=== PATIENT | female | born 1990 | race Caucasian/White ===

== ENCOUNTER 2018-03-21 13:28 | Emergency (ER) | payer MEDICAID ==
--- NOTE | 2018-03-21 13:54 | EDM.PDOC ---
ED HPI GENERAL MEDICAL PROBLEM - General Chief Complaint: Abdominal Pain Stated Complaint: RT SIDE HURTS Time Seen by Provider: 03/21/18 13:54 Source of Information: Reports: Patient History Limitations: Reports: No Limitations - History of Present Illness INITIAL COMMENTS - FREE TEXT/NARRATIVE: HISTORY AND PHYSICAL: History of present illness: Patient is a 27-year-old female here with complaint of RUQ pain. She states she had her gallbladder removed on 03/01 in [place], she reports it felt better for a little while but states pain came back as if she never had it removed. She has been nausea and vomited a couple of times today and has had diarrhea. She states the pain is constant but worse after she eats. She denies any fevers, chills, chest pain, shortness of breath. Review of systems: As per history of present illness and below otherwise all systems reviewed and negative. Past medical history: As per history of present illness and as reviewed below otherwise noncontributory. Surgical history: As per history of present illness and as reviewed below otherwise noncontributory. Social history: No reported history of drug or alcohol abuse. Family history: As per history of present illness and as reviewed below otherwise noncontributory. Physical exam: General: Patient sitting comfortably in no acute distress and nontoxic appearing HEENT: Atraumatic, normocephalic, pupils reactive, negative for conjunctival pallor or scleral icterus, mucous membranes moist, throat clear, neck supple, nontender, trachea midline. No meningeal signs. Lungs: Clear to auscultation, breath sounds equal bilaterally, chest nontender. Heart: S1S2, regular, negative for clicks, rubs, or overt murmur. Abdomen: RUQ pain on palpation. Soft, nondistended. Negative for masses or hepatosplenomegaly. Right CVA tenderness. Pelvis: Stable nontender. Genitourinary: Deferred. Rectal: Deferred. Extremities: Atraumatic, negative for cords or calf pain. Neurovascular unremarkable. Neuro: Awake, alert, oriented. Cranial nerves II through XII unremarkable. Cerebellum unremarkable. Motor and sensory unremarkable throughout. Exam nonfocal. Notes: Diagnostics: CBC, CMP, lipase, UA, UC, CT scan Therapeutics: None Prescriptions: Cipro 500mg Impression: Pyelonephritis Plan: 1. Take antibiotic as instructed. Drink plenty of fluids. 2. Follow up with primary care provider, please call number provider to schedule appointment. 3. Return to ED as needed as discussed Definitive disposition and diagnosis as appropriate pending reevaluation and review of above. Right Abdomen Pain Score (Numeric/FACES): 8 - Related Data Allergies Allergy/AdvReac Type Severity Reaction Status Date / Time codeine Allergy Hives Verified 03/21/18 13:52 metronidazole [From Flagyl] Allergy Hives Verified 03/21/18 13:52 morphine Allergy Airway Verified 03/21/18 13:52 Tightness Penicillins Allergy Hives Verified 03/21/18 13:52 Sulfa (Sulfonamide Allergy Hives Verified 03/21/18 13:52 Antibiotics) Home Meds: Home Meds Cetirizine [ZyrTEC] 10 mg PO DAILY 03/21/18 [History] Ciprofloxacin HCl [Cipro] 500 mg PO BID 7 Days #14 tablet 03/21/18 [Rx] Ferrous Sulfate [Iron] 1 tab PO DAILY 03/21/18 [History] Lisinopril 10 mg PO DAILY 03/21/18 [History] Metoprolol Succinate 25 mg PO DAILY 03/21/18 [History] Montelukast [Singulair] 10 mg PO DAILY 03/21/18 [History] Omeprazole 20 mg PO DAILY 03/21/18 [History] Sertraline HCl [Zoloft] 200 mg PO DAILY 03/21/18 [History] Warfarin [Coumadin] 5 mg PO DAILY 03/21/18 [History] ED ROS GENERAL - Review of Systems Review Of Systems: ROS reveals no pertinent complaints other than HPI. ED EXAM, GI/ABD - Physical Exam Exam: See Below (see dictation) Course - Vital Signs Last Recorded V/S: Last Vital Signs Temp 36.8 C 03/21/18 13:46 Pulse 79 03/21/18 16:59 Resp 16 03/21/18 13:46 BP 128/86 03/21/18 16:59 Pulse Ox 99 03/21/18 16:59 - Orders/Labs/Meds Orders: Active Orders 24 hr Category Date Time Status CULTURE URINE [RM] Stat Lab 03/21/18 16:20 Received Labs: Laboratory Tests 03/21/18 03/21/18 03/21/18 Range/Units 14:20 14:20 16:20 WBC 14.25 H (4.0-11.0) K/uL RBC 4.00 L (4.30-5.90) M/uL Hgb 12.5 (12.0-16.0) g/dL Hct 37.6 (36.0-46.0) % MCV 94.0 (80.0-98.0) fL MCH 31.3 (27.0-32.0) pg MCHC 33.2 (31.0-37.0) g/dL RDW Std Deviation 46.0 (28.0-62.0) fl RDW Coeff of Lashay 13 (11.0-15.0) % Plt Count 266 (150-400) K/uL MPV 10.50 (7.40-12.00) fL Neut % (Auto) 71.7 (48.0-80.0) % Lymph % (Auto) 17.9 (16.0-40.0) % Hardin % (Auto) 6.2 (0.0-15.0) % Eos % (Auto) 4.1 (0.0-7.0) % Baso % (Auto) 0.1 (0.0-1.5) % Neut # (Auto) 10.2 H (1.4-5.7) K/uL Lymph # (Auto) 2.6 H (0.6-2.4) K/uL Hardin # (Auto) 0.9 H (0.0-0.8) K/uL Eos # (Auto) 0.6 (0.0-0.7) K/uL Baso # (Auto) 0.0 (0.0-0.1) K/uL Nucleated RBC % 0.0 /100WBC Nucleated RBCs # 0 K/uL Sodium 139 (136-145) mmol/L Potassium 4.2 (3.5-5.1) mmol/L Chloride 107 (98-107) mmol/L Carbon Dioxide 22.1 (21.0-32.0) mmol/L BUN 25 H (7.0-18.0) mg/dL Creatinine 0.7 (0.6-1.0) mg/dL Est Cr Clr Drug Dosing 98.98 mL/min Estimated GFR (MDRD) > 60.0 ml/min Glucose 135 H (74-106) mg/dL Calcium 8.5 (8.5-10.1) mg/dL Total Bilirubin 0.4 (0.2-1.0) mg/dL AST 6 L (15-37) IU/L ALT 18 (14-63) IU/L Alkaline Phosphatase 74 (46-116) U/L Total Protein 6.9 (6.4-8.2) g/dL Albumin 4.0 (3.4-5.0) g/dL Globulin 2.9 (2.0-3.5) g/dL Albumin/Globulin Ratio 1.4 (1.3-2.8) Lipase 121 (73-393) U/L Urine Color YELLOW Urine Appearance CLEAR Urine pH 6.0 (5.0-8.0) Ur Specific Reliance 1.015 (1.001-1.035) Urine Protein NEGATIVE (NEGATIVE) mg/dL Urine Glucose (UA) NEGATIVE (NEGATIVE) mg/dL Urine Ketones NEGATIVE (NEGATIVE) mg/dL Urine Occult Blood TRACE-LYSED (NEGATIVE) Urine Nitrite NEGATIVE (NEGATIVE) Urine Bilirubin NEGATIVE (NEGATIVE) Urine Urobilinogen 0.2 (<2.0) EU/dL Ur Leukocyte Esterase NEGATIVE (NEGATIVE) Urine RBC 1-2 (0-2/HPF) Urine WBC 0-1 (0-5/HPF) Ur Epithelial Cells RARE (NONE-FEW) Urine Bacteria RARE (NEGATIVE) Meds: Medications Discontinued Medications Generic Name Dose Route Start Last Admin Trade Name Freq PRN Reason Stop Dose Admin Sodium Chloride 1,000 mls @ 999 mls/hr 03/21/18 13:59 03/21/18 15:29 Normal Saline IV 03/21/18 14:59 999 mls/hr STAT ONE Administration Departure - Departure Time of Disposition: 17:09 Disposition: Home, Self-Care 01 Condition: Good Clinical Impression: Pyelonephritis - Discharge Information Prescriptions: Ciprofloxacin HCl [Cipro] 500 mg PO BID 7 Days #14 tablet Referrals: PCP,None [Primary Care Provider] - Forms: ED Department Discharge Additional Instructions: The following information is given to patients seen in the emergency department who are being discharged to home. This information is to outline your options for follow-up care. We provide all patients seen in our emergency department with a follow-up referral. The need for follow-up, as well as the timing and circumstances, are variable depending upon the specifics of your emergency department visit. If you don't have a primary care physician on staff, we will provide you with a referral. We always advise you to contact your personal physician following an emergency department visit to inform them of the circumstance of the visit and for follow-up with them and/or the need for any referrals to a consulting specialist. The emergency department will also refer you to a specialist when appropriate. This referral assures that you have the opportunity for follow-up care with a specialist. All of these measure are taken in an effort to provide you with optimal care, which includes your follow-up. Under all circumstances we always encourage you to contact your private physician who remains a resource for coordinating your care. When calling for follow-up care, please make the office aware that this follow-up is from your recent emergency room visit. If for any reason you are refused follow-up, please contact the [facility] Emergency Department at and asked to speak to the emergency department charge nurse. [facility] [address] [place] [address] [id number] [address] [address] 1. Take antibiotic as instructed. Drink plenty of fluids. 2. Follow up with primary care provider, please call number provider to schedule appointment. 3. Return to ED as needed as discussed - My Orders Last 24 Hours: My Active Orders 03/21/18 16:20 CULTURE URINE [RM] Stat - Assessment/Plan Last 24 Hours: My Active Orders 03/21/18 16:20 CULTURE URINE [RM] Stat
[2018-03-21] MEDS ORDERED: Sodium Chloride 0.9% 1,000 ML IV ONE (13:59)
[2018-03-21 14:50] LABS: CHLORIDE,CL 107 mmol/L (98-107); SODIUM,NA 139 mmol/L (136-145)
--- NOTE | 2018-03-21 16:12 | CT ---
CT of the abdomen and pelvis with contrast. HISTORY: Pain TECHNIQUE: Axial CT images were obtained of the abdomen and pelvis following administration of 100 mL of Isovue-370 in the right antecubital fossa without complication. Coronal and sagittal reconstructions obtained. FINDINGS: The lung bases are clear, no pleural effusion or pneumothorax. The liver, spleen, adrenal glands, and pancreas appear normal. Cholecystectomy clips are noted. No bulky retroperitoneal lymphadenopathy or abdominal ascites. There is mild heterogeneous enhancement of the kidneys bilaterally with a striated appearance. The large and small bowel are normal in caliber without evidence of obstruction. No focal pericolonic inflammation or stranding. There is an involuting cyst within the right ovary. Urinary bladder appears normal. No bulky pelvic lymphadenopathy or free pelvic fluid. No suspicious osseous abnormalities identified. IMPRESSION: 1. Striated appearance to the kidneys likely representing pyelonephritis. 2. Otherwise no acute findings noted within the abdomen or pelvis.
[2018-03-21] MEDS ORDERED: Iopamidol 755 MG/ML 500 ML Multipack Bottle IVPUSH STA (18:13)
== END 2018-03-21 17:20 | disposition home or self-care (01) ==
LOC: MW.ED 13:28
DX: N12 Tubulo-interstitial nephritis, not specified as acute or chronic (principal); Z88.5 Allergy status to narcotic agent; Z88.2 Allergy status to sulfonamides; Z88.0 Allergy status to penicillin; Z79.899 Other long term (current) drug therapy
CPT/HCPCS: 36415; 74177; 80053; 81001; 83690; 85025; 87086; 96360; 99284; J7040; Q9967

== ENCOUNTER 2018-06-27 21:07 | Emergency (ER) | payer MEDICAID ==
--- NOTE | 2018-06-27 21:31 | EDM.PDOC ---
<Thais Chan - Last Filed: 06/27/18 22:00> ED HPI GENERAL MEDICAL PROBLEM - General Chief Complaint: Back Pain or Injury Stated Complaint: RIGHT HIP PAIN AND BACK PAIN Time Seen by Provider: 06/27/18 21:25 Source of Information: Reports: Patient History Limitations: Reports: No Limitations - History of Present Illness INITIAL COMMENTS - FREE TEXT/NARRATIVE: HISTORY AND PHYSICAL: History of present illness: Patient is a 27-year-old female here with complaint of low back and right hip pain. She states she fell on the ice 2 days ago landing on her right side. She has been taking tylenol at home without relief of symptoms. She denies saddle anesthesia, loss of bowel or bladder control, lower extremity weakness or foot drop. She denies hitting or head or LOC. Patient walked in to ED without any problems. Review of systems: As per history of present illness and below otherwise all systems reviewed and negative. Past medical history: As per history of present illness and as reviewed below otherwise noncontributory. Surgical history: As per history of present illness and as reviewed below otherwise noncontributory. Social history: No reported history of drug or alcohol abuse. Family history: As per history of present illness and as reviewed below otherwise noncontributory. Physical exam: General: Patient sitting comfortably in no acute distress and nontoxic appearing HEENT: Atraumatic, normocephalic, pupils reactive, negative for conjunctival pallor or scleral icterus, mucous membranes moist, throat clear, neck supple, nontender, trachea midline. No meningeal signs. Lungs: Clear to auscultation, breath sounds equal bilaterally, chest nontender. Heart: S1S2, regular, negative for clicks, rubs, or overt murmur. Abdomen: Soft, nondistended, nontender. Negative for masses or hepatosplenomegaly. Negative for costovertebral tenderness. Pelvis: Stable nontender. Genitourinary: Deferred. Rectal: Deferred. Spine: No vertebral tenderness or step offs to palpation. Right lumbar paraspinal and SI joint tenderness Extremities: Pain to palpation of right lateral hip. Normal ROM without pain. Lower extremity strength 5/5. Atraumatic, negative for cords or calf pain. Neurovascular unremarkable. Neuro: Awake, alert, oriented. Cranial nerves II through XII unremarkable. Cerebellum unremarkable. Motor and sensory unremarkable throughout. Exam nonfocal. Notes: Diagnostics: x-ray lumbar spine, x-ray right hip and pelvis Therapeutics: [place] 5/325mg PO Prescriptions: Impression: [] Plan: Signed out to Dr. Lopes at 2200 Definitive disposition and diagnosis as appropriate pending reevaluation and review of above. Right Back Pain Score (Numeric/FACES): 9 - Related Data Allergies Allergy/AdvReac Type Severity Reaction Status Date / Time codeine Allergy Hives Verified 06/27/18 21:20 metronidazole [From Flagyl] Allergy Hives Verified 06/27/18 21:20 morphine Allergy Airway Verified 06/27/18 21:20 Tightness Penicillins Allergy Hives Verified 06/27/18 21:20 Sulfa (Sulfonamide Allergy Hives Verified 06/27/18 21:20 Antibiotics) Home Meds: Home Meds Cetirizine [ZyrTEC] 10 mg PO DAILY 03/21/18 [History] Ferrous Sulfate [Iron] 1 tab PO DAILY 03/21/18 [History] Lisinopril 10 mg PO DAILY 03/21/18 [History] Metoprolol Succinate 25 mg PO DAILY 03/21/18 [History] Montelukast [Singulair] 10 mg PO DAILY 03/21/18 [History] Omeprazole 20 mg PO DAILY 03/21/18 [History] Sertraline HCl [Zoloft] 200 mg PO DAILY 03/21/18 [History] Warfarin [Coumadin] 5 mg PO DAILY 03/21/18 [History] Past Medical History Cardiovascular 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: Hypertension Respiratory 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: Asthma Other Respiratory History: PE Other CHILD MONITOR History: tubal ligation Psychiatric 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: Depression - Infectious Disease History Infectious Disease 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: Chicken Pox - Past Surgical History GI Surgical 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: Appendectomy, Cholecystectomy Social & Family History - Family History Family Medical History: Noncontributory - Caffeine Use Caffeine Use: Reports: Coffee ED ROS GENERAL - Review of Systems Review Of Systems: ROS reveals no pertinent complaints other than HPI. ED EXAM,LOWER BACK PAIN/INJURY - Physical Exam Exam: See Below (see dictation) Course - Vital Signs Last Recorded V/S: Last Vital Signs Temp 36.6 C 06/27/18 21:18 Pulse 88 06/27/18 21:18 Resp 16 06/27/18 21:18 BP 139/89 06/27/18 21:18 Pulse Ox 99 06/27/18 21:18 - Orders/Labs/Meds Orders: Active Orders 24 hr Category Date Time Status Hip Min 2V or 3V w Pelvis Rt [CR] Stat Exams 06/27/18 21:26 Taken Lumbar Spine 2 or 3V [CR] Stat Exams 06/27/18 21:26 Taken Meds: Medications Discontinued Medications Generic Name Dose Route Start Last Admin Trade Name Darshana PRN Reason Stop Dose Admin Hydrocodone Bitart/Acetaminophen 1 tab 06/27/18 21:42 06/27/18 22:07 [place] 325-5 Mg PO 06/27/18 21:43 1 tab ONETIME ONE Administration Departure - Departure Disposition: Home, Self-Care 01 Clinical Impression: Fall Qualifiers: Encounter type: initial encounter Qualified Code(s): W19.XXXA - Unspecified fall, initial encounter Back contusion Qualifiers: Encounter type: initial encounter Laterality: unspecified laterality Qualified Code(s): S20.229A - Contusion of unspecified back wall of thorax, initial encounter Contusion, hip Qualifiers: Encounter type: initial encounter Laterality: right Qualified Code(s): S70.01XA - Contusion of right hip, initial encounter - Discharge Information Referrals: PCP,None [Primary Care Provider] - Forms: ED Department Discharge Additional Instructions: The following information is given to patients seen in the emergency department who are being discharged to home. This information is to outline your options for follow-up care. We provide all patients seen in our emergency department with a follow-up referral. The need for follow-up, as well as the timing and circumstances, are variable depending upon the specifics of your emergency department visit. If you don't have a primary care physician on staff, we will provide you with a referral. We always advise you to contact your personal physician following an emergency department visit to inform them of the circumstance of the visit and for follow-up with them and/or the need for any referrals to a consulting specialist. The emergency department will also refer you to a specialist when appropriate. This referral assures that you have the opportunity for followup care with a specialist. All of these measure are taken in an effort to provide you with optimal care, which includes your followup. Under all circumstances we always encourage you to contact your private physician who remains a resource for coordinating your care. When calling for followup care, please make the office aware that this follow-up is from your recent emergency room visit. If for any reason you are refused follow-up, please contact the [facility] emergency department at and ask to speak to the emergency department charge nurse. [facility] Primary care- Internal Medicine and Family [address] [address] Use ice to all areas of pain and use [id number] meds as you choose as well as any topicals to assist with pain management. Expect pain for the next several days and then it should slowly improve. Try to stretch and move the areas to keep all the muscles open. Please schedule follow-up with your provider in the clinic for the benign lesion that was seen in the bone of your right femur. This does not need emergent follow-up but should be evaluated in the clinic. Return to ER as needed and as discussed <Haley Lopes - Last Filed: 06/27/18 22:35> ED HPI GENERAL MEDICAL PROBLEM - History of Present Illness INITIAL COMMENTS - FREE TEXT/NARRATIVE: X-rays have been reviewed and the sclerotic lesion in the femoral neck has been discussed with the patient for outpatient follow-up. Impression: Fall with right hip and back contusions ED ROS GENERAL - Review of Systems Review Of Systems: ROS reveals no pertinent complaints other than HPI. Departure - Departure Time of Disposition: 22:33 Condition: Good
[2018-06-27] MEDS ORDERED: Acetaminophen/HYDROcodone 325-5 MG Tab PO ONE (21:42)
--- NOTE | 2018-06-30 15:09 | CR ---
EXAM DATE: 06/27/18 PATIENT'S AGE: 27 Patient: JAYLEN BUTTS Facility: [place], [place] Site . Site : 1990 Study: XRay Hip Right +Pelvis [id number]/[id number] 10:06:12 PM Ordering Physician: Doctor Correa Final Report: Indication: Pain Technique: Frontal view pelvis, two-view right hip Comparison: None Findings: Bones: Alignment is normal. No fractures. There is a 1.4 cm sclerotic lesion in the right femoral neck. Joint spaces: Unremarkable. Soft tissues: Surgical clips project over the pelvis. Impression: No acute abnormality. Sclerotic lesion in the right femoral neck. Although this could represent a benign bone island, if the patient`s pain persists recommend nuclear medicine bone scan for further characterization. Dictated by Carrie Stearns MD @ Jun 27 2018 10:09PM (Electronic Signature) Report Signed by Proxy. BOO
--- NOTE | 2018-06-30 15:23 | CR ---
EXAM DATE: 06/27/18 PATIENT'S AGE: 27 Patient: JAYLEN BUTTS Facility: [place], [place] Site . Site : 1990 Study: XRay Spine Lumbar [id number] 10:21:37 PM Ordering Physician: Doctor Correa Final Report: INDICATION: Back pain TECHNIQUE: Lumbar spine 3 view COMPARISON: None FINDINGS: Bones: Alignment is normal. No fractures or significant bone lesions. Joints: Disc spaces and facets are unremarkable. Soft tissues: Unremarkable. IMPRESSION: Unremarkable lumbar spine. Dictated by Husam Crews MD @ Jun 27 2018 10:30PM (Electronic Signature) Report Signed by Proxy. BOO
== END 2018-06-27 22:52 | disposition home or self-care (01) ==
LOC: MW.ED 21:07
DX: S70.01XA Contusion of right hip, initial encounter (principal); S20.221A Contusion of right back wall of thorax, initial encounter; I10 Essential (primary) hypertension; J45.909 Unspecified asthma, uncomplicated; F32.9 Major depressive disorder, single episode, unspecified; Z79.899 Other long term (current) drug therapy; Z88.0 Allergy status to penicillin; Z88.2 Allergy status to sulfonamides; Z88.5 Allergy status to narcotic agent; Z88.8 Allergy status to other drugs, medicaments and biological substances; Z79.01 Long term (current) use of anticoagulants; W00.0XXA Fall on same level due to ice and snow, initial encounter
CPT/HCPCS: 72100; 73502; 99283; A9270

== ENCOUNTER 2018-07-05 20:28 | Emergency (ER) | payer MEDICAID ==
--- NOTE | 2018-07-05 20:36 | EDM.PDOC ---
ED HPI GENERAL MEDICAL PROBLEM - General Chief Complaint: Back Pain or Injury Stated Complaint: BACK PAIN Time Seen by Provider: 07/05/18 20:36 Source of Information: Reports: Patient History Limitations: Reports: No Limitations - History of Present Illness INITIAL COMMENTS - FREE TEXT/NARRATIVE: HISTORY AND PHYSICAL: History of present illness: Patient is a 27-year-old female who presents to the emergency room with complaints of lumbar back pain and pain into the right hip. She states yesterday she was walking and had slipped and fallen on her back/right hip. She denies hitting her head or any loss of consciousness. She states she did have back pain and hip pain at that time but was doing supportive care measures at home. Today while in the shower she had slipped on some soap and had fallen again onto her right hip. She states that she has increased pain. Denies any numbness or tingling to her distal extremities. Denies any urinary or fecal incontinence. Otherwise has no other medical concerns. Patient does take Coumadin for a blood caught that she had after delivery of her child, approximately 10 months ago. She states she has not had her PT/INR evaluated as [place] and did not have a primary care provider Review of systems: As per history of present illness and below otherwise all systems reviewed and negative. Past medical history: As per history of present illness and as reviewed below otherwise noncontributory. Surgical history: As per history of present illness and as reviewed below otherwise noncontributory. Social history: See social history for further information Family history: As per history of present illness and as reviewed below otherwise noncontributory. Physical exam: General: Well-developed and well nourished 27-year-old female. Alert and oriented. Nontoxic appearing and in no acute distress. HEENT: Atraumatic, normocephalic, pupils equal and reactive bilaterally, negative for conjunctival pallor or scleral icterus, mucous membranes moist, TMs normal bilaterally, throat clear, neck supple, nontender, trachea midline. No drooling or trismus noted. No meningeal signs. No hot potato voice noted. Lungs: Clear to auscultation, breath sounds equal bilaterally, chest nontender. Heart: S1S2, regular rate and rhythm without overt murmur Abdomen: Soft, nondistended, nontender. Negative for masses or hepatosplenomegaly. Negative for costovertebral tenderness. Pelvis: Stable nontender. Genitourinary: Deferred. Rectal: Deferred. Skin: Intact, warm, dry. No lesions or rashes noted. Extremities: Moves all extremities per self without difficulty or deficits, denies any numbness or tingling to her distal extremities. Does have some pain to the right posterior hip. She is negative for cords or calf pain. Neurovascular unremarkable. C-spine/Back: No pinpoint vertebral tenderness upon palpation. No crepitus, step -off serviced deformities. Patient was ambulatory into the emergency room without any difficulty or deficits. She denies any numbness or tingling. Those. She does have some paraspinous muscular tenderness to the upper thoracic back although a to the lumbar spine. There is muscular pain that wraps into the left hip include muscle Neuro: Awake, alert, oriented. Cranial nerves II through XII unremarkable. Cerebellum unremarkable. Motor and sensory unremarkable throughout. Exam nonfocal. Notes: She declines the need for head or C-spine CT as she is adamant she did not hit her head. Agreeable to the x-rays and INR. PT/INR is subtherapeutic, we discussed the need for appropriate follow-up with the primary care provider. She was given education on the need for routine INR evaluation for medication adjustment. Diagnostics: INR, 2 view chest, lumbar x-ray, pelvis with right hip Therapeutics: Norflex Prescription: [place] (#20) Impression: Back pain Right hip injury Plan: 1. Rest and gentle heat to the area as needed. 2. Ibuprofen routinely as directed with food. 3. Please follow-up with your primary care provider on Saturday for management of your home medications and ER follow-up. 4. Return to the ED as needed and as discussed. Definitive disposition and diagnosis as appropriate pending reevaluation and review of above. back Pain Score (Numeric/FACES): 9 - Related Data Allergies Allergy/AdvReac Type Severity Reaction Status Date / Time codeine Allergy Hives Verified 07/05/18 20:36 metronidazole [From Flagyl] Allergy Hives Verified 07/05/18 20:36 morphine Allergy Airway Verified 07/05/18 20:36 Tightness Penicillins Allergy Hives Verified 07/05/18 20:36 Sulfa (Sulfonamide Allergy Hives Verified 07/05/18 20:36 Antibiotics) Home Meds: Home Meds Cetirizine [ZyrTEC] 10 mg PO DAILY 03/21/18 [History] Ferrous Sulfate [Iron] 1 tab PO DAILY 03/21/18 [History] Lisinopril 10 mg PO DAILY 03/21/18 [History] Metoprolol Succinate 25 mg PO DAILY 03/21/18 [History] Montelukast [Singulair] 10 mg PO DAILY 03/21/18 [History] Omeprazole 20 mg PO DAILY 03/21/18 [History] Sertraline HCl [Zoloft] 200 mg PO DAILY 03/21/18 [History] Warfarin [Coumadin] 5 mg PO DAILY 03/21/18 [History] Past Medical History Cardiovascular 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: Hypertension Respiratory 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: Asthma Other Respiratory History: PE 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 ED EXAM,LOWER BACK PAIN/INJURY - Physical Exam Exam: See Below (See dictation) Course - Vital Signs Last Recorded V/S: Last Vital Signs Temp 98.2 F 07/05/18 20:38 Pulse 93 07/05/18 20:38 Resp 18 07/05/18 20:38 BP 129/80 07/05/18 20:38 Pulse Ox 98 07/05/18 20:38 - Orders/Labs/Meds Orders: Active Orders 24 hr Category Date Time Status Chest 2V [CR] Stat Exams 07/05/18 20:46 Taken Hip Min 2V or 3V w Pelvis Rt [CR] Stat Exams 07/05/18 20:46 Taken Lumbar Spine 2 or 3V [CR] Stat Exams 07/05/18 20:46 Taken Labs: Laboratory Tests 07/05/18 Range/Units 20:57 INR 0.95 Meds: Medications Discontinued Medications Generic Name Dose Route Start Last Admin Trade Name Freq PRN Reason Stop Dose Admin Orphenadrine Citrate 60 mg 07/05/18 20:44 07/05/18 20:49 Norflex IM 07/05/18 20:45 60 mg NOW STA Administration Departure - Departure Time of Disposition: 21:48 Disposition: Home, Self-Care 01 Clinical Impression: Back pain Qualifiers: Back pain location: low back pain Chronicity: acute Back pain laterality: bilateral Sciatica presence: without sciatica Qualified Code(s): M54.5 - Low back pain Injury of right hip Qualifiers: Encounter type: initial encounter Qualified Code(s): S79.911A - Unspecified injury of right hip, initial encounter - Discharge Information Instructions: Back Pain, Adult, [id number] Referrals: PCP,None [Primary Care Provider] - Forms: ED Department Discharge Additional Instructions: The following information is given to patients seen in the emergency department who are being discharged to home. This information is to outline your options for follow-up care. We provide all patients seen in our emergency department with a follow-up referral. The need for follow-up, as well as the timing and circumstances, are variable depending upon the specifics of your emergency department visit. If you don't have a primary care physician on staff, we will provide you with a referral. We always advise you to contact your personal physician following an emergency department visit to inform them of the circumstance of the visit and for follow-up with them and/or the need for any referrals to a consulting specialist. The emergency department will also refer you to a specialist when appropriate. This referral assures that you have the opportunity for follow-up care with a specialist. All of these measure are taken in an effort to provide you with optimal care, which includes your follow-up. Under all circumstances we always encourage you to contact your private physician who remains a resource for coordinating your care. When calling for follow-up care, please make the office aware that this follow-up is from your recent emergency room visit. If for any reason you are refused follow-up, please contact the [facility] Emergency Department at and asked to speak to the emergency department charge nurse. [facility] [address] [place] [id number] [place] [address] 1. Rest and gentle heat to the area as needed. 2. Ibuprofen routinely as directed with food. 3. Please follow-up with your primary care provider on Saturday for management of your home medications and ER follow-up. 4. Return to the ED as needed and as discussed. - My Orders Last 24 Hours: My Active Orders 07/05/18 20:46 Chest 2V [CR] Stat Hip Min 2V or 3V w Pelvis Rt [CR] Stat Lumbar Spine 2 or 3V [CR] Stat - Assessment/Plan Last 24 Hours: My Active Orders 07/05/18 20:46 Chest 2V [CR] Stat Hip Min 2V or 3V w Pelvis Rt [CR] Stat Lumbar Spine 2 or 3V [CR] Stat
--- NOTE | 2018-07-05 22:21 | CR ---
INDICATION: Status post fall TECHNIQUE: AP view of the pelvis and two views of right hip COMPARISON: 06/27/2018 FINDINGS AND IMPRESSION: Normal alignment. No fracture. A 1.4 cm sclerotic lesion is again noted in the right femoral neck, nonspecific. Surgical clips project over the pelvis. Dictated by Rubina Tucker MD @ 07/05/2018 10:19:27 PM Dictated by: Rubina Tucker MD @ 07/05/2018 22:19:33 (Electronically Signed)
--- NOTE | 2018-07-05 22:21 | CR ---
INDICATION: Status post fall TECHNIQUE: Lumbar spine 3 views COMPARISON: 06/27/2018 FINDINGS AND IMPRESSION: Normal lumbar lordosis. Normal alignment. Vertebral body heights are maintained. No significant degenerative changes. Surgical clips project over the pelvis and right hemiabdomen. Dictated by Rubina Tucker MD @ 07/05/2018 10:20:52 PM Dictated by: Rubina Tucker MD @ 07/05/2018 22:20:57 (Electronically Signed)
--- NOTE | 2018-07-05 22:38 | CR ---
INDICATION: Status post fall TECHNIQUE: Chest 2 views. COMPARISON: None FINDINGS: Cardiomediastinal silhouette: Within normal limits. Lungs and pleural spaces: No focal consolidation. No pulmonary edema. No pleural effusion or pneumothorax. Bones and soft tissues: No displaced rib fractures. Surgical clips project over the upper abdomen. IMPRESSION: No acute pulmonary process. Dictated by Rubina Tucker MD @ 07/05/2018 10:36:05 PM Dictated by: Rubina Tucker MD @ 07/05/2018 22:36:09 (Electronically Signed)
== END 2018-07-05 22:40 | disposition home or self-care (01) ==
LOC: MW.ED 20:28
DX: S79.911A Unspecified injury of right hip, initial encounter (principal); M54.5 Low back pain; I10 Essential (primary) hypertension; J45.909 Unspecified asthma, uncomplicated; Z79.01 Long term (current) use of anticoagulants; Z88.5 Allergy status to narcotic agent; Z88.8 Allergy status to other drugs, medicaments and biological substances; Z79.899 Other long term (current) drug therapy; W01.0XXA Fall on same level from slipping, tripping and stumbling without subsequent striking against object, initial encounter; F17.210 Nicotine dependence, cigarettes, uncomplicated
CPT/HCPCS: 36415; 71046; 72100; 73502; 85610; 96372; 99283; J2360

== ENCOUNTER 2018-08-31 18:24 | Emergency (ER) | payer MEDICAID ==
--- NOTE | 2018-08-31 18:40 | EDM.PDOC ---
ED HPI GENERAL MEDICAL PROBLEM - General Chief Complaint: Respiratory Problem Stated Complaint: COUGH Time Seen by Provider: 08/31/18 18:35 - History of Present Illness INITIAL COMMENTS - FREE TEXT/NARRATIVE: HISTORY AND PHYSICAL: History of present illness: Patient 28-year-old white female presents with a concern of cough and sore throat times last 2-3 days. She denies shortness of breath nausea vomiting fever chills or other complaints Review of systems: As per history of present illness and below otherwise all systems reviewed and negative. Past medical history: As per history of present illness and as reviewed below otherwise noncontributory. Surgical history: As per history of present illness and as reviewed below otherwise noncontributory. Social history: No reported history of drug or alcohol abuse. Family history: As per history of present illness and as reviewed below otherwise noncontributory. Physical exam: HEENT: Atraumatic, normocephalic, pupils reactive, negative for conjunctival pallor or scleral icterus, mucous membranes moist, throat injected no peritonsillar fullness no uvular deviation no trismus. They have voiced, neck supple, nontender, trachea midline. Lungs: Clear to auscultation, breath sounds equal bilaterally, chest nontender. Heart: S1S2, regular, negative for clicks, rubs, or JVD. Abdomen: Soft, nondistended, nontender. Negative for masses or hepatosplenomegaly. Negative for costovertebral tenderness. Pelvis: Stable nontender. Genitourinary: Deferred. Rectal: Deferred. Extremities: Atraumatic, negative for cords or calf pain. Neurovascular unremarkable. Neuro: Awake, alert, oriented. Cranial nerves II through XII unremarkable. Cerebellum unremarkable. Motor and sensory unremarkable throughout. Exam nonfocal. Diagnostics: Deferred Therapeutics: None Impression: #1 pharyngitis #2 tracheobronchitis Definitive disposition and diagnosis as appropriate pending reevaluation and review of above. - Related Data Allergies Allergy/AdvReac Type Severity Reaction Status Date / Time codeine Allergy Hives Verified 07/05/18 20:36 metronidazole [From Flagyl] Allergy Hives Verified 07/05/18 20:36 morphine Allergy Airway Verified 07/05/18 20:36 Tightness Penicillins Allergy Hives Verified 07/05/18 20:36 Sulfa (Sulfonamide Allergy Hives Verified 07/05/18 20:36 Antibiotics) Home Meds: Home Meds Cetirizine [ZyrTEC] 10 mg PO DAILY 03/21/18 [History] Ferrous Sulfate [Iron] 1 tab PO DAILY 03/21/18 [History] Lisinopril 10 mg PO DAILY 03/21/18 [History] Metoprolol Succinate 25 mg PO DAILY 03/21/18 [History] Montelukast [Singulair] 10 mg PO DAILY 03/21/18 [History] Omeprazole 20 mg PO DAILY 03/21/18 [History] Sertraline HCl [Zoloft] 200 mg PO DAILY 03/21/18 [History] Warfarin [Coumadin] 5 mg PO DAILY 03/21/18 [History] Past Medical History Cardiovascular 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: Hypertension Respiratory 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: Asthma Other Respiratory History: PE 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 ED EXAM, GENERAL - Physical Exam Exam: See Below (See dictation) Departure - Departure Time of Disposition: 18:39 Disposition: Home, Self-Care 01 Condition: Good Clinical Impression: Pharyngitis, Tracheobronchitis - Discharge Information Referrals: PCP,Unknown [Primary Care Provider] - Additional Instructions: The following information is given to patients seen in the emergency department who are being discharged to home. This information is to outline your options for follow-up care. We provide all patients seen in our emergency department with a follow-up referral. The need for follow-up, as well as the timing and circumstances, are variable depending upon the specifics of your emergency department visit. If you don't have a primary care physician on staff, we will provide you with a referral. We always advise you to contact your personal physician following an emergency department visit to inform them of the circumstance of the visit and for follow-up with them and/or the need for any referrals to a consulting specialist. The emergency department will also refer you to a specialist when appropriate. This referral assures that you have the opportunity for followup care with a specialist. All of these measure are taken in an effort to provide you with optimal care, which includes your followup. Under all circumstances we always encourage you to contact your private physician who remains a resource for coordinating your care. When calling for followup care, please make the office aware that this follow-up is from your recent emergency room visit. If for any reason you are refused follow-up, please contact the [facility] emergency department at and asked to speak to the emergency department charge nurse. Clindamycin albuterol as prescribed follow-up primary medical doctor as needed discuss return as needed as discussed
== END 2018-08-31 19:38 | disposition home or self-care (01) ==
LOC: MW.ED 18:24
DX: J40 Bronchitis, not specified as acute or chronic (principal); J02.9 Acute pharyngitis, unspecified; Z88.5 Allergy status to narcotic agent; Z88.2 Allergy status to sulfonamides
CPT/HCPCS: 87081; 87880-QW; 99283

== ENCOUNTER 2018-09-20 17:39 | Emergency (ER) | payer MEDICAID ==
--- NOTE | 2018-09-20 17:52 | EDM.PDOC ---
<Nayely Doty - Last Filed: 09/20/18 19:44> ED HPI GENERAL MEDICAL PROBLEM - General Chief Complaint: Abdominal Pain Stated Complaint: LOWER ABDOMINAL PAIN Time Seen by Provider: 09/20/18 17:48 Source of Information: Reports: Patient History Limitations: Reports: No Limitations - History of Present Illness INITIAL COMMENTS - FREE TEXT/NARRATIVE: History of present illness: []She has had 3 days of lower abdominal and low back pain, orange-colored diarrhea and nausea. She has previously had a tubal ligation, cholecystectomy and appendectomy. She denies any fevers, chills, vomiting or chest pain. Review of systems: As per history of present illness and below otherwise all systems reviewed and negative. Past medical history: As per history of present illness and as reviewed below otherwise noncontributory. Surgical history: As per history of present illness and as reviewed below otherwise noncontributory. Social history: No reported history of drug or alcohol abuse. Family history: As per history of present illness and as reviewed below otherwise noncontributory. Physical exam: General: Well developed, well nourished in NAD HEENT: Atraumatic, normocephalic, pupils reactive, negative for conjunctival pallor or scleral icterus, mucous membranes moist, throat clear, neck supple, nontender, trachea midline. Lungs: Clear to auscultation, breath sounds equal bilaterally, chest nontender. Heart: S1S2, regular, negative for clicks, rubs, or JVD. Abdomen: NABS, Soft, nondistended, mild lower abdominal tenderness no rebound or guarding. Negative for masses or hepatosplenomegaly. Negative for costovertebral tenderness. Pelvis: Stable nontender. Genitourinary: Deferred. Rectal: Deferred. Extremities: Atraumatic, negative for cords or calf pain. Neurovascular unremarkable. Neuro: Awake, alert, oriented. Cranial nerves II through XII unremarkable. Cerebellum unremarkable. Motor and sensory unremarkable throughout. Exam nonfocal. Skin:warm and dry Diagnostics: CBC, chemistry, UA, hCG, Therapeutics: Normal saline, morphine, Zofran and Dilaudid ED Course: Improved Impression: Diarrhea Prescriptions: Plan: Signed out to Dr. Lopes to check labs, disposition with final diagnosis Definitive disposition and diagnosis as appropriate pending reevaluation and review of above. Abdominal Pain Score (Numeric/FACES): 8 - Related Data Allergies Allergy/AdvReac Type Severity Reaction Status Date / Time codeine Allergy Hives Verified 09/20/18 17:50 metronidazole [From Flagyl] Allergy Hives Verified 09/20/18 17:50 morphine Allergy Airway Verified 09/20/18 17:50 Tightness Penicillins Allergy Hives Verified 09/20/18 17:50 Sulfa (Sulfonamide Allergy Hives Verified 09/20/18 17:50 Antibiotics) tramadol Allergy Headache Verified 09/20/18 17:50 Home Meds: Home Meds Cetirizine [ZyrTEC] 10 mg PO DAILY 03/21/18 [History] Ferrous Sulfate [Iron] 1 tab PO DAILY 03/21/18 [History] Lisinopril 10 mg PO DAILY 03/21/18 [History] Metoprolol Succinate 25 mg PO DAILY 03/21/18 [History] Montelukast [Singulair] 10 mg PO DAILY 03/21/18 [History] Omeprazole 20 mg PO DAILY 03/21/18 [History] Sertraline HCl [Zoloft] 200 mg PO DAILY 03/21/18 [History] Past Medical History Cardiovascular 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: Hypertension Respiratory 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: Asthma Other Respiratory History: PE 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 ED EXAM, GI/ABD - Physical Exam Exam: See Below (See history of present illness) Course - Vital Signs Last Recorded V/S: Last Vital Signs Temp 36.1 C 09/20/18 17:51 Pulse 74 09/20/18 18:32 Resp 18 09/20/18 18:32 BP 105/65 09/20/18 18:32 Pulse Ox 96 09/20/18 18:32 - Orders/Labs/Meds Orders: Active Orders 24 hr Category Date Time Status Sodium Chloride 0.9% [Saline Flush] Med 09/20/18 17:53 Active 10 ml FLUSH ASDIRECTED PRN Sodium Chloride 0.9% [Saline Flush] Med 09/20/18 17:53 Active 2.5 ml FLUSH ASDIRECTED PRN Saline Lock Insert [OM.PC] Stat Oth 09/20/18 17:52 Ordered Medication Orders Sodium Chloride (Saline Flush) 10 ml FLUSH ASDIRECTED PRN PRN Reason: Keep Vein Open Last Admin: 09/20/18 18:33 Dose: 10 ml Sodium Chloride (Saline Flush) 2.5 ml FLUSH ASDIRECTED PRN PRN Reason: Keep Vein Open Last Admin: 09/20/18 18:33 Dose: 2.5 ml Labs: Laboratory Tests 09/20/18 09/20/18 09/20/18 Range/Units 18:20 18:20 18:23 WBC 8.43 (4.0-11.0) K/uL RBC 4.01 L (4.30-5.90) M/uL Hgb 12.9 (12.0-16.0) g/dL Hct 38.3 (36.0-46.0) % MCV 95.5 (80.0-98.0) fL MCH 32.2 H (27.0-32.0) pg MCHC 33.7 (31.0-37.0) g/dL RDW Std Deviation 43.6 (28.0-62.0) fl RDW Coeff of [place] 13 (11.0-15.0) % Plt Count 287 (150-400) K/uL MPV 10.50 (7.40-12.00) fL Neut % (Auto) 55.5 (48.0-80.0) % Lymph % (Auto) 33.3 (16.0-40.0) % [place] % (Auto) 7.1 (0.0-15.0) % Eos % (Auto) 3.9 (0.0-7.0) % Baso % (Auto) 0.2 (0.0-1.5) % Neut # (Auto) 4.7 (1.4-5.7) K/uL Lymph # (Auto) 2.8 H (0.6-2.4) K/uL [place] # (Auto) 0.6 (0.0-0.8) K/uL Eos # (Auto) 0.3 (0.0-0.7) K/uL Baso # (Auto) 0.0 (0.0-0.1) K/uL Nucleated RBC % 0.0 /100WBC Nucleated RBCs # 0 K/uL Sodium (136-145) mmol/L Potassium (3.5-5.1) mmol/L Chloride (98-107) mmol/L Carbon Dioxide (21.0-32.0) mmol/L BUN (7.0-18.0) mg/dL Creatinine (0.6-1.0) mg/dL Est Cr Clr Drug Dosing mL/min Estimated GFR (MDRD) ml/min Glucose (74-106) mg/dL Calcium (8.5-10.1) mg/dL Total Bilirubin (0.2-1.0) mg/dL AST (15-37) IU/L ALT (14-63) IU/L Alkaline Phosphatase (46-116) U/L Total Protein (6.4-8.2) g/dL Albumin (3.4-5.0) g/dL Globulin (2.6-4.0) g/dL Albumin/Globulin Ratio (0.9-1.6) Urine Color YELLOW Urine Appearance CLEAR Urine pH 6.0 (5.0-8.0) Ur Specific [place] >= 1.030 (1.001-1.035) Urine Protein NEGATIVE (NEGATIVE) mg/dL Urine Glucose (UA) NEGATIVE (NEGATIVE) mg/dL Urine Ketones NEGATIVE (NEGATIVE) mg/dL Urine Occult Blood NEGATIVE (NEGATIVE) Urine Nitrite NEGATIVE (NEGATIVE) Urine Bilirubin NEGATIVE (NEGATIVE) Urine Urobilinogen 0.2 (<2.0) EU/dL Ur Leukocyte Esterase NEGATIVE (NEGATIVE) Urine HCG, Qual NEGATIVE (NEGATIVE) 09/20/18 Range/Units 18:23 WBC (4.0-11.0) K/uL RBC (4.30-5.90) M/uL Hgb (12.0-16.0) g/dL Hct (36.0-46.0) % MCV (80.0-98.0) fL MCH (27.0-32.0) pg MCHC (31.0-37.0) g/dL RDW Std Deviation (28.0-62.0) fl RDW Coeff of [place] (11.0-15.0) % Plt Count (150-400) K/uL MPV (7.40-12.00) fL Neut % (Auto) (48.0-80.0) % Lymph % (Auto) (16.0-40.0) % [place] % (Auto) (0.0-15.0) % Eos % (Auto) (0.0-7.0) % Baso % (Auto) (0.0-1.5) % Neut # (Auto) (1.4-5.7) K/uL Lymph # (Auto) (0.6-2.4) K/uL [place] # (Auto) (0.0-0.8) K/uL Eos # (Auto) (0.0-0.7) K/uL Baso # (Auto) (0.0-0.1) K/uL Nucleated RBC % /100WBC Nucleated RBCs # K/uL Sodium 138 (136-145) mmol/L Potassium 3.8 (3.5-5.1) mmol/L Chloride 103 (98-107) mmol/L Carbon Dioxide 24.0 (21.0-32.0) mmol/L BUN 20 H (7.0-18.0) mg/dL Creatinine 0.6 (0.6-1.0) mg/dL Est Cr Clr Drug Dosing 114.44 mL/min Estimated GFR (MDRD) > 60.0 ml/min Glucose 116 H (74-106) mg/dL Calcium 9.3 (8.5-10.1) mg/dL Total Bilirubin 0.1 L (0.2-1.0) mg/dL AST 18 (15-37) IU/L ALT 29 (14-63) IU/L Alkaline Phosphatase 65 (46-116) U/L Total Protein 7.5 (6.4-8.2) g/dL Albumin 3.8 (3.4-5.0) g/dL Globulin 3.7 (2.6-4.0) g/dL Albumin/Globulin Ratio 1.0 (0.9-1.6) Urine Color Urine Appearance Urine pH (5.0-8.0) Ur Specific [place] (1.001-1.035) Urine Protein (NEGATIVE) mg/dL Urine Glucose (UA) (NEGATIVE) mg/dL Urine Ketones (NEGATIVE) mg/dL Urine Occult Blood (NEGATIVE) Urine Nitrite (NEGATIVE) Urine Bilirubin (NEGATIVE) Urine Urobilinogen (<2.0) EU/dL Ur Leukocyte Esterase (NEGATIVE) Urine HCG, Qual (NEGATIVE) Meds: Medications Generic Name Dose Route Start Last Admin Trade Name Freq PRN Reason Stop Dose Admin Sodium Chloride 10 ml 09/20/18 17:53 09/20/18 18:33 Saline Flush FLUSH 10 ml ASDIRECTED PRN Administration Keep Vein Open Sodium Chloride 2.5 ml 09/20/18 17:53 09/20/18 18:33 Saline Flush FLUSH 2.5 ml ASDIRECTED PRN Administration Keep Vein Open Discontinued Medications Generic Name Dose Route Start Last Admin Trade Name Freq PRN Reason Stop Dose Admin Hydromorphone HCl 0.5 mg 09/20/18 18:59 09/20/18 19:24 Dilaudid IVPUSH 09/20/18 19:00 0.5 mg ONETIME ONE Administration Sodium Chloride 1,000 mls @ 999 mls/hr 09/20/18 17:53 09/20/18 18:25 Normal Saline IV 09/20/18 18:53 999 mls/hr .Bolus ONE Administration Ketorolac Tromethamine 30 mg 09/20/18 17:53 09/20/18 18:26 Toradol IVPUSH 09/20/18 17:54 30 mg ONETIME ONE Administration Ondansetron HCl 4 mg 09/20/18 17:53 09/20/18 18:25 Zofran IVPUSH 09/20/18 17:54 4 mg ONETIME ONE Administration Departure - Departure Disposition: Home, Self-Care 01 Condition: Good Clinical Impression: Abdominal pain Qualifiers: Abdominal location: unspecified location Qualified Code(s): R10.9 - Unspecified abdominal pain Diarrhea Qualifiers: Diarrhea type: unspecified type Qualified Code(s): R19.7 - Diarrhea, unspecified - Discharge Information *PRESCRIPTION DRUG MONITORING PROGRAM REVIEWED*: No *COPY OF PRESCRIPTION DRUG MONITORING REPORT IN PATIENT [place]: No Referrals: PCP,None [Primary Care Provider] - Forms: ED Department Discharge Additional Instructions: The following information is given to patients seen in the emergency department who are being discharged to home. This information is to outline your options for follow-up care. We provide all patients seen in our emergency department with a follow-up referral. The need for follow-up, as well as the timing and circumstances, are variable depending upon the specifics of your emergency department visit. If you don't have a primary care physician on staff, we will provide you with a referral. We always advise you to contact your personal physician following an emergency department visit to inform them of the circumstance of the visit and for follow-up with them and/or the need for any referrals to a consulting specialist. The emergency department will also refer you to a specialist when appropriate. This referral assures that you have the opportunity for follow-up care with a specialist. All of these measure are taken in an effort to provide you with optimal care, which includes your follow-up. Under all circumstances we always encourage you to contact your private physician who remains a resource for coordinating your care. When calling for follow-up care, please make the office aware that this follow-up is from your recent emergency room visit. If for any reason you are refused follow-up, please contact the [facility] Emergency Department at and asked to speak to the emergency department charge nurse. [facility] [address] [place] [id number] <Haley Lopes - Last Filed: 09/20/18 19:56> ED ROS GENERAL - Review of Systems Review Of Systems: ROS reveals no pertinent complaints other than HPI. Departure - Departure Time of Disposition: 19:55 Condition: Good
[2018-09-20] MEDS ORDERED: Ketorolac 30 MG/ML SDV IVPUSH ONE (17:53)
[2018-09-20] MEDS ORDERED: Sodium Chloride 0.9% 2.5 ML Syringe FLUSH PRN (17:53)
[2018-09-20] MEDS ORDERED: Sodium Chloride 0.9% 10 ML Syringe FLUSH PRN (17:53)
[2018-09-20] MEDS ORDERED: Sodium Chloride 0.9% 1,000 ML IV ONE (17:53)
[2018-09-20] MEDS ORDERED: Ondansetron 4 MG/2 ML SDV IVPUSH ONE (17:53)
[2018-09-20] MEDS ORDERED: HYDROmorphone 2 MG/ML Syringe IVPUSH ONE (18:59)
[2018-09-20 19:49] LABS: CHLORIDE,CL 103 mmol/L (98-107); SODIUM,NA 138 mmol/L (136-145)
== END 2018-09-20 20:14 | disposition home or self-care (01) ==
LOC: MW.ED 17:39
DX: R19.7 Diarrhea, unspecified (principal); R10.30 Lower abdominal pain, unspecified; I10 Essential (primary) hypertension; Z88.5 Allergy status to narcotic agent; Z88.2 Allergy status to sulfonamides
CPT/HCPCS: 36415; 80053; 81003; 81025; 85025; 96361; 96374; 96375; 99284; J1170; J1885; J2405; J7040; 99283

== ENCOUNTER 2018-09-21 12:37 | Emergency (ER) | payer MEDICAID ==
[2018-09-21] MEDS ORDERED: Ketorolac 30 MG/ML SDV IVPUSH ONE (13:45)
[2018-09-21] MEDS ORDERED: Sodium Chloride 0.9% 1,000 ML IV ONE (13:45)
[2018-09-21 14:34] LABS: CHLORIDE,CL 105 mmol/L (98-107); SODIUM,NA 140 mmol/L (136-145)
--- NOTE | 2018-09-21 15:16 | EDM.PDOC ---
ED HPI GENERAL MEDICAL PROBLEM - General Chief Complaint: Abdominal Pain Stated Complaint: ABDOMINAL PAIN Time Seen by Provider: 09/21/18 12:38 Source of Information: Reports: Patient History Limitations: Reports: No Limitations - History of Present Illness INITIAL COMMENTS - FREE TEXT/NARRATIVE: HISTORY AND PHYSICAL: History of present illness: Patient is a 28-year-old female who presents to the ED today with concern for suprapubic tenderness and diarrhea x 3 days. Patient states her complaints have not changed from the day prior. She has not taken any medication for her symptoms. Patient states she is sexually active has a history of tubal ligation. Patient denies vaginal discharge. Patient was seen yesterday (09/20/18) for abdominal pain and low back pain with diarrhea. She had some lab work done at that time. Patient denies fever, chills, chest pain, shortness of breath, or cough. Denies headache, neck stiff ness, change in vision, syncope, or near syncope. Denies nausea, vomiting, or dysuria. Has not noted any blood in urine or stool. Patient has been eating and drinking appropriately. Patient has a history of tubal ligation, cholecystectomy, and appendectomy. Review of systems: As per history of present illness and below otherwise all systems reviewed and negative. Past medical history: As per history of present illness and as reviewed below otherwise noncontributory. Surgical history: As per history of present illness and as reviewed below otherwise noncontributory. Social history: See social history for further information Family history: As per history of present illness and as reviewed below otherwise noncontributory. Physical exam: General: Patient is alert, oriented, and in no acute distress. She is sitting comfortably on exam table. HEENT: Atraumatic, normocephalic, pupils equal and reactive bilaterally, negative for conjunctival pallor or scleral icterus, mucous membranes moist, TMs normal bilaterally, throat clear, neck supple, nontender, trachea midline. No drooling or trismus noted. No meningeal signs. No hot potato voice noted. Lungs: Clear to auscultation, breath sounds equal bilaterally, chest nontender. Heart: S1S2, regular rate and rhythm without overt murmur Abdomen: Mild pain to palpation of the suprapubic region without guarding. Otherwise, soft, nondistended. Positive bowel sounds heard throughout all quadrants. Negative for masses or hepatosplenomegaly. Negative for costovertebral tenderness. Pelvis: Stable nontender. Genitourinary: External genitalia is grossly unremarkable. There is a moderate amount of copious white discharge in the vaginal vault. Positive cervical motion tenderness with positive chandelier sign. Rectal: Deferred. Skin: Intact, warm, dry. No lesions or rashes noted. Extremities: Atraumatic, negative for cords or calf pain. Neurovascular unremarkable. Neuro: Awake, alert, oriented. Cranial nerves II through XII unremarkable. Cerebellum unremarkable. Motor and sensory unremarkable throughout. Exam nonfocal. Notes: Patient does have cervical motion tenderness and positive chandelier sign on exam. Patient does have several antibiotic allergies. Did consult with Dr. Guillory who suggests using Clindamycin antibiotic. Patient was unable to leave a stool sample today in the ED. Supplies have been given to her to collect this at home and return for testing. These results were shared with patient. Importance for follow-up with primary care provider or OB/ BUSINESS ADMINISTRATION PROFESSOR as discussed with patient. Supportive care measures were reviewed and discussed. Voices understanding and is agreeable to plan of care. Denies any further questions or concerns at this time. Diagnostics: CBC, CMP, UA, stool studies, c diff, urine hCG, gonorrhea and chlamydia, Affirm Therapeutics: Saline, Toradol, Zofran, Dilaudid Prescription: Stool studies, clindamycin Impression: Pelvic inflammatory disease Diarrhea, unspecified Plan: 1. Take medications as prescribed. You can alternate ibuprofen and Tylenol as directed for pain and discomfort. 2. Follow-up with her primary care provider and BATCH AND FURNACE OPERATOR as discussed. 3. Suicidal supplies have been sent for collection at home. You can return this to lab for evaluation. 4. Return to the ED as needed and as discussed. Definitive disposition and diagnosis as appropriate pending reevaluation and review of above. Lower Abdomen Pain Score (Numeric/FACES): 9 - Related Data Allergies Allergy/AdvReac Type Severity Reaction Status Date / Time codeine Allergy Hives Verified 09/21/18 12:59 metronidazole [From Flagyl] Allergy Hives Verified 09/21/18 12:59 morphine Allergy Airway Verified 09/21/18 12:59 Tightness Penicillins Allergy Hives Verified 09/21/18 12:59 Sulfa (Sulfonamide Allergy Hives Verified 09/21/18 12:59 Antibiotics) tramadol Allergy Headache Verified 09/21/18 12:59 Home Meds: Home Meds Cetirizine [ZyrTEC] 10 mg PO DAILY 03/21/18 [History] Ferrous Sulfate [Iron] 1 tab PO DAILY 03/21/18 [History] Lisinopril 10 mg PO DAILY 03/21/18 [History] Metoprolol Succinate 25 mg PO DAILY 03/21/18 [History] Montelukast [Singulair] 10 mg PO DAILY 03/21/18 [History] Omeprazole 20 mg PO DAILY 03/21/18 [History] Sertraline HCl [Zoloft] 200 mg PO DAILY 03/21/18 [History] Past Medical History Cardiovascular 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: Hypertension Respiratory 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: Asthma Other Respiratory History: PE 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 AND FURNACE OPERATOR 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: Other BATCH AND FURNACE OPERATOR History: tubal ligation Psychiatric 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: Depression - Infectious Disease History Infectious Disease 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: Chicken Pox - Past Surgical History HEENT Surgical 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: Oral Surgery GI Surgical 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: Appendectomy, Cholecystectomy Female Surgical 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: Tubal Ligation Social & Family History - Family History Family Medical History: Noncontributory - Tobacco Use Smoking Status *Q: Current Every Day Smoker Years of Tobacco use: 15 Packs/Tins Daily: 0.5 - Caffeine Use Caffeine Use: Reports: Soda - Recreational Drug Use Recreational Drug Use: No ED ROS GENERAL - Review of Systems Review Of Systems: ROS reveals no pertinent complaints other than HPI. ED EXAM, GI/ABD - Physical Exam Exam: See Below (See dictation) Course - Vital Signs Last Recorded V/S: Last Vital Signs Temp 36.2 C 09/21/18 15:58 Pulse 80 09/21/18 12:55 Resp 16 09/21/18 15:58 BP 132/81 09/21/18 15:58 Pulse Ox 97 09/21/18 15:58 - Orders/Labs/Meds Orders: Active Orders 24 hr Category Date Time Status Communication Order [RC] STAT Care 09/21/18 13:47 Active CDIFF TOX A+B [OP] Stat Lab 09/21/18 13:20 Ordered CHLAMYDIA AND GONORRHEA BY TMA Stat Lab 09/21/18 14:55 Received CULTURE STOOL + CAMPY+SHIGATOX [RM] Stat Lab 09/21/18 13:20 Ordered OVA & PARASITES BY IMMUNOASSAY [MREF] Stat Lab 09/21/18 13:20 Ordered Labs: Laboratory Tests 09/21/18 09/21/18 09/21/18 Range/Units 14:03 14:03 14:08 WBC 6.93 (4.0-11.0) K/uL RBC 3.60 L (4.30-5.90) M/uL Hgb 11.7 L (12.0-16.0) g/dL Hct 34.6 L (36.0-46.0) % MCV 96.1 (80.0-98.0) fL MCH 32.5 H (27.0-32.0) pg MCHC 33.8 (31.0-37.0) g/dL RDW Std Deviation 43.9 (28.0-62.0) fl RDW Coeff of Lashay 13 (11.0-15.0) % Plt Count 251 (150-400) K/uL MPV 10.50 (7.40-12.00) fL Neut % (Auto) 53.4 (48.0-80.0) % Lymph % (Auto) 36.2 (16.0-40.0) % Door % (Auto) 5.6 (0.0-15.0) % Eos % (Auto) 4.5 (0.0-7.0) % Baso % (Auto) 0.3 (0.0-1.5) % Neut # (Auto) 3.7 (1.4-5.7) K/uL Lymph # (Auto) 2.5 H (0.6-2.4) K/uL Door # (Auto) 0.4 (0.0-0.8) K/uL Eos # (Auto) 0.3 (0.0-0.7) K/uL Baso # (Auto) 0.0 (0.0-0.1) K/uL Nucleated RBC % 0.0 /100WBC Nucleated RBCs # 0 K/uL Sodium 140 (136-145) mmol/L Potassium 4.3 (3.5-5.1) mmol/L Chloride 105 (98-107) mmol/L Carbon Dioxide 24.9 (21.0-32.0) mmol/L BUN 21 H (7.0-18.0) mg/dL Creatinine 0.7 (0.6-1.0) mg/dL Est Cr Clr Drug Dosing 98.09 mL/min Estimated GFR (MDRD) > 60.0 ml/min Glucose 98 (74-106) mg/dL Calcium 9.3 (8.5-10.1) mg/dL Total Bilirubin 0.1 L (0.2-1.0) mg/dL AST 12 L (15-37) IU/L ALT 25 (14-63) IU/L Alkaline Phosphatase 62 (46-116) U/L Total Protein 6.8 (6.4-8.2) g/dL Albumin 3.4 (3.4-5.0) g/dL Globulin 3.4 (2.6-4.0) g/dL Albumin/Globulin Ratio 1.0 (0.9-1.6) Lipase 76 (73-393) U/L Urine Color YELLOW Urine Appearance CLEAR Urine pH 6.0 (5.0-8.0) Ur Specific [place] 1.025 (1.001-1.035) Urine Protein NEGATIVE (NEGATIVE) mg/dL Urine Glucose (UA) NEGATIVE (NEGATIVE) mg/dL Urine Ketones NEGATIVE (NEGATIVE) mg/dL Urine Occult Blood NEGATIVE (NEGATIVE) Urine Nitrite NEGATIVE (NEGATIVE) Urine Bilirubin NEGATIVE (NEGATIVE) Urine Urobilinogen 0.2 (<2.0) EU/dL Ur Leukocyte Esterase NEGATIVE (NEGATIVE) Urine HCG, Qual (NEGATIVE) Robyn species DNA (NEGATIVE) Gardnerella DNA Probe (NEGATIVE) Trichomonas DNA Probe (NEGATIVE) 09/21/18 09/21/18 Range/Units 14:08 14:55 WBC (4.0-11.0) K/uL RBC (4.30-5.90) M/uL Hgb (12.0-16.0) g/dL Hct (36.0-46.0) % MCV (80.0-98.0) fL MCH (27.0-32.0) pg MCHC (31.0-37.0) g/dL RDW Std Deviation (28.0-62.0) fl RDW Coeff of Lashay (11.0-15.0) % Plt Count (150-400) K/uL MPV (7.40-12.00) fL Neut % (Auto) (48.0-80.0) % Lymph % (Auto) (16.0-40.0) % Door % (Auto) (0.0-15.0) % Eos % (Auto) (0.0-7.0) % Baso % (Auto) (0.0-1.5) % Neut # (Auto) (1.4-5.7) K/uL Lymph # (Auto) (0.6-2.4) K/uL Door # (Auto) (0.0-0.8) K/uL Eos # (Auto) (0.0-0.7) K/uL Baso # (Auto) (0.0-0.1) K/uL Nucleated RBC % /100WBC Nucleated RBCs # K/uL Sodium (136-145) mmol/L Potassium (3.5-5.1) mmol/L Chloride (98-107) mmol/L Carbon Dioxide (21.0-32.0) mmol/L BUN (7.0-18.0) mg/dL Creatinine (0.6-1.0) mg/dL Est Cr Clr Drug Dosing mL/min Estimated GFR (MDRD) ml/min Glucose (74-106) mg/dL Calcium (8.5-10.1) mg/dL Total Bilirubin (0.2-1.0) mg/dL AST (15-37) IU/L ALT (14-63) IU/L Alkaline Phosphatase (46-116) U/L Total Protein (6.4-8.2) g/dL Albumin (3.4-5.0) g/dL Globulin (2.6-4.0) g/dL Albumin/Globulin Ratio (0.9-1.6) Lipase (73-393) U/L Urine Color Urine Appearance Urine pH (5.0-8.0) Ur Specific [place] (1.001-1.035) Urine Protein (NEGATIVE) mg/dL Urine Glucose (UA) (NEGATIVE) mg/dL Urine Ketones (NEGATIVE) mg/dL Urine Occult Blood (NEGATIVE) Urine Nitrite (NEGATIVE) Urine Bilirubin (NEGATIVE) Urine Urobilinogen (<2.0) EU/dL Ur Leukocyte Esterase (NEGATIVE) Urine HCG, Qual NEGATIVE (NEGATIVE) Robyn species DNA NEGATIVE (NEGATIVE) Gardnerella DNA Probe NEGATIVE (NEGATIVE) Trichomonas DNA Probe NEGATIVE (NEGATIVE) Meds: Medications Discontinued Medications Generic Name Dose Route Start Last Admin Trade Name Darshana PRN Reason Stop Dose Admin Hydromorphone HCl 0.5 mg 09/21/18 15:37 Dilaudid IM 09/21/18 15:38 ONETIME ONE Hydromorphone HCl 0.5 mg 09/21/18 15:44 09/21/18 15:53 Dilaudid IVPUSH 09/21/18 15:45 0.5 mg ONETIME ONE Administration Sodium Chloride 1,000 mls @ 999 mls/hr 09/21/18 13:45 09/21/18 14:28 Normal Saline IV 09/21/18 14:45 999 mls/hr BOLUS ONE Administration Ketorolac Tromethamine 30 mg 09/21/18 13:45 09/21/18 14:28 Toradol IVPUSH 09/21/18 13:46 30 mg ONETIME ONE Administration Departure - Departure Time of Disposition: 15:26 Disposition: Home, Self-Care 01 Clinical Impression: Pelvic inflammatory disease (PID) Diarrhea Qualifiers: Diarrhea type: unspecified type Qualified Code(s): R19.7 - Diarrhea, unspecified - Discharge Information Instructions: Pelvic Inflammatory Disease, [id number] Referrals: PCP,None [Primary Care Provider] - Forms: ED Department Discharge Additional Instructions: The following information is given to patients seen in the emergency department who are being discharged to home. This information is to outline your options for follow-up care. We provide all patients seen in our emergency department with a follow-up referral. The need for follow-up, as well as the timing and circumstances, are variable depending upon the specifics of your emergency department visit. If you don't have a primary care physician on staff, we will provide you with a referral. We always advise you to contact your personal physician following an emergency department visit to inform them of the circumstance of the visit and for follow-up with them and/or the need for any referrals to a consulting specialist. The emergency department will also refer you to a specialist when appropriate. This referral assures that you have the opportunity for follow-up care with a specialist. All of these measure are taken in an effort to provide you with optimal care, which includes your follow-up. Under all circumstances we always encourage you to contact your private physician who remains a resource for coordinating your care. When calling for follow-up care, please make the office aware that this follow-up is from your recent emergency room visit. If for any reason you are refused follow-up, please contact the [facility] Emergency Department at and asked to speak to the emergency department charge nurse. [facility] Primary Care [address] [place] [address] [facility] [address] [place] [address] [facility] [address] [place] [address] 1. Take medications as prescribed. You can alternate ibuprofen and Tylenol as directed for pain and discomfort. 2. Follow-up with her primary care provider and BATCH AND FURNACE OPERATOR as discussed. 3. Stool study supplies have been sent for collection at home. You can return this to lab for evaluation. 4. Return to the ED as needed and as discussed. - My Orders Last 24 Hours: My Active Orders 09/21/18 13:20 CDIFF TOX A+B [OP] Stat CULTURE STOOL + CAMPY+SHIGATOX [RM] Stat OVA & PARASITES BY IMMUNOASSAY [MREF] Stat 09/21/18 13:47 Communication Order [RC] STAT 09/21/18 14:55 CHLAMYDIA AND GONORRHEA BY TMA Stat - Assessment/Plan Last 24 Hours: My Active Orders 09/21/18 13:20 CDIFF TOX A+B [OP] Stat CULTURE STOOL + CAMPY+SHIGATOX [RM] Stat OVA & PARASITES BY IMMUNOASSAY [MREF] Stat 09/21/18 13:47 Communication Order [RC] STAT 09/21/18 14:55 CHLAMYDIA AND GONORRHEA BY TMA Stat
[2018-09-21] MEDS ORDERED: HYDROmorphone 2 MG/ML SDV IM ONE (15:37)
[2018-09-21] MEDS ORDERED: HYDROmorphone 2 MG/ML Syringe IVPUSH ONE (15:44)
== END 2018-09-21 16:02 | disposition home or self-care (01) ==
LOC: MW.ED 12:37
DX: N73.9 Female pelvic inflammatory disease, unspecified (principal); R19.7 Diarrhea, unspecified; I10 Essential (primary) hypertension; J45.909 Unspecified asthma, uncomplicated; F32.9 Major depressive disorder, single episode, unspecified; F17.210 Nicotine dependence, cigarettes, uncomplicated; Z88.5 Allergy status to narcotic agent; Z88.2 Allergy status to sulfonamides; Z88.1 Allergy status to other antibiotic agents; Z88.0 Allergy status to penicillin; Z79.899 Other long term (current) drug therapy
CPT/HCPCS: 36415; 80053; 81003; 81025; 83690; 85025; 87480; 87491; 87510; 87591; 87660; 96361; 96374; 96375; 99284; J1170; J1885; J7040; 99283

== ENCOUNTER 2018-09-29 18:35 | Emergency (ER) | payer MEDICAID ==
[2018-09-29] MEDS ORDERED: Ketorolac 60 MG/2 ML SDV IM ONE (18:56)
--- NOTE | 2018-09-29 18:56 | EDM.PDOC ---
ED HPI GENERAL MEDICAL PROBLEM - General Chief Complaint: General Stated Complaint: PT HAS BODY PAIN Time Seen by Provider: 09/29/18 18:39 Source of Information: Reports: Patient History Limitations: Reports: No Limitations - History of Present Illness INITIAL COMMENTS - FREE TEXT/NARRATIVE: HISTORY AND PHYSICAL: History of present illness: Patient is a 28-year-old female who presents to the emergency room with complaints of lumbar back pain and cervical C-spine pain. She states that she has a new puppy and bent over to pick him up when she fell landing on her "butt ". Since that time she has had the neck and low back pain. She has been ambulatory although does cause pain to these areas. She denies hitting her head or any loss of consciousness. Patient denies any fever, chills, headache, change in vision, syncope or near syncope. Denies any chest pain, back pain, shortness of breath or cough. Denies any abdominal pain, nausea, vomiting, diarrhea, constipation or dysuria. Has not noted any blood in urine or stool. Patient has been eating and drinking appropriately. Review of systems: As per history of present illness and below otherwise all systems reviewed and negative. Past medical history: As per history of present illness and as reviewed below otherwise noncontributory. Surgical history: As per history of present illness and as reviewed below otherwise noncontributory. Social history: See social history for further information Family history: As per history of present illness and as reviewed below otherwise noncontributory. Physical exam: General: Well-developed and well-nourished 28-year-old female. Alert and oriented. Nontoxic appearing and in no acute distress. HEENT: Atraumatic, normocephalic, pupils equal and reactive bilaterally, negative for conjunctival pallor or scleral icterus, mucous membranes moist, TMs normal bilaterally, throat clear, neck supple, nontender, trachea midline. No drooling or trismus noted. No meningeal signs. No hot potato voice noted. Lungs: Clear to auscultation, breath sounds equal bilaterally, chest nontender. Heart: S1S2, regular rate and rhythm without overt murmur Abdomen: Soft, nondistended, nontender. Negative for masses or hepatosplenomegaly. Negative for costovertebral tenderness. Pelvis: Stable nontender. Genitourinary: Deferred. Rectal: Deferred. Skin: Intact, warm, dry. No lesions or rashes noted. Extremities: Moves all extremities per self with difficulty or deficits, negative for cords or calf pain. Neurovascular unremarkable. C-spine/Back: No pinpoint vertebral tenderness upon palpation. No crepitus, step -offs or obvious deformities. She does have lumbar paraspinous muscular tenderness bilaterally. She is ambulatory without difficulty or deficits. Denies any numbness, tingling or saddle paresthesias. Denies any urinary or fecal incontinence. Neuro: Awake, alert, oriented. Cranial nerves II through XII unremarkable. Cerebellum unremarkable. Motor and sensory unremarkable throughout. Exam nonfocal. Notes: X-ray show no acute findings. Patient is unclear if she's been taking her Coumadin as this has not been filled since being here in [place] over the past several months. Her INR is normal. I'm getting give her an anti- inflammatory for pain management. We discussed the need for primary care follow- up. Supportive care measures were reviewed and discussed. Voices understanding and is agreeable to plan of care. Denies any further questions or concerns at this time. Diagnostics: C-spine x-ray, lumbar back x-ray Therapeutics: Toradol IM Prescription: Diclofenac (#20) Impression: Lumbar Back Pain Fall Plan: 1. Please use Tylenol and/or Ibuprofen as needed for pain and fever management. 2. Get plenty of Rest. Encourage fluids to prevent dehydration. 3. Since you don't have a family care provider following your Coumadin use, you should establish care to have this medication followed and re-assess the need for this medication. You could also use this appointment as a follow up for your recent ER visits. 4. Return to the ED as needed as discussed. Definitive disposition and diagnosis as appropriate pending reevaluation and review of above. Lower Back Pain Score (Numeric/FACES): 9 - Related Data Allergies Allergy/AdvReac Type Severity Reaction Status Date / Time codeine Allergy Hives Verified 09/29/18 18:49 metronidazole [From Flagyl] Allergy Hives Verified 09/29/18 18:49 morphine Allergy Airway Verified 09/29/18 18:49 Tightness Penicillins Allergy Hives Verified 09/29/18 18:49 Sulfa (Sulfonamide Allergy Hives Verified 09/29/18 18:49 Antibiotics) tramadol Allergy Headache Verified 09/29/18 18:49 Home Meds: Home Meds Cetirizine [ZyrTEC] 10 mg PO DAILY 03/21/18 [History] Ferrous Sulfate [Iron] 1 tab PO DAILY 03/21/18 [History] Lisinopril 10 mg PO DAILY 03/21/18 [History] Metoprolol Succinate 25 mg PO DAILY 03/21/18 [History] Montelukast [Singulair] 10 mg PO DAILY 03/21/18 [History] Omeprazole 20 mg PO DAILY 03/21/18 [History] Sertraline HCl [Zoloft] 200 mg PO DAILY 03/21/18 [History] Diclofenac Sodium [Voltaren] 75 mg PO BIDMEALS PRN #20 tab.cr 09/29/18 [Rx] Warfarin [Coumadin] 3 mg PO DAILY 09/29/18 [History] Past Medical History - Past Health History Medical/Surgical History: Denies Medical/Surgical History Cardiovascular 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: Hypertension Respiratory 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: Asthma Other Respiratory History: PE 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 SCRAP KETTLE TENDER History: tubal ligation Psychiatric 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: Depression Hematologic 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: Anticoagulation Therapy - Infectious Disease History Infectious Disease 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: Chicken Pox - Past Surgical History HEENT Surgical 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: Oral Surgery GI Surgical 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: Appendectomy, Cholecystectomy Female Surgical 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: Tubal Ligation Social & Family History - Family History Family Medical History: Noncontributory - Tobacco Use Smoking Status *Q: Current Every Day Smoker Years of Tobacco use: 15 Packs/Tins Daily: 0.5 - Caffeine Use Caffeine Use: Reports: Soda - Recreational Drug Use Recreational Drug Use: No ED ROS GENERAL - Review of Systems Review Of Systems: ROS reveals no pertinent complaints other than HPI. ED EXAM, GENERAL - Physical Exam Exam: See Below (See dictation) Course - Vital Signs Last Recorded V/S: Last Vital Signs Temp 98.6 F 09/29/18 18:47 Pulse 74 09/29/18 18:47 Resp 18 09/29/18 18:47 BP 129/72 09/29/18 18:47 Pulse Ox 98 09/29/18 18:47 - Orders/Labs/Meds Labs: Laboratory Tests 09/29/18 Range/Units 19:11 INR 0.92 Meds: Medications Discontinued Medications Generic Name Dose Route Start Last Admin Trade Name Darshana PRN Reason Stop Dose Admin Ketorolac Tromethamine 60 mg 09/29/18 18:56 09/29/18 19:11 Toradol IM 09/29/18 18:57 60 mg ONETIME ONE Administration Departure - Departure Time of Disposition: 20:45 Disposition: Home, Self-Care 01 Clinical Impression: Lumbar back pain Fall Qualifiers: Encounter type: initial encounter Qualified Code(s): W19.XXXA - Unspecified fall, initial encounter - Discharge Information Prescriptions: Diclofenac Sodium [Voltaren] 75 mg PO BIDMEALS PRN #20 tab.cr PRN Reason: Pain Instructions: Back Pain, Adult, [id number] Referrals: PCP,None [Primary Care Provider] - Forms: ED Department Discharge Additional Instructions: The following information is given to patients seen in the emergency department who are being discharged to home. This information is to outline your options for follow-up care. We provide all patients seen in our emergency department with a follow-up referral. The need for follow-up, as well as the timing and circumstances, are variable depending upon the specifics of your emergency department visit. If you don't have a primary care physician on staff, we will provide you with a referral. We always advise you to contact your personal physician following an emergency department visit to inform them of the circumstance of the visit and for follow-up with them and/or the need for any referrals to a consulting specialist. The emergency department will also refer you to a specialist when appropriate. This referral assures that you have the opportunity for follow-up care with a specialist. All of these measure are taken in an effort to provide you with optimal care, which includes your follow-up. Under all circumstances we always encourage you to contact your private physician who remains a resource for coordinating your care. When calling for follow-up care, please make the office aware that this follow-up is from your recent emergency room visit. If for any reason you are refused follow-up, please contact the [facility] Emergency Department at and asked to speak to the emergency department charge nurse. [facility] Primary Care [address] [place] [id number] [facility] [address] [place] [address] 1. Please use Tylenol and/or Ibuprofen as needed for pain and fever management. 2. Get plenty of Rest. Encourage fluids to prevent dehydration. 3. Since you don't have a family care provider following your Coumadin use, you should establish care to have this medication followed and re-assess the need for this medication. You could also use this appointment as a follow up for your recent ER visits. 4. Return to the ED as needed as discussed.
--- NOTE | 2018-09-29 20:41 | CR ---
INDICATION: [Pain after bending over] TECHNIQUE: [Cervical spine three views] COMPARISON: [None] FINDINGS AND IMPRESSION: [Normal cervical lordosis. Normal alignment. Vertebral body heights are maintained. No prevertebral soft tissue swelling. No significant degenerative disc disease.] [] Dictated by: Rubina Tucker MD @ 09/29/2018 20:39:36 (Electronically Signed)
--- NOTE | 2018-09-29 20:43 | CR ---
INDICATION: Pain after bending over TECHNIQUE: Lumbar spine three views COMPARISON: None FINDINGS AND IMPRESSION: [Normal lumbar lordosis. Normal alignment. Vertebral body heights are maintained. No significant degenerative changes. Right upper quadrant surgical clips. Surgical clips project over the pelvis. Dictated by: Rubina Tucker MD @ 09/29/2018 20:41:31 (Electronically Signed)
== END 2018-09-29 20:57 | disposition home or self-care (01) ==
LOC: MW.ED 18:35
DX: M54.5 Low back pain (principal); I10 Essential (primary) hypertension; F17.210 Nicotine dependence, cigarettes, uncomplicated; Z88.5 Allergy status to narcotic agent; Z88.0 Allergy status to penicillin; Z88.8 Allergy status to other drugs, medicaments and biological substances; Z88.2 Allergy status to sulfonamides; Z88.6 Allergy status to analgesic agent; Z79.899 Other long term (current) drug therapy; Z79.01 Long term (current) use of anticoagulants; W19.XXXA Unspecified fall, initial encounter
CPT/HCPCS: 36415; 72040; 72100; 85610; 96372; 99284; J1885; 99283

== ENCOUNTER 2018-10-09 20:06 | Emergency (ER) | payer MEDICAID ==
--- NOTE | 2018-10-09 20:17 | EDM.PDOC ---
ED HPI GENERAL MEDICAL PROBLEM - General Chief Complaint: Headache Stated Complaint: HEADACHE Time Seen by Provider: 10/09/18 20:14 Source of Information: Reports: Patient History Limitations: Reports: No Limitations - History of Present Illness INITIAL COMMENTS - FREE TEXT/NARRATIVE: HISTORY AND PHYSICAL: History of present illness: Patient is a 28-year-old female presents to the ED today with concern of headache and ear pain 1 week. Patient states she has taken Tylenol one time for her symptoms without relief. She states she has not taken anything else for her symptoms. Patient states the pain is in the front and the back of her head and she rates her discomfort a 9 out of 10. She states she does have photosensitivity but denies any aura with her symptoms. Patient states she does not usually have headaches and this is unusual for her. Patient states she also has right ear pain that she rates a 9 out of 10. Patient denies any head injury. Patient denies any other symptoms at this time. Patient denies fever, chills, chest pain, shortness of breath, or cough. Denies neck stiff ness, change in vision, syncope, or near syncope. Denies nausea, vomiting, abdominal pain, diarrhea, constipation, or dysuria. Has not noted any blood in urine or stool. Patient has been eating and drinking appropriately. Review of systems: As per history of present illness and below otherwise all systems reviewed and negative. Past medical history: As per history of present illness and as reviewed below otherwise noncontributory. Surgical history: As per history of present illness and as reviewed below otherwise noncontributory. Social history: See social history for further information Family history: As per history of present illness and as reviewed below otherwise noncontributory. Physical exam: General: Patient is alert, oriented, and in no acute distress. Patient sitting comfortably on exam table. HEENT: Atraumatic, normocephalic, pupils equal and reactive bilaterally, negative for conjunctival pallor or scleral icterus, mucous membranes moist, TMs normal bilaterally, throat clear, neck supple, nontender, trachea midline. No drooling or trismus noted. No meningeal signs. No hot potato voice noted. Lungs: Clear to auscultation, breath sounds equal bilaterally, chest nontender. Heart: S1S2, regular rate and rhythm without overt murmur Abdomen: Soft, nondistended, nontender. Negative for masses or hepatosplenomegaly. Negative for costovertebral tenderness. Pelvis: Stable nontender. Genitourinary: Deferred. Rectal: Deferred. Skin: Intact, warm, dry. No lesions or rashes noted. Extremities: Atraumatic, negative for cords or calf pain. Neurovascular unremarkable. Neuro: Awake, alert, oriented. Cranial nerves II through XII unremarkable. Cerebellum unremarkable. Motor and sensory unremarkable throughout. Exam nonfocal. Notes: Dr. Bassett verbally involved in patients care. Discussed the importance for follow-up with primary care provider. Voices understanding and is agreeable to plan of care. Denies any further questions or concerns at this time. Diagnostics: CBC, PT/INR, head CT Therapeutics: Saline, Zofran, Phenergan, Benadryl Prescription: Ciprofloxacin Impression: Headache, unspecified Sphenoid sinusitis Plan: 1. Alternate ibuprofen and Tylenol as directed for pain and discomfort. Take medication as prescribed. 2. Follow-up with her primary care provider as discussed. 3. Return to the ED as needed and as discussed. Definitive disposition and diagnosis as appropriate pending reevaluation and review of above. head Pain Score (Numeric/FACES): 9 - Related Data Allergies Allergy/AdvReac Type Severity Reaction Status Date / Time codeine Allergy Hives Verified 10/09/18 20:16 metronidazole [From Flagyl] Allergy Hives Verified 10/09/18 20:16 morphine Allergy Airway Verified 10/09/18 20:16 Tightness Penicillins Allergy Hives Verified 10/09/18 20:16 Sulfa (Sulfonamide Allergy Hives Verified 10/09/18 20:16 Antibiotics) tramadol Allergy Headache Verified 10/09/18 20:16 Home Meds: Home Meds Cetirizine [ZyrTEC] 10 mg PO DAILY 03/21/18 [History] Ferrous Sulfate [Iron] 1 tab PO DAILY 03/21/18 [History] Lisinopril 10 mg PO DAILY 03/21/18 [History] Metoprolol Succinate 25 mg PO DAILY 03/21/18 [History] Montelukast [Singulair] 10 mg PO DAILY 03/21/18 [History] Omeprazole 20 mg PO DAILY 03/21/18 [History] Sertraline HCl [Zoloft] 200 mg PO DAILY 03/21/18 [History] Diclofenac Sodium [Voltaren] 75 mg PO BIDMEALS PRN #20 tab.cr 09/29/18 [Rx] Warfarin [Coumadin] 3 mg PO DAILY 09/29/18 [History] Past Medical History - Past Health History Medical/Surgical History: Denies Medical/Surgical History Cardiovascular 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: Hypertension Respiratory 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: Asthma Other Respiratory History: PE BACK JOINER 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: Other BACK JOINER History: tubal ligation Psychiatric 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: Depression Hematologic 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: Anticoagulation Therapy - Infectious Disease History Infectious Disease 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: Chicken Pox - Past Surgical History HEENT Surgical 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: Oral Surgery GI Surgical 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: Appendectomy, Cholecystectomy Female Surgical 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: Tubal Ligation Social & Family History - Family History Family Medical History: Noncontributory - Caffeine Use Caffeine Use: Reports: Soda ED ROS GENERAL - Review of Systems Review Of Systems: ROS reveals no pertinent complaints other than HPI. - Physical Exam Exam: See Below (see dictation) Course - Vital Signs Last Recorded V/S: Last Vital Signs Temp 36.4 C 10/09/18 20:07 Pulse 83 10/09/18 20:07 Resp 18 10/09/18 20:07 BP 125/81 10/09/18 20:07 Pulse Ox 96 10/09/18 20:07 - Orders/Labs/Meds Labs: Laboratory Tests 10/09/18 10/09/18 Range/Units 20:33 20:33 WBC 7.29 (4.0-11.0) K/uL RBC 4.06 L (4.30-5.90) M/uL Hgb 13.1 (12.0-16.0) g/dL Hct 39.0 (36.0-46.0) % MCV 96.1 (80.0-98.0) fL MCH 32.3 H (27.0-32.0) pg MCHC 33.6 (31.0-37.0) g/dL RDW Std Deviation 42.6 (28.0-62.0) fl RDW Coeff of Lashay 12 (11.0-15.0) % Plt Count 347 (150-400) K/uL MPV 10.70 (7.40-12.00) fL Neut % (Auto) 48.2 (48.0-80.0) % Lymph % (Auto) 41.4 H (16.0-40.0) % [place] % (Auto) 6.4 (0.0-15.0) % Eos % (Auto) 3.7 (0.0-7.0) % Baso % (Auto) 0.3 (0.0-1.5) % Neut # (Auto) 3.5 (1.4-5.7) K/uL Lymph # (Auto) 3.0 H (0.6-2.4) K/uL [place] # (Auto) 0.5 (0.0-0.8) K/uL Eos # (Auto) 0.3 (0.0-0.7) K/uL Baso # (Auto) 0.0 (0.0-0.1) K/uL Nucleated RBC % 0.0 /100WBC Nucleated RBCs # 0 K/uL INR 0.96 Meds: Medications Discontinued Medications Generic Name Dose Route Start Last Admin Trade Name Freq PRN Reason Stop Dose Admin Diphenhydramine HCl 50 mg 10/09/18 20:22 10/09/18 20:39 Benadryl IVPUSH 10/09/18 20:23 50 mg ONETIME ONE Administration Sodium Chloride 1,000 mls @ 999 mls/hr 10/09/18 20:21 10/09/18 20:39 Normal Saline IV 10/09/18 21:21 999 mls/hr STAT ONE Administration Ondansetron HCl 4 mg 10/09/18 20:22 10/09/18 20:40 Zofran IVPUSH 10/09/18 20:23 4 mg ONETIME ONE Administration Promethazine HCl 25 mg 10/09/18 20:24 10/09/18 20:40 Phenergan IM 10/09/18 20:25 25 mg ONETIME ONE Administration Departure - Departure Time of Disposition: 22:00 Disposition: Home, Self-Care 01 Clinical Impression: Headache Qualifiers: Headache type: unspecified Headache chronicity pattern: acute headache Intractability: not intractable Qualified Code(s): R51 - Headache Sphenoid sinusitis Qualifiers: Chronicity: unspecified Qualified Code(s): J32.3 - Chronic sphenoidal sinusitis - Discharge Information Referrals: PCP,None [Primary Care Provider] - Forms: ED Department Discharge Additional Instructions: The following information is given to patients seen in the emergency department who are being discharged to home. This information is to outline your options for follow-up care. We provide all patients seen in our emergency department with a follow-up referral. The need for follow-up, as well as the timing and circumstances, are variable depending upon the specifics of your emergency department visit. If you don't have a primary care physician on staff, we will provide you with a referral. We always advise you to contact your personal physician following an emergency department visit to inform them of the circumstance of the visit and for follow-up with them and/or the need for any referrals to a consulting specialist. The emergency department will also refer you to a specialist when appropriate. This referral assures that you have the opportunity for follow-up care with a specialist. All of these measure are taken in an effort to provide you with optimal care, which includes your follow-up. Under all circumstances we always encourage you to contact your private physician who remains a resource for coordinating your care. When calling for follow-up care, please make the office aware that this follow-up is from your recent emergency room visit. If for any reason you are refused follow-up, please contact the [facility] at and asked to speak to the emergency department charge nurse. [facility] [address] [place] [id number] [place] [address] 1. Alternate ibuprofen and Tylenol as directed for pain and discomfort. Take medication as prescribed. 2. Follow-up with her primary care provider as discussed. 3. Return to the ED as needed and as discussed.
[2018-10-09] MEDS ORDERED: Sodium Chloride 0.9% 1,000 ML IV ONE (20:21)
[2018-10-09] MEDS ORDERED: diphenhydrAMINE 50 MG/ML SDV IVPUSH ONE (20:22)
[2018-10-09] MEDS ORDERED: Ondansetron 4 MG/2 ML SDV IVPUSH ONE (20:22)
[2018-10-09] MEDS ORDERED: Promethazine 25 MG/ML SDV IM ONE (20:24)
--- NOTE | 2018-10-09 21:47 | CT ---
INDICATION: Headache TECHNIQUE: CT head without contrast. COMPARISON: None available FINDINGS: The ventricles and sulci are within normal limits. Slight tonsillar ectopia is noted, measuring approximately 2 mm on the right and 1 mm on the left. There is no mass effect or midline shift. There is no loss of german-white differentiation. There is no evidence of a gross acute intracranial hemorrhage. No acute calvarial fracture is seen. There are small mucosal retention cysts or polyps in the sphenoid sinuses. There is apparent partial opacification of few left mastoid tip air cells, versus volume averaging. The visualized orbits are within normal limits. The adenoids are enlarged. IMPRESSION: No evidence of a gross acute intracranial hemorrhage, mass effect or loss of german-white differentiation. Mild sphenoid sinus disease. Dictated by Pedro Holden MD @ 10/09/2018 9:45:53 PM Please note that all CT scans at this facility use dose modulation, iterative reconstruction, and/or weight-based dosing when appropriate to reduce radiation dose to as low as reasonably achievable. Dictated by: Pedro Holden MD @ 10/09/2018 21:46:06 (Electronically Signed)
== END 2018-10-09 22:18 | disposition home or self-care (01) ==
LOC: MW.ED 20:06
DX: J32.3 Chronic sphenoidal sinusitis (principal); I10 Essential (primary) hypertension; Z79.01 Long term (current) use of anticoagulants; Z79.899 Other long term (current) drug therapy; Z88.5 Allergy status to narcotic agent; Z88.0 Allergy status to penicillin; Z88.2 Allergy status to sulfonamides; Z88.8 Allergy status to other drugs, medicaments and biological substances
CPT/HCPCS: 70450; 85025; 85610; 96361; 96372; 96374; 96375; 99284; J1200; J2405; J2550; J7040

== ENCOUNTER 2018-10-23 18:27 | Emergency (ER) | payer MEDICAID ==
[2018-10-23] MEDS ORDERED: Ketorolac 60 MG/2 ML SDV IM ONE (19:11)
[2018-10-23] MEDS ORDERED: Dicyclomine 10 MG Cap PO ONE (19:12)
--- NOTE | 2018-10-23 19:18 | EDM.PDOC ---
ED HPI GENERAL MEDICAL PROBLEM - General Chief Complaint: Abdominal Pain Stated Complaint: ABDOMINAL PAIN Time Seen by Provider: 10/23/18 19:01 - History of Present Illness INITIAL COMMENTS - FREE TEXT/NARRATIVE: HISTORY AND PHYSICAL: History of present illness: The patient is a 28-year-old female who has had multiple ED visits and clinic visits for abdominal pain and lumbar back pain and presents today with midline lower abdominal pain just above pubic area but not reaching the umbilicus. The patient says she's had the pain for 2 days and it is similar to prior episodes of pain but she has had no associated fevers chills nausea vomiting or diarrhea. Patient has a history of C. difficile the beginning of September and she says that the diarrhea has resolved but she still has about 4 soft formed bowel movements a day. She is following with our family practice clinic and has had multiple outpatient studies including an MRI of her LS-spine an MRI of her pelvis the pelvic ultrasound all of which I reviewed and all of which have no significant findings except for mild disc bulge at L5-S1. The patient has been treated for PID clinically the beginning of September and has had x-rays of her lumbar back for presentations for back pain. She also presented with a sinusitis at the end of September and had a CAT scan of her head. On today's visit the patient says there is some slight discomfort with urination but it is not burning and has no hematuria and there is no flank pain. She has a history of a cholecystectomy and appendectomy and a bilateral tubal ligation. She is eating and drinking normally and does admit that she drinks a lot of caffeinated products and doesn't eat the healthiest diet. The patient is only been using Tylenol for pain. She says that she called the clinic and could not get in but according to the computer she has not had any clinic visits in the last one month for follow-up. She says that her provider in the clinic told her that she does not have IBS by blood work but she has never had a colonoscopy and that has not been discussed. She has no upper abdominal pain no chest pain or shortness of breath and does not complain of any back or neck pain today. The patient tells me the stools are not black or bloody Review of systems: As per history of present illness and below otherwise all systems reviewed and negative. Past medical history: As per history of present illness and as reviewed below otherwise noncontributory. Surgical history: As per history of present illness and as reviewed below otherwise noncontributory. Social history: No reported history of drug or alcohol abuse. Family history: As per history of present illness and as reviewed below otherwise noncontributory. Physical exam: General: Well-developed well-nourished mildly overweight female who is nontoxic and vital signs are noted by me HEENT: Atraumatic, normocephalic,negative for conjunctival pallor or scleral icterus, mucous membranes moist, throat clear, neck supple, nontender, trachea midline. Lungs: Clear to auscultation, breath sounds equal bilaterally, chest nontender. Heart: S1S2, regular rate and rhythm no overt murmurs Abdomen: Soft, nondistended, bowel sounds are normoactive. There is very minimal tenderness on deep palpation just inferior to the umbilicus in the midline but there is no localizing right lower left lower quadrant tenderness and no upper abdominal tenderness. There is absolutely no rebound or guarding on exam Negative for masses or hepatosplenomegaly. Negative for costovertebral tenderness. Pelvis: Stable nontender. Genitourinary: Deferred. Rectal: Deferred. Extremities: Atraumatic, negative for cords or calf pain. Neurovascular unremarkable. Neuro: Awake, alert, oriented. Cranial nerves II through XII unremarkable. Cerebellum unremarkable. Motor and sensory unremarkable throughout. Exam nonfocal. Diagnostics: CBC CMP amylase lipase UA with reflex CRP sedimentation rate abdominal x-rays urine culture Therapeutics: Toradol IM Bentyl Because of the patient's frequent ER visits and clinic visits and multiple imaging studies as well as workup for similar presenting complaints I told her that we could do a basic workup including plain films and pending these results , if all normal, she would need to be followed up in her clinic with her provider as this is a very chronic problem that she is having. She has had an MRI of her pelvis a pelvic ultrasound and multiple other evaluations for similar presentations and currently, although she does have pain subjectively, she does not have significant findings on her exam nor associated symptoms. I have said to her that I would give her some Toradol and Bentyl for pain but that Would not be indicated for GI problem such as this. She states understanding I discussed all testing results with the patient including that there is bacteria in her urine but is not the cleanest of samples. At this point with her history of getting C. difficile I told her that I would refrain from giving her antibiotics pending the culture as it is not convincing for UTI as there are so many epithelial cells in the sample. I informed her that we would contact her if that care plan change. Impression: Lower abdominal pain acute on chronic Definitive disposition and diagnosis as appropriate pending reevaluation and review of above. Abdominal Pain Score (Numeric/FACES): 9 - Related Data Allergies Allergy/AdvReac Type Severity Reaction Status Date / Time codeine Allergy Hives Verified 10/23/18 18:43 metronidazole [From Flagyl] Allergy Hives Verified 10/23/18 18:43 morphine Allergy Airway Verified 10/23/18 18:43 Tightness Penicillins Allergy Hives Verified 10/23/18 18:43 Sulfa (Sulfonamide Allergy Hives Verified 10/23/18 18:43 Antibiotics) tramadol Allergy Headache Verified 10/23/18 18:43 Home Meds: Home Meds Cetirizine [ZyrTEC] 10 mg PO DAILY 03/21/18 [History] Ferrous Sulfate [Iron] 1 tab PO DAILY 03/21/18 [History] Lisinopril 10 mg PO DAILY 03/21/18 [History] Metoprolol Succinate 25 mg PO DAILY 03/21/18 [History] Montelukast [Singulair] 10 mg PO DAILY 03/21/18 [History] Omeprazole 20 mg PO DAILY 03/21/18 [History] Sertraline HCl [Zoloft] 200 mg PO DAILY 03/21/18 [History] Diclofenac Sodium [Voltaren] 75 mg PO BIDMEALS PRN #20 tab.cr 09/29/18 [Rx] Past Medical History - Past Health History Medical/Surgical History: Denies Medical/Surgical History Cardiovascular 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: Hypertension Respiratory 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: Asthma Other Respiratory History: PE 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 Psychiatric 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: Depression Hematologic 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: Anticoagulation Therapy Oncologic (Cancer) 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: None - Infectious Disease History Infectious Disease 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: Chicken Pox - Past Surgical History Head Surgeries/Procedures: Reports: None HEENT Surgical 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: Oral Surgery GI Surgical 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: Appendectomy, Cholecystectomy Female Surgical 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: Tubal Ligation Social & Family History - Family History Family Medical History: Noncontributory - Tobacco Use Smoking Status *Q: Current Every Day Smoker Years of Tobacco use: 15 Packs/Tins Daily: 0.5 - Caffeine Use Caffeine Use: Reports: Coffee - Recreational Drug Use Recreational Drug Use: No ED ROS GENERAL - Review of Systems Review Of Systems: ROS reveals no pertinent complaints other than HPI. ED EXAM, GENERAL - Physical Exam Exam: See Below (See dictation) Course - Vital Signs Last Recorded V/S: Last Vital Signs Temp 36.6 C 10/23/18 18:44 Pulse 76 10/23/18 18:44 Resp 16 10/23/18 18:44 BP 115/70 10/23/18 18:44 Pulse Ox 100 10/23/18 18:44 - Orders/Labs/Meds Orders: Active Orders 24 hr Category Date Time Status CULTURE URINE [RM] Stat Lab 10/23/18 20:35 Ordered Labs: Laboratory Tests 10/23/18 10/23/18 10/23/18 Range/Units 19:35 19:35 19:35 WBC 7.57 (4.0-11.0) K/uL RBC 3.85 L (4.30-5.90) M/uL Hgb 12.4 (12.0-16.0) g/dL Hct 37.9 (36.0-46.0) % MCV 98.4 H (80.0-98.0) fL MCH 32.2 H (27.0-32.0) pg MCHC 32.7 (31.0-37.0) g/dL RDW Std Deviation 45.5 (28.0-62.0) fl RDW Coeff of Lashay 13 (11.0-15.0) % Plt Count 292 (150-400) K/uL MPV 10.40 (7.40-12.00) fL Neut % (Auto) 50.5 (48.0-80.0) % Lymph % (Auto) 38.7 (16.0-40.0) % Coke % (Auto) 6.3 (0.0-15.0) % Eos % (Auto) 4.2 (0.0-7.0) % Baso % (Auto) 0.3 (0.0-1.5) % Neut # (Auto) 3.8 (1.4-5.7) K/uL Lymph # (Auto) 2.9 H (0.6-2.4) K/uL Coke # (Auto) 0.5 (0.0-0.8) K/uL Eos # (Auto) 0.3 (0.0-0.7) K/uL Baso # (Auto) 0.0 (0.0-0.1) K/uL Nucleated RBC % 0.0 /100WBC Nucleated RBCs # 0 K/uL ESR 15 (0-19) mm/hr Sodium 137 (136-145) mmol/L Potassium 4.0 (3.5-5.1) mmol/L Chloride 103 (98-107) mmol/L Carbon Dioxide 20.3 L (21.0-32.0) mmol/L BUN 18 (7.0-18.0) mg/dL Creatinine 0.7 (0.6-1.0) mg/dL Est Cr Clr Drug Dosing 98.09 mL/min Estimated GFR (MDRD) > 60.0 ml/min Glucose 85 (74-106) mg/dL Calcium 8.9 (8.5-10.1) mg/dL Total Bilirubin 0.2 (0.2-1.0) mg/dL AST 14 L (15-37) IU/L ALT 39 (14-63) IU/L Alkaline Phosphatase 76 (46-116) U/L C-Reactive Protein 0.00 (0.00-0.90) mg/dL Total Protein 8.0 (6.4-8.2) g/dL Albumin 4.1 (3.4-5.0) g/dL Globulin 3.9 (2.6-4.0) g/dL Albumin/Globulin Ratio 1.1 (0.9-1.6) Amylase 31 (25-115) U/L Lipase 92 (73-393) U/L Urine Color Urine Appearance Urine pH (5.0-8.0) Ur Specific [place] (1.001-1.035) Urine Protein (NEGATIVE) mg/dL Urine Glucose (UA) (NEGATIVE) mg/dL Urine Ketones (NEGATIVE) mg/dL Urine Occult Blood (NEGATIVE) Urine Nitrite (NEGATIVE) Urine Bilirubin (NEGATIVE) Urine Urobilinogen (<2.0) EU/dL Ur Leukocyte Esterase (NEGATIVE) Urine RBC (0-2/HPF) Urine WBC (0-5/HPF) Ur Epithelial Cells (NONE-FEW) Urine Bacteria (NEGATIVE) Urine Mucus (NONE-MOD) 10/23/18 Range/Units 20:00 WBC (4.0-11.0) K/uL RBC (4.30-5.90) M/uL Hgb (12.0-16.0) g/dL Hct (36.0-46.0) % MCV (80.0-98.0) fL MCH (27.0-32.0) pg MCHC (31.0-37.0) g/dL RDW Std Deviation (28.0-62.0) fl RDW Coeff of Lashay (11.0-15.0) % Plt Count (150-400) K/uL MPV (7.40-12.00) fL Neut % (Auto) (48.0-80.0) % Lymph % (Auto) (16.0-40.0) % Coke % (Auto) (0.0-15.0) % Eos % (Auto) (0.0-7.0) % Baso % (Auto) (0.0-1.5) % Neut # (Auto) (1.4-5.7) K/uL Lymph # (Auto) (0.6-2.4) K/uL Coke # (Auto) (0.0-0.8) K/uL Eos # (Auto) (0.0-0.7) K/uL Baso # (Auto) (0.0-0.1) K/uL Nucleated RBC % /100WBC Nucleated RBCs # K/uL ESR (0-19) mm/hr Sodium (136-145) mmol/L Potassium (3.5-5.1) mmol/L Chloride (98-107) mmol/L Carbon Dioxide (21.0-32.0) mmol/L BUN (7.0-18.0) mg/dL Creatinine (0.6-1.0) mg/dL Est Cr Clr Drug Dosing mL/min Estimated GFR (MDRD) ml/min Glucose (74-106) mg/dL Calcium (8.5-10.1) mg/dL Total Bilirubin (0.2-1.0) mg/dL AST (15-37) IU/L ALT (14-63) IU/L Alkaline Phosphatase (46-116) U/L C-Reactive Protein (0.00-0.90) mg/dL Total Protein (6.4-8.2) g/dL Albumin (3.4-5.0) g/dL Globulin (2.6-4.0) g/dL Albumin/Globulin Ratio (0.9-1.6) Amylase (25-115) U/L Lipase (73-393) U/L Urine Color YELLOW Urine Appearance SLT CLOUDY Urine pH 6.0 (5.0-8.0) Ur Specific [place] >= 1.030 (1.001-1.035) Urine Protein TRACE H (NEGATIVE) mg/dL Urine Glucose (UA) NEGATIVE (NEGATIVE) mg/dL Urine Ketones NEGATIVE (NEGATIVE) mg/dL Urine Occult Blood NEGATIVE (NEGATIVE) Urine Nitrite NEGATIVE (NEGATIVE) Urine Bilirubin NEGATIVE (NEGATIVE) Urine Urobilinogen 0.2 (<2.0) EU/dL Ur Leukocyte Esterase NEGATIVE (NEGATIVE) Urine RBC NONE SEEN (0-2/HPF) Urine WBC 1-3 (0-5/HPF) Ur Epithelial Cells MODERATE (NONE-FEW) Urine Bacteria 1+ H (NEGATIVE) Urine Mucus LIGHT (NONE-MOD) Meds: Medications Discontinued Medications Generic Name Dose Route Start Last Admin Trade Name Darshana PRN Reason Stop Dose Admin Dicyclomine HCl 20 mg 10/23/18 19:12 10/23/18 19:19 Bentyl PO 10/23/18 19:13 20 mg ONETIME ONE Administration Ketorolac Tromethamine 60 mg 10/23/18 19:11 10/23/18 19:19 Toradol IM 10/23/18 19:12 60 mg ONETIME ONE Administration Departure - Departure Time of Disposition: 20:37 Disposition: Home, Self-Care 01 Condition: Good Clinical Impression: Abdominal pain Qualifiers: Abdominal location: unspecified location Qualified Code(s): R10.9 - Unspecified abdominal pain Chronic pain Qualifiers: Chronic pain type: other chronic pain Qualified Code(s): G89.29 - Other chronic pain - Discharge Information Referrals: PCP,None [Primary Care Provider] - Forms: ED Department Discharge Additional Instructions: The following information is given to patients seen in the emergency department who are being discharged to home. This information is to outline your options for follow-up care. We provide all patients seen in our emergency department with a follow-up referral. The need for follow-up, as well as the timing and circumstances, are variable depending upon the specifics of your emergency department visit. If you don't have a primary care physician on staff, we will provide you with a referral. We always advise you to contact your personal physician following an emergency department visit to inform them of the circumstance of the visit and for follow-up with them and/or the need for any referrals to a consulting specialist. The emergency department will also refer you to a specialist when appropriate. This referral assures that you have the opportunity for followup care with a specialist. All of these measure are taken in an effort to provide you with optimal care, which includes your followup. Under all circumstances we always encourage you to contact your private physician who remains a resource for coordinating your care. When calling for followup care, please make the office aware that this follow-up is from your recent emergency room visit. If for any reason you are refused follow-up, please contact the [facility] emergency department at and ask to speak to the emergency department charge nurse. [facility] Primary care- Internal [place] [address] Please contact your family practice provider in the morning making sure to tell them that you're in the ED today and that you will need follow-up. Push hydration try to reduce caffeine intake and try to eat more healthy meals increasing fiber in her diet. Please use [id number] Tylenol or ibuprofen for pain and you may also add the Bentyl as you choose. Return to ER as needed and as discussed - My Orders Last 24 Hours: My Active Orders 10/23/18 20:35 CULTURE URINE [RM] Stat - Assessment/Plan Last 24 Hours: My Active Orders 10/23/18 20:35 CULTURE URINE [RM] Stat
--- NOTE | 2018-10-23 19:49 | CR ---
INDICATION: Lower abdominal pain TECHNIQUE: Abdominal radiograph 4 views COMPARISON: 09/29/18 FINDINGS: Moderate degradation of image quality noted due to body habitus. Bowel: The bowel gas pattern is normal without evidence of bowel obstruction. A stable oval density is noted over the right femoral head, measuring 1.7 cm. A 1 cm density is seen over the left intertrochanteric region. Soft tissue: No evidence of pneumoperitoneum present. No suspicious calcifications noted. Surgical clips are noted in the right upper quadrant from prior cholecystectomy. Bilateral tubal ligation clips noted in the pelvis. Bone: Unremarkable for age. IMPRESSION: 1. Unremarkable appearance of the visualized abdomen. 2. A stable oval density is noted over the right femoral head, measuring 1.7 cm. A 1 cm density is seen over the left intertrochanteric region. Further evaluation recommended if the patient has history of primary malignancy. Dictated by: Richard Mora MD @ 10/23/2018 19:47:21 (Electronically Signed)
[2018-10-23 20:14] LABS: CHLORIDE,CL 103 mmol/L (98-107); SODIUM,NA 137 mmol/L (136-145)
== END 2018-10-23 20:51 | disposition home or self-care (01) ==
LOC: MW.ED 18:27
DX: R10.30 Lower abdominal pain, unspecified (principal); I10 Essential (primary) hypertension; J45.909 Unspecified asthma, uncomplicated; F17.210 Nicotine dependence, cigarettes, uncomplicated; F32.9 Major depressive disorder, single episode, unspecified; Z88.5 Allergy status to narcotic agent; Z88.8 Allergy status to other drugs, medicaments and biological substances; Z88.0 Allergy status to penicillin; Z88.2 Allergy status to sulfonamides; Z79.899 Other long term (current) drug therapy
CPT/HCPCS: 36415; 74019; 80053; 81001; 82150; 83690; 85025; 85652; 86140; 87086; 96372; 99284; A9270; J1885

== ENCOUNTER 2018-11-03 02:21 | Emergency (ER) | payer MEDICAID ==
--- NOTE | 2018-11-03 02:32 | EDM.PDOC ---
ED HPI GENERAL MEDICAL PROBLEM - General Chief Complaint: Back Pain or Injury Stated Complaint: BACK HURTS Time Seen by Provider: 11/03/18 02:31 Source of Information: Reports: Patient - History of Present Illness INITIAL COMMENTS - FREE TEXT/NARRATIVE: HISTORY AND PHYSICAL: History of present illness: [Patient presents with low back pain right greater than left, she rates 8 out of 10 nonradiating no footdrop saddle anesthesia bowel or urine symptoms Patient states she was going to her child's crib tonight is that her crying, slipped on a toy landing on her but] leading to the pain no head injury or loss of consciousness She has no fever nausea vomiting chills sweats Multiple visits since June with multiple imaging including MRI lumbar spine Review of systems: As per history of present illness and below otherwise all systems reviewed and negative. Past medical history: As per history of present illness and as reviewed below otherwise noncontributory. Surgical history: As per history of present illness and as reviewed below otherwise noncontributory. Social history: No reported history of drug or alcohol abuse. Family history: As per history of present illness and as reviewed below otherwise noncontributory. Physical exam: HEENT: Atraumatic, normocephalic, pupils reactive, negative for conjunctival pallor or scleral icterus, mucous membranes moist, throat clear, neck supple, nontender, trachea midline. Lungs: Clear to auscultation, breath sounds equal bilaterally, chest nontender. Heart: S1S2, regular, negative for clicks, rubs, or JVD. Abdomen: Soft, nondistended, nontender. Negative for masses or hepatosplenomegaly. Negative for costovertebral tenderness. Pelvis: Stable nontender. Genitourinary: Deferred. Rectal: Deferred. Extremities: Atraumatic, negative for cords or calf pain. Neurovascular unremarkable. Neuro: Awake, alert, oriented. Cranial nerves II through XII unremarkable. Cerebellum unremarkable. Motor and sensory unremarkable throughout. Exam nonfocal. Diagnostics: [C multiple lumbar spine plain films as well as MRI lumbar spine and pelvis with no significant findings] Therapeutics: [Toradol 60 IM Cataflam Norflex ] Impression: [ paraspinous muscle spasm right greater than left ] Suspicious for drug-seeking behavior Definitive disposition and diagnosis as appropriate pending reevaluation and review of above. back Pain Score (Numeric/FACES): 10 - Related Data Allergies Allergy/AdvReac Type Severity Reaction Status Date / Time codeine Allergy Hives Verified 11/03/18 02:28 metronidazole [From Flagyl] Allergy Hives Verified 11/03/18 02:28 morphine Allergy Airway Verified 11/03/18 02:28 Tightness Penicillins Allergy Hives Verified 11/03/18 02:28 Sulfa (Sulfonamide Allergy Hives Verified 11/03/18 02:28 Antibiotics) tramadol Allergy Headache Verified 11/03/18 02:28 Home Meds: Home Meds Cetirizine [ZyrTEC] 10 mg PO DAILY 03/21/18 [History] Ferrous Sulfate [Iron] 0 mg PO DAILY 03/21/18 [History] Lisinopril 10 mg PO DAILY 03/21/18 [History] Metoprolol Succinate 25 mg PO DAILY 03/21/18 [History] Montelukast [Singulair] 10 mg PO DAILY 03/21/18 [History] Omeprazole 20 mg PO DAILY 03/21/18 [History] Cholecalciferol (Vitamin D3) [Vitamin D3] 15,000 units PO ASDIRECTED 11/03/18 [ History] Escitalopram Oxalate [Lexapro] 40 mg PO DAILY 11/03/18 [History] Past Medical History - Past Health History Medical/Surgical History: Denies Medical/Surgical History Cardiovascular 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: Hypertension Respiratory 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: Asthma Other Respiratory History: 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 Psychiatric 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: Depression Hematologic 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: Anticoagulation Therapy Oncologic (Cancer) 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: None - Infectious Disease History Infectious Disease 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: Chicken Pox - Past Surgical History Head Surgeries/Procedures: Reports: None HEENT Surgical 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: Oral Surgery GI Surgical 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: Appendectomy, Cholecystectomy Female Surgical 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: Tubal Ligation Social & Family History - Family History Family Medical History: Noncontributory - Caffeine Use Caffeine Use: Reports: Coffee ED ROS GENERAL - Review of Systems Review Of Systems: See Below ED EXAM, GENERAL - Physical Exam Exam: See Below Course - Vital Signs Last Recorded V/S: Last Vital Signs Temp 96.9 F 11/03/18 02:23 Pulse 74 11/03/18 02:23 Resp 17 11/03/18 02:23 BP 121/76 11/03/18 02:23 Pulse Ox 99 11/03/18 02:23 Departure - Departure Time of Disposition: 02:45 Disposition: Home, Self-Care 01 Condition: Good Clinical Impression: Lumbar paraspinal muscle spasm - Discharge Information Referrals: PCP,None [Primary Care Provider] - Forms: ED Department Discharge Additional Instructions: The following information is given to patients seen in the emergency department who are being discharged to home. This information is to outline your options for follow-up care. We provide all patients seen in our emergency department with a follow-up referral. The need for follow-up, as well as the timing and circumstances, are variable depending upon the specifics of your emergency department visit. If you don't have a primary care physician on staff, we will provide you with a referral. We always advise you to contact your personal physician following an emergency department visit to inform them of the circumstance of the visit and for follow-up with them and/or the need for any referrals to a consulting specialist. The emergency department will also refer you to a specialist when appropriate. This referral assures that you have the opportunity for follow-up care with a specialist. All of these measure are taken in an effort to provide you with optimal care, which includes your follow-up. Under all circumstances we always encourage you to contact your private physician who remains a resource for coordinating your care. When calling for follow-up care, please make the office aware that this follow-up is from your recent emergency room visit. If for any reason you are refused follow-up, please contact the [facility] emergency department at and asked to speak to the emergency department charge nurse.
[2018-11-03] MEDS ORDERED: Ketorolac 60 MG/2 ML SDV IM ONE (02:46)
== END 2018-11-03 03:10 | disposition home or self-care (01) ==
LOC: MW.ED 02:21
DX: M62.830 Muscle spasm of back (principal); I10 Essential (primary) hypertension; Z88.0 Allergy status to penicillin; Z88.2 Allergy status to sulfonamides; Z88.5 Allergy status to narcotic agent; Z79.899 Other long term (current) drug therapy; Z98.51 Tubal ligation status; Z98.890 Other specified postprocedural states; Z90.49 Acquired absence of other specified parts of digestive tract
CPT/HCPCS: 96372; 99283; J1885

== ENCOUNTER 2019-01-01 06:19 | Day surgery (SDC) | payer MEDICAID ==
[2018-12-31 11:40] LABS: CHLORIDE,CL 106 mmol/L (98-107); SODIUM,NA 141 mmol/L (136-145)
[~2019-01-01 06:19] MED LIST: Lactated Ringers 1,000 ML IV SCH; Sodium Chloride 0.9% 10 ML SDV IV PRN; Sodium Chloride 0.9% 10 ML Syringe FLUSH PRN; Sodium Chloride 0.9% 2.5 ML Syringe FLUSH PRN
--- NOTE | 2019-01-01 06:57 | PCM.PREANE ---
Preanesthetic Assessment - Anesthesia/Transfusion/Family Hx Anesthesia History: Prior Anesthesia Without Reaction Family History of Anesthesia Reaction: No Transfusion History: No Prior Transfusion(s) Intubation History: Unknown - Review of Systems General: No Symptoms Pulmonary: No Symptoms Cardiovascular: No Symptoms Gastrointestinal: Abdominal Pain Neurological: No Symptoms Other: Reports: None - Physical Assessment O2 Sat by Pulse Oximetry: 98 Respiratory Rate: 18 Vital Signs: Last Vital Signs Temp 35.9 C 01/01/19 06:30 Pulse 85 01/01/19 06:30 Resp 18 01/01/19 06:30 BP 111/74 01/01/19 06:30 Pulse Ox 98 01/01/19 06:30 Height: 5 ft 3 in Weight: 79.379 kg ASA Class: 2 Mental Status: Alert & Oriented x3 Airway Class: Mallampati = 2 Dentition: Reports: Normal Dentition, Partial (upper and lower) Thyro-Mental Finger Breadths: 3 Mouth Opening Finger Breadths: 2 (very small mouth) ROM/Head Extension: Full Lungs: Clear to Auscultation, Normal Respiratory Effort Cardiovascular: Regular Rate, Regular Rhythm - Lab Values: Laboratory Last Values WBC 6.62 K/uL (4.0-11.0) 12/31/18 11:07 RBC 3.88 M/uL (4.30-5.90) L 12/31/18 11:07 Hgb 12.2 g/dL (12.0-16.0) 12/31/18 11:07 Hct 37.1 % (36.0-46.0) 12/31/18 11:07 MCV 95.6 fL (80.0-98.0) 12/31/18 11:07 MCH 31.4 pg (27.0-32.0) 12/31/18 11:07 MCHC 32.9 g/dL (31.0-37.0) 12/31/18 11:07 RDW Std Deviation 43.5 fl (28.0-62.0) 12/31/18 11:07 RDW Coeff of Lashay 13 % (11.0-15.0) 12/31/18 11:07 Plt Count 307 K/uL (150-400) 12/31/18 11:07 MPV 10.40 fL (7.40-12.00) 12/31/18 11:07 Nucleated RBC % 0.0 /100WBC 12/31/18 11:07 Nucleated RBCs # 0 K/uL 12/31/18 11:07 Sodium 141 mmol/L (136-145) 12/31/18 11:07 Potassium 4.1 mmol/L (3.5-5.1) 12/31/18 11:07 Chloride 106 mmol/L (98-107) 12/31/18 11:07 Carbon Dioxide 25.3 mmol/L (21.0-32.0) 12/31/18 11:07 BUN 26 mg/dL (7.0-18.0) H 12/31/18 11:07 Creatinine 0.6 mg/dL (0.6-1.0) 12/31/18 11:07 Est Cr Clr Drug Dosing 114.44 mL/min 12/31/18 11:07 Estimated GFR (MDRD) > 60.0 ml/min 12/31/18 11:07 Glucose 86 mg/dL (74-106) 12/31/18 11:07 Calcium 9.0 mg/dL (8.5-10.1) 12/31/18 11:07 HCG, Qual NEGATIVE (NEG) 12/31/18 11:07 Blood Type B POSITIVE 12/31/18 11:07 Antibody Screen NEGATIVE 12/31/18 11:07 - Allergies Allergies/Adverse Reactions: Allergies Allergy/AdvReac Type Severity Reaction Status Date / Time codeine Allergy Hives Verified 12/25/18 10:11 metronidazole [From Flagyl] Allergy Hives Verified 12/25/18 10:11 morphine Allergy Airway Verified 12/25/18 10:11 Tightness Penicillins Allergy Hives Verified 12/25/18 10:11 Sulfa (Sulfonamide Allergy Hives Verified 12/25/18 10:11 Antibiotics) tramadol Allergy Headache Verified 12/25/18 10:11 - Blood Blood Available: No - Anesthesia Plan Pre-Op Medication Ordered: None - Acknowledgements Anesthesia Type Planned: General Anesthesia Pt an Appropriate Candidate for the Planned Anesthesia: Yes Alternatives and Risks of Anesthesia Discussed w Pt/Guardian: Yes Pt/Guardian Understands and Agrees with Anesthesia Plan: Yes PreAnesthesia Questionnaire - Past Health History Medical/Surgical History: Denies Medical/Surgical History HEENT 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: None Other HEENT History: top and bottom partial Cardiovascular 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: Hypertension Other Cardiovascular History: "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", daughter is now 16 months old Respiratory 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: Asthma (mild) Other Respiratory History: PE Gastrointestinal 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: GERD Genitourinary 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: None [employer] 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: Other OB/BYN History: tubal ligation Musculoskeletal 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: Back Pain, Chronic Neurological 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: None Psychiatric 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: Depression Endocrine/Metabolic 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: Obesity/BMI 30+, Vitamin D Deficiency Hematologic 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: Anticoagulation Therapy Immunologic 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: None Oncologic (Cancer) 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: None Dermatologic 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: None - Infectious Disease History Infectious Disease 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: Chicken Pox - Past Surgical History Head Surgeries/Procedures: Reports: None HEENT Surgical 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: Oral Surgery Other HEENT Surgeries/Procedures: teeth removal Cardiovascular Surgical 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: None Respiratory Surgical 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: None GI Surgical 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: Appendectomy, Cholecystectomy Female Surgical 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: Tubal Ligation Endocrine Surgical 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: None Neurological Surgical 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: None Musculoskeletal Surgical 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: None Dermatological Surgical 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: None - SUBSTANCE USE Smoking Status *Q: Current Every Day Smoker (1/2 ppd) Tobacco Use Within Last Twelve Months: Cigarettes - HOME MEDS Home Medications: Home Meds Cetirizine [ZyrTEC] 10 mg PO DAILY 03/21/18 [History] Ferrous Sulfate [Iron] 325 mg PO DAILY 03/21/18 [History] Lisinopril 5 mg PO DAILY 03/21/18 [History] Metoprolol Succinate 25 mg PO DAILY 03/21/18 [History] Montelukast [Singulair] 10 mg PO DAILY 03/21/18 [History] Omeprazole 20 mg PO DAILY 03/21/18 [History] Cholecalciferol (Vitamin D3) [Vitamin D3] 15,000 units PO WEEKLY 11/03/18 [ History] Escitalopram Oxalate [Lexapro] 20 mg PO DAILY 11/03/18 [History] Albuterol [Ventolin HFA] 1 - 2 puff INH ASDIRECTED PRN 12/25/18 [History] Hydrocodone/Acetaminophen [Hydrocodon-Acetaminophen 5-325] 1 tab PO ASDIRECTED PRN 12/25/18 [History] - CURRENT (IN HOUSE) MEDS Current Meds: Current Medications Lactated Ringer's (Ringers, Lactated) 1,000 mls @ 500 mls/hr IV BOLUS LICHA Last Admin: 01/01/19 06:45 Dose: 500 mls/hr Sodium Chloride (Saline Flush) 10 ml FLUSH ASDIRECTED PRN PRN Reason: Keep Vein Open Sodium Chloride (Saline Flush) 2.5 ml FLUSH ASDIRECTED PRN PRN Reason: Keep Vein Open Sodium Chloride (Normal Saline) 10 ml IV ASDIRECTED PRN PRN Reason: IV Use
[2019-01-01] MEDS ORDERED: Ondansetron 4 MG/2 ML SDV ONE (07:08)
[2019-01-01] MEDS ORDERED: Rocuronium 100 MG/10 ML Syringe ONE (07:08)
[2019-01-01] MEDS ORDERED: Midazolam 1 MG/ML 2 ML SDV ONE (07:08)
[2019-01-01] MEDS ORDERED: Propofol 200 MG/20 ML SDV ONE (07:08)
[2019-01-01] MEDS ORDERED: fentaNYL 250 MCG/5 ML SDV ONE (07:08)
[2019-01-01] MEDS ORDERED: Lidocaine 2% 5 ML SDV ONE (07:08)
[2019-01-01] MEDS ORDERED: Glycopyrrolate 0.2 MG/ML SDV ONE (08:11)
[2019-01-01] MEDS ORDERED: ePHEDrine 50 MG/ML SDV ONE (08:11)
[2019-01-01] MEDS ORDERED: fentaNYL 100 MCG/2 ML SDV ONE (08:30)
[2019-01-01] MEDS ORDERED: Metoprolol Tartrate 5 MG/5 ML SDV ONE (08:31)
[2019-01-01] MEDS ORDERED: Naloxone 0.4 MG/ML Syringe IVPUSH PRN (08:36)
[2019-01-01] MEDS ORDERED: EPINEPHrine 1:10,000 1 MG/10 ML Syringe IVPUSH PRN (08:36)
[2019-01-01] MEDS ORDERED: Albuterol 0.083% 2.5 MG/3 ML Neb Soln NEB PRN (08:36)
[2019-01-01] MEDS ORDERED: Atropine 0.1 MG/ML 10 ML Syringe IVPUSH PRN ×2 (08:36)
[2019-01-01] MEDS ORDERED: 50% Dextrose in Water 50 ML Syringe IVPUSH PRN (08:36)
[2019-01-01] MEDS ORDERED: Ketorolac 30 MG/ML SDV ONE (08:45)
[2019-01-01] MEDS ORDERED: Octyl 2-Cyanoacrylate 1 Tube ONE (08:46)
--- NOTE | 2019-01-01 08:57 | PCM.OPNOTE ---
- General Post-Op/Procedure Note Date of Surgery/Procedure: 01/01/19 Operative Procedure(s): Dignostic Laparoscopy Pre Op Diagnosis: Pelvic Pain Post-Op Diagnosis: Same Anesthesia Technique: General LMA Primary Surgeon: Jonathan Guillory Output, Urine Amount: 50 Complications: None Condition: Good
--- NOTE | 2019-01-01 08:58 | PCM.DCSUM1 ---
Discharge Summary - Hospital Course Diagnosis: Stroke: No - Discharge Data Discharge Date: 01/01/19 Discharge Disposition: Home, Self-Care 01 Condition: Good - Patient Summary/Data Operative Procedure(s) Performed: Dignostic Laparoscopy - Patient Instructions Diet: Usual Diet as Tolerated Activity: As Tolerated Driving: Do Not Drive Showering/Bathing: May Shower Notify Provider of: Fever, Increased Pain, Nausea and/or Vomiting - Discharge Plan Home Medications: Home Meds Cetirizine [ZyrTEC] 10 mg PO DAILY 03/21/18 [History] Ferrous Sulfate [Iron] 325 mg PO DAILY 03/21/18 [History] Lisinopril 5 mg PO DAILY 03/21/18 [History] Metoprolol Succinate 25 mg PO DAILY 03/21/18 [History] Montelukast [Singulair] 10 mg PO DAILY 03/21/18 [History] Omeprazole 20 mg PO DAILY 03/21/18 [History] Cholecalciferol (Vitamin D3) [Vitamin D3] 15,000 units PO WEEKLY 11/03/18 [ History] Escitalopram Oxalate [Lexapro] 20 mg PO DAILY 11/03/18 [History] Albuterol [Ventolin HFA] 1 - 2 puff INH ASDIRECTED PRN 12/25/18 [History] Hydrocodone/Acetaminophen [Hydrocodon-Acetaminophen 5-325] 1 tab PO ASDIRECTED PRN 12/25/18 [History] - Discharge Summary/Plan Comment DC Time >30 min.: Yes - General Info Date of Service: 01/01/19 Functional Status: Reports: Pain Controlled - Review of Systems General: Reports: No Symptoms HEENT: Reports: No Symptoms Pulmonary: Reports: No Symptoms Cardiovascular: Reports: No Symptoms Gastrointestinal: Reports: No Symptoms Genitourinary: Reports: No Symptoms Musculoskeletal: Reports: No Symptoms Skin: Reports: No Symptoms Neurological: Reports: No Symptoms Psychiatric: Reports: No Symptoms - Patient Data Vitals - Most Recent: Last Vital Signs Temp 35.9 C 01/01/19 06:30 Pulse 85 01/01/19 06:30 Resp 18 01/01/19 06:57 BP 111/74 01/01/19 06:30 Pulse Ox 98 01/01/19 06:57 Weight - Most Recent: 79.379 kg I&O - Last 24 hours: Intake & Output 12/31/18 01/01/19 01/01/19 22:59 06:59 14:59 Output Total 50 Balance -50 Lab Results - Last 24 hrs: Laboratory Results - last 24 hr 12/31/18 12/31/18 12/31/18 Range/Units 11:07 11:07 11:07 WBC 6.62 (4.0-11.0) K/uL RBC 3.88 L (4.30-5.90) M/uL Hgb 12.2 (12.0-16.0) g/dL Hct 37.1 (36.0-46.0) % MCV 95.6 (80.0-98.0) fL MCH 31.4 (27.0-32.0) pg MCHC 32.9 (31.0-37.0) g/dL RDW Std Deviation 43.5 (28.0-62.0) fl RDW Coeff of Lashay 13 (11.0-15.0) % Plt Count 307 (150-400) K/uL MPV 10.40 (7.40-12.00) fL Nucleated RBC % 0.0 /100WBC Nucleated RBCs # 0 K/uL Sodium 141 (136-145) mmol/L Potassium 4.1 (3.5-5.1) mmol/L Chloride 106 (98-107) mmol/L Carbon Dioxide 25.3 (21.0-32.0) mmol/L BUN 26 H (7.0-18.0) mg/dL Creatinine 0.6 (0.6-1.0) mg/dL Est Cr Clr Drug Dosing 114.44 mL/min Estimated GFR (MDRD) > 60.0 ml/min Glucose 86 (74-106) mg/dL Calcium 9.0 (8.5-10.1) mg/dL HCG, Qual NEGATIVE (NEG) Blood Type Antibody Screen 12/31/18 Range/Units 11:07 WBC (4.0-11.0) K/uL RBC (4.30-5.90) M/uL Hgb (12.0-16.0) g/dL Hct (36.0-46.0) % MCV (80.0-98.0) fL MCH (27.0-32.0) pg MCHC (31.0-37.0) g/dL RDW Std Deviation (28.0-62.0) fl RDW Coeff of Lashay (11.0-15.0) % Plt Count (150-400) K/uL MPV (7.40-12.00) fL Nucleated RBC % /100WBC Nucleated RBCs # K/uL Sodium (136-145) mmol/L Potassium (3.5-5.1) mmol/L Chloride (98-107) mmol/L Carbon Dioxide (21.0-32.0) mmol/L BUN (7.0-18.0) mg/dL Creatinine (0.6-1.0) mg/dL Est Cr Clr Drug Dosing mL/min Estimated GFR (MDRD) ml/min Glucose (74-106) mg/dL Calcium (8.5-10.1) mg/dL HCG, Qual (NEG) Blood Type B POSITIVE Antibody Screen NEGATIVE Med Orders - Current: Current Medications Albuterol (Proventil Neb Soln) 2.5 mg NEB ONETIME PRN PRN Reason: Wheezing Atropine Sulfate (Atropine 0.1 Mg/Ml) 0.5 mg IVPUSH ASDIRECTED PRN PRN Reason: Hypo-perfusion Atropine Sulfate (Atropine 0.1 Mg/Ml) 1 mg IVPUSH ASDIRECTED PRN PRN Reason: Hypo-Perfusion Dextrose/Water (Dextrose 50% In Water) 50 ml IVPUSH ASDIRECTED PRN PRN Reason: Hypoglycemia Epinephrine HCl (Epinephrine 1:10,000) 1 mg IVPUSH ASDIRECTED PRN PRN Reason: ACLS Guidelines Fentanyl (Sublimaze) 50 - 100 mcg IVPUSH Q5M PRN PRN Reason: Pain Lactated Ringer's (Ringers, Lactated) 1,000 mls @ 500 mls/hr IV BOLUS LICHA Last Admin: 01/01/19 06:45 Dose: 500 mls/hr Naloxone HCl (Narcan) 0.1 mg IVPUSH ASDIRECTED PRN PRN Reason: Respiratory Depression Sodium Chloride (Saline Flush) 10 ml FLUSH ASDIRECTED PRN PRN Reason: Keep Vein Open Sodium Chloride (Saline Flush) 2.5 ml FLUSH ASDIRECTED PRN PRN Reason: Keep Vein Open Sodium Chloride (Normal Saline) 10 ml IV ASDIRECTED PRN PRN Reason: IV Use Discontinued Medications Ephedrine Sulfate (Ephedrine Sulfate) Confirm Administered Dose 50 mg .ROUTE .STK-MED ONE Stop: 01/01/19 08:12 Fentanyl (Sublimaze) Confirm Administered Dose 250 mcg .ROUTE .ST-MED ONE Stop: 01/01/19 07:09 Fentanyl (Sublimaze) Confirm Administered Dose 100 mcg .ROUTE .STK-MED ONE Stop: 01/01/19 08:31 Glycopyrrolate (Robinul) Confirm Administered Dose 0.4 mg .ROUTE .ST-MED ONE Stop: 01/01/19 08:12 Ketorolac Tromethamine (Toradol) Confirm Administered Dose 30 mg .ROUTE .STK- MED ONE Stop: 01/01/19 08:46 Lidocaine (Xylocaine-Mpf 2%) Confirm Administered Dose 5 ml .ROUTE .ST-MED ONE Stop: 01/01/19 07:09 Metoprolol Tartrate (Lopressor) Confirm Administered Dose 5 mg .ROUTE .ST-MED ONE Stop: 01/01/19 08:32 Midazolam HCl (Versed 1 Mg/Ml) Confirm Administered Dose 2 mg .ROUTE .ST-MED ONE Stop: 01/01/19 07:09 Octyl Cyanoacrylate (Dermabond Advance) Confirm Administered Dose 1 applic .ROUTE .ST-MED ONE Stop: 01/01/19 08:47 Ondansetron HCl (Zofran) Confirm Administered Dose 4 mg .ROUTE .STK-MED ONE Stop: 01/01/19 07:09 Propofol (Diprivan 20 Ml) Confirm Administered Dose 200 mg .ROUTE .STK-MED ONE Stop: 01/01/19 07:09 Rocuronium [place] (Zemuron) Confirm Administered Dose 100 mg .ROUTE .STK-MED ONE Stop: 01/01/19 07:09 Succinylcholine Chloride (Succinylcholine Chloride) Confirm Administered Dose 200 mg .ROUTE .[facility]-MED ONE Stop: 01/01/19 07:09 - Exam General: Reports: Alert, Oriented HEENT: Reports: Pupils Equal, Pupils Reactive, EOMI, Mucous Membr. Moist/[place] Neck: Reports: Supple Lungs: Reports: Clear to Auscultation, Normal Respiratory Effort Cardiovascular: Reports: Regular Rate, Regular Rhythm GI/Abdominal Exam: Normal Bowel Sounds, Soft, Non-Tender, No Organomegaly, No Distention, No Abnormal Bruit, No Mass, Pelvis Stable (Female) Exam: Normal External Exam, Normal Speculum Exam, Normal Bimanual Exam Rectal (Female) Exam: Normal Exam, Normal Rectal Tone Back Exam: Reports: Normal Inspection, Full Range of Motion Extremities: Normal Inspection, Normal Range of Motion, Non-Tender, No Pedal Edema, Normal Capillary Refill Skin: Reports: Warm, Dry, Intact Wound/Incisions: Reports: Healing Well Neurological: Reports: No New Focal Deficit Psy/Mental Status: Reports: Alert, Normal Affect, Normal Mood
[2019-01-01] MEDS: fentaNYL 100 MCG/2 ML SDV IVPUSH PRN ×2 (09:27→09:38)
--- NOTE | 2019-01-01 09:57 | PCM.POSTAN ---
POST ANESTHESIA ASSESSMENT - MENTAL STATUS Mental Status: Alert, Oriented - RESPIRATORY Respiratory Status: Respiratory Rate WNL, Airway Patent, O2 Saturation Stable - CARDIOVASCULAR CV Status: Pulse Rate WNL, Blood Pressure Stable - GASTROINTESTINAL GI Status: No Symptoms - PAIN Pain Score: 6 - POST OP HYDRATION Hydration Status: Adequate & Stable - OBSERVATIONS Free Text/Narrative:: no anesthesia problems
[2019-01-01] MEDS ORDERED: fentaNYL 100 MCG/2 ML SDV IVPUSH PRN (10:21)
--- NOTE | 2019-01-01 12:48 | OR ---
SURGEON: Jonathan Guillory MD DATE OF PROCEDURE: 01/01/2019 PREOPERATIVE DIAGNOSIS: Pelvic pain. POSTOPERATIVE DIAGNOSIS: Pelvic pain. OPERATION PERFORMED: Multiple puncture diagnostic laparoscopy, drainage of right ovarian cyst, biopsy of the cul-de-sac for area suspected to be endometriosis. PRIMARY SURGEON: Jonathan Guillory MD. ASSEMBLER GOLD FRAME: OR Tech. ANESTHESIA: General endotracheal intubation, Brian Patel and Dr. Nicolas. ESTIMATED BLOOD LOSS: Less than 50 mL. COMPLICATIONS: None. FINDING: Right ovarian cyst, multiple spots of whitish tissue in the cul-de-sac and in the uterosacral ligament, suspecting endometriosis, and these are biopsied to confirm the endometriosis. PROCEDURE IN DETAIL: The patient was brought to the OR properly identified, and after adequate level of anesthesia, patient was placed in lithotomy position, prepped and draped in sterile fashion as usual. Straight catheter was used to enter the bladder and Hulka manipulator placed in the uterus for manipulation. The operation shifted abdominally. Stab wound was done beneath the umbilicus. The Veress needle was placed in the peritoneal cavity and that cavity insufflated with 3.5 L of carbon dioxide, and then, using the 5 mm scope and trocar utilizing the Visiport technique, the peritoneal cavity was entered under direct vision, and then, the patient was placed in steep Trendelenburg. Two 5 mm trocars in the right and left iliac fossa were done under direct vision. Then, we started surveying and exploring the pelvis. There was about 5 cm right ovarian cyst. Both tubes, she had tubal ligation utilizing Filshie Clip, and then, the right cul-de-sac shows some small spots of whitish tissue, the same thing in the uterosacral ligament, suspecting maybe endometriosis. The left tube and ovaries essentially are normal. Bladder flap was normal. I went ahead and used electrocautery, incised the ovarian capsule on the right side draining the right ovarian cyst. After that, biopsy of the white tissue from the right uterosacral ligament was done, sent for pathology to confirm or rule out endometriosis. After that, a thorough peritoneal lavage was performed. There was no oozing, no bleeding, and then 600 mL of normal saline was left in the endometrial cavity, and the laparoscope was withdrawn and the procedure was ended. The multiple laparoscopic and vaginal instruments were removed and then, the laparoscopic incision with 3-0 Vicryl subcuticular and Dermabond and a Band-Aid was utilized. The patient tolerated the procedure well, went to recovery room in stable general condition. GREGORY MIKE /[id number]
== END 2019-01-01 10:50 | disposition home or self-care (01) ==
LOC: MW.SDS 06:19
PROVIDERS: ATTEND Obstetrics & Gynecology
DX: N83.201 Unspecified ovarian cyst, right side (principal); N83.8 Other noninflammatory disorders of ovary, fallopian tube and broad ligament; I10 Essential (primary) hypertension; E55.9 Vitamin D deficiency, unspecified; J45.909 Unspecified asthma, uncomplicated; F17.210 Nicotine dependence, cigarettes, uncomplicated; Z88.5 Allergy status to narcotic agent; Z88.1 Allergy status to other antibiotic agents; Z88.0 Allergy status to penicillin; Z88.2 Allergy status to sulfonamides; Z98.51 Tubal ligation status; Z79.899 Other long term (current) drug therapy
CPT/HCPCS: 36415; 49321; 49322; 80048; 84703; 85027; 86850; 86900; 86901; A9270; J0330; J1885; J2001; J2250; J2405; J2704; J3010; J3490; J7120; 88305

== ENCOUNTER 2019-01-10 18:32 | Emergency (ER) | payer MEDICAID ==
--- NOTE | 2019-01-10 18:48 | EDM.PDOC ---
ED HPI GENERAL MEDICAL PROBLEM - General Chief Complaint: Abdominal Pain Stated Complaint: PT HAS RT SIDE PAIN Time Seen by Provider: 01/10/19 18:48 Source of Information: Reports: Patient History Limitations: Reports: No Limitations - History of Present Illness INITIAL COMMENTS - FREE TEXT/NARRATIVE: HISTORY AND PHYSICAL: History of present illness: Patient is a 28-year-old female who presents to the emergency room with complaints of right lower quadrant pain. Patient had a laparoscopy on 01/02/[address] Guillory to drain a right ovarian cysts and obtain a biopsy for endometriosis. She has 3 puncture sites to the abdomen which she states has been fine until the last few days. She is concerned there may be an infection to the right lower quadrant stab site as it is painful. Patient denies any fever, chills, headache, change in vision, syncope or near syncope. Denies any chest pain, back pain, shortness of breath or cough. Denies any nausea, vomiting, diarrhea, constipation or dysuria. Has not noted any blood in urine or stool. Patient has been eating and drinking appropriately. Review of systems: As per history of present illness and below otherwise all systems reviewed and negative. Past medical history: As per history of present illness and as reviewed below otherwise noncontributory. Surgical history: As per history of present illness and as reviewed below otherwise noncontributory. Social history: See social history for further information Family history: As per history of present illness and as reviewed below otherwise noncontributory. Physical exam: General: Well-developed and well-nourished 28-year-old female. Alert and oriented. Nontoxic appearing and in no acute distress. HEENT: Atraumatic, normocephalic, pupils equal and reactive bilaterally, negative for conjunctival pallor or scleral icterus, mucous membranes moist, trachea midline. No drooling or trismus noted. No meningeal signs. No hot potato voice noted. Lungs: Clear to auscultation, breath sounds equal bilaterally, chest nontender. Heart: S1S2, regular rate and rhythm without overt murmur Abdomen: Soft, nondistended, mild right lower quadrant tenderness. See SKIN for details. Negative for masses. Negative for costovertebral tenderness. Pelvis: Stable nontender. Skin: 3 stab sites noted to the abdomen, all of which appear free of infection. No drainage or erythema noted. Otherwise skin is intact, warm, dry. No lesions or rashes noted. Extremities: Atraumatic, moves all extremities per self without difficulty or deficits, negative for cords or calf pain. Neurovascular unremarkable. Neuro: Awake, alert, oriented. Cranial nerves II through XII unremarkable. Cerebellum unremarkable. Motor and sensory unremarkable throughout. Exam nonfocal. Notes: Patient has had an appendectomy and cholecystectomy. Lab work is unremarkable. CT shows a few small stones in both kidneys some which were present previously in the right kidney but others are better visualized today. No ureteral stones. Postsurgical changes abdomen and pelvis as detailed above. New and more prominent mild lymph node prominence in the right lower quadrant and pelvic mesentery likely inflammatory or reactive in nature. All findings were shared and discussed with patient. Supportive care measures were reviewed and discussed. Voices understanding and is agreeable to plan of care. Denies any further questions or concerns at this time. Diagnostics: CBC, CMP, UA Therapeutics: IV fluids, Toradol, Zofran Prescription: Zofran Impression: Abdominal pain Plan: 1. Small frequent sips of fluids to prevent dehydration. Uses Zofran as needed. 2. Tylenol and/or ibuprofen as needed for pain management. 3. Follow-up with your primary care provider or Dr Guillory as discussed. Return to the ED as needed and as discussed. Definitive disposition and diagnosis as appropriate pending reevaluation and review of above. Right Lower Abdomen Pain Score (Numeric/FACES): 8 - Related Data Allergies Allergy/AdvReac Type Severity Reaction Status Date / Time codeine Allergy Hives Verified 01/10/19 18:48 metronidazole [From Flagyl] Allergy Hives Verified 01/10/19 18:48 morphine Allergy Airway Verified 01/10/19 18:48 Tightness Penicillins Allergy Hives Verified 01/10/19 18:48 Sulfa (Sulfonamide Allergy Hives Verified 01/10/19 18:48 Antibiotics) tramadol Allergy Headache Verified 01/10/19 18:48 Home Meds: Home Meds Cetirizine [ZyrTEC] 10 mg PO DAILY 03/21/18 [History] Lisinopril 5 mg PO DAILY 03/21/18 [History] Metoprolol Succinate 25 mg PO DAILY 03/21/18 [History] Montelukast [Singulair] 10 mg PO DAILY 03/21/18 [History] Albuterol [Ventolin HFA] 1 - 2 puff INH ASDIRECTED PRN 12/25/18 [History] Hydrocodone/Acetaminophen [Hydrocodon-Acetaminophen 5-325] 1 tab PO ASDIRECTED PRN 12/25/18 [History] Diclofenac Sodium [Voltaren] 75 mg PO Q12HR 01/10/19 [History] Mirtazapine [Remeron] 15 mg PO BEDTIME 01/10/19 [History] Omeprazole Magnesium [Prilosec Otc] 20 mg PO DAILY 01/10/19 [History] Past Medical History - Past Health History Medical/Surgical History: Denies Medical/Surgical History HEENT 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: 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) Other HEENT History: top and bottom partial Cardiovascular 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: Hypertension, 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) Other Cardiovascular History: "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", daughter is now 16 months old Respiratory 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: Asthma, PE Other Respiratory History: PE Gastrointestinal 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: GERD Genitourinary 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: None SUPPORT SERVICE TECH 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: Other SUPPORT SERVICE TECH History: tubal ligation Musculoskeletal 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: Back Pain, Chronic Neurological 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: None Psychiatric 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: Anxiety, Depression Endocrine/Metabolic 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: Obesity/BMI 30+, Vitamin D Deficiency Hematologic 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: Iron Deficiency Immunologic 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: None Oncologic (Cancer) 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: None Dermatologic 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: None - Infectious Disease History Infectious Disease 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: Chicken Pox - Past Surgical History Head Surgeries/Procedures: Reports: None HEENT Surgical 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: Oral Surgery Other HEENT Surgeries/Procedures: teeth removal Cardiovascular Surgical 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: None Respiratory Surgical 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: None GI Surgical 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: Appendectomy, Cholecystectomy Female Surgical 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: Tubal Ligation Endocrine Surgical 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: None Neurological Surgical 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: None Musculoskeletal Surgical 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: None Dermatological Surgical 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: None Social & Family History - Family History Family Medical History: Noncontributory - Caffeine Use Caffeine Use: Reports: Coffee ED ROS GENERAL - Review of Systems Review Of Systems: ROS reveals no pertinent complaints other than HPI. ED EXAM, GI/ABD - Physical Exam Exam: See Below (See dictation) Course - Vital Signs Last Recorded V/S: Last Vital Signs Temp 98.1 F 01/10/19 18:48 Pulse 71 01/10/19 21:10 Resp 18 01/10/19 21:10 BP 106/56 L 01/10/19 21:10 Pulse Ox 98 01/10/19 21:10 - Orders/Labs/Meds Labs: Laboratory Tests 01/10/19 01/10/19 01/10/19 Range/Units 17:10 17:10 19:20 WBC 9.86 (4.0-11.0) K/uL RBC 3.65 L (4.30-5.90) M/uL Hgb 11.5 L (12.0-16.0) g/dL Hct 35.4 L (36.0-46.0) % MCV 97.0 (80.0-98.0) fL MCH 31.5 (27.0-32.0) pg MCHC 32.5 (31.0-37.0) g/dL RDW Std Deviation 44.8 (28.0-62.0) fl RDW Coeff of Lashay 13 (11.0-15.0) % Plt Count 352 (150-400) K/uL MPV 10.80 (7.40-12.00) fL Neut % (Auto) 59.3 (48.0-80.0) % Lymph % (Auto) 29.7 (16.0-40.0) % [place] % (Auto) 5.9 (0.0-15.0) % Eos % (Auto) 4.8 (0.0-7.0) % Baso % (Auto) 0.3 (0.0-1.5) % Neut # (Auto) 5.9 H (1.4-5.7) K/uL Lymph # (Auto) 2.9 H (0.6-2.4) K/uL Harding # (Auto) 0.6 (0.0-0.8) K/uL Eos # (Auto) 0.5 (0.0-0.7) K/uL Baso # (Auto) 0.0 (0.0-0.1) K/uL Nucleated RBC % 0.0 /100WBC Nucleated RBCs # 0 K/uL Sodium (136-145) mmol/L Potassium (3.5-5.1) mmol/L Chloride (98-107) mmol/L Carbon Dioxide (21.0-32.0) mmol/L BUN (7.0-18.0) mg/dL Creatinine (0.6-1.0) mg/dL Est Cr Clr Drug Dosing mL/min Estimated GFR (MDRD) ml/min Glucose (74-106) mg/dL Calcium (8.5-10.1) mg/dL Total Bilirubin (0.2-1.0) mg/dL AST (15-37) IU/L ALT (14-63) IU/L Alkaline Phosphatase (46-116) U/L Total Protein (6.4-8.2) g/dL Albumin (3.4-5.0) g/dL Globulin (2.6-4.0) g/dL Albumin/Globulin Ratio (0.9-1.6) Urine Color YELLOW Urine Appearance CLEAR Urine pH 6.0 (5.0-8.0) Ur Specific [place] 1.025 (1.001-1.035) Urine Protein NEGATIVE (NEGATIVE) mg/dL Urine Glucose (UA) NEGATIVE (NEGATIVE) mg/dL Urine Ketones NEGATIVE (NEGATIVE) mg/dL Urine Occult Blood NEGATIVE (NEGATIVE) Urine Nitrite NEGATIVE (NEGATIVE) Urine Bilirubin NEGATIVE (NEGATIVE) Urine Urobilinogen 0.2 (<2.0) EU/dL Ur Leukocyte Esterase NEGATIVE (NEGATIVE) Urine HCG, Qual NEGATIVE (NEGATIVE) 01/10/19 Range/Units 19:20 WBC (4.0-11.0) K/uL RBC (4.30-5.90) M/uL Hgb (12.0-16.0) g/dL Hct (36.0-46.0) % MCV (80.0-98.0) fL MCH (27.0-32.0) pg MCHC (31.0-37.0) g/dL RDW Std Deviation (28.0-62.0) fl RDW Coeff of Lashay (11.0-15.0) % Plt Count (150-400) K/uL MPV (7.40-12.00) fL Neut % (Auto) (48.0-80.0) % Lymph % (Auto) (16.0-40.0) % Hard[place] % (Auto) (0.0-15.0) % Eos % (Auto) (0.0-7.0) % Baso % (Auto) (0.0-1.5) % Neut # (Auto) (1.4-5.7) K/uL Lymph # (Auto) (0.6-2.4) K/uL Hard[place] # (Auto) (0.0-0.8) K/uL Eos # (Auto) (0.0-0.7) K/uL Baso # (Auto) (0.0-0.1) K/uL Nucleated RBC % /100WBC Nucleated RBCs # K/uL Sodium 141 (136-145) mmol/L Potassium 3.7 (3.5-5.1) mmol/L Chloride 106 (98-107) mmol/L Carbon Dioxide 25.5 (21.0-32.0) mmol/L BUN 14 (7.0-18.0) mg/dL Creatinine 0.7 (0.6-1.0) mg/dL Est Cr Clr Drug Dosing 98.09 mL/min Estimated GFR (MDRD) > 60.0 ml/min Glucose 130 H (74-106) mg/dL Calcium 8.9 (8.5-10.1) mg/dL Total Bilirubin 0.1 L (0.2-1.0) mg/dL AST 17 (15-37) IU/L ALT 50 (14-63) IU/L Alkaline Phosphatase 118 H (46-116) U/L Total Protein 7.0 (6.4-8.2) g/dL Albumin 3.3 L (3.4-5.0) g/dL Globulin 3.7 (2.6-4.0) g/dL Albumin/Globulin Ratio 0.9 (0.9-1.6) Urine Color Urine Appearance Urine pH (5.0-8.0) Ur Specific [place] (1.001-1.035) Urine Protein (NEGATIVE) mg/dL Urine Glucose (UA) (NEGATIVE) mg/dL Urine Ketones (NEGATIVE) mg/dL Urine Occult Blood (NEGATIVE) Urine Nitrite (NEGATIVE) Urine Bilirubin (NEGATIVE) Urine Urobilinogen (<2.0) EU/dL Ur Leukocyte Esterase (NEGATIVE) Urine HCG, Qual (NEGATIVE) Meds: Medications Discontinued Medications Generic Name Dose Route Start Last Admin Trade Name Freq PRN Reason Stop Dose Admin Sodium Chloride 1,000 mls @ 999 mls/hr 01/10/19 18:54 01/10/19 19:20 Normal Saline IV 01/10/19 19:54 999 mls/hr STAT ONE Administration Ketorolac Tromethamine 30 mg 01/10/19 18:57 01/10/19 19:21 Toradol IVPUSH 01/10/19 18:58 30 mg ONETIME ONE Administration Ondansetron HCl 4 mg 01/10/19 18:54 01/10/19 19:21 Zofran IVPUSH 01/10/19 18:55 4 mg ONETIME ONE Administration Departure - Departure Time of Disposition: 21:12 Disposition: Home, Self-Care 01 Clinical Impression: Abdominal pain Qualifiers: Abdominal location: unspecified location Qualified Code(s): R10.9 - Unspecified abdominal pain - Discharge Information Instructions: Abdominal Pain, Adult, [id number] Referrals: Mitchell Carter MD [Primary Care Provider] - Forms: ED Department Discharge Additional Instructions: The following information is given to patients seen in the emergency department who are being discharged to home. This information is to outline your options for follow-up care. We provide all patients seen in our emergency department with a follow-up referral. The need for follow-up, as well as the timing and circumstances, are variable depending upon the specifics of your emergency department visit. If you don't have a primary care physician on staff, we will provide you with a referral. We always advise you to contact your personal physician following an emergency department visit to inform them of the circumstance of the visit and for follow-up with them and/or the need for any referrals to a consulting specialist. The emergency department will also refer you to a specialist when appropriate. This referral assures that you have the opportunity for follow-up care with a specialist. All of these measure are taken in an effort to provide you with optimal care, which includes your follow-up. Under all circumstances we always encourage you to contact your private physician who remains a resource for coordinating your care. When calling for follow-up care, please make the office aware that this follow-up is from your recent emergency room visit. If for any reason you are refused follow-up, please contact the [facility] Emergency Department at and asked to speak to the emergency department charge nurse. [facility] [address] [place] [address] [facility] [address] [place] [address] 1. Small frequent sips of fluids to prevent dehydration. 2. Tylenol and/or ibuprofen as needed for pain management. 3. Keep the postoperative incision sites clean. Wash gently twice daily. Continue to monitor for signs of improvement. 4. Follow-up with your primary care provider or Dr Guillory as discussed. Return to the ED as needed and as discussed.
[2019-01-10] MEDS ORDERED: Ondansetron 4 MG/2 ML SDV IVPUSH ONE (18:54)
[2019-01-10] MEDS ORDERED: Sodium Chloride 0.9% 1,000 ML IV ONE (18:54)
[2019-01-10] MEDS ORDERED: Ketorolac 30 MG/ML SDV IVPUSH ONE (18:57)
[2019-01-10 19:52] LABS: CHLORIDE,CL 106 mmol/L (98-107); SODIUM,NA 141 mmol/L (136-145)
--- NOTE | 2019-01-10 21:17 | CT ---
INDICATION: Abdominal pain. TECHNIQUE: CT of abdomen and pelvis performed without oral IV contrast. COMPARISON: CT 03/21/2018. FINDINGS: Changes of cholecystectomy and bilateral tubal ligation in the pelvis stable. Rounded sclerotic lesion in the right femoral head is indeterminate but stable and measures 1 cm and left is larger than typically seen for a bone island. Stability of this lesion is reassuring. Mild ground-glass opacity and atelectasis in the lung bases new and nonspecific. Few tiny foci of high density in the left kidney could be related to developing calyceal tip stones. Few tiny and small stones in the right kidney some of the stones in the right kidney are stable and others are better visualized today without IV contrast. Cyst or follicle in the right ovary. Cluster of mildly prominent right lower quadrant and right pelvic mesenteric lymph nodes are more prominent with some of them being new. I suspect these are inflammatory or reactive in nature. Appendix is difficult identify with certainty. Remainder negative. IMPRESSION: 1. Few small stones in both kidneys some which were present previously in the right kidney but others are better visualized today. No ureteral stones. 2. Postsurgical changes abdomen and pelvis as detailed above. 3. New and more prominent mild lymph node prominence in the right lower quadrant and pelvic mesentery likely inflammatory or reactive in nature. 4. The appendix cannot be identified on this study. If there is concern for appendiceal pathology, repeat CT with IV and oral contrast could be performed. No secondary evidence of appendicitis identified. Other findings as above. Please note that all CT scans at this facility use dose modulation, iterative reconstruction, and/or weight-based dosing when appropriate to reduce radiation dose to as low as reasonably achievable. Dictated by Romaine Laura MD @ Jan 10 2019 9:15PM Signed by Dr. Romaine Laura @ Jan 10 2019 9:15PM
== END 2019-01-10 21:37 | disposition home or self-care (01) ==
LOC: MW.ED 18:32
DX: R10.31 Right lower quadrant pain (principal); I10 Essential (primary) hypertension; Z79.899 Other long term (current) drug therapy; Z88.5 Allergy status to narcotic agent; Z88.0 Allergy status to penicillin; Z88.2 Allergy status to sulfonamides
CPT/HCPCS: 36415; 74176; 80053; 81003; 81025; 85025; 96361; 96374; 96375; 99284; J1885; J2405; J7040

== ENCOUNTER 2019-03-28 11:48 | Emergency (ER) | payer OTHER ==
[2019-03-28] MEDS ORDERED: Ondansetron 4 MG/2 ML SDV IVPUSH ONE (12:20)
[2019-03-28] MEDS ORDERED: Pantoprazole 40 MG Vial IVPUSH ONE (12:31)
--- NOTE | 2019-03-28 12:31 | EDM.PDOC ---
ED HPI GENERAL MEDICAL PROBLEM - General Chief Complaint: General Stated Complaint: BODY ACHES,FEVER Time Seen by Provider: 03/28/19 11:57 Source of Information: Reports: Patient History Limitations: Reports: No Limitations - History of Present Illness INITIAL COMMENTS - FREE TEXT/NARRATIVE: HISTORY AND PHYSICAL: History of present illness: Patient is a 28-year-old female who presents to the ED today with nasal congestion, sore throat 2 days. Patient states this morning she has vomited 3 times in the 2nd episode of vomiting had a small amount of "blood". Patient states the blood was bright red and she is unable to quantify how much she means but states it was not a large amount. Patient denies any abdominal pain with the vomiting but states she has not thrown up for quite a few hours now but does feel nauseous. Patient states she has a history of tubal ligation. She denies any other symptoms or concerns at this time. She states she has not eaten any food today but has been pushing fluids and has gone to the bathroom multiple times. Patient denies fever, chills, chest pain, shortness of breath, or cough. Denies headache, neck stiff ness, change in vision, syncope, or near syncope. Denies abdominal pain, diarrhea, constipation, or dysuria. Has not noted any blood in urine or stool. Review of systems: As per history of present illness and below otherwise all systems reviewed and negative. Past medical history: As per history of present illness and as reviewed below otherwise noncontributory. Surgical history: As per history of present illness and as reviewed below otherwise noncontributory. Social history: See social history for further information Family history: As per history of present illness and as reviewed below otherwise noncontributory. Physical exam: General: Patient is alert, oriented, and in no acute distress. Patient sitting comfortably on exam table. HEENT: Atraumatic, normocephalic, pupils equal and reactive bilaterally, negative for conjunctival pallor or scleral icterus, mucous membranes moist, TMs normal bilaterally, throat clear without edema or erythema, neck supple, nontender, trachea midline. No drooling or trismus noted. No meningeal signs. No hot potato voice noted. Bilateral clear nasal drainage but negative pain with palpation of the maxillary and frontal sinuses. Lungs: Clear to auscultation, breath sounds equal bilaterally, chest nontender. Heart: S1S2, regular rate and rhythm without overt murmur Abdomen: Soft, nondistended, nontender. Negative for masses or hepatosplenomegaly. Negative for costovertebral tenderness. Pelvis: Stable nontender. Genitourinary: Deferred. Rectal: Deferred. Skin: Intact, warm, dry. No lesions or rashes noted. Extremities: Atraumatic, negative for cords or calf pain. Neurovascular unremarkable. Neuro: Awake, alert, oriented. Cranial nerves II through XII unremarkable. Cerebellum unremarkable. Motor and sensory unremarkable throughout. Exam nonfocal. Notes: Patient has not had any episodes of vomiting here in the ED. Did offer NG tube to assess h/o hematemesis but patient declines at this time. Voices understanding and is agreeable to plan of care. Denies any further questions or concerns at this time. Diagnostics: Influenza, Strep, CBC, CMP, UA, CXR Therapeutics: Zofran, Protonix Prescription: Zofran Impression: Upper respiratory infection h/o vomiting h/o hematemesis Plan: 1. Take medication as prescribed. You can also use Tylenol as directed for pain and discomfort. 2. Follow-up with a primary care provider as discussed. Return to the ED as needed and as discussed. Definitive disposition and diagnosis as appropriate pending reevaluation and review of above. Throat Pain Score (Numeric/FACES): 4 - Related Data Allergies Allergy/AdvReac Type Severity Reaction Status Date / Time codeine Allergy Hives Verified 03/28/19 12:00 metronidazole [From Flagyl] Allergy Hives Verified 03/28/19 12:00 morphine Allergy Airway Verified 03/28/19 12:00 Tightness Penicillins Allergy Hives Verified 03/28/19 12:00 Sulfa (Sulfonamide Allergy Hives Verified 03/28/19 12:00 Antibiotics) tramadol Allergy Headache Verified 03/28/19 12:00 Home Meds: Home Meds Cetirizine [ZyrTEC] 10 mg PO DAILY 03/21/18 [History] Lisinopril 5 mg PO DAILY 03/21/18 [History] Metoprolol Succinate 25 mg PO DAILY 03/21/18 [History] Montelukast [Singulair] 10 mg PO DAILY 03/21/18 [History] Albuterol [Ventolin HFA] 1 - 2 puff INH ASDIRECTED PRN 12/25/18 [History] Hydrocodone/Acetaminophen [Hydrocodon-Acetaminophen 5-325] 1 tab PO ASDIRECTED PRN 12/25/18 [History] Diclofenac Sodium [Voltaren] 75 mg PO Q12HR 01/10/19 [History] Mirtazapine [Remeron] 15 mg PO BEDTIME 01/10/19 [History] Omeprazole Magnesium [Prilosec Otc] 20 mg PO DAILY 01/10/19 [History] Past Medical History - Past Health History Medical/Surgical History: Denies Medical/Surgical History HEENT 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: 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) Other HEENT History: top and bottom partial Cardiovascular 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: Hypertension, 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) Other Cardiovascular History: "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", daughter is now 16 months old Respiratory 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: Asthma, PE Other Respiratory History: PE Gastrointestinal 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: GERD Genitourinary 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: None DIRECTOR OF [employer]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: Other DIRECTOR OF [employer]AIL [employer]LYT[employer] History: tubal ligation Musculoskeletal 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: Back Pain, Chronic Neurological 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: None Psychiatric 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: Anxiety, Depression Endocrine/Metabolic 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: Obesity/BMI 30+, Vitamin D Deficiency Hematologic 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: Iron Deficiency Immunologic 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: None Oncologic (Cancer) 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: None Dermatologic 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: None - Infectious Disease History Infectious Disease 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: None - Past Surgical History Head Surgeries/Procedures: Reports: None HEENT Surgical 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: Oral Surgery Other HEENT Surgeries/Procedures: teeth removal Cardiovascular Surgical 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: None Respiratory Surgical 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: None GI Surgical 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: Appendectomy, Cholecystectomy Female Surgical 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: Tubal Ligation Endocrine Surgical 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: None Neurological Surgical 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: None Musculoskeletal Surgical 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: None Dermatological Surgical 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: None Social & Family History - Family History Family Medical History: Noncontributory - Tobacco Use Smoking Status *Q: Current Every Day Smoker Years of Tobacco use: 15 Packs/Tins Daily: 0.5 - Caffeine Use Caffeine Use: Reports: Coffee - Recreational Drug Use Recreational Drug Use: No ED ROS GENERAL - Review of Systems Review Of Systems: ROS reveals no pertinent complaints other than HPI. ED EXAM, GENERAL - Physical Exam Exam: See Below (See dictation) Course - Vital Signs Last Recorded V/S: Last Vital Signs Temp 97.9 F 03/28/19 12:01 Pulse 77 03/28/19 12:01 Resp 16 03/28/19 12:01 BP 131/76 03/28/19 12:01 Pulse Ox 98 03/28/19 12:01 - Orders/Labs/Meds Orders: Active Orders 24 hr Category Date Time Status CULTURE STREP A CONFIRMATION [] Stat Lab 03/28/19 12:30 Results STREP SCRN A RAPID W CULT CONF [] Stat Lab 03/28/19 12:30 Results Labs: Laboratory Tests 03/28/19 03/28/19 03/28/19 Range/Units 12:25 12:30 12:30 WBC 6.68 (4.0-11.0) K/uL RBC 3.98 L (4.30-5.90) M/uL Hgb 12.1 (12.0-16.0) g/dL Hct 37.6 (36.0-46.0) % MCV 94.5 (80.0-98.0) fL MCH 30.4 (27.0-32.0) pg MCHC 32.2 (31.0-37.0) g/dL RDW Std Deviation 44.6 (28.0-62.0) fl RDW Coeff of Lashay 13 (11.0-15.0) % Plt Count 281 (150-400) K/uL MPV 10.50 (7.40-12.00) fL Neut % (Auto) 68.3 (48.0-80.0) % Lymph % (Auto) 18.6 (16.0-40.0) % [place] % (Auto) 7.0 (0.0-15.0) % Eos % (Auto) 5.7 (0.0-7.0) % Baso % (Auto) 0.4 (0.0-1.5) % Neut # (Auto) 4.6 (1.4-5.7) K/uL Lymph # (Auto) 1.2 (0.6-2.4) K/uL [place] # (Auto) 0.5 (0.0-0.8) K/uL Eos # (Auto) 0.4 (0.0-0.7) K/uL Baso # (Auto) 0.0 (0.0-0.1) K/uL Nucleated RBC % 0.0 /100WBC Nucleated RBCs # 0 K/uL Sodium 136 (136-145) mmol/L Potassium 3.9 (3.5-5.1) mmol/L Chloride 101 (98-107) mmol/L Carbon Dioxide 23.7 (21.0-32.0) mmol/L BUN 19 H (7.0-18.0) mg/dL Creatinine 0.6 (0.6-1.0) mg/dL Est Cr Clr Drug Dosing 114.44 mL/min Estimated GFR (MDRD) > 60.0 ml/min Glucose 113 H (74-106) mg/dL Calcium 8.8 (8.5-10.1) mg/dL Total Bilirubin 0.5 (0.2-1.0) mg/dL AST 49 H (15-37) IU/L ALT 41 (14-63) IU/L Alkaline Phosphatase 89 (46-116) U/L Total Protein 7.9 (6.4-8.2) g/dL Albumin 3.8 (3.4-5.0) g/dL Globulin 4.1 H (2.6-4.0) g/dL Albumin/Globulin Ratio 0.9 (0.9-1.6) Lipase 41 L (73-393) U/L Urine Color YELLOW Urine Appearance SLT CLOUDY Urine pH 5.5 (5.0-8.0) Ur Specific [place] 1.025 (1.001-1.035) Urine Protein NEGATIVE (NEGATIVE) mg/dL Urine Glucose (UA) NEGATIVE (NEGATIVE) mg/dL Urine Ketones NEGATIVE (NEGATIVE) mg/dL Urine Occult Blood MODERATE H (NEGATIVE) Urine Nitrite NEGATIVE (NEGATIVE) Urine Bilirubin NEGATIVE (NEGATIVE) Urine Urobilinogen 0.2 (<2.0) EU/dL Ur Leukocyte Esterase NEGATIVE (NEGATIVE) Urine RBC 4-8 (0-2/HPF) Urine WBC 0-2 (0-5/HPF) Ur Epithelial Cells OCCASIONAL (NONE-FEW) Amorphous Sediment RARE (NEGATIVE) Urine Bacteria FEW (NEGATIVE) Urine Mucus FEW (NONE-MOD) Meds: Medications Discontinued Medications Generic Name Dose Route Start Last Admin Trade Name Freq PRN Reason Stop Dose Admin Sterile Water Confirm 03/28/19 12:36 03/28/19 12:41 Sterile Water For Injection Administered 03/28/19 12:37 Not Given Dose 20 mls @ as directed .ROUTE .STK-MED ONE Ondansetron HCl 4 mg 03/28/19 12:20 03/28/19 12:34 Zofran IVPUSH 03/28/19 12:21 4 mg ONETIME ONE Administration Pantoprazole Sodium 80 mg 03/28/19 12:31 03/28/19 12:37 Protonix Iv IVPUSH 03/28/19 12:32 80 mg .BOLUS ONE Administration Departure - Departure Time of Disposition: 13:22 Disposition: Home, Self-Care 01 Clinical Impression: History of vomiting, History of hematemesis Upper respiratory infection Qualifiers: URI type: unspecified URI Qualified Code(s): J06.9 - Acute upper respiratory infection, unspecified - Discharge Information Referrals: Anna Rossi MD [Primary Care Provider] - Forms: ED Department Discharge Additional Instructions: The following information is given to patients seen in the emergency department who are being discharged to home. This information is to outline your options for follow-up care. We provide all patients seen in our emergency department with a follow-up referral. The need for follow-up, as well as the timing and circumstances, are variable depending upon the specifics of your emergency department visit. If you don't have a primary care physician on staff, we will provide you with a referral. We always advise you to contact your personal physician following an emergency department visit to inform them of the circumstance of the visit and for follow-up with them and/or the need for any referrals to a consulting specialist. The emergency department will also refer you to a specialist when appropriate. This referral assures that you have the opportunity for follow-up care with a specialist. All of these measure are taken in an effort to provide you with optimal care, which includes your follow-up. Under all circumstances we always encourage you to contact your private physician who remains a resource for coordinating your care. When calling for follow-up care, please make the office aware that this follow-up is from your recent emergency room visit. If for any reason you are refused follow-up, please contact the [facility] Emergency Department at and asked to speak to the emergency department charge nurse. [facility] [address] [place] [address] [facility] [address] [place] [address] 1. Take medication as prescribed. You can also use Tylenol as directed for pain and discomfort. 2. Follow-up with a primary care provider as discussed. Return to the ED as needed and as discussed. - My Orders Last 24 Hours: My Active Orders 03/28/19 12:30 CULTURE STREP A CONFIRMATION [RM] Stat STREP SCRN A RAPID W CULT CONF [RM] Stat - Assessment/Plan Last 24 Hours: My Active Orders 03/28/19 12:30 CULTURE STREP A CONFIRMATION [RM] Stat STREP SCRN A RAPID W CULT CONF [RM] Stat
[2019-03-28] MEDS ORDERED: Water For Injection, Sterile 20 ML ONE (12:36)
[2019-03-28 13:07] LABS: BLOOD UREA NITROGEN,BUN 19 mg/dL (7.0-18.0); CARBON DIOXIDE,CO2 23.7 mmol/L (21.0-32.0); CHLORIDE,CL 101 mmol/L (98-107); GLUCOSE RANDOM 113 mg/dL (74-106); LIPASE 41 U/L (73-393); POTASSIUM,K 3.9 mmol/L (3.5-5.1); SODIUM,NA 136 mmol/L (136-145)
--- NOTE | 2019-03-28 13:11 | CR ---
HISTORY: Shortness of breath. TECHNIQUE: Two views of the chest. COMPARISON: 07/05/2018. FINDINGS: Cardiac size and pulmonary vasculature are within normal limits. There is no acute lung infiltrate or pulmonary edema. No pneumothorax or pleural effusion. No acute bony abnormality. IMPRESSION: No acute disease. Dictated by Angelo Otero MD @ 03/28/2019 1:10:36 PM Dictated by: Angelo Otero MD @ 03/28/2019 13:10:42 (Electronically Signed)
== END 2019-03-28 13:35 | disposition home or self-care (01) ==
LOC: MW.ED 11:48
DX: J06.9 Acute upper respiratory infection, unspecified (principal); I10 Essential (primary) hypertension; J45.909 Unspecified asthma, uncomplicated; K21.9 Gastro-esophageal reflux disease without esophagitis; F32.9 Major depressive disorder, single episode, unspecified; F17.210 Nicotine dependence, cigarettes, uncomplicated; Z87.19 Personal history of other diseases of the digestive system; Z88.5 Allergy status to narcotic agent; Z88.1 Allergy status to other antibiotic agents; Z88.0 Allergy status to penicillin; Z88.2 Allergy status to sulfonamides; Z79.899 Other long term (current) drug therapy
CPT/HCPCS: 36415; 71046; 80053; 81001; 83690; 85025; 87081; 87804; 87880; 96374; 96375; 99283; C9113; J2405

== ENCOUNTER 2019-06-04 19:50 | Emergency (ER) | payer SELFPAY ==
[2019-06-04] MEDS ORDERED: HYDROmorphone 1 MG/ML Syringe IM ONE (21:41)
[2019-06-04 21:45] LABS: BLOOD UREA NITROGEN,BUN 14 mg/dL (7.0-18.0); CHLORIDE,CL 106 mmol/L (98-107); GLUCOSE RANDOM 163 mg/dL (74-106); LIPASE 110 U/L (73-393); POTASSIUM,K 3.6 mmol/L (3.5-5.1); SODIUM,NA 141 mmol/L (136-145)
--- NOTE | 2019-06-04 22:37 | US ---
INDICATION: Pelvic pain TECHNIQUE: Ultrasound pelvis transvaginal only COMPARISON: 09/22/2018 FINDINGS: Uterus: 5.8 centimeter x 3.2 centimeter x 4.5 centimeter. Normal echotexture of the myometrium. No masses. Endometrium: Transvaginal imaging was performed to better evaluate the endometrium. 7 mm in thickness. Small amount of fluid in the endometrial canal. Right ovary: 2.7 centimeter x 2.4 centimeter x 1.9 centimeter. No ovarian or adnexal masses. Normal arterial and venous blood flow. Left ovary: 2.1 centimeter x 2.1 centimeter x 1.8 centimeter. No ovarian or adnexal masses. Normal arterial and venous blood flow. Cul-de-sac: No significant free fluid. IMPRESSION: Small amount of fluid in the endometrial canal. the remainder of the exam is essentially unremarkable. Dictated by Hernan Carrillo MD @ 06/04/2019 10:35:12 PM Dictated by: Hernan Carrillo MD @ 06/04/2019 22:35:27 (Electronically Signed)
--- NOTE | 2019-06-05 00:41 | EDM.PDOC ---
ED HPI GENERAL MEDICAL PROBLEM - General Chief Complaint: [employer] Problem Stated Complaint: ABDOMINAL PAIN Time Seen by Provider: 06/04/19 21:04 Source of Information: Reports: Patient History Limitations: Reports: No Limitations - History of Present Illness INITIAL COMMENTS - FREE TEXT/NARRATIVE: 28-year-old female history of chronic pelvic pain presents with abdominal pain that is been going on for weeks. Patient evaluated emergency room and found no evidence of infection. Patient's will be discharged home with appropriate follow-up. Onset: Today Duration: Hour(s): Location: Reports: Pelvis Quality: Reports: Same as Previous Episode Severity: Moderate Improves with: Reports: None Worsens with: Reports: None Associated Symptoms: Reports: No Other Symptoms Treatments MEETING COORDINATOR: Reports: Other Medication(s) (narcotics ) Pelvic Pain Score (Numeric/FACES): 9 - Related Data Allergies Allergy/AdvReac Type Severity Reaction Status Date / Time codeine Allergy Hives Verified 06/04/19 19:58 metronidazole [From Flagyl] Allergy Hives Verified 06/04/19 19:58 morphine Allergy Airway Verified 06/04/19 19:58 Tightness Penicillins Allergy Hives Verified 06/04/19 19:58 Sulfa (Sulfonamide Allergy Hives Verified 06/04/19 19:58 Antibiotics) tramadol Allergy Headache Verified 06/04/19 19:58 Home Meds: Home Meds Cetirizine [ZyrTEC] 10 mg PO DAILY 03/21/18 [History] Lisinopril 5 mg PO DAILY 03/21/18 [History] Metoprolol Succinate 25 mg PO DAILY 03/21/18 [History] Montelukast [Singulair] 10 mg PO DAILY 03/21/18 [History] Albuterol [Ventolin HFA] 1 - 2 puff INH ASDIRECTED PRN 12/25/18 [History] Hydrocodone/Acetaminophen [Hydrocodon-Acetaminophen 5-325] 1 tab PO ASDIRECTED PRN 12/25/18 [History] Diclofenac Sodium [Voltaren] 75 mg PO Q12HR 01/10/19 [History] Mirtazapine [Remeron] 15 mg PO BEDTIME 01/10/19 [History] Omeprazole Magnesium [Prilosec Otc] 20 mg PO DAILY 01/10/19 [History] Atropine/Hyoscy/PHENobarb/Scop [ Tablet] 16.2 mg PO 5XDAY PRN #14 tablet 06/05/19 [Rx] Past Medical History - Past Health History Medical/Surgical History: Denies Medical/Surgical History HEENT 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: 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) Other HEENT History: top and bottom partial Cardiovascular 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: Hypertension, 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) Other Cardiovascular History: "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", daughter is now 16 months old Respiratory 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: Asthma, PE Other Respiratory History: PE Gastrointestinal 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: GERD Genitourinary 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: None [employer] 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: Other [employer] History: tubal ligation Musculoskeletal 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: Back Pain, Chronic Neurological 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: None Psychiatric 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: Anxiety, Depression Endocrine/Metabolic 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: Obesity/BMI 30+, Vitamin D Deficiency Hematologic 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: Iron Deficiency Immunologic 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: None Oncologic (Cancer) 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: None Dermatologic 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: None - Infectious Disease History Infectious Disease 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: Chicken Pox - Past Surgical History Head Surgeries/Procedures: Reports: None HEENT Surgical 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: Oral Surgery Other HEENT Surgeries/Procedures: teeth removal Cardiovascular Surgical 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: None Respiratory Surgical 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: None GI Surgical 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: Appendectomy, Cholecystectomy Female Surgical 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: Tubal Ligation Endocrine Surgical 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: None Neurological Surgical 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: None Musculoskeletal Surgical 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: None Dermatological Surgical 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: None Social & Family History - Family History Family Medical History: Noncontributory - Tobacco Use Smoking Status *Q: Current Every Day Smoker Years of Tobacco use: 15 Packs/Tins Daily: 1 - Caffeine Use Caffeine Use: Reports: Coffee - Recreational Drug Use Recreational Drug Use: No ED ROS GENERAL - Review of Systems Review Of Systems: See Below Constitutional: Reports: No Symptoms HEENT: Reports: No Symptoms Respiratory: Reports: No Symptoms Cardiovascular: Reports: No Symptoms Endocrine: Reports: No Symptoms GI/Abdominal: Reports: Abdominal Pain : Reports: No Symptoms Musculoskeletal: Reports: No Symptoms Skin: Reports: No Symptoms Neurological: Reports: No Symptoms Psychiatric: Reports: No Symptoms Hematologic/Lymphatic: Reports: No Symptoms Immunologic: Reports: No Symptoms ED EXAM, GI/ABD - Physical Exam Exam: See Below Exam Limited By: No Limitations General Appearance: Alert, WD/WN, No Apparent Distress, Mild Distress Eyes: Bilateral: Normal Appearance Ears: Normal External Exam, Normal Canal, Hearing Grossly Normal, Normal TMs Nose: Normal Inspection, Normal Mucosa, No Blood Throat/Mouth: Normal Inspection, Normal Lips, Normal Teeth, Normal Oropharynx, Normal Voice Head: Atraumatic, Normocephalic Neck: Normal Inspection, Supple, Non-Tender Respiratory/Chest: No Respiratory Distress, Lungs Clear, Normal Breath Sounds, No Accessory Muscle Use, Chest Non-Tender Cardiovascular: Normal Peripheral Pulses, Regular Rate, Rhythm, No Edema, No JVD , No Murmur GI/Abdominal Exam: Normal Bowel Sounds, Soft, Non-Tender, No Organomegaly, No Distention, No Abnormal Bruit, No Mass, Pelvis Stable (Female) Exam: Deferred Rectal (Female) Exam: Deferred Back Exam: Normal Inspection, Full Range of Motion Extremities: Normal Inspection, Normal Range of Motion Neurological: Alert, Oriented, CN II-XII Intact, Normal Cognition, Normal Reflexes, No Motor/Sensory Deficits Psychiatric: Normal Affect, Normal Mood Skin Exam: Warm, Dry, Intact, Normal Color, No Rash Lymphatic: No Adenopathy Course - Vital Signs Last Recorded V/S: Last Vital Signs Temp 97.8 F 06/04/19 19:59 Pulse 90 06/05/19 01:05 Resp 18 06/05/19 01:05 BP 138/76 06/04/19 22:30 Pulse Ox 99 06/05/19 01:05 - Orders/Labs/Meds Labs: Laboratory Tests 06/04/19 06/04/19 06/04/19 Range/Units 20:42 20:42 21:18 WBC 6.62 (4.0-11.0) K/uL RBC 3.74 L (4.30-5.90) M/uL Hgb 11.7 L (12.0-16.0) g/dL Hct 35.4 L (36.0-46.0) % MCV 94.7 (80.0-98.0) fL MCH 31.3 (27.0-32.0) pg MCHC 33.1 (31.0-37.0) g/dL RDW Std Deviation 47.5 (28.0-62.0) fl RDW Coeff of Lashay 14 (11.0-15.0) % Plt Count 290 (150-400) K/uL MPV 10.70 (7.40-12.00) fL Neut % (Auto) 47.8 L (48.0-80.0) % Lymph % (Auto) 42.3 H (16.0-40.0) % [place] % (Auto) 6.9 (0.0-15.0) % Eos % (Auto) 2.7 (0.0-7.0) % Baso % (Auto) 0.3 (0.0-1.5) % Neut # (Auto) 3.2 (1.4-5.7) K/uL Lymph # (Auto) 2.8 H (0.6-2.4) K/uL [place] # (Auto) 0.5 (0.0-0.8) K/uL Eos # (Auto) 0.2 (0.0-0.7) K/uL Baso # (Auto) 0.0 (0.0-0.1) K/uL Nucleated RBC % 0.0 /100WBC Nucleated RBCs # 0 K/uL Sodium (136-145) mmol/L Potassium (3.5-5.1) mmol/L Chloride (98-107) mmol/L Carbon Dioxide (21.0-32.0) mmol/L BUN (7.0-18.0) mg/dL Creatinine (0.6-1.0) mg/dL Est Cr Clr Drug Dosing mL/min Estimated GFR (MDRD) ml/min Glucose (74-106) mg/dL Calcium (8.5-10.1) mg/dL Total Bilirubin (0.2-1.0) mg/dL AST (15-37) IU/L ALT (14-63) IU/L Alkaline Phosphatase (46-116) U/L Total Protein (6.4-8.2) g/dL Albumin (3.4-5.0) g/dL Globulin (2.6-4.0) g/dL Albumin/Globulin Ratio (0.9-1.6) Lipase (73-393) U/L Urine Color YELLOW Urine Appearance CLEAR Urine pH 5.5 (5.0-8.0) Ur Specific [place] >= 1.030 (1.001-1.035) Urine Protein NEGATIVE (NEGATIVE) mg/dL Urine Glucose (UA) NEGATIVE (NEGATIVE) mg/dL Urine Ketones NEGATIVE (NEGATIVE) mg/dL Urine Occult Blood NEGATIVE (NEGATIVE) Urine Nitrite NEGATIVE (NEGATIVE) Urine Bilirubin NEGATIVE (NEGATIVE) Urine Urobilinogen 0.2 (<2.0) EU/dL Ur Leukocyte Esterase NEGATIVE (NEGATIVE) Urine HCG, Qual NEGATIVE (NEGATIVE) 06/04/19 Range/Units 21:18 WBC (4.0-11.0) K/uL RBC (4.30-5.90) M/uL Hgb (12.0-16.0) g/dL Hct (36.0-46.0) % MCV (80.0-98.0) fL MCH (27.0-32.0) pg MCHC (31.0-37.0) g/dL RDW Std Deviation (28.0-62.0) fl RDW Coeff of Lashay (11.0-15.0) % Plt Count (150-400) K/uL MPV (7.40-12.00) fL Neut % (Auto) (48.0-80.0) % Lymph % (Auto) (16.0-40.0) % [place] % (Auto) (0.0-15.0) % Eos % (Auto) (0.0-7.0) % Baso % (Auto) (0.0-1.5) % Neut # (Auto) (1.4-5.7) K/uL Lymph # (Auto) (0.6-2.4) K/uL [place] # (Auto) (0.0-0.8) K/uL Eos # (Auto) (0.0-0.7) K/uL Baso # (Auto) (0.0-0.1) K/uL Nucleated RBC % /100WBC Nucleated RBCs # K/uL Sodium 141 (136-145) mmol/L Potassium 3.6 (3.5-5.1) mmol/L Chloride 106 (98-107) mmol/L Carbon Dioxide 24.0 (21.0-32.0) mmol/L BUN 14 (7.0-18.0) mg/dL Creatinine 0.7 (0.6-1.0) mg/dL Est Cr Clr Drug Dosing 98.09 mL/min Estimated GFR (MDRD) > 60.0 ml/min Glucose 163 H (74-106) mg/dL Calcium 8.7 (8.5-10.1) mg/dL Total Bilirubin 0.1 L (0.2-1.0) mg/dL AST 7 L (15-37) IU/L ALT 20 (14-63) IU/L Alkaline Phosphatase 76 (46-116) U/L Total Protein 7.1 (6.4-8.2) g/dL Albumin 3.7 (3.4-5.0) g/dL Globulin 3.4 (2.6-4.0) g/dL Albumin/Globulin Ratio 1.1 (0.9-1.6) Lipase 110 (73-393) U/L Urine Color Urine Appearance Urine pH (5.0-8.0) Ur Specific [place] (1.001-1.035) Urine Protein (NEGATIVE) mg/dL Urine Glucose (UA) (NEGATIVE) mg/dL Urine Ketones (NEGATIVE) mg/dL Urine Occult Blood (NEGATIVE) Urine Nitrite (NEGATIVE) Urine Bilirubin (NEGATIVE) Urine Urobilinogen (<2.0) EU/dL Ur Leukocyte Esterase (NEGATIVE) Urine HCG, Qual (NEGATIVE) Meds: Medications Discontinued Medications Generic Name Dose Route Start Last Admin Trade Name Freq PRN Reason Stop Dose Admin Hydromorphone HCl 0.5 mg 06/04/19 21:41 06/04/19 21:50 Dilaudid IM 06/04/19 21:42 0.5 mg ONETIME ONE Administration Departure - Departure Time of Disposition: 00:40 Disposition: Home, Self-Care 01 Condition: Good Clinical Impression: Pelvic pain - Discharge Information Prescriptions: Atropine/Hyoscy/PHENobarb/Scop [ Tablet] 16.2 mg PO 5XDAY PRN #14 tablet PRN Reason: Abdominal Pain Instructions: Pelvic Pain, Female Referrals: Mitchell Carter MD [Primary Care Provider] - Forms: ED Department Discharge Sepsis Event Note - Evaluation Sepsis Screening Result: No Definite Risk - Focused Exam Date Exam was Performed: 06/08/19 Time Exam was Performed: 19:19
== END 2019-06-05 01:05 | disposition home or self-care (01) ==
LOC: MW.ED 19:50
DX: R10.2 Pelvic and perineal pain (principal); I10 Essential (primary) hypertension; J45.909 Unspecified asthma, uncomplicated; E66.9 Obesity, unspecified; K21.9 Gastro-esophageal reflux disease without esophagitis; F32.9 Major depressive disorder, single episode, unspecified; F17.210 Nicotine dependence, cigarettes, uncomplicated; Z68.31 Body mass index [BMI] 31.0-31.9, adult; Z79.899 Other long term (current) drug therapy; Z88.0 Allergy status to penicillin; Z88.2 Allergy status to sulfonamides; Z88.5 Allergy status to narcotic agent; Z88.6 Allergy status to analgesic agent; Z88.8 Allergy status to other drugs, medicaments and biological substances
CPT/HCPCS: 36415; 76830; 80053; 81003; 81025; 83690; 85025; 96372; 99284; J1170; 99283

== ENCOUNTER 2019-06-09 02:54 | Emergency (ER) | payer SELFPAY ==
[2019-06-09] MEDS ORDERED: Ketorolac 60 MG/2 ML SDV IM ONE (06:30)
[2019-06-09] MEDS ORDERED: Clindamycin HCl 150 MG Cap PO ONE (07:12)
--- NOTE | 2019-06-09 07:20 | EDM.PDOC ---
ED HPI GENERAL MEDICAL PROBLEM - General Chief Complaint: General Stated Complaint: BACK PAIN Time Seen by Provider: 06/09/19 05:42 Source of Information: Reports: Patient History Limitations: Reports: No Limitations - History of Present Illness Onset: Gradual Duration: Day(s): Location: Reports: Head Quality: Reports: Sharp, Stabbing Severity: Moderate Improves with: Reports: None Associated Symptoms: Reports: Headaches, Malaise, Other (Pain in the throat ) Generalized Pain Score (Numeric/FACES): 10 - Related Data Allergies Allergy/AdvReac Type Severity Reaction Status Date / Time codeine Allergy Hives Verified 06/09/19 03:03 metronidazole [From Flagyl] Allergy Hives Verified 06/09/19 03:03 morphine Allergy Airway Verified 06/09/19 03:03 Tightness Penicillins Allergy Hives Verified 06/09/19 03:03 Sulfa (Sulfonamide Allergy Hives Verified 06/09/19 03:03 Antibiotics) tramadol Allergy Headache Verified 06/09/19 03:03 Home Meds: Home Meds Cetirizine [ZyrTEC] 10 mg PO DAILY 03/21/18 [History] Lisinopril 5 mg PO DAILY 03/21/18 [History] Metoprolol Succinate 25 mg PO DAILY 03/21/18 [History] Montelukast [Singulair] 10 mg PO DAILY 03/21/18 [History] Albuterol [Ventolin HFA] 1 - 2 puff INH ASDIRECTED PRN 12/25/18 [History] Hydrocodone/Acetaminophen [Hydrocodon-Acetaminophen 5-325] 1 tab PO ASDIRECTED PRN 12/25/18 [History] Diclofenac Sodium [Voltaren] 75 mg PO Q12HR 01/10/19 [History] Mirtazapine [Remeron] 15 mg PO BEDTIME 01/10/19 [History] Omeprazole Magnesium [Prilosec Otc] 20 mg PO DAILY 01/10/19 [History] Atropine/Hyoscy/PHENobarb/Scop [ Tablet] 16.2 mg PO 5XDAY PRN #14 tablet 06/05/19 [Rx] Past Medical History - Past Health History Medical/Surgical History: Denies Medical/Surgical History HEENT 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: 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) Other HEENT History: top and bottom partial Cardiovascular 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: Hypertension, 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) Other Cardiovascular History: "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", daughter is now 16 months old Respiratory 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: Asthma, PE Other Respiratory History: PE Gastrointestinal 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: GERD Genitourinary 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: None 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 WINDOWS SUPPORT ENGINEER History: tubal ligation Musculoskeletal 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: Back Pain, Chronic Neurological 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: None Psychiatric 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: Anxiety, Depression Endocrine/Metabolic 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: Obesity/BMI 30+, Vitamin D Deficiency Hematologic 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: Iron Deficiency Immunologic 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: None Oncologic (Cancer) 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: None Dermatologic 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: None - Infectious Disease History Infectious Disease 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: None - Past Surgical History Head Surgeries/Procedures: Reports: None HEENT Surgical 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: Oral Surgery Other HEENT Surgeries/Procedures: teeth removal Cardiovascular Surgical 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: None Respiratory Surgical 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: None GI Surgical 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: Appendectomy, Cholecystectomy Female Surgical 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: Tubal Ligation Endocrine Surgical 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: None Neurological Surgical 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: None Musculoskeletal Surgical 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: None Dermatological Surgical 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: None Social & Family History - Family History Family Medical History: Noncontributory - Tobacco Use Smoking Status *Q: Current Every Day Smoker Years of Tobacco use: 15 Packs/Tins Daily: 1 - Caffeine Use Caffeine Use: Reports: Coffee, Soda - Recreational Drug Use Recreational Drug Use: No ED ROS GENERAL - Review of Systems Review Of Systems: See Below Constitutional: Reports: Fever HEENT: Reports: Ear Pain, Throat Pain Respiratory: Reports: No Symptoms Cardiovascular: Reports: No Symptoms Endocrine: Reports: No Symptoms GI/Abdominal: Reports: No Symptoms : Reports: No Symptoms Musculoskeletal: Reports: Neck Pain, Back Pain Skin: Reports: No Symptoms Neurological: Reports: No Symptoms Psychiatric: Reports: No Symptoms Hematologic/Lymphatic: Reports: No Symptoms Immunologic: Reports: No Symptoms ED EXAM, GENERAL - Physical Exam Exam: See Below Free Text/Narrative:: 28-year-old female presents with a chief complaint of pain in the throat, fever chills for the past 3 days. Patient states she has had nausea and vomiting and back pain also Exam Limited By: No Limitations General Appearance: Alert, WD/WN, Lethargic, Mild Distress Ear Exam: Bilateral Ear: Auricle Normal, Canal Normal, TM normal Nose: Normal Inspection, Normal Mucosa Throat/Mouth: No Airway Compromise, Inflammation Head: Atraumatic, Normocephalic Neck: Normal Inspection, Supple, Non-Tender Respiratory/Chest: No Respiratory Distress, Lungs Clear, Normal Breath Sounds, No Accessory Muscle Use, Chest Non-Tender Cardiovascular: Normal Peripheral Pulses, Regular Rate, Rhythm, No Edema GI/Abdominal: Normal Bowel Sounds, Soft Back Exam: Normal Inspection, Full Range of Motion Extremities: Normal Inspection, Normal Range of Motion, Normal Capillary Refill Neurological: Alert, Oriented, CN II-XII Intact Psychiatric: Normal Affect Skin Exam: Warm, Dry, Intact Course - Vital Signs Text/Narrative:: This 28-year-old female presents with a fever, high white count of 20,000. And pain in all joints including back chest and throat pain. Patient's throat appeared red and erythematous patient does have a positive strep. Patient will be placed on clindamycin she is allergic to penicillin at this time discharged home with anti-inflammatories and clindamycin. Diagnosis on the patient is a strep pharyngitis Last Recorded V/S: Last Vital Signs Temp 97.4 F 06/09/19 03:03 Pulse 118 H 06/09/19 03:03 Resp 18 06/09/19 03:03 BP 150/80 H 06/09/19 03:03 Pulse Ox 98 06/09/19 03:03 - Orders/Labs/Meds Orders: Active Orders 24 hr Category Date Time Status Clindamycin HCl [Cleocin] Med 06/09/19 07:12 Once 300 mg PO ONETIME ONE Labs: Laboratory Tests 06/09/19 06/09/19 06/09/19 Range/Units 05:59 05:59 06:23 WBC 20.31 H (4.0-11.0) K/uL RBC 4.14 L (4.30-5.90) M/uL Hgb 12.8 (12.0-16.0) g/dL Hct 39.5 (36.0-46.0) % MCV 95.4 (80.0-98.0) fL MCH 30.9 (27.0-32.0) pg MCHC 32.4 (31.0-37.0) g/dL RDW Std Deviation 48.9 (28.0-62.0) fl RDW Coeff of Lashay 14 (11.0-15.0) % Plt Count 284 (150-400) K/uL MPV 10.60 (7.40-12.00) fL Neut % (Auto) 86.8 H (48.0-80.0) % Lymph % (Auto) 8.1 L (16.0-40.0) % [place] % (Auto) 4.8 (0.0-15.0) % Eos % (Auto) 0.2 (0.0-7.0) % Baso % (Auto) 0.1 (0.0-1.5) % Neut # (Auto) 17.6 H (1.4-5.7) K/uL Lymph # (Auto) 1.7 (0.6-2.4) K/uL [place] # (Auto) 1.0 H (0.0-0.8) K/uL Eos # (Auto) 0.1 (0.0-0.7) K/uL Baso # (Auto) 0.0 (0.0-0.1) K/uL Nucleated RBC % 0.0 /100WBC Nucleated RBCs # 0 K/uL Urine Color YELLOW Urine Appearance CLEAR Urine pH 5.0 (5.0-8.0) Ur Specific [place] 1.025 (1.001-1.035) Urine Protein 30 H (NEGATIVE) mg/dL Urine Glucose (UA) NEGATIVE (NEGATIVE) mg/dL Urine Ketones NEGATIVE (NEGATIVE) mg/dL Urine Occult Blood SMALL H (NEGATIVE) Urine Nitrite NEGATIVE (NEGATIVE) Urine Bilirubin NEGATIVE (NEGATIVE) Urine Urobilinogen 0.2 (<2.0) EU/dL Ur Leukocyte Esterase NEGATIVE (NEGATIVE) Urine RBC 0-2 (0-2/HPF) Urine WBC 0-1 (0-5/HPF) Ur Epithelial Cells RARE (NONE-FEW) Urine Bacteria RARE (NEGATIVE) Urine HCG, Qual NEGATIVE (NEGATIVE) Meds: Medications Discontinued Medications Generic Name Dose Route Start Last Admin Trade Name Freq PRN Reason Stop Dose Admin Ketorolac Tromethamine 60 mg 06/09/19 06:30 06/09/19 06:35 Toradol IM 06/09/19 06:31 60 mg ONETIME ONE Administration Departure - Departure Time of Disposition: 07:22 Disposition: Home, Self-Care 01 Condition: Good Clinical Impression: Strep pharyngitis - Discharge Information Instructions: Strep Throat, Pharyngitis, [id number] Referrals: PCP,None [Primary Care Provider] - Sepsis Event Note - Evaluation Sepsis Screening Result: No Definite Risk - Focused Exam Vital Signs: Vital Signs Temp Pulse Resp BP Pulse Ox 06/09/19 03:03 97.4 F 118 H 18 150/80 H 98 Date Exam was Performed: 06/09/19 Time Exam was Performed: 07:15 - My Orders Last 24 Hours: My Active Orders 06/09/19 07:12 Clindamycin HCl [Cleocin] 300 mg PO ONETIME ONE - Assessment/Plan Last 24 Hours: My Active Orders 06/09/19 07:12 Clindamycin HCl [Cleocin] 300 mg PO ONETIME ONE
== END 2019-06-09 07:37 | disposition home or self-care (01) ==
LOC: MW.ED 02:54
DX: J02.0 Streptococcal pharyngitis (principal); I10 Essential (primary) hypertension; J45.909 Unspecified asthma, uncomplicated; K21.9 Gastro-esophageal reflux disease without esophagitis; E66.9 Obesity, unspecified; F32.9 Major depressive disorder, single episode, unspecified; F17.210 Nicotine dependence, cigarettes, uncomplicated; Z68.31 Body mass index [BMI] 31.0-31.9, adult; Z79.899 Other long term (current) drug therapy; Z88.0 Allergy status to penicillin; Z88.1 Allergy status to other antibiotic agents; Z88.2 Allergy status to sulfonamides; Z88.5 Allergy status to narcotic agent; Z88.6 Allergy status to analgesic agent
CPT/HCPCS: 36415; 81001; 81025; 85025; 87804; 87880; 96372; 99283; A9270; J1885

== ENCOUNTER 2019-12-10 07:55 | Day surgery (SDC) | payer MEDICAID, OTHER ==
[2019-12-09 10:20] LABS: BLOOD UREA NITROGEN,BUN 21 mg/dL (7.0-18.0); CARBON DIOXIDE,CO2 21.9 mmol/L (21.0-32.0); CHLORIDE,CL 105 mmol/L (98-107); GLUCOSE RANDOM 114 mg/dL (74-106); POTASSIUM,K 4.1 mmol/L (3.5-5.1); SODIUM,NA 139 mmol/L (136-145)
[~2019-12-10 07:55] MED LIST changes: +Dexamethasone 4 MG/ML 5 ML MDV ONE; +Glycopyrrolate 0.2 MG/ML SDV ONE; +Ketorolac 30 MG/ML SDV ONE; +Lidocaine 2% 5 ML SDV ONE; +Midazolam 1 MG/ML 2 ML SDV ONE; +Ondansetron 4 MG/2 ML SDV ONE; +Propofol 200 MG/20 ML SDV ONE; +Rocuronium Bromide 50 MG/5 ML Syringe ONE; +Sugammadex Sodium 200 MG/2 ML VIAL ONE; +ceFAZolin 2 GM in Premix Bag 1 BAG IV ONE; +fentaNYL 250 MCG/5 ML SDV ONE
[2019-12-10] MEDS ORDERED: Acetaminophen 1,000 MG in Premix Bag 1 BAG IV PRN (08:45)
[2019-12-10] MEDS ORDERED: Sodium Chloride 0.9% 20 ML ONE (08:51)
[2019-12-10] MEDS ORDERED: ceFAZolin 1 GM Vial ONE (08:51)
[2019-12-10] MEDS ORDERED: Scopolamine 1.5 MG Transdermal Patch TRDERM PRN (09:40)
--- NOTE | 2019-12-10 09:40 | PCM.PREANE ---
Preanesthetic Assessment - Anesthesia/Transfusion/Family Hx Anesthesia History: Prior Anesthesia Without Reaction Family History of Anesthesia Reaction: No Transfusion History: No Prior Transfusion(s) Intubation History: Unknown - Review of Systems General: No Symptoms Pulmonary: No Symptoms Cardiovascular: No Symptoms Gastrointestinal: No Symptoms Neurological: No Symptoms Other: Reports: None - Physical Assessment Vital Signs: Last Vital Signs Temp 36.6 C 12/10/19 08:16 Pulse 107 H 12/10/19 08:16 Resp 16 12/10/19 08:16 BP 125/58 L 12/10/19 08:16 Pulse Ox 97 12/10/19 08:16 Height: 5 ft 3 in Weight: 81.647 kg ASA Class: 2 Mental Status: Alert & Oriented x3 Airway Class: Mallampati = 2 Dentition: Reports: Partial (upper and lower- removable) Thyro-Mental Finger Breadths: 3 Mouth Opening Finger Breadths: 2 (small mouth) ROM/Head Extension: Full Lungs: Clear to Auscultation, Normal Respiratory Effort Cardiovascular: Regular Rate, Regular Rhythm - Lab Values: Laboratory Last Values WBC 8.54 K/uL (4.0-11.0) 12/09/19 09:36 RBC 3.89 M/uL (4.30-5.90) L 12/09/19 09:36 Hgb 12.4 g/dL (12.0-16.0) 12/09/19 09:36 Hct 39.1 % (36.0-46.0) 12/09/19 09:36 MCV 100.5 fL (80.0-98.0) H 12/09/19 09:36 MCH 31.9 pg (27.0-32.0) 12/09/19 09:36 MCHC 31.7 g/dL (31.0-37.0) 12/09/19 09:36 RDW Std Deviation 48.5 fl (28.0-62.0) 12/09/19 09:36 RDW Coeff of Lashay 13 % (11.0-15.0) 12/09/19 09:36 Plt Count 363 K/uL (150-400) 12/09/19 09:36 MPV 10.40 fL (7.40-12.00) 12/09/19 09:36 Nucleated RBC % 0.0 /100WBC 12/09/19 09:36 Nucleated RBCs # 0 K/uL 12/09/19 09:36 Sodium 139 mmol/L (136-145) 12/09/19 09:36 Potassium 4.1 mmol/L (3.5-5.1) 12/09/19 09:36 Chloride 105 mmol/L (98-107) 12/09/19 09:36 Carbon Dioxide 21.9 mmol/L (21.0-32.0) 12/09/19 09:36 BUN 21 mg/dL (7.0-18.0) H 12/09/19 09:36 Creatinine 0.6 mg/dL (0.6-1.0) 12/09/19 09:36 Est Cr Clr Drug Dosing 113.41 mL/min 12/09/19 09:36 Estimated GFR (MDRD) > 60.0 ml/min 12/09/19 09:36 Glucose 114 mg/dL (74-106) H 12/09/19 09:36 Calcium 8.7 mg/dL (8.5-10.1) 12/09/19 09:36 HCG, Qual NEGATIVE (NEG) 12/09/19 09:36 Blood Type B POSITIVE 12/09/19 09:36 Antibody Screen NEGATIVE 12/09/19 09:36 - Allergies Allergies/Adverse Reactions: Allergies Allergy/AdvReac Type Severity Reaction Status Date / Time codeine Allergy Hives Verified 12/10/19 08:41 metronidazole [From Flagyl] Allergy Hives Verified 12/10/19 08:42 morphine Allergy Airway Verified 12/10/19 08:42 Tightness Penicillins Allergy Hives Verified 12/10/19 08:42 Sulfa (Sulfonamide Allergy Hives Verified 12/10/19 08:42 Antibiotics) tramadol Allergy Headache Verified 12/10/19 08:42 - Blood Blood Available: No - Anesthesia Plan Pre-Op Medication Ordered: None - Acknowledgements Anesthesia Type Planned: General Anesthesia Pt an Appropriate Candidate for the Planned Anesthesia: Yes Alternatives and Risks of Anesthesia Discussed w Pt/Guardian: Yes Pt/Guardian Understands and Agrees with Anesthesia Plan: Yes PreAnesthesia Questionnaire - Past Health History Medical/Surgical History: Denies Medical/Surgical History HEENT 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: 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) Other HEENT History: top and bottom partial Cardiovascular 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: Hypertension Respiratory 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: Asthma (mild), PE Other Respiratory History: PE 3 years ago Gastrointestinal 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: GERD Genitourinary 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: None, 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) (h/o kidney infection) 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: Musculoskeletal 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: Back Pain, Chronic Neurological 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: None Psychiatric 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: Anxiety, Depression Endocrine/Metabolic History: Reports: Obesity/BMI 30+ (BMI 31.9), Vitamin D Deficiency Hematologic History: Reports: Iron Deficiency Immunologic History: Reports: None Oncologic (Cancer) History: Reports: None Dermatologic History: Reports: None - Infectious Disease History Infectious Disease History: Reports: None - Past Surgical History Head Surgeries/Procedures: Reports: None HEENT Surgical History: Reports: Oral Surgery Other HEENT Surgeries/Procedures: teeth removal Cardiovascular Surgical History: Reports: None Respiratory Surgical History: Reports: None GI Surgical History: Reports: Appendectomy, Cholecystectomy Female Surgical History: Reports: Tubal Ligation, 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) Other Female Surgeries/Procedures: diagnostic laparoscopy Endocrine Surgical History: Reports: None Neurological Surgical History: Reports: None Musculoskeletal Surgical History: Reports: None Oncologic Surgical History: Reports: None Dermatological Surgical History: Reports: None - SUBSTANCE USE Smoking Status *Q: Current Every Day Smoker (1/2 ppd) Tobacco Use Within Last Twelve Months: Cigarettes - HOME MEDS Home Medications: Home Meds Metoprolol Succinate 25 mg PO DAILY 03/21/18 [History] Albuterol [Ventolin HFA] 1 - 2 puff INH ASDIRECTED PRN 12/25/18 [History] Hydrocodone/Acetaminophen [Hydrocodon-Acetaminophen 5-325] 1 tab PO ASDIRECTED PRN 12/25/18 [History] Mirtazapine [Remeron] 15 mg PO BEDTIME 01/10/19 [History] Omeprazole Magnesium [Prilosec Otc] 20 mg PO DAILY 01/10/19 [History] - CURRENT (IN HOUSE) MEDS Current Meds: Current Medications Fentanyl (Sublimaze) 50 mcg IVPUSH Q5M PRN PRN Reason: Pain Lactated Ringer's (Ringers, Lactated) 1,000 mls @ 500 mls/hr IV BOLUS LICHA Last Admin: 12/10/19 08:33 Dose: 500 mls/hr Documented by: Acetaminophen 1,000 mg/ Premix 100 mls @ 400 mls/hr IV Q6H PRN PRN Reason: Pain Sodium Chloride (Saline Flush) 10 ml FLUSH ASDIRECTED PRN PRN Reason: Keep Vein Open Sodium Chloride (Saline Flush) 2.5 ml FLUSH ASDIRECTED PRN PRN Reason: Keep Vein Open Sodium Chloride (Normal Saline) 10 ml IV ASDIRECTED PRN PRN Reason: IV Use Discontinued Medications Cefazolin Sodium (Ancef) Confirm Administered Dose 2 gm .ROUTE .STK-MED ONE Stop: 12/10/19 08:52 Dexamethasone (Dexamethasone) Confirm Administered Dose 20 mg .ROUTE .STK-MED ONE Stop: 12/10/19 07:09 Fentanyl (Sublimaze) Confirm Administered Dose 250 mcg .ROUTE .STK-MED ONE Stop: 12/10/19 07:08 Glycopyrrolate (Robinul) Confirm Administered Dose 0.2 mg .ROUTE .STK-MED ONE Stop: 12/10/19 07:09 Cefazolin Sodium/Dextrose 2 gm (/ Premix) 50 mls @ 100 mls/hr IV ONETIME ONE Stop: 12/09/19 09:22 Sodium Chloride (Normal Saline) Confirm Administered Dose 20 mls @ as directed .ROUTE .STK-MED ONE Stop: 12/10/19 08:52 Ketorolac Tromethamine (Toradol) Confirm Administered Dose 30 mg .ROUTE .STK-MED ONE Stop: 12/10/19 07:09 Lidocaine (Xylocaine-Mpf 2%) Confirm Administered Dose 5 ml .ROUTE .STK-MED ONE Stop: 12/10/19 07:09 Midazolam HCl (Versed 1 Mg/Ml) Confirm Administered Dose 2 mg .ROUTE .STK-MED ONE Stop: 12/10/19 07:08 Ondansetron HCl (Zofran) Confirm Administered Dose 4 mg .ROUTE .STK-MED ONE Stop: 12/10/19 07:09 Propofol (Diprivan 20 Ml) Confirm Administered Dose 200 mg .ROUTE .STK-MED ONE Stop: 12/10/19 07:08 Rocuronium [place] (Rocuronium [place]) Confirm Administered Dose 50 mg .ROUTE .STK-MED ONE Stop: 12/10/19 07:09 Sugammadex Sodium ([place]) Confirm Administered Dose 200 mg .ROUTE .STK-MED ONE Stop: 12/10/19 07:05
[2019-12-10] MEDS ORDERED: HYDROmorphone 2 MG/ML Syringe ONE (10:31)
[2019-12-10] MEDS ORDERED: Labetalol 100 MG/20 ML MDV ONE (10:45)
[2019-12-10] MEDS ORDERED: Furosemide 40 MG/4 ML VIAL ONE (10:58)
[2019-12-10] MEDS ORDERED: Fluorescein 5 ML Vial ONE (10:59)
[2019-12-10] MEDS ORDERED: Promethazine 25 MG/ML SDV IM PRN (11:28)
[2019-12-10] MEDS ORDERED: Morphine 4 MG/ML Syringe IVPUSH PRN (11:28)
[2019-12-10] MEDS ORDERED: Ketorolac 30 MG/ML SDV IVPUSH ONE (11:28)
[2019-12-10] MEDS ORDERED: Ondansetron 4 MG/2 ML SDV IVPUSH PRN (11:28)
[2019-12-10] MEDS ORDERED: Acetaminophen/oxyCODONE 325-5 MG Tab PO PRN (11:28)
--- NOTE | 2019-12-10 11:32 | PCM.OPNOTE ---
- General Post-Op/Procedure Note Date of Surgery/Procedure: 12/10/19 Operative Procedure(s): TVH,cysto Post-Op Diagnosis: Same Anesthesia Technique: General ET Tube Primary Surgeon: Jonathan Guillory EBL in mLs: 100 Complications: None Condition: Good
[2019-12-10] MEDS: fentaNYL 100 MCG/2 ML SDV IVPUSH PRN ×4 (11:49→12:25)
[2019-12-10] MEDS ORDERED: fentaNYL 100 MCG/2 ML SDV ONE (12:18)
--- NOTE | 2019-12-10 13:43 | OR ---
SURGEON: Jonathan Guillory MD DATE OF PROCEDURE: 12/10/2019 PREOPERATIVE DIAGNOSIS: Menometrorrhagia. POSTOPERATIVE DIAGNOSIS: Menometrorrhagia. OPERATIONS PERFORMED: Total vaginal hysterectomy, vaginal bilateral salpingectomy preserving both ovary and cystoscopy. PRIMARY SURGEON: Dr. Guillory. ORACLE APPLICATIONS DEVELOPER: OR tech. ANESTHESIA: General with endotracheal intubation, Tanner Solorzano and Dr. Nicolas. ESTIMATED BLOOD LOSS: Less than 100 mL. COMPLICATIONS: None. FINDING: Uterus is about 8 to 10 weeks' size. INDICATIONS FOR SURGERY: Refer to the admit note. PROCEDURE IN DETAIL: The patient brought to the OR, properly identified, and after adequate level of anesthesia, the patient placed in lithotomy position. Examination under anesthesia was done at this time and deemed it is possible to do the surgery vaginally, so we decided to do a vaginal hysterectomy and the patient prepped and draped in sterile fashion as usual. A straight catheter was used to empty the bladder and short-weighted speculum placed in the vagina. Using electrocautery, circular incision in the vaginal mucosa around the cervical os was done and then the posterior cul-de-sac entered posteriorly with the Iqbal scissor and the vagina and the posterior cul-de-sac tagged with 2-0 Vicryl. The short-weighted speculum was placed with extending long-weighted speculum. The uterosacral ligament identified from both sides, clamped with curved Zeppelin, transected, and suture ligated with 2-0 Vicryl pop-off. The same thing done with the cardinal ligament and then the cervical vesicle space was entered anteriorly. The bladder retracted completely away from the operative field and the anterior cul-de-sac was entered anteriorly. The broad ligament was clamped with a curved Zeppelin from both sides and transected and suture ligated with 2- 0 Vicryl pop-off. The uterine vessel suture ligated at this step and then the uterus delivered posteriorly. The superior pedicle clamped with 90-degree Zeppelin from both sides, the tube which was included with the specimen, both ovaries preserved, and the specimen was removed. The superior pedicle tied twice with a free tie. Inspection of the operative field shows no oozing, no bleeding. The uterosacral ligament and cardinal ligament anchored to the vagina at 3 and 9 o'clock for added vaginal support, and then we proceeded to close the vaginal cuff with 2-0 Vicryl interrupted figure-of- eight suture. While we were doing that, we asked the Anesthesia personnel to give the patient fluorescein and then after that cystoscopy performed. The bladder was intact, both ureteric orifices seen with the dye coming from both of them. Thus, the patency of both ureters verified. Satisfied with these findings, the procedure was ended. The instrument and sponge count were correct. The patient tolerated the procedure well, went to recovery room in stable general condition. GREGORY / CEE /[id number]
--- NOTE | 2019-12-10 14:10 | PCM.POSTAN ---
POST ANESTHESIA ASSESSMENT - MENTAL STATUS Mental Status: Alert, Oriented - VITAL SIGNS Vital Signs: Last Vital Signs Temp 36.9 C 12/10/19 12:45 Pulse 98 12/10/19 13:30 Resp 14 12/10/19 13:30 BP 101/59 L 12/10/19 13:30 Pulse Ox 99 12/10/19 14:00 - RESPIRATORY Respiratory Status: Respiratory Rate WNL, Airway Patent, O2 Saturation Stable - CARDIOVASCULAR CV Status: Pulse Rate WNL, Blood Pressure Stable - GASTROINTESTINAL GI Status: No Symptoms - PAIN Pain Score: 6 - POST OP HYDRATION Hydration Status: Adequate & Stable - OBSERVATIONS Free Text/Narrative:: No anesthesia problems. Ongoing pain management.
[2019-12-10] MEDS: Acetaminophen/oxyCODONE 325-5 MG Tab PO PRN ×2 (15:51→19:51)
[2019-12-10] MEDS: Ketorolac 30 MG/ML SDV IVPUSH PRN (18:05)
[2019-12-11] MEDS: Acetaminophen/oxyCODONE 325-5 MG Tab PO PRN ×3 (00:04→09:57)
[2019-12-11] MEDS: Ketorolac 30 MG/ML SDV IVPUSH PRN ×2 (01:26→08:42)
[2019-12-11 06:39] LABS: BLOOD UREA NITROGEN,BUN 14 mg/dL (7.0-18.0); CARBON DIOXIDE,CO2 29.2 mmol/L (21.0-32.0); CHLORIDE,CL 100 mmol/L (98-107); GLUCOSE RANDOM 125 mg/dL (74-106); POTASSIUM,K 3.4 mmol/L (3.5-5.1); SODIUM,NA 137 mmol/L (136-145)
--- NOTE | 2019-12-11 07:18 | PCM48HPAN ---
Post Anesthesia Note - EVALUATION WITHIN 48HRS OF ANESTHETIC Vital Signs in Normal Range: Yes Patient Participated in Evaluation: Yes Respiratory Function Stable: Yes Airway Patent: Yes Cardiovascular Function Stable: Yes Hydration Status Stable: Yes Pain Control Satisfactory: Yes (Some soreness.) Nausea and Vomiting Control Satisfactory: Yes Mental Status Recovered: Yes Vital Signs: Last Vital Signs Temp 36.8 C 12/11/19 04:56 Pulse 109 H 12/11/19 04:56 Resp 17 12/11/19 04:56 BP 116/58 L 12/11/19 04:56 Pulse Ox 95 12/11/19 04:56 - COMMENTS/OBSERVATIONS Free Text/Narrative:: Doing well. No problems noted post.
--- NOTE | 2019-12-11 08:44 | PCM.SURGPN ---
- General Info Date of Service: 12/11/19 POD#: 1 Functional Status: Reports: Pain Controlled - Review of Systems General: Reports: No Symptoms HEENT: Reports: No Symptoms Pulmonary: Reports: No Symptoms Cardiovascular: Reports: No Symptoms Gastrointestinal: Reports: No Symptoms Genitourinary: Reports: No Symptoms Musculoskeletal: Reports: No Symptoms Skin: Reports: No Symptoms Neurological: Reports: No Symptoms Psychiatric: Reports: No Symptoms - Patient Data Vitals - Most Recent: Last Vital Signs Temp 36.8 C 12/11/19 04:56 Pulse 109 H 12/11/19 04:56 Resp 17 12/11/19 04:56 BP 116/58 L 12/11/19 04:56 Pulse Ox 95 12/11/19 04:56 Weight - Most Recent: 81.647 kg I&O - Last 24 Hours: Intake & Output 12/10/19 12/11/19 12/11/19 22:59 06:59 14:59 Intake Total 600 1173 Output Total 300 950 Balance 300 223 Lab Results Last 24 Hrs: Laboratory Results - last 24 hr 12/11/19 12/11/19 Range/Units 05:54 06:08 WBC 10.46 (4.0-11.0) K/uL RBC 2.49 L (4.30-5.90) M/uL Hgb 8.1 L (12.0-16.0) g/dL Hct 24.9 L (36.0-46.0) % MCV 100.0 H (80.0-98.0) fL MCH 32.5 H (27.0-32.0) pg MCHC 32.5 (31.0-37.0) g/dL RDW Std Deviation 47.3 (28.0-62.0) fl RDW Coeff of Lashay 13 (11.0-15.0) % Plt Count 283 (150-400) K/uL MPV 9.90 (7.40-12.00) fL Neut % (Auto) 63.9 (48.0-80.0) % Lymph % (Auto) 26.9 (16.0-40.0) % [place] % (Auto) 8.5 (0.0-15.0) % Eos % (Auto) 0.6 (0.0-7.0) % Baso % (Auto) 0.1 (0.0-1.5) % Neut # (Auto) 6.7 H (1.4-5.7) K/uL Lymph # (Auto) 2.8 H (0.6-2.4) K/uL [place] # (Auto) 0.9 H (0.0-0.8) K/uL Eos # (Auto) 0.1 (0.0-0.7) K/uL Baso # (Auto) 0.0 (0.0-0.1) K/uL Nucleated RBC % 0.0 /100WBC Nucleated RBCs # 0 K/uL Sodium 137 (136-145) mmol/L Potassium 3.4 L (3.5-5.1) mmol/L Chloride 100 (98-107) mmol/L Carbon Dioxide 29.2 (21.0-32.0) mmol/L BUN 14 (7.0-18.0) mg/dL Creatinine 0.8 (0.6-1.0) mg/dL Est Cr Clr Drug Dosing 85.06 mL/min Estimated GFR (MDRD) > 60.0 ml/min Glucose 125 H (74-106) mg/dL Calcium 7.9 L (8.5-10.1) mg/dL Med Orders - Current: Current Medications Lactated Ringer's (Ringers, Lactated) 1,000 mls @ 500 mls/hr IV BOLUS LICHA Last Admin: 12/10/19 08:33 Dose: 500 mls/hr Documented by: Acetaminophen 1,000 mg/ Premix 100 mls @ 400 mls/hr IV Q6H PRN PRN Reason: Pain Last Admin: 12/10/19 11:52 Dose: 400 mls/hr Documented by: Ketorolac Tromethamine (Toradol) 30 mg IVPUSH Q6H PRN PRN Reason: Pain (severe 7-10) Stop: 12/15/19 11:28 Last Admin: 12/11/19 01:26 Dose: 30 mg Documented by: Ondansetron HCl (Zofran) 4 mg IVPUSH Q6H PRN PRN Reason: Nausea/Vomiting Oxycodone/Acetaminophen (Percocet 325-5 Mg) 1 tab PO Q4H PRN PRN Reason: Pain (moderate 4-6) Oxycodone/Acetaminophen (Percocet 325-5 Mg) 2 tab PO Q4H PRN PRN Reason: Pain (moderate 4-6) Last Admin: 12/11/19 04:22 Dose: 2 tab Documented by: Promethazine HCl (Phenergan) 25 mg IM Q6H PRN PRN Reason: Nausea/Vomiting Scopolamine (Transderm-Scop) 1.5 mg TRDERM Q72H PRN PRN Reason: Nausea Last Admin: 12/10/19 09:51 Dose: 1.5 mg Documented by: Sodium Chloride (Saline Flush) 10 ml FLUSH ASDIRECTED PRN PRN Reason: Keep Vein Open Sodium Chloride (Saline Flush) 2.5 ml FLUSH ASDIRECTED PRN PRN Reason: Keep Vein Open Sodium Chloride (Normal Saline) 10 ml IV ASDIRECTED PRN PRN Reason: IV Use Discontinued Medications Cefazolin Sodium (Ancef) Confirm Administered Dose 2 gm .ROUTE .STK-MED ONE Stop: 12/10/19 08:52 Dexamethasone (Dexamethasone) Confirm Administered Dose 20 mg .ROUTE .STK-MED ONE Stop: 12/10/19 07:09 Fentanyl (Sublimaze) Confirm Administered Dose 250 mcg .ROUTE .STK-MED ONE Stop: 12/10/19 07:08 Fentanyl (Sublimaze) 50 mcg IVPUSH Q5M PRN PRN Reason: Pain Last Admin: 12/10/19 12:01 Dose: 50 mcg Documented by: Fentanyl (Sublimaze) 50 mcg IVPUSH Q5M PRN PRN Reason: Pain Last Admin: 12/10/19 12:25 Dose: 50 mcg Documented by: Fentanyl (Sublimaze) Confirm Administered Dose 100 mcg .ROUTE .STK-MED ONE Stop: 12/10/19 12:19 Last Admin: 12/10/19 18:08 Dose: Not Given Documented by: Fluorescein Sodium (Ak-Fluor) Confirm Administered Dose 5 ml .ROUTE .STK-MED ONE Stop: 12/10/19 11:00 Furosemide (Lasix) Confirm Administered Dose 40 mg .ROUTE .STK-MED ONE Stop: 12/10/19 10:59 Glycopyrrolate (Robinul) Confirm Administered Dose 0.2 mg .ROUTE .STK-MED ONE Stop: 12/10/19 07:09 Hydromorphone HCl (Dilaudid) Confirm Administered Dose 2 mg .ROUTE .STK-MED ONE Stop: 12/10/19 10:32 Cefazolin Sodium/Dextrose 2 gm (/ Premix) 50 mls @ 100 mls/hr IV ONETIME ONE Stop: 12/09/19 09:22 Last Admin: 12/10/19 23:57 Dose: Not Given Documented by: Sodium Chloride (Normal Saline) Confirm Administered Dose 20 mls @ as directed .ROUTE .STK-MED ONE Stop: 12/10/19 08:52 Acetaminophen (Ofirmev) Confirm Administered Dose 100 mls @ as directed .ROUTE .STK-MED ONE Stop: 12/10/19 11:43 Ketorolac Tromethamine (Toradol) Confirm Administered Dose 30 mg .ROUTE .STK-MED ONE Stop: 12/10/19 07:09 Ketorolac Tromethamine (Toradol) 30 mg IVPUSH ONETIME ONE Stop: 12/10/19 11:29 Last Admin: 12/10/19 11:45 Dose: 30 mg Documented by: Labetalol HCl (Normodyne) Confirm Administered Dose 100 mg .ROUTE .STK-MED ONE Stop: 12/10/19 10:46 Lidocaine (Xylocaine-Mpf 2%) Confirm Administered Dose 5 ml .ROUTE .STK-MED ONE Stop: 12/10/19 07:09 Midazolam HCl (Versed 1 Mg/Ml) Confirm Administered Dose 2 mg .ROUTE .STK-MED ONE Stop: 12/10/19 07:08 Morphine Sulfate (Morphine) 4 mg IVPUSH Q2H PRN PRN Reason: Pain (severe 7-10) Ondansetron HCl (Zofran) Confirm Administered Dose 4 mg .ROUTE .STK-MED ONE Stop: 12/10/19 07:09 Propofol (Diprivan 20 Ml) Confirm Administered Dose 200 mg .ROUTE .STK-MED ONE Stop: 12/10/19 07:08 Rocuronium [place] (Rocuronium [place]) Confirm Administered Dose 50 mg .ROUTE .STK-MED ONE Stop: 12/10/19 07:09 Sugammadex Sodium (Bridion) Confirm Administered Dose 200 mg .ROUTE .STK-MED ONE Stop: 12/10/19 07:05 - Exam Wound/Incisions: Healing Well General: Alert, Oriented HEENT: Pupils Equal Neck: Supple Lungs: Clear to Auscultation, Normal Respiratory Effort Cardiovascular: Regular Rate, Regular Rhythm GI/Abdominal Exam: Normal Bowel Sounds, Soft, Non-Tender, No Organomegaly, No Distention, No Abnormal Bruit, No Mass, Pelvis Stable Extremities: Normal Inspection, Normal Range of Motion, Non-Tender, No Pedal Edema, Normal Capillary Refill Skin: Warm, Dry, Intact Neurological: No New Focal Deficit Psy/Mental Status: Alert, Normal Affect, Normal Mood Sepsis Event Note - Evaluation Sepsis Screening Result: No Definite Risk - Focused Exam Vital Signs: Vital Signs Temp Pulse Resp BP Pulse Ox 12/11/19 04:56 36.8 C 109 H 17 116/58 L 95 12/11/19 00:22 36.3 C 96 16 131/66 100 Date Exam was Performed: 12/11/19 Time Exam was Performed: 08:42 - Problem List Review Problem List Initiated/Reviewed/Updated: Yes - My Orders Last 24 Hours: Active Orders 24 hr Category Date Time Status Patient Status [ADT] Routine ADT 12/10/19 11:28 Active Antiembolic Devices [RC] PER UNIT ROUTINE Care 12/10/19 11:29 Active Oxygen Therapy [RC] ASDIRECTED Care 12/10/19 11:28 Active RT Incentive Spirometry [RC] Q2HWA Care 12/10/19 11:28 Active Up With Assistance [RC] PER UNIT ROUTINE Care 12/10/19 11:28 Active Up ad Flavia [RC] PER UNIT ROUTINE Care 12/10/19 11:28 Active Urinary Catheter Removal [RC] Per Unit Routine Care 12/10/19 11:28 Active Vital Signs [RC] PER UNIT ROUTINE Care 12/10/19 11:28 Active Regular Diet [DIET] Diet 12/10/19 Dinner Active Acetaminophen [Ofirmev] 1,000 mg Med 12/10/19 08:45 Active Premix Bag 1 bag IV Q6H Acetaminophen/oxyCODONE [Percocet 325-5 MG] Med 12/10/19 11:28 Active 1 tab PO Q4H PRN Acetaminophen/oxyCODONE [Percocet 325-5 MG] Med 12/10/19 11:28 Active 2 tab PO Q4H PRN Ketorolac [Toradol] Med 12/10/19 11:28 Active 30 mg IVPUSH Q6H PRN Ondansetron [Zofran] Med 12/10/19 11:28 Active 4 mg IVPUSH Q6H PRN Promethazine [Phenergan] Med 12/10/19 11:28 Active 25 mg IM Q6H PRN Scopolamine [Transderm-Scop] Med 12/10/19 09:40 Active 1.5 mg TRDERM Q72H PRN Peripheral IV Discontinue [OM.PC] Routine Oth 12/10/19 11:28 Ordered Sequential Compression Device [OM.PC] Per Unit Routine Oth 12/10/19 11:28 Ordered Resuscitation Status Routine Resus Stat 12/10/19 11:28 Ordered Medication Orders Lactated Ringer's (Ringers, Lactated) 1,000 mls @ 500 mls/hr IV BOLUS LICHA Last Admin: 12/10/19 08:33 Dose: 500 mls/hr Documented by: YURY Acetaminophen 1,000 mg/ Premix 100 mls @ 400 mls/hr IV Q6H PRN PRN Reason: Pain Last Admin: 12/10/19 11:52 Dose: 400 mls/hr Documented by: [id number] Ketorolac Tromethamine (Toradol) 30 mg IVPUSH Q6H PRN PRN Reason: Pain (severe 7-10) Stop: 12/15/19 11:28 Last Admin: 12/11/19 01:26 Dose: 30 mg Documented by: Admin: 12/10/19 18:05 Dose: 30 mg Documented by: DADA Ondansetron HCl (Zofran) 4 mg IVPUSH Q6H PRN PRN Reason: Nausea/Vomiting Oxycodone/Acetaminophen (Percocet 325-5 Mg) 1 tab PO Q4H PRN PRN Reason: Pain (moderate 4-6) Oxycodone/Acetaminophen (Percocet 325-5 Mg) 2 tab PO Q4H PRN PRN Reason: Pain (moderate 4-6) Last Admin: 12/11/19 04:22 Dose: 2 tab Documented by: Admin: 12/11/19 00:04 Dose: 2 tab Documented by: Admin: 12/10/19 19:51 Dose: 2 tab Documented by: Admin: 12/10/19 15:51 Dose: 2 tab Documented by: DEYVI Promethazine HCl (Phenergan) 25 mg IM Q6H PRN PRN Reason: Nausea/Vomiting Scopolamine (Transderm-Scop) 1.5 mg TRDERM Q72H PRN PRN Reason: Nausea Last Admin: 12/10/19 09:51 Dose: 1.5 mg Documented by: YURY Sodium Chloride (Saline Flush) 10 ml FLUSH ASDIRECTED PRN PRN Reason: Keep Vein Open Sodium Chloride (Saline Flush) 2.5 ml FLUSH ASDIRECTED PRN PRN Reason: Keep Vein Open Sodium Chloride (Normal Saline) 10 ml IV ASDIRECTED PRN PRN Reason: IV Use - Assessment Assessment (Free Text/Narrative):: Status post vaginal hysterectomy postoperative day #1 patient is doing well on regular diet no vaginal bleeding not hypotensive or orthostatic - Plan Plan (Free Text/Narrative):: Patient discharged home today the postvasectomy instruction is given to the patient the patient advised that she can shower there is no restriction on her diet prescription for Narco 5/325 for pain is given to her to the patient is already have an appointment to come and see me in the office in one week
== END 2019-12-11 10:30 | disposition home or self-care (01) ==
LOC: MW.SDS 07:55 → MW.MS 11:42 → MW.SDS 12-11 10:30
PROVIDERS: ATTEND Obstetrics & Gynecology
DX: N87.9 Dysplasia of cervix uteri, unspecified (principal); N70.11 Chronic salpingitis; I10 Essential (primary) hypertension; J45.909 Unspecified asthma, uncomplicated; F41.9 Anxiety disorder, unspecified; F32.9 Major depressive disorder, single episode, unspecified; K21.9 Gastro-esophageal reflux disease without esophagitis; E66.9 Obesity, unspecified; F17.210 Nicotine dependence, cigarettes, uncomplicated; Z79.899 Other long term (current) drug therapy; Z68.31 Body mass index [BMI] 31.0-31.9, adult; Z98.51 Tubal ligation status; Z88.5 Allergy status to narcotic agent; Z88.1 Allergy status to other antibiotic agents; Z88.2 Allergy status to sulfonamides
CPT/HCPCS: 36415; 58262; 80048; 84703; 85025; 85027; 86850; 86900; 86901; A9270; J0131; J0690; J1100; J1170; J1885; J1940; J2001; J2250; J2704; J3010; J3490; J7120; 88307; J2405

== ENCOUNTER 2020-02-14 16:11 | Emergency (ER) | payer MEDICAID ==
[2020-02-14] MEDS ORDERED: Ketorolac 15 MG/ML SDV IM ONE (16:30)
[2020-02-14] MEDS ORDERED: Diazepam 2 MG Tab PO ONE (16:30)
--- NOTE | 2020-02-14 16:35 | EDM.PDOC ---
ED [facility] GENER[facility] MEDICAL PROBLEM - General Chief Complaint: Back Pain or Injury Stated Complaint: HIP PAIN Time Seen by Provider: 02/14/20 16:16 - History of Present Illness INITIAL COMMENTS - FREE TEXT/NARRATIVE: HISTORY AND PHYSICAL: History of present illness: This 29-year-old female presents to the emergency department chronic right hip pain for which she has had an MRI recently. She also has chronic low back pain. She states that she was in the shower and fell and essentially did the splits. This caused new right hip pain. For which she rates as severe. She states it is worse with movement and better with rest. No radiation. No back pain. No loss of consciousness or head injury Review of systems: A 10-point review of systems, other than pertinent positives and negatives as stated per HPI, is otherwise negative. Past medical history: As per history of present illness and as reviewed below otherwise noncontributory. Surgical history: As per history of present illness and as reviewed below otherwise noncontributory. Social history: No reported history of drug or alcohol abuse. Family history: As per history of present illness and as reviewed below otherwise noncontributory. Physical exam: VITAL SIGNS: Reviewed. GENERAL: Has a normal gait walking from the emergency department triage area to the bed. I have followed the patient. She is able to bear weight normally. HEAD: No signs of head trauma. EYES: Pupils are equal. Extraocular motions intact. EARS: Hearing grossly intact. MOUTH: Oropharynx is normal. NECK: No adenopathy, no JVD. CHEST: Chest with clear breath sounds bilaterally. No wheezes, rales, or rhonchi. CARDIAC: Regular rate and rhythm. Normal S1 and S2, without murmurs, gallops, or rubs. VASCULAR: Peripheral pulses normal and equal in all extremities. ABDOMEN: Soft, without detectable tenderness. No sign of distention. No rebound or guarding, and no masses palpated. MUSCULOSKELETAL: Good range of motion all major joints. Direct tenderness over the right hip flexor tendon. Distal neurovascular function is intact. Normal range of motion with good strength throughout. NEUROLOGIC EXAM: Alert and oriented x 3. No focal sensory or motor deficits. Speech normal. Follows commands. PSYCHIATRIC: Mood normal. SKIN: No rash or lesions. Initial Differential Diagnosis & Plan: Extremity trauma: Differential diagnosis includes fracture, dislocation, strain, contusion, tendon or ligamentous injury, compartment syndrome, neurovascular injury, muscle rupture. Very low likelihood of fracture given the ability to range the hip. Also very low likelihood of dislocation. Review of her MRI done February 03 shows that she has a bone island. I discussed these results with her. I have also let her know that her MRI of her L-spine is also normal. We will place her on nonnarcotic pain medications and non-controlled muscle relaxant methocarbamol. I will also have her take Metamucil as part of her problem is her chronic opioid use which also causes chronic constipation. I will obtain an x-ray at her request of her hip. If this is negative we will send her home with a hip sprain. My diagnostic impression: 1. Hip flexor tendon strain 2. Hip sprain 3. Chronic pain disorder with opioid dependence 4. 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 right hip Pain Score (Numeric/FACES): 8 - Related Data Allergies Allergy/AdvReac Type Severity Reaction Status Date / Time codeine Allergy Hives Verified 02/14/20 16:29 metronidazole [From Flagyl] Allergy Hives Verified 02/14/20 16:29 morphine Allergy Airway Verified 02/14/20 16:29 Tightness Penicillins Allergy Hives Verified 02/14/20 16:29 Sulfa (Sulfonamide Allergy Hives Verified 02/14/20 16:29 Antibiotics) tramadol Allergy Headache Verified 02/14/20 16:29 Home Meds: Home Meds Albuterol [Ventolin HFA] 1 - 2 puff INH ASDIRECTED PRN 12/25/18 [History] Hydrocodone/Acetaminophen [Hydrocodon-Acetaminophen 5-325] 1 tab PO ASDIRECTED PRN 12/25/18 [History] Omeprazole Magnesium [Prilosec Otc] 20 mg PO DAILY 01/10/19 [History] Diclofenac Potassium [Cataflam] 50 mg PO TID #60 tab 02/14/20 [Rx] Escitalopram Oxalate [Lexapro] mg PO DAILY 02/14/20 [History] Psyllium Husk (With Sugar) [Metamucil Powder] 2 tbsp PO TID 14 Days #1042 powder 02/14/20 [Rx] methocarbamoL [Methocarbamol] 750 mg PO QID 14 Days #60 tablet 02/14/20 [Rx] Past Medical History - Past Health History Medical/Surgical History: Denies Medical/Surgical History HEENT History: Reports: 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) Other HEENT History: top and bottom partial Cardiovascular History: Reports: Hypertension Respiratory History: Reports: Asthma, PE Other Respiratory History: PE 3 years ago Gastrointestinal History: Reports: GERD Genitourinary History: Reports: None, 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 History: Reports: Musculoskeletal History: Reports: Back Pain, Chronic Neurological History: Reports: None Psychiatric History: Reports: Anxiety, Depression Endocrine/Metabolic History: Reports: Obesity/BMI 30+, Vitamin D Deficiency Hematologic History: Reports: Iron Deficiency Immunologic History: Reports: None Oncologic (Cancer) History: Reports: None Dermatologic History: Reports: None - Infectious Disease History Infectious Disease History: Reports: None - Past Surgical History Head Surgeries/Procedures: Reports: None HEENT Surgical History: Reports: Oral Surgery Other HEENT Surgeries/Procedures: teeth removal Cardiovascular Surgical History: Reports: None Respiratory Surgical History: Reports: None GI Surgical History: Reports: Appendectomy, Cholecystectomy Female Surgical History: Reports: Hysterectomy, Tubal Ligation, 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) Other Female Surgeries/Procedures: diagnostic laparoscopy Endocrine Surgical History: Reports: None Neurological Surgical History: Reports: None Musculoskeletal Surgical History: Reports: None Oncologic Surgical History: Reports: None Dermatological Surgical History: Reports: None Social & Family History - Family History Family Medical History: Noncontributory - Tobacco Use Smoking Status *Q: Current Every Day Smoker Years of Tobacco use: 15 Packs/Tins Daily: 1 - Caffeine Use Caffeine Use: Reports: None - Recreational Drug Use Recreational Drug Use: No ED ROS GENERAL - Review of Systems Review Of Systems: See Below (noted) ED EXAM,LOWER BACK PAIN/INJURY - Physical Exam Exam: See Below (noted) Course - Vital Signs Last Recorded V/S: Last Vital Signs Temp 95.8 F L 02/14/20 16:23 Pulse 103 H 02/14/20 16:23 Resp 17 02/14/20 16:23 BP 132/94 H 02/14/20 16:23 Pulse Ox 96 02/14/20 16:23 - Orders/Labs/Meds Orders: Active Orders 24 hr Category Date Time Status Hip Min 2V or 3V Rt [CR] Stat Exams 02/14/20 16:29 Taken Meds: Medications Discontinued Medications Generic Name Dose Route Start Last Admin Trade Name Freq PRN Reason Stop Dose Admin Diazepam 2 mg 02/14/20 16:30 02/14/20 16:49 Valium PO 02/14/20 16:31 2 mg ONETIME ONE Administration Ketorolac Tromethamine 15 mg 02/14/20 16:30 02/14/20 16:49 Toradol IM 02/14/20 16:31 15 mg ONETIME ONE Administration Departure - Departure Time of Disposition: 16:35 Disposition: Home, Self-Care 01 Clinical Impression: Strain of hip flexor - Discharge Information *PRESCRIPTION DRUG MONITORING PROGRAM REVIEWED*: Not Applicable *COPY OF PRESCRIPTION DRUG MONITORING REPORT IN PATIENT [place]: Not Applicable Prescriptions: Diclofenac Potassium [Cataflam] 50 mg PO TID #60 tab Psyllium Husk (With Sugar) [Metamucil Powder] 2 tbsp PO TID 14 Days #1042 powder methocarbamoL [Methocarbamol] 750 mg PO QID 14 Days #60 tablet Instructions: Hip Sprain, Adductor Muscle Strain Rehab-SportsMed Referrals: PCP,None [Primary Care Provider] - Forms: ED Department Discharge Additional Instructions: The following information is given to patients seen in the emergency department who are being discharged to home. This information is to outline your options for follow-up care. We provide all patients seen in our emergency department with a follow-up referral. The need for follow-up, as well as the timing and circumstances, are variable depending upon the specifics of your emergency department visit. If you don't have a primary care physician on staff, we will provide you with a referral. We always advise you to contact your personal physician following an emergency department visit to inform them of the circumstance of the visit and for follow-up with them and/or the need for any referrals to a consulting specialist. The emergency department will also refer you to a specialist when appropriate. This referral assures that you have the opportunity for follow-up care with a specialist. All of these measure are taken in an effort to provide you with optimal care, which includes your follow-up. Thank you for coming to the [facility] urgency department for your care today. It was Dr. Evans's pleasure to take care of you. I have reviewed your MRI findings. 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 A Bone island, also called an enostosis, is a benign bone tumor mostly encountered as an incidental and asymptomatic finding. They are round and small (2 to 20 mm) intramedullary condensations composed of lamellar cortical bone. Essentially it is intramedullary displacement of compact lamellar bone. Please follow-up with orthopedics for this. [facility] Professional Building [address] [place] [address], [address] [place] [address] You have strained your hip flexor tendon today. Please use medications as prescribed. Please stay mobile. Please do the stretching exercises as prescribed. Under all circumstances we always encourage you to contact your private physician who remains a resource for coordinating your care. When calling for follow-up care, please make the office aware that this follow-up is from your recent emergency room visit. If for any reason you are refused follow-up, please contact the [facility] Emergency Department at and asked to speak to the emergency department charge nurse. Sepsis Event Note (ED) - Evaluation Sepsis Screening Result: No Definite Risk - Focused Exam Vital Signs: Vital Signs Temp Pulse Resp BP Pulse Ox 02/14/20 16:23 95.8 F L 103 H 17 132/94 H 96 - My Orders Last 24 Hours: My Active Orders 02/14/20 16:29 Hip Min 2V or 3V Rt [CR] Stat - Assessment/Plan Last 24 Hours: My Active Orders 02/14/20 16:29 Hip Min 2V or 3V Rt [CR] Stat
--- NOTE | 2020-02-14 17:03 | CR ---
Right hip: AP and frog-leg lateral views of the right hip were obtained. Comparison: Prior pelvic MRI of 02/05/20. Findings: Bone island is noted within the right subcapital region of the hip. 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 Joint space minimally narrowed within the upper right hip. No acute fracture or other bony abnormality is seen. Single surgical clip is seen within the pelvis. Impression: 1. Mild joint space narrowing with superior right hip. 2. Transitional segment with pseudoarticulation at the lumbosacral junction as described above. 3. Other findings believed to be incidental. Nothing acute is appreciated. Diagnostic code #3 This report was dictated in MDT
== END 2020-02-14 17:18 | disposition home or self-care (01) ==
LOC: MW.ED 16:11
DX: S76.011A Strain of muscle, fascia and tendon of right hip, initial encounter (principal); G89.29 Other chronic pain; M54.5 Low back pain; I10 Essential (primary) hypertension; J45.909 Unspecified asthma, uncomplicated; K21.9 Gastro-esophageal reflux disease without esophagitis; F41.9 Anxiety disorder, unspecified; E66.9 Obesity, unspecified; F17.210 Nicotine dependence, cigarettes, uncomplicated; Z88.0 Allergy status to penicillin; Z88.1 Allergy status to other antibiotic agents; Z88.2 Allergy status to sulfonamides; Z88.6 Allergy status to analgesic agent; Z68.33 Body mass index [BMI] 33.0-33.9, adult; Z90.49 Acquired absence of other specified parts of digestive tract; Z90.89 Acquired absence of other organs; Z90.710 Acquired absence of both cervix and uterus; Z98.51 Tubal ligation status; W19.XXXA Unspecified fall, initial encounter
CPT/HCPCS: 73502; 96372; 99283; A9270; J1885

== ENCOUNTER 2020-03-16 16:26 | Emergency (ER) | payer MEDICAID ==
[2020-03-16] MEDS ORDERED: Acetaminophen/oxyCODONE 325-5 MG Tab PO ONE (16:46)
[2020-03-16] MEDS ORDERED: Clindamycin HCl 150 MG Cap PO ONE (16:48)
--- NOTE | 2020-03-16 17:00 | EDM.PDOC ---
ED HPI GENERAL MEDICAL PROBLEM - General Chief Complaint: Respiratory Problem Stated Complaint: cough/tooth pain Time Seen by Provider: 03/16/20 16:35 Source of Information: Reports: Patient History Limitations: Reports: No Limitations - History of Present Illness INITIAL COMMENTS - FREE TEXT/NARRATIVE: 29F presents for L lower tooth pain x months worsening overl ast week and p roductive cough x1-week. No SOB. No fever. No sore throat. Pain with swallowing. L lower tooth Pain Score (Numeric/FACES): 8 - Related Data Allergies Allergy/AdvReac Type Severity Reaction Status Date / Time codeine Allergy Hives Verified 03/16/20 16:31 metronidazole [From Flagyl] Allergy Hives Verified 03/16/20 16:31 morphine Allergy Airway Verified 03/16/20 16:31 Tightness Penicillins Allergy Hives Verified 03/16/20 16:31 Sulfa (Sulfonamide Allergy Hives Verified 03/16/20 16:31 Antibiotics) tramadol Allergy Headache Verified 03/16/20 16:31 Home Meds: Home Meds Albuterol [Ventolin HFA] 1 - 2 puff INH ASDIRECTED PRN 12/25/18 [History] Omeprazole Magnesium [Prilosec Otc] 20 mg PO DAILY 01/10/19 [History] Escitalopram Oxalate [Lexapro] 10 mg PO DAILY 02/14/20 [History] Acetaminophen/oxyCODONE [Percocet 325-5 MG] 1 tab PO Q4H PRN 3 Days #18 tab 03/16/20 [Rx] clindamycin HCL [Clindamycin HCl] 450 mg PO TID 10 Days #30 capsule 03/16/20 [Rx] Past Medical History - Past Health History Medical/Surgical History: Denies Medical/Surgical History HEENT History: Reports: 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) Other HEENT History: top and bottom partial Cardiovascular History: Reports: Hypertension Respiratory History: Reports: Asthma, PE Other Respiratory History: PE 3 years ago Gastrointestinal History: Reports: GERD Genitourinary History: Reports: None, 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) 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: Musculoskeletal History: Reports: Back Pain, Chronic Neurological History: Reports: None Psychiatric History: Reports: Anxiety, Depression Endocrine/Metabolic History: Reports: Obesity/BMI 30+, Vitamin D Deficiency Hematologic History: Reports: Iron Deficiency Immunologic History: Reports: None Oncologic (Cancer) History: Reports: None Dermatologic History: Reports: None - Infectious Disease History Infectious Disease History: Reports: None - Past Surgical History Head Surgeries/Procedures: Reports: None HEENT Surgical History: Reports: Oral Surgery Other HEENT Surgeries/Procedures: teeth removal Cardiovascular Surgical History: Reports: None Respiratory Surgical History: Reports: None GI Surgical History: Reports: Appendectomy, Cholecystectomy Female Surgical History: Reports: Hysterectomy, Tubal Ligation, 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) Other Female Surgeries/Procedures: diagnostic laparoscopy Endocrine Surgical History: Reports: None Neurological Surgical History: Reports: None Musculoskeletal Surgical History: Reports: None Oncologic Surgical History: Reports: None Dermatological Surgical History: Reports: None Social & Family History - Family History Family Medical History: Noncontributory - Caffeine Use Caffeine Use: Reports: None - Recreational Drug Use Recreational Drug Use: No ED ROS GENERAL - Review of Systems Review Of Systems: Comprehensive ROS is negative, except as noted in HPI. ED EXAM, GENERAL - Physical Exam Exam: See Below Exam Limited By: No Limitations General Appearance: Alert, WD/WN, No Apparent Distress Ears: Normal External Exam Nose: Normal Inspection Throat/Mouth: Normal Inspection, Normal Lips, Other (poor dentition, TTP of left lower molar teeth, mild erythema around gums, teeth are rotting ) Head: Atraumatic, Normocephalic. No: Facial Swelling Neck: Normal Inspection, Supple, Non-Tender, Other (no stridor). No: Lymphadenopathy (L), Lymphadenopathy (R) Respiratory/Chest: No Respiratory Distress, Lungs Clear, Normal Breath Sounds, No Accessory Muscle Use, Chest Non-Tender Cardiovascular: Normal Peripheral Pulses, Regular Rate, Rhythm Extremities: Normal Inspection Neurological: Alert Psychiatric: Normal Affect, Normal Mood Skin Exam: Warm, Dry, Intact, Normal Color Course - Vital Signs Last Recorded V/S: Last Vital Signs Temp 97.1 F 03/16/20 16:33 Pulse 133 H 03/16/20 17:28 Resp 16 03/16/20 17:28 BP 145/86 H 03/16/20 17:28 Pulse Ox 96 03/16/20 17:28 - Orders/Labs/Meds Orders: Active Orders 24 hr Category Date Time Status Chest 1V Frontal [CR] Stat Exams 03/16/20 16:44 Taken Meds: Medications Discontinued Medications Generic Name Dose Route Start Last Admin Trade Name Freq PRN Reason Stop Dose Admin Clindamycin HCl 450 mg 03/16/20 16:48 03/16/20 17:27 Cleocin PO 03/16/20 16:49 450 mg ONETIME ONE Administration Oxycodone/Acetaminophen 1 tab 03/16/20 16:46 03/16/20 17:28 Percocet 325-5 Mg PO 03/16/20 16:47 1 tab ONETIME ONE Administration - Re-Assessments/Exams Free Text/Narrative Re-Assessment/Exam: 03/16/20 17:00 Offered COVID swab; patient declines. Will treat pain. Will give clindamycin for abx. Will get CXR to eval for PNA. 03/16/20 17:35 wet read CXR normal. Morgan d/c with abx and analgesia Departure - Departure Time of Disposition: 17:36 Disposition: Home, Self-Care 01 Condition: Good Clinical Impression: Pain, dental - Discharge Information Prescriptions: clindamycin HCL [Clindamycin HCl] 450 mg PO TID 10 Days #30 capsule Instructions: Dental Abscess, [id number] Referrals: PCP,None [Primary Care Provider] - Forms: ED Department Discharge Sepsis Event Note (ED) - Evaluation Sepsis Screening Result: No Definite Risk - Focused Exam Vital Signs: Vital Signs Temp Pulse Resp BP Pulse Ox 03/16/20 17:28 133 H 16 145/86 H 96 03/16/20 16:33 97.1 F 113 H 18 131/87 94 L - My Orders Last 24 Hours: My Active Orders 03/16/20 16:44 Chest 1V Frontal [CR] Stat - Assessment/Plan Last 24 Hours: My Active Orders 03/16/20 16:44 Chest 1V Frontal [CR] Stat
--- NOTE | 2020-03-16 17:41 | CR ---
INDICATION: cough productive TECHNIQUE: Chest 1 view. COMPARISON: 03/18/19 FINDINGS: Cardiovascular and mediastinum: Heart size and vasculature are normal in caliber and appearance. Mediastinum is within normal limits. Lungs and pleural space: Lungs are clear. No sign of infiltrate or mass. No sign of pleural effusion. No pneumothorax. Bones and soft tissues: No significant findings. IMPRESSION: Unremarkable chest. Dictated by: Hernan Carrillo MD @ 03/16/2020 17:39:46 (Electronically Signed)
== END 2020-03-16 18:02 | disposition home or self-care (01) ==
LOC: MW.ED 16:26
DX: K08.89 Other specified disorders of teeth and supporting structures (principal); K00.7 Teething syndrome; I10 Essential (primary) hypertension; J45.909 Unspecified asthma, uncomplicated; K21.9 Gastro-esophageal reflux disease without esophagitis; F41.9 Anxiety disorder, unspecified; F32.9 Major depressive disorder, single episode, unspecified; E66.9 Obesity, unspecified; Z68.31 Body mass index [BMI] 31.0-31.9, adult; Z88.5 Allergy status to narcotic agent; Z88.8 Allergy status to other drugs, medicaments and biological substances; Z88.2 Allergy status to sulfonamides; Z88.0 Allergy status to penicillin; Z79.899 Other long term (current) drug therapy
CPT/HCPCS: 71045; 99283; A9270; 99282

== ENCOUNTER 2020-04-21 22:06 | Emergency (ER) | payer MEDICAID ==
[2020-04-21] MEDS ORDERED: Acetaminophen/HYDROcodone 325-5 MG Tab PO ONE (23:42)
--- NOTE | 2020-04-22 01:17 | EDM.PDOC ---
ED HPI GENERAL MEDICAL PROBLEM - General Chief Complaint: Back Pain or Injury Stated Complaint: BACK PAIN Time Seen by Provider: 04/21/20 22:57 - History of Present Illness INITIAL COMMENTS - FREE TEXT/NARRATIVE: CHIEF COMPLAINT(S): Back pain HISTORY OF PRESENT ILLNESS: This is a 29-year-old woman with a past medical history of chronic lower back pain who comes to the emergency department with a chief complaint of back pain. The patient states that for approximately 2 days now she has been experiencing back pain in the middle of her back. She states that she has never had pain like this before. She states that this was exacerbated after she her daughter was having a fit and when she picked her up she felt a pop and pain in the mid of her back. She denies any numbness, tingling, weakness. She denies any history of IV drug abuse or fever. She denies any urinary incontinence or bowel incontinence. She denies any saddle anesthesia. She states that she does see a pain clinic for which she is prescribed baclofen and lamotrigine which have not been helping. She states that she did call her pain clinic and they prescribed her lidocaine but it is not at the pharmacy yet. She states that she has been ambulating without any difficulty. She has not yet tried any other pain medications. REVIEW OF SYSTEMS: Constitutional: Denies fever, chills. Eyes: Denies eye pain Ears, Nose, Mouth, & Throat: Denies earache Cardiovascular: Denies chest pain Respiratory: Denies shortness of breath Gastrointestinal: Denies Nausea, vomiting, diarrhea, hematochezia, bowel incontinence Genitourinary: Denies hematuria, urinary incontinence MSK: Positive for mid back pain Neurological: Denies blurred vision, numbness, tingling, weakness, saddle anesthesia Psychiatric: Denies depression PAST MEDICAL HISTORY: As per history of present illness and as reviewed below otherwise noncontributory. SURGICAL HISTORY: As per history of present illness and as reviewed below otherwise noncontributory. LMP: Hysterectomy SOCIAL HISTORY: As per history of present illness and as reviewed below otherwise noncontributory. FAMILY HISTORY: As per history of present illness and as reviewed below otherwise noncontributory. EXAMINATION OF ORGAN SYSTEMS/BODY AREAS: Constitutional: Blood pressure is 115/85, heart rate 86, respiratory rate 14 with an oxygen saturation 98% on room air. Temperature 36.2 General: Overall well-appearing woman who is in no acute distress. Psychiatric: Appropriate mood and affect. Eyes: No scleral icterus or conjunctival erythema ENMT: Moist mucous membranes. No pharyngeal erythema Cardiovascular: Regular, rate, and rythym. No gallops, murmurs, or rubs. Bilateral upper extremity pulses symmetric and intact. No peripheral edema. No JVD. Respiratory: Lungs clear to auscultation bilaterally. No wheezes, rales, or rhonchi. Gastrointestinal: Soft, non-tender, non-distended. Normoactive bowel sounds Genitourinary: No suprapubic tenderness Musculoskeletal: There is paraspinal muscle tenderness in the patient's mid thoracic region. There is no midline cervical or thoracic tenderness. No step- offs. No overlying skin changes. Skin: No lesions or abrasions. Neurological: Alert, GCS 15 strength and sensation grossly intact in upper and lower extremities bilaterally. MEDICAL DECISION MAKING AND COURSE IN THE ED WITH INTERPRETATION/REVIEW OF DIAGNOSTIC STUDIES: This is a 29-year-old woman with a past medical history of chronic lumbar pain who does receive medications from a pain clinic who comes to the emergency department with mid thoracic para spinal tenderness who has normal vital signs and no red flags in history or on examination. At this time I do not believe any imaging is indicated. We will treat the patient symptomatically with [place] and reevaluate the patient. On reevaluation, the patient stated that her pain had improved. I did discuss with her at this time that she be stable for discharge. She was given strict return precautions and instructed to use [id number] lidocaine cream until her prescription for lidocaine cream was obtainable. She is to return for any new or worsening symptoms such as bowel incontinence, urinary incontinence, t rouble walking, or saddle anesthesia. She expressed understanding and was amenable to discharge at this time DISPOSITION: The patient was discharged home in stable condition. The patient will follow up with PCP in pain clinic CONDITION: Fair PROCEDURES: None FINAL IMPRESSION(S)/DIAGNOSES: 1. Acute thoracic paraspinal muscle tenderness likely musculoskeletal strain Shahab Nolen M.D. Middle Back Pain Score (Numeric/FACES): 6 - Related Data Allergies Allergy/AdvReac Type Severity Reaction Status Date / Time codeine Allergy Hives Verified 04/19/20 16:56 metronidazole [From Flagyl] Allergy Hives Verified 04/19/20 16:56 morphine Allergy Airway Verified 04/19/20 16:56 Tightness Penicillins Allergy Hives Verified 04/19/20 16:56 Sulfa (Sulfonamide Allergy Hives Verified 04/19/20 16:56 Antibiotics) tramadol Allergy Headache Verified 04/19/20 16:56 Home Meds: Home Meds Albuterol [Ventolin HFA] 1 - 2 puff INH ASDIRECTED PRN 12/25/18 [History] Omeprazole Magnesium [Prilosec Otc] 20 mg PO DAILY 01/10/19 [History] Escitalopram Oxalate [Lexapro] 10 mg PO DAILY 02/14/20 [History] Acetaminophen/oxyCODONE [Percocet 325-5 MG] 1 tab PO Q4H PRN 3 Days #18 tab 03/16/20 [Rx] Baclofen 10 mg PO TID PRN 04/21/20 [History] Lansoprazole [Prevacid] 30 mg PO BID 04/21/20 [History] lamoTRIgine [Lamotrigine] 25 mg PO DAILY 04/21/20 [History] Past Medical History - Past Health History Medical/Surgical History: Denies Medical/Surgical History HEENT History: Reports: 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) Other HEENT History: top and bottom partial Cardiovascular History: Reports: Hypertension Respiratory History: Reports: Asthma, PE Other Respiratory History: PE 3 years ago Gastrointestinal History: Reports: GERD Genitourinary History: Reports: 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) 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: Musculoskeletal History: Reports: Back Pain, Chronic Neurological History: Reports: None Psychiatric History: Reports: Anxiety, Depression Endocrine/Metabolic History: Reports: Obesity/BMI 30+, Vitamin D Deficiency Hematologic History: Reports: Iron Deficiency Immunologic History: Reports: None Oncologic (Cancer) History: Reports: None Dermatologic History: Reports: None - Infectious Disease History Infectious Disease History: Reports: None - Past Surgical History Head Surgeries/Procedures: Reports: None HEENT Surgical History: Reports: Oral Surgery Other HEENT Surgeries/Procedures: teeth removal Cardiovascular Surgical History: Reports: None Respiratory Surgical History: Reports: None GI Surgical History: Reports: Appendectomy, Cholecystectomy Female Surgical History: Reports: Hysterectomy, Tubal Ligation, 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) Other Female Surgeries/Procedures: diagnostic laparoscopy Endocrine Surgical History: Reports: None Neurological Surgical History: Reports: None Musculoskeletal Surgical History: Reports: None Oncologic Surgical History: Reports: None Dermatological Surgical History: Reports: None Social & Family History - Family History Family Medical History: Noncontributory - Caffeine Use Caffeine Use: Reports: None - Recreational Drug Use Recreational Drug Use: No ED ROS GENERAL - Review of Systems Review Of Systems: See Below ED EXAM, GENERAL - Physical Exam Exam: See Below Course - Vital Signs Last Recorded V/S: Last Vital Signs Temp 36.2 C 04/21/20 22:25 Pulse 96 04/22/20 02:26 Resp 14 04/22/20 02:26 BP 125/78 04/22/20 02:26 Pulse Ox 98 04/22/20 02:26 - Orders/Labs/Meds Meds: Medications Discontinued Medications Generic Name Dose Route Start Last Admin Trade Name Freq PRN Reason Stop Dose Admin Hydrocodone Bitart/Acetaminophen 1 tab 04/21/20 23:42 04/21/20 23:47 [place] 325-5 Mg PO 04/21/20 23:43 1 tab ONETIME ONE Administration Departure - Departure Time of Disposition: 01:15 Disposition: Home, Self-Care 01 Condition: Fair Clinical Impression: Upper back strain Qualifiers: Encounter type: initial encounter Qualified Code(s): S29.012A - Strain of muscle and tendon of back wall of thorax, initial encounter - Discharge Information *PRESCRIPTION DRUG MONITORING PROGRAM REVIEWED*: No *COPY OF PRESCRIPTION DRUG MONITORING REPORT IN PATIENT LENNOX: No Instructions: How to Use Cold Therapy, [id number], Back Injury Prevention, [id number], Muscle Strain, Ihkq-[id number], Pain Medicine Instructions, [id number] Referrals: Evelina Muhammad NP [Primary Care Provider] - Forms: ED Department Discharge Additional Instructions: The patient is informed of any results of their evaluation and diagnostic workup and all questions are answered. They are given discharge instructions and return precautions. The patient is stable for discharge. The patient states they understand and agree with the plan and that they will return if their symptoms get worse or if they have any new concerns. The following information is given to patients seen in the emergency department who are being discharged to home. This information is to outline your options for follow-up care. We provide all patients seen in our emergency department with a follow-up referral. The need for follow-up, as well as the timing and circumstances, are variable depending upon the specifics of your emergency department visit. If you don't have a primary care physician on staff, we will provide you with a referral. We always advise you to contact your personal physician following an emergency department visit to inform them of the circumstance of the visit and for follow-up with them and/or the need for any referrals to a consulting specialist. The emergency department will also refer you to a specialist when appropriate. This referral assures that you have the opportunity for follow-up care with a specialist. All of these measure are taken in an effort to provide you with optimal care, which includes your follow-up. Under all circumstances we always encourage you to contact your private physician who remains a resource for coordinating your care. When calling for follow-up care, please make the office aware that this follow-up is from your recent emergency room visit. If for any reason you are refused follow-up, please contact the [facility] at and asked to speak to the emergency department charge nurse. Today your evaluated for back pain. At this time I do believe your pain is secondary to muscular strain. Please continue to work with your pain clinic regarding pain management and purchase [id number] lidocaine cream for symptomatic relief until your prescription comes in. Please return to the emergency department if you are to have worsening back pain, urinary incontinence, bowel incontinence, or weakness. Please follow-up with your primary care physician as needed. [facility] - Primary Care [address] [place] [id number] [facility] [address] [place] [id number] Sepsis Event Note (ED) - Evaluation Sepsis Screening Result: No Definite Risk - Focused Exam Vital Signs: Vital Signs Temp Pulse Resp BP Pulse Ox 04/22/20 02:26 96 14 125/78 98 04/21/20 22:25 36.2 C 86 14 115/85 98
== END 2020-04-22 01:35 | disposition home or self-care (01) ==
LOC: MW.ED 22:06
DX: S29.012A Strain of muscle and tendon of back wall of thorax, initial encounter (principal); I10 Essential (primary) hypertension; F41.9 Anxiety disorder, unspecified; F32.9 Major depressive disorder, single episode, unspecified; J45.909 Unspecified asthma, uncomplicated; K21.9 Gastro-esophageal reflux disease without esophagitis; E66.9 Obesity, unspecified; Z68.31 Body mass index [BMI] 31.0-31.9, adult; Z88.5 Allergy status to narcotic agent; Z88.0 Allergy status to penicillin; Z88.1 Allergy status to other antibiotic agents; Z88.2 Allergy status to sulfonamides; Z79.899 Other long term (current) drug therapy; X58.XXXA Exposure to other specified factors, initial encounter
CPT/HCPCS: 99283; A9270; 99282

== ENCOUNTER 2020-04-27 22:53 | Emergency (ER) | payer MEDICAID ==
[2020-04-27] MEDS ORDERED: Clindamycin HCl 150 MG Cap PO ONE (23:16)
[2020-04-27] MEDS ORDERED: Acetaminophen/oxyCODONE 325-5 MG Tab PO ONE (23:16)
--- NOTE | 2020-04-27 23:21 | EDM.PDOC ---
ED HPI GENERAL MEDICAL PROBLEM - General Chief Complaint: ENT Problem Stated Complaint: LT SIDE FACE PAIN, RECENT TOOTH REMOVAL Time Seen by Provider: 04/27/20 22:59 Source of Information: Reports: Patient History Limitations: Reports: No Limitations - History of Present Illness INITIAL COMMENTS - FREE TEXT/NARRATIVE: Patient is a 29-year-old female who presents today for left jaw pain. Patient states she had a tooth removed on Saturday and since that time she has had pain and swelling to the left side. Patient has pain with eating. Patient denies any fever chills nausea vomiting or any drainage from the tube traction site. Patient tried to call her dentist but he is out of office until Saturday and was told to come to the ER. L Lower gumline Pain Score (Numeric/FACES): 9 - Related Data Allergies Allergy/AdvReac Type Severity Reaction Status Date / Time codeine Allergy Hives Verified 04/19/20 16:56 metronidazole [From Flagyl] Allergy Hives Verified 04/19/20 16:56 morphine Allergy Airway Verified 04/19/20 16:56 Tightness Penicillins Allergy Hives Verified 04/19/20 16:56 Sulfa (Sulfonamide Allergy Hives Verified 04/19/20 16:56 Antibiotics) tramadol Allergy Headache Verified 04/19/20 16:56 Home Meds: Home Meds Albuterol [Ventolin HFA] 1 - 2 puff INH ASDIRECTED PRN 12/25/18 [History] Lansoprazole [Prevacid] 30 mg PO BID 04/21/20 [History] lamoTRIgine [Lamotrigine] 25 mg PO DAILY 04/21/20 [History] Cetirizine [ZyrTEC] 10 mg PO DAILY 04/27/20 [History] Past Medical History - Past Health History Medical/Surgical History: Denies Medical/Surgical History HEENT History: Reports: 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) Other HEENT History: top and bottom partial Cardiovascular History: Reports: Hypertension Respiratory History: Reports: Asthma, PE Other Respiratory History: PE 3 years ago Gastrointestinal History: Reports: GERD Genitourinary History: Reports: 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) 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: Musculoskeletal History: Reports: Back Pain, Chronic Neurological History: Reports: None Psychiatric History: Reports: Anxiety, Depression Endocrine/Metabolic History: Reports: Obesity/BMI 30+, Vitamin D Deficiency Hematologic History: Reports: Iron Deficiency Immunologic History: Reports: None Oncologic (Cancer) History: Reports: None Dermatologic History: Reports: None - Infectious Disease History Infectious Disease History: Reports: Chicken Pox - Past Surgical History Head Surgeries/Procedures: Reports: None HEENT Surgical History: Reports: Oral Surgery Other HEENT Surgeries/Procedures: teeth removal Cardiovascular Surgical History: Reports: None Respiratory Surgical History: Reports: None GI Surgical History: Reports: Appendectomy, Cholecystectomy Female Surgical History: Reports: Hysterectomy, Tubal Ligation, 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) Other Female Surgeries/Procedures: diagnostic laparoscopy Endocrine Surgical History: Reports: None Neurological Surgical History: Reports: None Musculoskeletal Surgical History: Reports: None Oncologic Surgical History: Reports: None Dermatological Surgical History: Reports: None Social & Family History - Family History Family Medical History: No Pertinent Family History - Caffeine Use Caffeine Use: Reports: Coffee, Soda - Recreational Drug Use Recreational Drug Use: No ED ROS ENT - Review of Systems Review Of Systems: Comprehensive ROS is negative, except as noted in HPI. Constitutional: Reports: No Symptoms HEENT: Reports: Dental Pain Respiratory: Reports: No Symptoms Endocrine: Reports: No Symptoms GI/Abdominal: Reports: No Symptoms : Reports: No Symptoms Musculoskeletal: Reports: No Symptoms Skin: Reports: No Symptoms Neurological: Reports: No Symptoms Psychiatric: Reports: No Symptoms Hematologic/Lymphatic: Reports: No Symptoms Immunologic: Reports: No Symptoms ED EXAM, ENT - Physical Exam Exam: See Below Exam Limited By: No Limitations General Appearance: Alert, No Apparent Distress Mouth/Throat: Normal Inspection, Dental Tenderness, Gum Swelling Respiratory/Chest: No Respiratory Distress, Lungs Clear Cardiovascular: Regular Rate, Rhythm GI/Abdominal: Normal Bowel Sounds, Soft, Non-Tender Neurological: Alert, Oriented, CN II-XII Intact Course - Vital Signs Last Recorded V/S: Last Vital Signs Temp 98.4 F 04/27/20 23:05 Pulse 73 04/27/20 23:05 Resp 18 04/27/20 23:05 BP 125/72 04/27/20 23:05 Pulse Ox 99 04/27/20 23:05 - Orders/Labs/Meds Meds: Medications Discontinued Medications Generic Name Dose Route Start Last Admin Trade Name Freq PRN Reason Stop Dose Admin Clindamycin HCl 300 mg 04/27/20 23:16 04/27/20 23:24 Cleocin PO 04/27/20 23:17 300 mg ONETIME ONE Administration Oxycodone/Acetaminophen 1 tab 04/27/20 23:16 04/27/20 23:24 Percocet 325-5 Mg PO 04/27/20 23:17 1 tab ONETIME ONE Administration Departure - Departure Time of Disposition: 23:56 Disposition: Home, Self-Care 01 Condition: Good Clinical Impression: Dental caries extending into dentin, Dental abscess - Discharge Information *PRESCRIPTION DRUG MONITORING PROGRAM REVIEWED*: Yes *COPY OF PRESCRIPTION DRUG MONITORING REPORT IN PATIENT LENNOX: Yes Instructions: Dental Abscess, [id number] Referrals: Evelina Muhammad NP [Primary Care Provider] - Forms: ED Department Discharge Additional Instructions: The following information is given to patients seen in the emergency department who are being discharged to home. This information is to outline your options for follow-up care. We provide all patients seen in our emergency department with a follow-up referral. The need for follow-up, as well as the timing and circumstances, are variable depending upon the specifics of your emergency department visit. If you don't have a primary care physician on staff, we will provide you with a referral. We always advise you to contact your personal physician following an emergency department visit to inform them of the circumstance of the visit and for follow-up with them and/or the need for any referrals to a consulting specialist. The emergency department will also refer you to a specialist when appropriate. This referral assures that you have the opportunity for follow-up care with a specialist. All of these measure are taken in an effort to provide you with o ptimal care, which includes your follow-up. Under all circumstances we always encourage you to contact your private physician who remains a resource for coordinating your care. When calling for follow-up care, please make the office aware that this follow-up is from your recent emergency room visit. If for any reason you are refused follow-up, please contact the [facility] Emergency Department at and asked to speak to the emergency department charge nurse. Please follow up with your primary care physician. If you do not have a primary care physician, see below: [facility] [address] [place] [address] [phone] [facility] [address] [address] These take the antibiotics as needed. Also take the Percocet as needed please try Motrin or Tylenol before taking Percocet. If you do take the Percocet is no driving or operating machinery. Follow-up with your dentist on Saturday. Sepsis Event Note (ED) - Evaluation Sepsis Screening Result: No Definite Risk - Focused Exam Vital Signs: Vital Signs Temp Pulse Resp BP Pulse Ox 04/27/20 23:05 98.4 F 73 18 125/72 99 - Assessment/Plan Plan: Patient is a 29-year-old female who presents today for left-sided jaw pain after having a tooth extraction. Patient has some swelling and tenderness to the left side. Patient will be provided pain control and antibiotics until she can follow-up with her dentist on Saturday. Patient pain is well controlled Percocets. Will discharge patient home with pain medicine also clindamycin. Patient will see her dentist next Saturday.
== END 2020-04-28 00:25 | disposition home or self-care (01) ==
LOC: MW.ED 22:53
DX: K04.7 Periapical abscess without sinus (principal); K02.9 Dental caries, unspecified; J45.909 Unspecified asthma, uncomplicated; I10 Essential (primary) hypertension; K21.9 Gastro-esophageal reflux disease without esophagitis; E66.9 Obesity, unspecified; Z88.5 Allergy status to narcotic agent; Z88.1 Allergy status to other antibiotic agents; Z88.0 Allergy status to penicillin; Z88.2 Allergy status to sulfonamides; Z79.899 Other long term (current) drug therapy; Z68.31 Body mass index [BMI] 31.0-31.9, adult
CPT/HCPCS: 99283; A9270

== ENCOUNTER 2020-05-18 18:33 | Emergency (ER) | payer MEDICAID ==
[2020-05-18] MEDS ORDERED: Ibuprofen 400 MG Tab PO ONE (18:43)
[2020-05-18] MEDS ORDERED: Diphtheria,Pertussis(Acell),Tetanus Vaccine 0.5 ML Syringe IM ONE (18:43)
[2020-05-18] MEDS ORDERED: Acetaminophen 500 MG Tab PO ONE (18:43)
--- NOTE | 2020-05-18 18:44 | PCM.SN.2 ---
- Free Text/Narrative Note: Brief triage/screening note. 29-year-old female with a laceration to the webspace in between thumb and index finger. Tetanus immunization not up-to-date. Wound is adequately hemostatic, patient resting comfortably. Ordered acetaminophen, ibuprofen, tetanus booster. Will sign out to oncoming nighttime staff.
[2020-05-18] MEDS ORDERED: Bacitracin Oint 1 GM U/D Packet TOP ONE (19:41)
--- NOTE | 2020-05-18 19:44 | EDM.PDOC ---
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 Patient denies any loss of sensation or movement. Patient reports bleeding was controlled. Patient's tetanus status is unclear. Patient denies any recent fevers, shakes, chills, nausea, vomiting, diarrhea, dysuria, frequency, urgency. Review of systems: As per history of present illness and below otherwise all systems reviewed and negative. Past medical history: As per history of present illness and as reviewed below otherwise noncontributory. Surgical history: As per history of present illness and as reviewed below otherwise noncontributory. Social history: No reported history of drug or alcohol abuse. Family history: As per history of present illness and as reviewed below otherwise noncontributory. Physical exam: Constitutional: Patient is oriented to person, place, and time. Appears well- developed and well-nourished. No distress. HEENT: Moist mucous membranes Head: Normocephalic and atraumatic Eyes: Right eye exhibits no discharge. Left eye exhibits no discharge. No scleral icterus Neck: Normal range of motion. No tracheal deviation present. Cardiovascular: Normal rate and regular rhythm. Pulmonary: Effort normal, no respiratory distress. Abdominal: No distention Musculoskeletal: Normal range of motion Neurologic: Alert and oriented to person, place and time. Skin: Tolstoy, warm and dry. Psychiatric: Normal mood and affect. Behavior is normal. Judgment and thought content normal. Nursing note and vital signs have been reviewed Patient's ER physical exam significant for a 3 cm laceration to the web between her left thumb and index finger. Neurovascular intact. Hemostasis obtained. Sensation intact. Assessment and plan: Is a 29-year-old female who presents ER today secondary to a laceration to her left webspace between her left thumb and index finger. Patient was sutured in the ER utilizing 3x5 0 Ethilon. 2 cc of 1% lidocaine without epi were utilized. Patient was neurovascular intact pre and post procedure. Patient will be instructed to get a wound check in 2 days by her primary care doctor and suture removal in 7 days. Reassessment at the time of disposition demonstrates that the patient is in no acute distress. The patient has remained stable throughout the entire ED visit and is without objective evidence for acute process requiring urgent intervention or hospitalization. The patient is stable for discharge, counseling is provided as documented above, discussed symptomatic treatment and specific conditions for return. I have spoken with the patient/caregiver and discussed todays findings, in a ddition to providing specific details for the plan of care. Questions are answered and there is agreement with the plan. Definitive disposition and diagnosis as appropriate pending reevaluation and r feliciaiew of above. Left Hand Pain Score (Numeric/FACES): 7 - Related Data Allergies Allergy/AdvReac Type Severity Reaction Status Date / Time codeine Allergy Hives Verified 05/18/20 18:40 metronidazole [From Flagyl] Allergy Hives Verified 05/18/20 18:40 morphine Allergy Airway Verified 05/18/20 18:40 Tightness Penicillins Allergy Hives Verified 05/18/20 18:40 Sulfa (Sulfonamide Allergy Hives Verified 05/18/20 18:40 Antibiotics) tramadol Allergy Headache Verified 05/18/20 18:40 Home Meds: Home Meds Albuterol [Ventolin HFA] 1 - 2 puff INH ASDIRECTED PRN 12/25/18 [History] Lansoprazole [Prevacid] 30 mg PO BID 04/21/20 [History] lamoTRIgine [Lamotrigine] 25 mg PO DAILY 04/21/20 [History] Cetirizine [ZyrTEC] 10 mg PO DAILY 04/27/20 [History] Past Medical History - Past Health History Medical/Surgical History: Denies Medical/Surgical History HEENT History: Reports: 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) Other HEENT History: top and bottom partial Cardiovascular History: Reports: Hypertension Respiratory History: Reports: Asthma, PE Other Respiratory History: PE 3 years ago Gastrointestinal History: Reports: GERD Genitourinary 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: Reports: 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) 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: Musculoskeletal History: Reports: Back Pain, Chronic Neurological History: Reports: None Psychiatric History: Reports: Anxiety, Depression Endocrine/Metabolic History: Reports: Obesity/BMI 30+, Vitamin D Deficiency Hematologic History: Reports: Iron Deficiency Immunologic History: Reports: None Oncologic (Cancer) History: Reports: None Dermatologic History: Reports: None - Infectious Disease History Infectious Disease History: Reports: Chicken Pox - Past Surgical History Head Surgeries/Procedures: Reports: None HEENT Surgical History: Reports: Oral Surgery Other HEENT Surgeries/Procedures: teeth removal Cardiovascular Surgical History: Reports: None Respiratory Surgical History: Reports: None GI Surgical History: Reports: Appendectomy, Cholecystectomy Female Surgical History: Reports: Hysterectomy, Tubal Ligation, 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) Other Female Surgeries/Procedures: diagnostic laparoscopy Endocrine Surgical History: Reports: None Neurological Surgical History: Reports: None Musculoskeletal Surgical History: Reports: None Oncologic Surgical History: Reports: None Dermatological Surgical History: Reports: None Social & Family History - Family History Family Medical History: No Pertinent Family History - Tobacco Use Tobacco Use Status *Q: Current Every Day Tobacco User Years of Tobacco use: 15 Packs/Tins Daily: 0.5 - Caffeine Use Caffeine Use: Reports: Coffee, Soda - Recreational Drug Use Recreational Drug Use: No ED ROS GENERAL - Review of Systems Review Of Systems: See Below ED EXAM, GENERAL - Physical Exam Exam: See Below ED GENERAL MEDICAL PROCEDURES - Laceration/Wound Repair Left Hand Lac/wound length in cm: 3 Appearance: Subcutaneous Distal NVT: Neuro & Vascular Intact, No Tendon Injury Anesthetic Type: Local Local Anesthesia - Lidocaine (Xylocaine): 1% Plain Local Anesthetic Volume: 2cc Skin Prep: Providone-Iodine (Betadine), Saline Saline irrigation (cc's): 250 Exploration/Debridement/Repair: Wound Explored, In a Bloodless Field Closed with: Sutures Suture Size: 5-0 # of Sutures: 3 Suture Type: Nylon, Simple Course - Vital Signs Last Recorded V/S: Last Vital Signs Temp 97.3 F 05/18/20 18:41 Pulse 100 05/18/20 18:41 Resp 16 05/18/20 18:41 BP 160/74 H 05/18/20 18:41 Pulse Ox 99 05/18/20 18:41 - Orders/Labs/Meds Orders: Active Orders 24 hr Category Date Time Status Vaccines to be Administered [RC] PER UNIT ROUTINE Care 05/18/20 18:43 Active Meds: Medications Discontinued Medications Generic Name Dose Route Start Last Admin Trade Name Freq PRN Reason Stop Dose Admin Acetaminophen 1,000 mg 05/18/20 18:43 05/18/20 19:07 Tylenol Extra Strength PO 05/18/20 18:44 1,000 mg ONETIME ONE Administration Bacitracin 1 dose 05/18/20 19:41 Bacitracin Oint 1 Gm TOP 05/18/20 19:42 ONETIME ONE Diphtheria/Tetanus/Acell Pertussis 0.5 ml 05/18/20 18:43 05/18/20 19:06 Boostrix IM 05/18/20 18:44 0.5 ml .ONCE ONE Administration Ibuprofen 400 mg 05/18/20 18:43 05/18/20 19:08 Motrin PO 05/18/20 18:44 400 mg ONETIME ONE Administration Lidocaine HCl 5 ml 05/18/20 19:31 05/18/20 19:39 Xylocaine-Mpf 1% INJECT 05/18/20 19:32 5 ml ONETIME ONE Administration Lidocaine HCl Confirm 05/18/20 19:32 05/18/20 19:40 Xylocaine-Mpf 1% Administered 05/18/20 19:33 Not Given Dose 5 ml .ROUTE .STK-MED ONE Departure - Departure Time of Disposition: 19:44 Disposition: Home, Self-Care 01 Condition: Good Clinical Impression: Laceration of hand, left - Discharge Information Instructions: Sutures, [place], or Adhesive Wound Closure, [id number] Referrals: PCP,None [Primary Care Provider] - Forms: ED Department Discharge Additional Instructions: You were seen and evaluated in the ER today secondary to a laceration to your left webspace between your thumb and index finger. You had 3 sutures placed. You will need a wound check by your family doctor in 2 days and sutures will need to be removed in 7 days. The following information is given to patients seen in the emergency department who are being discharged to home. This information is to outline your options for follow-up care. We provide all patients seen in our emergency department with a follow-up referral. The need for follow-up, as well as the timing and circumstances, are variable depending upon the specifics of your emergency department visit. If you don't have a primary care physician on staff, we will provide you with a referral. We always advise you to contact your personal physician following an emergency department visit to inform them of the circumstance of the visit and for follow-up with them and/or the need for any referrals to a consulting specialist. The emergency department will also refer you to a specialist when appropriate. This referral assures that you have the opportunity for follow-up care with a specialist. All of these measure are taken in an effort to provide you with optimal care, which includes your follow-up. Under all circumstances we always encourage you to contact your private physician who remains a resource for coordinating your care. When calling for follow-up care, please make the office aware that this follow-up is from your recent emergency room visit. If for any reason you are refused follow-up, please contact the [facility] Emergency Department at and asked to speak to the emergency department charge nurse. [facility] [address] [place] [id number] [facility] [address] [place] [id number] Sepsis Event Note (ED) - Evaluation Sepsis Screening Result: No Definite Risk - Focused Exam Vital Signs: Vital Signs Temp Pulse Resp BP Pulse Ox 05/18/20 18:41 97.3 F 100 16 160/74 H 99
== END 2020-05-18 19:57 | disposition home or self-care (01) ==
LOC: MW.ED 18:33
DX: S61.412A Laceration without foreign body of left hand, initial encounter (principal); K21.9 Gastro-esophageal reflux disease without esophagitis; I10 Essential (primary) hypertension; J45.909 Unspecified asthma, uncomplicated; F41.9 Anxiety disorder, unspecified; F32.9 Major depressive disorder, single episode, unspecified; E66.9 Obesity, unspecified; F17.210 Nicotine dependence, cigarettes, uncomplicated; Z23 Encounter for immunization; Z88.5 Allergy status to narcotic agent; Z88.0 Allergy status to penicillin; Z88.1 Allergy status to other antibiotic agents; Z88.2 Allergy status to sulfonamides; Z90.49 Acquired absence of other specified parts of digestive tract; Z79.899 Other long term (current) drug therapy; Z98.51 Tubal ligation status; Z90.710 Acquired absence of both cervix and uterus; W27.8XXA Contact with other nonpowered hand tool, initial encounter
CPT/HCPCS: 12002; 90471; 99282; A9270; J2001; 99283

== ENCOUNTER 2020-05-19 10:54 | Day surgery (SDC) | payer MEDICAID ==
[~2020-05-19 10:54] MED LIST changes: +Betamethasone Acetate/Betamethasone Sod Phosphate 30 MG/5 ML MDV EPIDUR ONE; -Dexamethasone 4 MG/ML 5 ML MDV ONE; -Glycopyrrolate 0.2 MG/ML SDV ONE; +Iopamidol 200-M 10 ML vial ITHECAL ONE; -Ketorolac 30 MG/ML SDV ONE; -Lactated Ringers 1,000 ML IV SCH; +Lidocaine 2% 5 ML SDV INJECT ONE; -Lidocaine 2% 5 ML SDV ONE; -Midazolam 1 MG/ML 2 ML SDV ONE; -Ondansetron 4 MG/2 ML SDV ONE; -Propofol 200 MG/20 ML SDV ONE; -Rocuronium Bromide 50 MG/5 ML Syringe ONE; +Ropivacaine 0.5% 5 MG/ML 30 ML SDV INJECT ONE; -Sodium Chloride 0.9% 10 ML SDV IV PRN; -Sodium Chloride 0.9% 10 ML Syringe FLUSH PRN; -Sodium Chloride 0.9% 2.5 ML Syringe FLUSH PRN; -Sugammadex Sodium 200 MG/2 ML VIAL ONE; -ceFAZolin 2 GM in Premix Bag 1 BAG IV ONE; -fentaNYL 250 MCG/5 ML SDV ONE
[2020-05-19] MEDS ORDERED: Lidocaine 2% 5 ML SDV INJECT ONE (12:30)
[2020-05-19] MEDS ORDERED: Ropivacaine 0.5% 5 MG/ML 30 ML SDV INJECT ONE (12:30)
[2020-05-19] MEDS ORDERED: Iopamidol 200-M 10 ML vial ITHECAL ONE (12:30)
[2020-05-19] MEDS ORDERED: Betamethasone Acetate/Betamethasone Sod Phosphate 30 MG/5 ML MDV EPIDUR ONE (12:30)
--- NOTE | 2020-05-19 19:22 | OR ---
SURGEON: Zonia Nova D.O. DATE OF PROCEDURE: 05/19/2020 PRIMARY SURGEON: Zonia Nova DO ASSISTANTS: OR staff present: 1. Timbo Horne RN. 2. Sorin Alexander RN. 3. Timbo Evans. WOUND CLASS: I. PREOPERATIVE DIAGNOSES: 1. Lumbar degenerative disk disease, L5-S1. 2. Right lumbosacral radiculopathy. POSTOPERATIVE DIAGNOSES: 1. Lumbar degenerative disk disease, L5-S1. 2. Right lumbosacral radiculopathy. PROCEDURES PERFORMED: 1. Right L5 transforaminal epidural steroid injection. 2. Right S1 transforaminal epidural steroid injection. 3. Fluoroscopic guidance for needle placement. 4. Local with oral Valium for sedation. SCREENING QUESTIONS: The patient answered "no" to all of the following questions: 1. Are you allergic to iodine, Betadine or latex? 2. Do you have a bleeding disorder? 3. Do you have any joint replacements, heart valve replacements, or a pacemaker? 4. Are you allergic to anti-inflammatories or blood thinners? 5. Do you have any current local or systemic infections? MEDICAL NECESSITY: This is a patient with a history of chronic low back pain and lower extremity radicular pain in the above dermatomal pattern that comes in for the above diagnostic and therapeutic procedure. Pertinent positives and negatives for this suspected disease process along with the diagnostic findings and testing are in the patient's history and physical exam. The most salient feature includes radicular pain in the above dermatomal pattern. The patient had failed attempts at conservative therapy including physical therapy, nonsteroidal anti- inflammatory drugs, and other medications. No contraindications to perform this procedure including medical, no bleeding disorders or infections, no psychological, no antisocial personality disorder or active addiction disorder. There are no work-related issues, and, in general, the patient does not have any history of multiple prior interventions, surgeries or nerve blocks which have failed to return the patient to function. The patient's other symptoms to be treated include numbness, paresthesia, dysesthesia or hypoesthesia referred into the left lower extremity or any weakness in the involved myotome. This procedure is being performed in accordance with national guidelines as written by the International Sp[employer] Intervention Society (AMBIKA). DESCRIPTION OF PROCEDURE: The patient had the procedure thoroughly explained including risks, benefits and alternatives. Consent was signed in my clinic indicating understanding and willingness to proceed. The patient presented to [facility] [place] where the patient was escorted to the dressing room to disrobe and change into a hospital gown. Preoperative vital signs were taken and stable. The patient reported that Valium was taken prior to the procedure. The patient was brought to the procedure room and placed in the prone position on the table. A pillow was placed under the abdomen in order to flatten the lumbar lordosis. The back was prepped with ChloraPrep and sterilely draped. All personnel in the operating room were dressed in appropriate attire including surgical scrubs, head and shoe covers. This was to ensure sterility while in the treatment room. During the time fluoroscopy was in use, all personnel in the operating room wore lead martinez with thyroid collars. Sterile technique was used during the procedure. The fluoroscope was placed for the right L5 and right S1 transforaminal epidural steroid injection. There was no sign of infection at the skin site for needle insertion. The skin was anesthetized with 2% lidocaine with a 27 gauge 1-1/2 inch needle. Then, a 22 gauge 3-1/2 inch spinal needle, advanced to the right L5 and right S1. Under direct fluoroscopic guidance needle position was verified in three views; AP, oblique and lateral, with 0.2 cubic centimeters increments of Isovue-200 dye. No intravascular flow pattern was observed under live fluoroscopy. Then 12 milligrams of Celestone was slowly injected after negative aspiration of heme, cerebrospinal fluid and no paresthesias were noted. The needle was cleared prior to removal from the skin. No adverse reactions were noted. The patient was brought to the recovery room awake and in good condition by my staff. The patient was monitored and discharge instructions were given after a brief stay in the recovery area. Both oral and written discharge and follow up instructions were given. The patient will follow up in the clinic in 3-4 weeks post procedure to evaluate the efficacy. The patient verbalized understanding including understanding of those signs and symptoms that would require emergency care and knows how to contact the office if there are any problems or questions in the meantime. PREOPERATIVE PAIN: 7/10. POSTOPERATIVE PAIN: 4/10. FOLLOWUP: In the Pain Clinic in 3 weeks. HOGLCHR / MODL /[id number]
== END 2020-05-19 13:31 ==
LOC: MW.SDS 10:54
PROVIDERS: ATTEND Anesthesiology
DX: G89.29 Other chronic pain (principal); M51.17 Intervertebral disc disorders with radiculopathy, lumbosacral region; Q76.49 Other congenital malformations of spine, not associated with scoliosis; M47.26 Other spondylosis with radiculopathy, lumbar region; M47.27 Other spondylosis with radiculopathy, lumbosacral region; M79.18 Myalgia, other site; F17.210 Nicotine dependence, cigarettes, uncomplicated; J45.909 Unspecified asthma, uncomplicated; F32.9 Major depressive disorder, single episode, unspecified; K21.9 Gastro-esophageal reflux disease without esophagitis; E55.9 Vitamin D deficiency, unspecified; Z98.890 Other specified postprocedural states; Z88.5 Allergy status to narcotic agent; Z88.8 Allergy status to other drugs, medicaments and biological substances; Z88.2 Allergy status to sulfonamides; Z79.899 Other long term (current) drug therapy

== ENCOUNTER 2020-06-09 13:14 | Emergency (ER) | payer MEDICAID ==
--- NOTE | 2020-06-09 13:20 | EDM.PDOC ---
ED HPI GENERAL MEDICAL PROBLEM - General Chief Complaint: ENT Problem Stated Complaint: TOOTH ACHE Time Seen by Provider: 06/09/20 13:16 Source of Information: Reports: Patient History Limitations: Reports: No Limitations - History of Present Illness INITIAL COMMENTS - FREE TEXT/NARRATIVE: HISTORY AND PHYSICAL: History of present illness: Patient is a 29-year-old female who presents to the emergency room with complaints of right posterior upper dental pain. She states in December she had broken her tooth but had not given her any problems until now. She states she has had a tooth ache and gumline is tender to palpation. Patient denies any fever, chills, headache, change in vision, syncope or near syncope. Denies any chest pain, back pain, shortness of breath or cough. Denies any abdominal pain, nausea, vomiting, diarrhea, constipation or dysuria. Has not noted any blood in urine or stool. Patient has been eating and drinking appropriately. Review of systems: As per history of present illness and below otherwise all systems reviewed and negative. Past medical history: As per history of present illness and as reviewed below otherwise noncontributory. Surgical history: As per history of present illness and as reviewed below otherwise noncontributory. Social history: See social history for further information Family history: As per history of present illness and as reviewed below otherwise noncontributory. Physical exam: General: Well developed and well nourished 29 year old female. Alert and orientated x 3. Nontoxic in appearance and in no acute distress. Vital signs are stable and have been reviewed by me. Nursing notes were reviewed. HEENT: Atraumatic, normocephalic, pupils equal and reactive bilaterally, negative for conjunctival pallor or scleral icterus, multiple dental caries are noted, dental decay and caries noted to posterior molars, gumline tenderness along the right upper posterior molar with erythema. Mucous membranes moist, TMs normal bilaterally, throat clear, neck supple, nontender, trachea midline. No drooling or trismus noted. No meningeal signs. No hot potato voice noted. Lungs: Clear to auscultation, breath sounds equal bilaterally, chest nontender. Normal work of breathing, no accessory muscles used. Heart: S1S2, regular rate and rhythm without overt murmur Abdomen: Soft, nondistended, nontender. Skin: Intact, warm, dry. No lesions or rashes noted. Hematologic: No petechiae or purpra. Mucosa appropriate color and normal nail bed color and refill. Extremities: Atraumatic, moves all extremities per self without difficulty or deficits, negative for cords or calf pain. Neurovascular unremarkable. Neuro: Awake, alert, oriented. Cranial nerves II through XII unremarkable. Cerebellum unremarkable. Motor and sensory unremarkable throughout. Exam nonfocal. Psychiatric: Mood and affect are appropriate. Normal thought process. Answering questions appropriately. Notes: I have talked with the patient about today's findings, in addition to providing specific details for plan of care. The patient is stable for discharge, counseling was provided and we discussed in great detail signs and symptoms that would prompt them to return to the Emergency Department. Medication, follow up and supportive care measures were reviewed and discussed. Voices understanding and is agreeable to plan of care. Denies any further questions or concerns at this time. Diagnostics: None Therapeutics: Dental Balls Prescription: Clindamycin, Diclofenac Impression: Dental carries infection Plan: 1. Please take the antibiotic as prescribed. 2. Tylenol and/or Diclofenac as needed for pain management. "Tooth Balls" have been given to you; apply along the gumline every 2-3 hours as needed. Do not swallow these; external use only. 3. Follow-up with a dentist for definitive care. Return to the ED as needed and as discussed. Definitive disposition and diagnosis as appropriate pending reevaluation and review of above. Right Upper Jaw Pain Score (Numeric/FACES): 9 - Related Data Allergies Allergy/AdvReac Type Severity Reaction Status Date / Time codeine Allergy Hives Verified 06/09/20 13:18 metronidazole [From Flagyl] Allergy Hives Verified 06/09/20 13:18 morphine Allergy Airway Verified 06/09/20 13:18 Tightness Penicillins Allergy Hives Verified 06/09/20 13:18 Sulfa (Sulfonamide Allergy Hives Verified 06/09/20 13:18 Antibiotics) tramadol Allergy Headache Verified 06/09/20 13:18 Home Meds: Home Meds Albuterol [Ventolin HFA] 1 - 2 puff INH ASDIRECTED PRN 12/25/18 [History] Lansoprazole [Prevacid] 30 mg PO BID 04/21/20 [History] lamoTRIgine [Lamotrigine] 25 mg PO DAILY 04/21/20 [History] Cetirizine [ZyrTEC] 10 mg PO DAILY 04/27/20 [History] Clindamycin HCl 300 mg PO TID 7 Days #21 capsule 06/09/20 [Rx] Diclofenac Sodium [Voltaren] 75 mg PO BIDMEALS PRN #30 tab.cr 06/09/20 [Rx] Past Medical History - Past Health History Medical/Surgical History: Denies Medical/Surgical History HEENT History: Reports: 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) Other HEENT History: top and bottom partial Cardiovascular History: Reports: Hypertension Respiratory History: Reports: Asthma, PE Other Respiratory History: PE 3 years ago Gastrointestinal History: Reports: GERD Genitourinary History: Reports: 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) PATIENT SVCS MGR History: Reports: Musculoskeletal History: Reports: Back Pain, Chronic Neurological History: Reports: None Psychiatric History: Reports: Anxiety, Depression Endocrine/Metabolic History: Reports: Obesity/BMI 30+, Vitamin D Deficiency Hematologic History: Reports: Iron Deficiency Immunologic History: Reports: None Oncologic (Cancer) History: Reports: None Dermatologic History: Reports: None - Infectious Disease History Infectious Disease History: Reports: Chicken Pox - Past Surgical History Head Surgeries/Procedures: Reports: None HEENT Surgical History: Reports: Oral Surgery Other HEENT Surgeries/Procedures: teeth removal Cardiovascular Surgical History: Reports: None Respiratory Surgical History: Reports: None GI Surgical History: Reports: Appendectomy, Cholecystectomy Female Surgical History: Reports: Hysterectomy, Tubal Ligation, 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) Other Female Surgeries/Procedures: diagnostic laparoscopy Endocrine Surgical History: Reports: None Neurological Surgical History: Reports: None Musculoskeletal Surgical History: Reports: None Oncologic Surgical History: Reports: None Dermatological Surgical History: Reports: None Social & Family History - Family History Family Medical History: No Pertinent Family History - Caffeine Use Caffeine Use: Reports: Coffee, Soda ED ROS ENT - Review of Systems Review Of Systems: Comprehensive ROS is negative, except as noted in HPI. ED EXAM, ENT - Physical Exam Exam: See Below (See dictation) Course - Vital Signs Last Recorded V/S: Last Vital Signs Temp 97.3 F 06/09/20 13:19 Pulse 94 06/09/20 13:19 Resp 16 06/09/20 13:19 BP 126/75 06/09/20 13:19 Pulse Ox 100 06/09/20 13:19 - Orders/Labs/Meds Meds: Medications Discontinued Medications Generic Name Dose Route Start Last Admin Trade Name Freq PRN Reason Stop Dose Admin Benzocaine 2 each 06/09/20 13:26 Hurricaine One 20% MUCMEM 06/09/20 13:27 ONETIME ONE Lidocaine HCl 15 ml 06/09/20 13:26 Xylocaine 2% Viscous PO 06/09/20 13:27 ONETIME ONE Departure - Departure Time of Disposition: 13:37 Disposition: Home, Self-Care 01 Clinical Impression: Infected dental carries - Discharge Information Prescriptions: Clindamycin HCl 300 mg PO TID 7 Days #21 capsule Diclofenac Sodium [Voltaren] 75 mg PO BIDMEALS PRN #30 tab.cr PRN Reason: Pain Instructions: Dental Abscess, [id number] Referrals: Evelina Muhammad NP [Primary Care Provider] - Forms: ED Department Discharge Additional Instructions: The following information is given to patients seen in the emergency department who are being discharged to home. This information is to outline your options for follow-up care. We provide all patients seen in our emergency department with a follow-up referral. The need for follow-up, as well as the timing and circumstances, are variable depending upon the specifics of your emergency department visit. If you don't have a primary care physician on staff, we will provide you with a referral. We always advise you to contact your personal physician following an emergency department visit to inform them of the circumstance of the visit and for follow-up with them and/or the need for any referrals to a consulting specialist. The emergency department will also refer you to a specialist when appropriate. This referral assures that you have the opportunity for follow-up care with a specialist. All of these measure are taken in an effort to provide you with optimal care, which includes your follow-up. Under all circumstances we always encourage you to contact your private physician who remains a resource for coordinating your care. When calling for follow-up care, please make the office aware that this follow-up is from your recent emergency room visit. If for any reason you are refused follow-up, please contact the [facility] Emergency Department at and asked to speak to the emergency department charge nurse. [facility] [address] [place] [id number] [facility] [address] [place] [address] Thank you for choosing the [facility] emergency department in [place] for your medical needs today. It was a pleasure caring for you. Today you were seen in the emergency department for dental infection. 1. Please take the antibiotic as prescribed. 2. Tylenol and/or Diclofenac as needed for pain management. "Tooth Balls" have been given to you; apply along the gumline every 2-3 hours as needed. Do not swallow these; external use only. 3. Follow-up with a dentist for definitive care. Return to the ED as needed and as discussed. Sepsis Event Note (ED) - Focused Exam Vital Signs: Vital Signs Temp Pulse Resp BP Pulse Ox 06/09/20 13:19 97.3 F 94 16 126/75 100
[2020-06-09] MEDS ORDERED: Lidocaine 2% Viscous Solution 15 ML Cup PO ONE (13:26)
[2020-06-09] MEDS ORDERED: Benzocaine 20% Topical Spray UD MUCMEM ONE (13:26)
== END 2020-06-09 13:45 | disposition home or self-care (01) ==
LOC: MW.ED 13:14
DX: K02.9 Dental caries, unspecified (principal); I10 Essential (primary) hypertension; J45.909 Unspecified asthma, uncomplicated; K21.9 Gastro-esophageal reflux disease without esophagitis; F32.9 Major depressive disorder, single episode, unspecified; E66.9 Obesity, unspecified; Z68.31 Body mass index [BMI] 31.0-31.9, adult; Z79.899 Other long term (current) drug therapy; Z88.5 Allergy status to narcotic agent; Z88.8 Allergy status to other drugs, medicaments and biological substances; Z88.0 Allergy status to penicillin; Z88.2 Allergy status to sulfonamides; Z88.1 Allergy status to other antibiotic agents
CPT/HCPCS: 99282; A9270

== ENCOUNTER 2020-06-15 22:07 | Emergency (ER) | payer MEDICAID ==
[2020-06-15] MEDS ORDERED: Cephalexin 500 MG Cap PO ONE (23:47)
[2020-06-15] MEDS ORDERED: Ibuprofen 600 MG Tab PO ONE (23:49)
--- NOTE | 2020-06-15 23:54 | EDM.PDOC ---
ED HPI GENERAL MEDICAL PROBLEM - General Chief Complaint: ENT Problem Stated Complaint: TOOTH PAIN Time Seen by Provider: 06/15/20 23:01 - History of Present Illness INITIAL COMMENTS - FREE TEXT/NARRATIVE: HISTORY AND PHYSICAL: History of present illness: Is a 29-year-old female who presents ER today complaining of pain to her right upper molar region. Patient reports that she has had multiple dental infection secondary to poor dentition over the last several months. Patient reports that she is been having extremely difficult time getting in to see dentist. Patient reports that she finally got in to see a dentist but it turned out to be a dentist that deals mainly with making dentures. She reports that he was able to refer her to another dentist to assist with her dental caries however she they have been having a difficult time making appointment to see him. She reports that she thinks that she will be able to see him this upcoming Saturday. Patient was seen here in the ED several days ago and started on clindamycin and reports she still having pain and swelling in her teeth. Patient denies any recent fevers, shakes, chills, nausea, vomiting, diarrhea. Review of systems: As per history of present illness and below otherwise all systems reviewed and negative. Past medical history: As per history of present illness and as reviewed below otherwise noncontributory. Surgical history: As per history of present illness and as reviewed below otherwise noncontributory. Social history: No reported history of drug or alcohol abuse. Family history: As per history of present illness and as reviewed below otherwise noncontributory. Physical exam: Constitutional: Patient is oriented to person, place, and time. Appears well- developed and well-nourished. No distress. HEENT: Moist mucous membranes Head: Normocephalic and atraumatic Eyes: Right eye exhibits no discharge. Left eye exhibits no discharge. No scleral icterus Neck: Normal range of motion. No tracheal deviation present. Cardiovascular: Normal rate and regular rhythm. Pulmonary: Effort normal, no respiratory distress. Abdominal: No distention Musculoskeletal: Normal range of motion Neurologic: Alert and oriented to person, place and time. Skin: Skelp, warm and dry. Psychiatric: Normal mood and affect. Behavior is normal. Judgment and thought content normal. Nursing note and vital signs have been reviewed Patient's ER physical exam is significant for multiple dental caries throughout her teeth. Patient has no trismus. Patient has a normal voice. Patient has no evidence of significant dental abscess. Patient does have some tenderness palpation to her gumline however no fluctuance was palpable. This patient was seen and evaluated during the 2019 SARS-CoV-2 novel coronavirus pandemic period. Community viral transmission is ongoing at time of this encounter and the emergency department is operating under pandemic response procedures. Assessment and plan: This is a 29-year-old female who presents ER today with dental pain likely secondary to dental caries with a microabscess. Patient will be started on Keflex as she does not seem to be tolerating the clindamycin really well and reports that has not improved. Patient was given a dose of Keflex and ibuprofen here in the ED will be sent home with the same. Patient does have an appointment coming up hopefully on Saturday to see her dentist. Reassessment at the time of disposition demonstrates that the patient is in no acute distress. The patient has remained stable throughout the entire ED visit and is without objective evidence for acute process requiring urgent intervention or hospitalization. The patient is stable for discharge, counseling is provided as documented above, discussed symptomatic treatment and specific conditions for return. I have spoken with the patient/caregiver and discussed todays findings, in addition to providing specific details for the plan of care. Questions are answered and there is agreement with the plan. Definitive disposition and diagnosis as appropriate pending reevaluation and review of above. Right Upper Tooth/Teeth Pain Score (Numeric/FACES): 9 - Related Data Allergies Allergy/AdvReac Type Severity Reaction Status Date / Time codeine Allergy Hives Verified 06/15/20 22:50 metronidazole [From Flagyl] Allergy Hives Verified 06/15/20 22:50 morphine Allergy Airway Verified 06/15/20 22:50 Tightness Penicillins Allergy Hives Verified 06/15/20 22:50 Sulfa (Sulfonamide Allergy Hives Verified 06/15/20 22:50 Antibiotics) tramadol Allergy Headache Verified 06/15/20 22:50 Home Meds: Home Meds Albuterol [Ventolin HFA] 1 - 2 puff INH ASDIRECTED PRN 12/25/18 [History] Lansoprazole [Prevacid] 30 mg PO BID 04/21/20 [History] lamoTRIgine [Lamotrigine] 25 mg PO DAILY 04/21/20 [History] Cetirizine [ZyrTEC] 10 mg PO DAILY 04/27/20 [History] Clindamycin HCl 300 mg PO TID 7 Days #21 capsule 06/09/20 [Rx] Diclofenac Sodium [Voltaren] 75 mg PO BIDMEALS PRN #30 tab.cr 06/09/20 [Rx] Ibuprofen 600 mg PO Q6HR PRN #30 tablet 06/15/20 [Rx] cephALEXin [Keflex] 500 mg PO TID #30 capsule 06/15/20 [Rx] Past Medical History - Past Health History Medical/Surgical History: Denies Medical/Surgical History HEENT History: Reports: 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) Other HEENT History: top and bottom partial Cardiovascular History: Reports: Hypertension Respiratory History: Reports: Asthma, PE Other Respiratory History: PE 3 years ago Gastrointestinal History: Reports: GERD Genitourinary History: Reports: 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) [employer]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: Musculoskeletal History: Reports: Back Pain, Chronic Neurological History: Reports: None Psychiatric History: Reports: Anxiety, Depression Endocrine/Metabolic History: Reports: Obesity/BMI 30+, Vitamin D Deficiency Hematologic History: Reports: Iron Deficiency Immunologic History: Reports: None Oncologic (Cancer) History: Reports: None Dermatologic History: Reports: None - Infectious Disease History Infectious Disease History: Reports: Chicken Pox - Past Surgical History Head Surgeries/Procedures: Reports: None HEENT Surgical History: Reports: Oral Surgery Other HEENT Surgeries/Procedures: teeth removal Cardiovascular Surgical History: Reports: None Respiratory Surgical History: Reports: None GI Surgical History: Reports: Appendectomy, Cholecystectomy Female Surgical History: Reports: Hysterectomy, Tubal Ligation, 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) Other Female Surgeries/Procedures: diagnostic laparoscopy Endocrine Surgical History: Reports: None Neurological Surgical History: Reports: None Musculoskeletal Surgical History: Reports: None Oncologic Surgical History: Reports: None Dermatological Surgical History: Reports: None Social & Family History - Family History Family Medical History: No Pertinent Family History - Caffeine Use Caffeine Use: Reports: Coffee - Recreational Drug Use Recreational Drug Use: No ED ROS GENERAL - Review of Systems Review Of Systems: See Below ED EXAM, GENERAL - Physical Exam Exam: See Below Course - Vital Signs Last Recorded V/S: Last Vital Signs Temp 96.9 F 06/15/20 22:47 Pulse 79 06/15/20 22:47 Resp 18 06/15/20 22:47 BP 136/78 06/15/20 22:47 Pulse Ox 99 06/15/20 22:47 - Orders/Labs/Meds Orders: Active Orders 24 hr Category Date Time Status Ibuprofen [Motrin] Med 06/15/20 23:49 Once 600 mg PO ONETIME ONE Meds: Medications Discontinued Medications Generic Name Dose Route Start Last Admin Trade Name Freq PRN Reason Stop Dose Admin Cephalexin 500 mg 06/15/20 23:47 Keflex PO 06/15/20 23:48 ONETIME ONE Departure - Departure Time of Disposition: 23:52 Disposition: Home, Self-Care 01 Condition: Good Clinical Impression: Dental abscess, Infected dental carries - Discharge Information Instructions: Dental Abscess, [id number] Referrals: Evelina Muhammad NP [Primary Care Provider] - Additional Instructions: You were seen and evaluated in the ER today for your toothache. We will change you over to Keflex 500 mg to take 3 times a day for 10 days. I have also written you prescription for ibuprofen to assist with your pain and discomfort. You will need to follow-up with a dentist as soon as possible. Hopefully you will be able to be seen on Saturday with your dentist. The following information is given to patients seen in the emergency department who are being discharged to home. This information is to outline your options for follow-up care. We provide all patients seen in our emergency department w ith a follow-up referral. The need for follow-up, as well as the timing and circumstances, are variable depending upon the specifics of your emergency department visit. If you don't have a primary care physician on staff, we will provide you with a referral. We always advise you to contact your personal physician following an emergency department visit to inform them of the circumstance of the visit and for follow-up with them and/or the need for any referrals to a consulting specialist. The emergency department will also refer you to a specialist when appropriate. This referral assures that you have the opportunity for follow-up care with a specialist. All of these measure are taken in an effort to provide you with optimal care, which includes your follow-up. Under all circumstances we always encourage you to contact your private physician who remains a resource for coordinating your care. When calling for follow-up care, please make the office aware that this follow-up is from your recent emergency room visit. If for any reason you are refused follow-up, please contact the [facility] Emergency Department at and asked to speak to the emergency department charge nurse. [facility] - Primary Care [address] [place] [address] [place] [address] Sepsis Event Note (ED) - Evaluation Sepsis Screening Result: No Definite Risk - Focused Exam Vital Signs: Vital Signs Temp Pulse Resp BP Pulse Ox 06/15/20 22:47 96.9 F 79 18 136/78 99 - My Orders Last 24 Hours: My Active Orders 06/15/20 23:49 Ibuprofen [Motrin] 600 mg PO ONETIME ONE - Assessment/Plan Last 24 Hours: My Active Orders 06/15/20 23:49 Ibuprofen [Motrin] 600 mg PO ONETIME ONE
== END 2020-06-16 00:06 | disposition home or self-care (01) ==
LOC: MW.ED 22:07
DX: K04.7 Periapical abscess without sinus (principal); K02.9 Dental caries, unspecified; I10 Essential (primary) hypertension; J45.909 Unspecified asthma, uncomplicated; K21.9 Gastro-esophageal reflux disease without esophagitis; E66.9 Obesity, unspecified; Z68.31 Body mass index [BMI] 31.0-31.9, adult; Z88.5 Allergy status to narcotic agent; Z88.0 Allergy status to penicillin; Z88.2 Allergy status to sulfonamides; Z88.1 Allergy status to other antibiotic agents; Z79.899 Other long term (current) drug therapy
CPT/HCPCS: 99282; A9270

== ENCOUNTER 2020-07-02 15:14 | Emergency (ER) | payer MEDICAID ==
--- NOTE | 2020-07-02 15:29 | EDM.PDOC ---
ED [facility] GENERAL MEDICAL PROBLEM - General Chief Complaint: Genitourinary Problem Stated Complaint: POSSIBLE UTI/DIZZINESS/VOMITTING Time Seen by Provider: 07/02/20 15:19 Source of Information: Reports: Patient History Limitations: Reports: No Limitations - History of Present Illness INITIAL COMMENTS - FREE TEXT/NARRATIVE: 29-year-old female with history of UTI presents with pelvic pain and discomfort for 4 days, associated with itching, 2 episodes of nonbilious vomiting, diffuse headache, feeling shaky. She has been trying Monistat with minimal relief. Admits to dysuria, urinary frequency and urgency. She denies back pain, fever, chills, cough, vaginal discharge. She is sexually active with her of 4 years only. ROS: A 10-point review of systems, other than pertinent positives and negatives as stated per HPI, is otherwise negative Past medical history: No additional pertinent history Past Surgical history: No additional pertinent history Social history: No additional pertinent history Family history: No additional pertinent history PHYSICAL EXAM General: AOx4, GCS = 15, No distress HEENT: dry mucous membrane Neck: supple, no meningismus, no Kernig or Brudzinski Cardiac: S1S2 RRR Respiratory: CTAB, no crackles or rales, no wheezing Abdomen: Soft, nontender, no rebound or guarding, nondistended, no pulsatile mass. Back: nontender to bilateral CVA Musculoskeletal: NVI distally, no deformity Neuro: No focal deficits, CN 2 - 12 WNL. Onset: Today - Related Data Allergies Allergy/AdvReac Type Severity Reaction Status Date / Time codeine Allergy Hives Verified 07/02/20 15:50 metronidazole [From Flagyl] Allergy Hives Verified 07/02/20 15:50 morphine Allergy Airway Verified 07/02/20 15:50 Tightness Penicillins Allergy Hives Verified 07/02/20 15:50 Sulfa (Sulfonamide Allergy Hives Verified 07/02/20 15:50 Antibiotics) tramadol Allergy Headache Verified 07/02/20 15:50 Home Meds: Home Meds Albuterol [Ventolin HFA] 1 - 2 puff INH ASDIRECTED PRN 12/25/18 [History] Lansoprazole [Prevacid] 30 mg PO BID 04/21/20 [History] lamoTRIgine [Lamotrigine] 25 mg PO DAILY 04/21/20 [History] Cetirizine [ZyrTEC] 10 mg PO DAILY 04/27/20 [History] Diclofenac Sodium [Voltaren] 75 mg PO BIDMEALS PRN #30 tab.cr 06/09/20 [Rx] Ibuprofen 600 mg PO Q6HR PRN #30 tablet 06/15/20 [Rx] Phenazopyridine [Pyridium] 100 mg PO TID PRN #15 tab 07/02/20 [Rx] cephALEXin [Keflex] 500 mg PO Q8H #15 cap 07/02/20 [Rx] Past Medical History - Past Health History Medical/Surgical History: Denies Medical/Surgical History HEENT History: Reports: 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) Other HEENT History: top and bottom partial Cardiovascular History: Reports: Hypertension Respiratory History: Reports: Asthma, PE Other Respiratory History: PE 3 years ago Gastrointestinal History: Reports: GERD Genitourinary History: Reports: 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) 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: Musculoskeletal History: Reports: Back Pain, Chronic Neurological History: Reports: None Psychiatric History: Reports: Anxiety, Depression Endocrine/Metabolic History: Reports: Obesity/BMI 30+, Vitamin D Deficiency Hematologic History: Reports: Iron Deficiency Immunologic History: Reports: None Oncologic (Cancer) History: Reports: None Dermatologic History: Reports: None - Infectious Disease History Infectious Disease History: Reports: Chicken Pox - Past Surgical History Head Surgeries/Procedures: Reports: None HEENT Surgical History: Reports: Oral Surgery Other HEENT Surgeries/Procedures: teeth removal Cardiovascular Surgical History: Reports: None Respiratory Surgical History: Reports: None GI Surgical History: Reports: Appendectomy, Cholecystectomy Female Surgical History: Reports: Hysterectomy, Tubal Ligation, 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) Other Female Surgeries/Procedures: diagnostic laparoscopy Endocrine Surgical History: Reports: None Neurological Surgical History: Reports: None Musculoskeletal Surgical History: Reports: None Oncologic Surgical History: Reports: None Dermatological Surgical History: Reports: None Social & Family History - Family History Family Medical History: No Pertinent Family History - Caffeine Use Caffeine Use: Reports: Coffee ED ROS GENERAL - Review of Systems Review Of Systems: See Below (see dictation) ED EXAM, GENERAL - Physical Exam Exam: See Below (see dictation) Course - Vital Signs Last Recorded V/S: Last Vital Signs Temp 97.3 F 07/02/20 15:31 Pulse 77 07/02/20 15:31 Resp 17 07/02/20 15:31 BP 138/88 07/02/20 15:31 Pulse Ox 98 07/02/20 15:31 - Orders/Labs/Meds Labs: Laboratory Tests 07/02/20 07/02/20 Range/Units 15:42 15:42 Urine Color YELLOW Urine Appearance CLEAR Urine pH 5.5 (5.0-8.0) Ur Specific [place] 1.025 (1.001-1.035) Urine Protein NEGATIVE (NEGATIVE) mg/dL Urine Glucose (UA) NEGATIVE (NEGATIVE) mg/dL Urine Ketones NEGATIVE (NEGATIVE) mg/dL Urine Occult Blood NEGATIVE (NEGATIVE) Urine Nitrite NEGATIVE (NEGATIVE) Urine Bilirubin NEGATIVE (NEGATIVE) Urine Urobilinogen 0.2 (<2.0) EU/dL Ur Leukocyte Esterase TRACE H (NEGATIVE) Urine RBC 0-4 (0-2/HPF) Urine WBC 0-2 (0-5/HPF) Ur Epithelial Cells OCCASIONAL (NONE-FEW) Urine Bacteria FEW (NEGATIVE) Urine HCG, Qual NEGATIVE (NEGATIVE) - Re-Assessments/Exams Free Text/Narrative Re-Assessment/Exam: 07/02/20 16:27 she is currently stable for discharge. I performed a repeat exam and did not appreciate new abnormal findings. Patient exhibits normal vital signs and has a normal gait on road test. I advised the patient to return to the ER for reevaluation if symptoms worsened, including fever, worsening pain, or any other worrisome symptoms. I instructed the patient to follow up with their PCP within 2-3 days. MEDICAL DECISION MAKING: I reviewed the patients past medical records, lab and radiographic findings. I discussed the case with the patient. My differential diagnosis included: UTI, vaginitis. She is sexually active of her for 4 years only, my suspicion for STD is low, her urine demonstrated UTI which is consistent with her clinical history of dysuria, urgency, frequency. She is stable for outpatient antibiotic treatment. She has no fever or back pain or tachycardia, I do not suspect ascending UTI or pyelonephritis. Departure - Departure Time of Disposition: 16:30 Disposition: Home, Self-Care 01 Condition: Good Clinical Impression: UTI, Urinary tract infectious disease - Discharge Information *PRESCRIPTION DRUG MONITORING PROGRAM REVIEWED*: Not Applicable *COPY OF PRESCRIPTION DRUG MONITORING REPORT IN PATIENT LEN[place]X: Not Applicable Prescriptions: cephALEXin [Keflex] 500 mg PO Q8H #15 cap Phenazopyridine [Pyridium] 100 mg PO TID PRN #15 tab PRN Reason: Abdominal Pain Instructions: Antibiotic Medicine, Adult, Urinary Tract Infection, Adult, [id number] Referrals: PCP,Unobtain [Primary Care Provider] - Forms: ED Department Discharge Additional Instructions: The need for follow-up, as well as the timing and circumstances, are variable depending upon the specifics of your emergency department visit. If you don't have a primary care physician on staff, we will provide you with a referral. We always advise you to contact your personal physician following an emergency department visit to inform them of the circumstance of the visit and for follow-up with them and/or the need for any referrals to a consulting specialist. The emergency department will also refer you to a specialist when appropriate. This referral assures that you have the opportunity for follow-up care with a specialist. All of these measure are taken in an effort to provide you with optimal care, which includes your follow-up. Under all circumstances we always encourage you to contact your private physician who remains a resource for coordinating your care. When calling for follow-up care, please make the office aware that this follow-up is from your recent emergency room visit. If for any reason you are refused follow-up, please contact the [facility] Emergency Department at and asked to speak to the emergency department charge nurse. If you do not have a primary care doctor, please follow up with the clinics below within 3-5 days. [facility] - Primary Care [address] [place] [id number] [facility] [address] [place] [id number] Sepsis Event Note (ED) - Focused Exam Vital Signs: Vital Signs Temp Pulse Resp BP Pulse Ox 07/02/20 15:31 97.3 F 77 17 138/88 98
[2020-07-02] MEDS ORDERED: Ondansetron 4 MG Tab.DIS PO ONE (16:34)
[2020-07-02] MEDS ORDERED: Ondansetron 4 MG Tab.DIS ONE (16:36)
== END 2020-07-02 16:51 | disposition home or self-care (01) ==
LOC: MW.ED 15:14
DX: N39.0 Urinary tract infection, site not specified (principal); I10 Essential (primary) hypertension; J45.909 Unspecified asthma, uncomplicated; K21.9 Gastro-esophageal reflux disease without esophagitis; Z79.899 Other long term (current) drug therapy; Z88.5 Allergy status to narcotic agent; Z88.1 Allergy status to other antibiotic agents; Z88.0 Allergy status to penicillin; Z88.2 Allergy status to sulfonamides
CPT/HCPCS: 81001; 81025; 99284; A9270; 99283

== ENCOUNTER 2020-07-23 11:35 | Emergency (ER) | payer MEDICAID ==
--- NOTE | 2020-07-23 12:25 | EDM.PDOC ---
ED HPI GENERAL MEDICAL PROBLEM - General Chief Complaint: Back Pain or Injury Stated Complaint: BACK PAIN Time Seen by Provider: 07/23/20 11:36 Source of Information: Reports: Patient History Limitations: Reports: No Limitations - History of Present Illness INITIAL COMMENTS - FREE TEXT/NARRATIVE: HISTORY AND PHYSICAL: History of present illness: Patient is a 30-year-old female who presents to the emergency room with complaints of low lumbar back pain that radiates down the right glutes. Patient has a longstanding history of chronic back pain and has been seen multiple times by her primary care provider, the pain specialist and through the emergency room. Most recently she was seen by Dr. Tay, pain specialist, and had epidural steroid injections. Patient states this to give her pain relief for approximately 1 to 2 weeks although the pain returned shortly after. She did inform Dr. Tay of the unsatisfactory results and she does have another appointment on 08/06/2020 for an additional lumbar injection. Patient states that yesterday she was picking up her daughter when the pain flared up and was unbearable. She did call Dr. Tay who called and prescribed her Methocarbamol, she took a dose last evening and again this morning without any relief. Patient reports that she was informed to come into the emergency room if her pain was not managed with this medication. Patient denies any fever, chills, headache, change in vision, syncope or near syncope. Denies any chest pain, back pain, shortness of breath or cough. Denies any abdominal pain, na usea, vomiting, diarrhea, constipation or dysuria. Has not noted any blood in urine or stool. Patient has been eating and drinking appropriately. Review of systems: As per history of present illness and below otherwise all systems reviewed and negative. Past medical history: As per history of present illness and as reviewed below otherwise noncontributory. Surgical history: As per history of present illness and as reviewed below otherwise noncontributory. Social history: See social history for further information Family history: As per history of present illness and as reviewed below otherwise noncontributory. Physical exam: General: Well developed and well nourished 30 year old female. Alert and orientated x 3. Nontoxic in appearance and in no acute distress. Vital signs are stable and have been reviewed by me. Nursing notes were reviewed. HEENT: Atraumatic, normocephalic, pupils equal and reactive bilaterally, negative for conjunctival pallor or scleral icterus, mucous membranes moist, trachea midline. No drooling or trismus noted. No meningeal signs. No hot potato voice noted. Lungs: Clear to auscultation bilaterally. No wheezes, rales, or rhonchi. Normal work of breathing, no accessory muscles used. Heart: S1S2, regular rate and rhythm without overt murmur, gallops, or rubs. No JVD. No peripheral edema Abdomen: Soft, nondistended, nontender. Normoactive bowel sounds. Negative for masses or costovertebral tenderness. C-spine/Back: No pinpoint vertebral tenderness upon palpation. No crepitus, step-offs or obvious deformities. Paraspinous muscular tenderness to the lumbar region on the right side. Patient is ambulatory into the emergency room without difficulty or deficit. Able to rock back on heels and walk on toes. Denies any urinary or fecal incontinence. Denies any numbness, tingling or saddle paresthesia. No concerns of serious infection, fracture or cord compression, or cauda equina syndrome. Deep tendon reflexes brisk bilaterally. Skin: Intact, warm, dry. No lesions or rashes noted. Hematologic: No petechiae or purpra. Mucosa appropriate color and normal nail bed color and refill. Extremities: Atraumatic, moves all extremities per self without difficulty or deficits, negative for cords or calf pain. Neurovascular unremarkable. Neuro: Awake, alert, oriented. Cranial nerves II through XII unremarkable. Cerebellum unremarkable. Motor and sensory unremarkable throughout. Exam nonfocal. Psychiatric: Mood and affect are appropriate. Normal thought process. Answering questions appropriately. Notes: *This patient was seen and evaluated during the 2019 SARS-CoV-2 novel coronavirus pandemic period. Community viral transmission is ongoing at time of this encounter and the emergency department is operating under pandemic response procedures. My physical exam is within normal limits. She does have muscular tenderness to the lumbar region going to into the right glutes. I have reviewed the patient's past medical history and can see she has had a lot of trial and error with multiple modalities for pain management. Currently she has been working with Dr. Tay for epidural steroid injections which she reports the last 1 did n ot alleviate her pain. She did receive a prescription, confirm this with [facility], but states this has not helped her discomfort either. I have talked with the patient about today's findings, in addition to providing specific details for plan of care. Patient declines wanting any diagnostics done as this is an acute on chronic pain. No recent injury, trauma or falls. No new symptoms have developed today. She does have a follow-up with Dr. Tay next week. We will give her a limited amount of pain medication with awad instruction of not combining this with any other medications. Reassessment at the time of disposition demonstrates that the patient is in no acute distress. The patient is stable for discharge, counseling was provided and we discussed in great detail signs and symptoms that would prompt them to return to the Emergency Department. Medication, follow up and supportive care measures were reviewed and discussed. Voices understanding and is agreeable to plan of care. Denies any further questions or concerns at this time. Diagnostics: Declined Therapeutics: None Prescription: Nocro (#20) Impression: Acute on chronic back pain Encounter for pain management Plan: 1. As you do have a relationship with the pain specialist, Dr. Langford, I would like you to follow-up with her to discuss your pain management options. Limited about of narcotic medications have been given to you. DO NOT MIX this medication with other pain medications and TAKE as directed. 2. When resting please lay on a flat firm surface. Limit your immobility to prevent muscle stiffness. Get up to ambulate/move around/gentle stretching multiple times throughout the day. May alternate heat and ice to the painful areas 3. Tylenol and Ibuprofen as needed for back pain. Otherwise take the prescribed medication you were given by Dr Langford. Call Saturday to set up an appointment. 4. Return to the ED as needed and as discussed. Definitive disposition and diagnosis as appropriate pending reevaluation and review of above. Lower Back Pain Score (Numeric/FACES): 8 - Related Data Allergies Allergy/AdvReac Type Severity Reaction Status Date / Time codeine Allergy Hives Verified 07/23/20 12:05 metronidazole [From Flagyl] Allergy Hives Verified 07/23/20 12:05 morphine Allergy Airway Verified 07/23/20 12:05 Tightness Penicillins Allergy Hives Verified 07/23/20 12:05 Sulfa (Sulfonamide Allergy Hives Verified 07/23/20 12:05 Antibiotics) tramadol Allergy Headache Verified 07/23/20 12:05 Home Meds: Home Meds Albuterol [Ventolin HFA] 1 - 2 puff INH ASDIRECTED PRN 12/25/18 [History] Lansoprazole [Prevacid] 30 mg PO BID 04/21/20 [History] lamoTRIgine [Lamotrigine] 25 mg PO DAILY 04/21/20 [History] Cetirizine [ZyrTEC] 10 mg PO DAILY 04/27/20 [History] Diclofenac Sodium [Voltaren] 75 mg PO BIDMEALS PRN #30 tab.cr 06/09/20 [Rx] Ibuprofen 600 mg PO Q6HR PRN #30 tablet 06/15/20 [Rx] Ondansetron [Zofran ODT] 4 mg PO Q6H PRN #12 tab.dis 07/02/20 [Rx] Phenazopyridine [Pyridium] 100 mg PO TID PRN #15 tab 07/02/20 [Rx] cephALEXin [Keflex] 500 mg PO Q8H #15 cap 07/02/20 [Rx] Acetaminophen/HYDROcodone [[place] 325-5 MG] 1 - 2 tab PO Q4H #20 tablet 07/23/20 [Rx] Past Medical History - Past Health History Medical/Surgical History: Denies Medical/Surgical History HEENT History: Reports: 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) Other HEENT History: top and bottom partial Cardiovascular History: Reports: Hypertension Respiratory History: Reports: Asthma, PE Other Respiratory History: PE 3 years ago Gastrointestinal History: Reports: GERD Genitourinary History: Reports: UTI, Recurrent 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: Musculoskeletal History: Reports: Back Pain, Chronic Neurological History: Reports: None Psychiatric History: Reports: Anxiety, Depression Endocrine/Metabolic History: Reports: Obesity/BMI 30+, Vitamin D Deficiency Hematologic History: Reports: Iron Deficiency Immunologic History: Reports: None Oncologic (Cancer) History: Reports: None Dermatologic History: Reports: None - Infectious Disease History Infectious Disease History: Reports: Chicken Pox - Past Surgical History Head Surgeries/Procedures: Reports: None HEENT Surgical History: Reports: Oral Surgery Other HEENT Surgeries/Procedures: teeth removal Cardiovascular Surgical History: Reports: None Respiratory Surgical History: Reports: None GI Surgical History: Reports: Appendectomy, Cholecystectomy Female Surgical History: Reports: Hysterectomy, Tubal Ligation, 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) Other Female Surgeries/Procedures: diagnostic laparoscopy Endocrine Surgical History: Reports: None Neurological Surgical History: Reports: None Musculoskeletal Surgical History: Reports: None Oncologic Surgical History: Reports: None Dermatological Surgical History: Reports: None Social & Family History - Family History Family Medical History: No Pertinent Family History - Tobacco Use Tobacco Use Status *Q: Current Every Day Tobacco User Years of Tobacco use: 15 Packs/Tins Daily: 0.5 - Caffeine Use Caffeine Use: Reports: Coffee - Recreational Drug Use Recreational Drug Use: No ED ROS GENERAL - Review of Systems Review Of Systems: Comprehensive ROS is negative, except as noted in HPI. ED EXAM,LOWER BACK PAIN/INJURY - Physical Exam Exam: See Below (See dictation) Course - Vital Signs Last Recorded V/S: Last Vital Signs Temp 98 F 07/23/20 12:06 Pulse 91 07/23/20 12:42 Resp 16 07/23/20 12:42 BP 123/70 07/23/20 12:42 Pulse Ox 98 07/23/20 12:42 Departure - Departure Time of Disposition: 12:36 Disposition: Home, Self-Care 01 Clinical Impression: Acute exacerbation of chronic low back pain, Encounter for pain management - Discharge Information Prescriptions: Acetaminophen/HYDROcodone [[place] 325-5 MG] 1 - 2 tab PO Q4H #20 tablet Instructions: Chronic Back Pain, [id number] Referrals: Evelina Muhammad NP [Primary Care Provider] - Forms: ED Department Discharge Additional Instructions: The following information is given to patients seen in the emergency department who are being discharged to home. This information is to outline your options for follow-up care. We provide all patients seen in our emergency department with a follow-up referral. The need for follow-up, as well as the timing and circumstances, are variable depending upon the specifics of your emergency department visit. If you don't have a primary care physician on staff, we will provide you with a referral. We always advise you to contact your personal physician following an emergency department visit to inform them of the circumstance of the visit and for follow-up with them and/or the need for any referrals to a consulting specialist. The emergency department will also refer you to a specialist when appropriate. This referral assures that you have the opportunity for follow-up care with a specialist. All of these measure are taken in an effort to provide you with optimal care, which includes your follow-up. Under all circumstances we always encourage you to contact your private physician who remains a resource for coordinating your care. When calling for follow-up care, please make the office aware that this follow-up is from your recent emergency room visit. If for any reason you are refused follow-up, please contact the [facility] Emergency Department at and asked to speak to the emergency department charge nurse. [facility] [address] [place] [id number] [facility] [address] [place] [id number] Thank you for choosing the [facility] emergency department in [place] for your medical needs today. It was a pleasure caring for you. Today you were seen in the emergency department for acute on chronic back pain. 1. As you do have a relationship with the pain specialist, Dr. Langford, I would like you to follow-up with her to discuss your pain management options. Limited about of narcotic medications have been given to you. DO NOT MIX this medication with other pain medications and TAKE as directed. 2. When resting please lay on a flat firm surface. Limit your immobility to prevent muscle stiffness. Get up to ambulate/move around/gentle stretching multiple times throughout the day. May alternate heat and ice to the painful areas 3. Tylenol and Ibuprofen as needed for back pain. Otherwise take the prescribed medication you were given by Dr Langford. Call Saturday to set up an appointment. 4. Return to the ED as needed and as discussed. Sepsis Event Note (ED) - Evaluation Sepsis Screening Result: No Definite Risk - Focused Exam Vital Signs: Vital Signs Temp Pulse Resp BP Pulse Ox 07/23/20 12:42 91 16 123/70 98 07/23/20 12:06 98 F 91 16 124/65 99
== END 2020-07-23 12:43 | disposition home or self-care (01) ==
LOC: MW.ED 11:35
DX: M54.5 Low back pain (principal); G89.29 Other chronic pain; I10 Essential (primary) hypertension; J45.909 Unspecified asthma, uncomplicated; K21.9 Gastro-esophageal reflux disease without esophagitis; E66.9 Obesity, unspecified; Z68.31 Body mass index [BMI] 31.0-31.9, adult; Z88.5 Allergy status to narcotic agent; Z88.1 Allergy status to other antibiotic agents; Z88.0 Allergy status to penicillin; Z88.2 Allergy status to sulfonamides; Z86.711 Personal history of pulmonary embolism; Z72.0 Tobacco use
CPT/HCPCS: 99283

== ENCOUNTER 2020-08-11 10:47 | Day surgery (SDC) | payer MEDICAID ==
[2020-08-11] MEDS ORDERED: Lidocaine 2% 5 ML SDV INJECT ONE (12:00)
[2020-08-11] MEDS ORDERED: Iopamidol 200-M 10 ML vial ITHECAL ONE (12:00)
[2020-08-11] MEDS ORDERED: Ropivacaine 0.5% 5 MG/ML 30 ML SDV INJECT ONE (12:00)
[2020-08-11] MEDS ORDERED: Betamethasone Acetate/Betamethasone Sod Phosphate 30 MG/5 ML MDV EPIDUR ONE (12:00)
--- NOTE | 2020-08-11 16:32 | OR ---
SURGEON: Zonia Nova D.O. DATE OF PROCEDURE: 08/11/2020 PRIMARY SURGEON: Zonia Nova DO ASSISTANTS: OR staff present: 1.Charla Yap RN 2. Mariano Horne RN 2.. Delonte Juan RT. WOUND CLASS: I. PREOPERATIVE DIAGNOSES: 1. Lumbar degenerative disk disease, L5-S1. 2. Bilateral lower extremity radiculopathy, L5-S1. 3. Lumbar transitional vertebrae, L5-S1. 4. Chronic low back pain. POSTOPERATIVE DIAGNOSES: 1. Lumbar degenerative disk disease, L5-S1. 2. Bilateral lower extremity radiculopathy, L5-S1. 3. Lumbar transitional vertebrae, L5-S1. 4. Chronic low back pain. PROCEDURES PERFORMED: 1. Right S1 transforaminal epidural steroid injection. 2. Left S1 transforaminal epidural steroid injection. 3. Fluoroscopic guidance for needle placement. 4. Local with oral Valium for sedation. SCREENING QUESTIONS: The patient answered "no" to all of the following questions: 1. Are you allergic to iodine, Betadine or latex? 2. Do you have a bleeding disorder? 3. Do you have any joint replacements, heart valve replacements, or a pacemaker? 4. Are you allergic to anti-inflammatories or blood thinners? 5. Do you have any current local or systemic infections? DESCRIPTION OF PROCEDURE: The patient had the procedure thoroughly explained including risks, benefits and alternatives. Consent was signed in my clinic indicating understanding and willingness to proceed. The patient presented to [facility] [place] where the patient was escorted to the dressing room to disrobe and change into a hospital gown. Preoperative vital signs were taken and stable. The patient reported that Valium was taken prior to the procedure. The patient was brought to the procedure room and placed in the prone position on the table. A pillow was placed under the abdomen in order to flatten the lumbar lordosis. The back was prepped with ChloraPrep and sterilely draped. All personnel in the operating room were dressed in appropriate attire including surgical scrubs, head and shoe covers. This was to ensure sterility while in the treatment room. During the time fluoroscopy was in use, all personnel in the operating room wore lead martinez with thyroid collars. Sterile technique was used during the procedure. The fluoroscope was placed for the right S1 transforaminal epidural steroid injection. There was no sign of infection at the skin site for needle insertion. The skin was anesthetized with 2% lidocaine with a 27 gauge 1-1/2 inch needle. Then, a 22 gauge 3-1/2 inch spinal needle, advanced to the right S1 and left S1. Under direct fluoroscopic guidance needle position was verified in three views; AP, oblique and lateral, with 0.2 cubic centimeters increments of Isovue-200 dye. No intravascular flow pattern was observed under live fluoroscopy.Then 6 milligrams of Celestone was slowly injected after negative aspiration of heme, cerebrospinal fluid and no paresthesias were noted. The needle was cleared prior to removal from the skin. The procedure was then repeated on the left as above for the left S1 transforaminal epidural steroid injection. No adverse reactions were noted. The patient was brought to the recovery room awake and in good condition by my staff. The patient was monitored and discharge instructions were given after a brief stay in the recovery area. Both oral and written discharge and follow up instructions were given. The patient will follow up in the clinic in 3-4 weeks post procedure to evaluate the efficacy. The patient verbalized understanding including understanding of those signs and symptoms that would require emergency care and knows how to contact the office if there are any problems or questions in the meantime. PREOPERATIVE PAIN: 9/10. POSTOPERATIVE PAIN: Right leg pain improved 1/10, back pain 9/10. PLAN: Follow up in the Pain Clinic in 1 month. HOGCLARYHR / STEVENL /[id number]
== END 2020-08-11 13:02 ==
LOC: MW.SDS 10:47
PROVIDERS: ATTEND Anesthesiology
DX: G89.29 Other chronic pain (principal); M51.17 Intervertebral disc disorders with radiculopathy, lumbosacral region; M47.26 Other spondylosis with radiculopathy, lumbar region; M47.27 Other spondylosis with radiculopathy, lumbosacral region; Q76.49 Other congenital malformations of spine, not associated with scoliosis; M79.18 Myalgia, other site; I10 Essential (primary) hypertension; J45.909 Unspecified asthma, uncomplicated; R73.9 Hyperglycemia, unspecified; D50.9 Iron deficiency anemia, unspecified; K21.9 Gastro-esophageal reflux disease without esophagitis; E55.9 Vitamin D deficiency, unspecified; F17.210 Nicotine dependence, cigarettes, uncomplicated; Z88.0 Allergy status to penicillin; Z88.1 Allergy status to other antibiotic agents; Z88.2 Allergy status to sulfonamides; Z88.5 Allergy status to narcotic agent; Z88.8 Allergy status to other drugs, medicaments and biological substances; Z86.718 Personal history of other venous thrombosis and embolism; Z79.899 Other long term (current) drug therapy; Z98.890 Other specified postprocedural states

== ENCOUNTER 2020-08-11 16:36 | Emergency (ER) | payer MEDICAID ==
--- NOTE | 2020-08-11 16:50 | EDM.PDOC ---
ED HPI GENERAL MEDICAL PROBLEM - General Chief Complaint: Back Pain or Injury Stated Complaint: LOWER BACK PAIN Time Seen by Provider: 08/11/20 16:43 Source of Information: Reports: Patient History Limitations: Reports: No Limitations - History of Present Illness INITIAL COMMENTS - FREE TEXT/NARRATIVE: HISTORY AND PHYSICAL: History of present illness: Patient is a 30-year-old female who presents to the emergency room with complaints of low back pain. Patient has a history of chronic back pain due to a L5-S1 transitional vertebrae. Today patient was seen by Dr Nova for a epidural steroid injection. This was done this morning, patient states she has not had any relief with the injection. She did call Dr. Tay's office, they called her in a prescription for Flexeril. Patient states the muscle relaxer has not been helping with her discomfort and would like something stronger. She denies any new injury, trauma or falls. She denies any numbness, tingling, sadd le paresthesia or weakness of the extremities. Denies any urinary or fecal incontinence. Patient denies any fever, chills, headache, change in vision, syncope or near syncope. Denies any chest pain, shortness of breath or cough. Denies any GI or symptoms. Hx Hysterectomy, no chance of . Patient has been eating and drinking appropriately. Review of systems: As per history of present illness and below otherwise all systems reviewed and negative. Past medical history: As per history of present illness and as reviewed below otherwise noncontributory. Surgical history: As per history of present illness and as reviewed below otherwise noncontributory. Social history: See social history for further information Family history: As per history of present illness and as reviewed below otherwise noncontributory. Physical exam: General: Well developed and well nourished 30-year-old female. Alert and orientated x 3. Nontoxic in appearance and in no acute distress. Vital signs are stable and have been reviewed by me. Nursing notes were reviewed. HEENT: Atraumatic, normocephalic, pupils equal and reactive bilaterally, negative for conjunctival pallor or scleral icterus, mucous membranes moist, trachea midline. No drooling or trismus noted. No meningeal signs. No hot potato voice noted. Lungs: Clear to auscultation bilaterally. No wheezes, rales, or rhonchi. Normal work of breathing, no accessory muscles used. Heart: S1S2, regular rate and rhythm without overt murmur, gallops, or rubs. No JVD. No peripheral edema Abdomen: Soft, nondistended, nontender. Normoactive bowel sounds. Negative for masses or costovertebral tenderness. C-spine/Back: No pinpoint vertebral tenderness upon palpation. Paraspinous muscular tenderness to the low lumbar region bilaterally. No crepitus, step- offs or obvious deformities. Patient is ambulatory into the emergency room without difficulty or deficit. Able to rock back on heels and walk on toes. Denies any urinary or fecal incontinence. Denies any numbness, tingling or saddle paresthesia. No concerns of serious infection, fracture or cord compression, or cauda equina syndrome. Deep tendon reflexes brisk bilaterally. Skin: 2 injection sites noted to lumbar region, no redness or fluctuance. Remaining skin is intact, warm, dry. No lesions or rashes noted. Hematologic: No petechiae or purpra. Mucosa appropriate color and normal nail bed color and refill. Extremities: Atraumatic, moves all extremities per self without difficulty or deficits, negative for cords or calf pain. Neurovascular unremarkable. Neuro: Awake, alert, oriented. Cranial nerves II through XII unremarkable. Cerebellum unremarkable. Motor and sensory unremarkable throughout. Exam nonfocal. Psychiatric: Mood and affect are appropriate. Normal thought process. Answering questions appropriately. Notes: *This patient was seen and evaluated during the 2019 SARS-CoV-2 novel coronavirus pandemic period. Community viral transmission is ongoing at time of this encounter and the emergency department is operating under pandemic response procedures. Patient appears comfortable and is playfully talking on the phone with someone. My physical exam is within normal limits. She declines wanting any diagnostics done today as she has been following Dr. Tay for these issues. I was able to call and speak with Dr. Nova who is aware of patient as she had called earlier. I had seen this patient earlier this month for similar symptoms stating her pain was not well managed by her pain specialist and had been requesting narcotic pain medication. On 07/23/20 I did give her 20 tablets of [place], she states does seem to help. Avtar confirms that she is not on a pain contract although herself and her previous primary care providers had have p roblems with patient getting a large amount of narcotics. Avtar states that the Celestone steroid should be working tonight or tomorrow morning. Due to my personal history with this patient and patient's current medication regiment - I will not prescribe any narcotics. She did just receive Flexeril. I will give her Toradol IM and a lidocaine patch. I have talked with the patient about today's findings, in addition to providing specific details for plan of care. Reassessment at the time of disposition demonstrates that the patient is in no acute distress. The patient is stable for discharge, counseling was provided and we discussed in great detail signs and symptoms that would prompt them to return to the Emergency Department. Medication, follow up and supportive care measures were reviewed and discussed. Voices understanding and is agreeable to plan of care. Denies any further questions or concerns at this time. Diagnostics: None Therapeutics: Toradol, Lidoderm Patch Prescription: Lidoderm Patch Impression: Acute on chronic back pain Plan: 1. I spoke with Dr Nova about your procedure and plan of care. The injection/steroid that you received today should start working within the next 24 hours. Please take the Flexeril as prescribed. I have also prescribed topical Lidocaine patch that you can apply every 24 hours to painful area. I will not be prescribing any narcotics today with the medications you are currently taking. 2. You can alternate Tylenol and ibuprofen as needed for pain and fever management. 3. We encourage you to follow up with your Dr Nova in the next few days for re-evaluation and further care/management. 4. If your symptoms should worsen, new symptoms develop or any of the signs and symptoms we discussed should arise please return to the emergency room or call 911 (if needed). Definitive disposition and diagnosis as appropriate pending reevaluation and review of above. Lower Back Pain Score (Numeric/FACES): 9 - Related Data Allergies Allergy/AdvReac Type Severity Reaction Status Date / Time baclofen Allergy Headache Verified 08/11/20 16:50 codeine Allergy Hives Verified 08/11/20 16:50 metronidazole [From Flagyl] Allergy Hives Verified 08/11/20 16:50 morphine Allergy Airway Verified 08/11/20 16:50 Tightness Penicillins Allergy Hives Verified 08/11/20 16:50 Sulfa (Sulfonamide Allergy Hives Verified 08/11/20 16:50 Antibiotics) tramadol Allergy Headache Verified 08/11/20 16:50 Home Meds: Home Meds Lansoprazole [Prevacid] 30 mg PO BID 04/21/20 [History] lamoTRIgine [Lamotrigine] 25 mg PO DAILY 04/21/20 [History] Diclofenac Sodium [Voltaren] 75 mg PO BIDMEALS PRN #30 tab.cr 06/09/20 [Rx] Gabapentin [Neurontin] 300 mg PO DAILY 08/11/20 [History] Lidocaine 5% [Lidoderm 5%] 1 patch TOP DAILY #5 patch 08/11/20 [Rx] Nortriptyline 10 mg PO 08/11/20 [History] QUEtiapine Fumarate [Seroquel] 25 mg PO 08/11/20 [History] Past Medical History - Past Health History Medical/Surgical History: Denies Medical/Surgical History HEENT History: Reports: 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) Other HEENT History: top and bottom partial Cardiovascular History: Reports: Hypertension Respiratory History: Reports: Asthma, PE Other Respiratory History: PE 3 years ago Gastrointestinal History: Reports: GERD Genitourinary History: Reports: UTI, Recurrent [employer] History: Reports: Musculoskeletal History: Reports: Back Pain, Chronic Neurological History: Reports: None Psychiatric History: Reports: Anxiety, Depression Endocrine/Metabolic History: Reports: Obesity/BMI 30+, Vitamin D Deficiency Hematologic History: Reports: Iron Deficiency Immunologic History: Reports: None Oncologic (Cancer) History: Reports: None Dermatologic History: Reports: None - Infectious Disease History Infectious Disease History: Reports: Chicken Pox - Past Surgical History Head Surgeries/Procedures: Reports: None HEENT Surgical History: Reports: Oral Surgery Other HEENT Surgeries/Procedures: teeth removal Cardiovascular Surgical History: Reports: None Respiratory Surgical History: Reports: None GI Surgical History: Reports: Appendectomy, Cholecystectomy Female Surgical History: Reports: Hysterectomy, Tubal Ligation, 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) Other Female Surgeries/Procedures: diagnostic laparoscopy Endocrine Surgical History: Reports: None Neurological Surgical History: Reports: None Musculoskeletal Surgical History: Reports: None Oncologic Surgical History: Reports: None Dermatological Surgical History: Reports: None Social & Family History - Family History Family Medical History: No Pertinent Family History - Caffeine Use Caffeine Use: Reports: Coffee ED ROS GENERAL - Review of Systems Review Of Systems: Comprehensive ROS is negative, except as noted in HPI. ED EXAM,LOWER BACK PAIN/INJURY - Physical Exam Exam: See Below (See dictation) Course - Vital Signs Last Recorded V/S: Last Vital Signs Temp 98.0 F 08/11/20 16:46 Pulse 102 H 08/11/20 16:46 Resp 18 08/11/20 16:46 BP 129/81 08/11/20 16:46 Pulse Ox 100 08/11/20 16:46 - Orders/Labs/Meds Meds: Medications Discontinued Medications Generic Name Dose Route Start Last Admin Trade Name Darshana PRN Reason Stop Dose Admin Ketorolac Tromethamine 60 mg 08/11/20 16:58 Toradol IM 08/11/20 16:59 ONETIME ONE Lidocaine 700 mg 08/11/20 16:58 Lidoderm 5% TRDERM 08/11/20 16:59 ONETIME ONE Departure - Departure Time of Disposition: 17:03 Disposition: Home, Self-Care 01 Clinical Impression: Acute exacerbation of chronic low back pain - Discharge Information Prescriptions: Lidocaine 5% [Lidoderm 5%] 1 patch TOP DAILY #5 patch Instructions: Chronic Back Pain, [id number] Referrals: Hosea Crump MD [Primary Care Provider] - Forms: ED Department Discharge Additional Instructions: The following information is given to patients seen in the emergency department who are being discharged to home. This information is to outline your options for follow-up care. We provide all patients seen in our emergency department w ith a follow-up referral. The need for follow-up, as well as the timing and circumstances, are variable depending upon the specifics of your emergency department visit. If you don't have a primary care physician on staff, we will provide you with a referral. We always advise you to contact your personal physician following an emergency department visit to inform them of the circumstance of the visit and for follow-up with them and/or the need for any referrals to a consulting specialist. The emergency department will also refer you to a specialist when appropriate. This referral assures that you have the opportunity for follow-up care with a specialist. All of these measure are taken in an effort to provide you with optimal care, which includes your follow-up. Under all circumstances we always encourage you to contact your private physician who remains a resource for coordinating your care. When calling for follow-up care, please make the office aware that this follow-up is from your recent emergency room visit. If for any reason you are refused follow-up, please contact the [facility] Emergency Department at and asked to speak to the emergency department charge nurse. [facility] [address] [place] [address] [facility] [address] [place] [id number] Thank you for choosing the [facility] emergency department in [facility] for your medical needs today. It was a pleasure caring for you. Today you were seen in the emergency department for acute on chronic back pain. 1. I spoke with Dr Nova about your procedure and plan of care. The injection/steroid that you received today should start working within the next 24 hours. Please take the Flexeril as prescribed. I have also prescribed topical Lidocaine patch that you can apply every 24 hours to painful area. I will not be prescribing any narcotics today with the medications you are currently taking. 2. You can alternate Tylenol and ibuprofen as needed for pain and fever management. 3. We encourage you to follow up with your Dr Nova in the next few days for re-evaluation and further care/management. 4. If your symptoms should worsen, new symptoms develop or any of the signs and symptoms we discussed should arise please return to the emergency room or call 911 (if needed). Sepsis Event Note (ED) - Focused Exam Vital Signs: Vital Signs Temp Pulse Resp BP Pulse Ox 08/11/20 16:46 98.0 F 102 H 18 129/81 100
[2020-08-11] MEDS ORDERED: Ketorolac 60 MG/2 ML SDV IM ONE (16:58)
[2020-08-11] MEDS ORDERED: Lidocaine 5% 700 MG Patch TRDERM ONE (16:58)
== END 2020-08-11 17:21 | disposition home or self-care (01) ==
LOC: MW.ED 16:36
DX: M54.5 Low back pain (principal); G89.29 Other chronic pain; I10 Essential (primary) hypertension; J45.909 Unspecified asthma, uncomplicated; K21.9 Gastro-esophageal reflux disease without esophagitis; E66.9 Obesity, unspecified; Z68.30 Body mass index [BMI] 30.0-30.9, adult; Z88.8 Allergy status to other drugs, medicaments and biological substances; Z88.5 Allergy status to narcotic agent; Z88.0 Allergy status to penicillin; Z88.2 Allergy status to sulfonamides; Z88.1 Allergy status to other antibiotic agents; Z79.899 Other long term (current) drug therapy
CPT/HCPCS: 96372; 99283; A9270; J1885

== ENCOUNTER 2020-09-27 20:12 | Emergency (ER) | payer MEDICAID ==
--- NOTE | 2020-09-27 21:12 | EDM.PDOC ---
ED HPI GENERAL MEDICAL PROBLEM - General Chief Complaint: COUNTY [employer]ER Problem Stated Complaint: PELVIC PAIN, BLEEDING Time Seen by Provider: 09/27/20 21:01 Source of Information: Reports: Patient History Limitations: Reports: No Limitations - History of Present Illness INITIAL COMMENTS - FREE TEXT/NARRATIVE: 30-year-old female with history of endometriosis, hysterectomy, pyelonephritis presents with lower abdominal pain and rectal bleeding today. Her abdominal pain is localized to the left lower quadrant, suprapubic region, described as sharp, waxes and wanes, rated 8/10, ongoing for 4 days. She has had 2 episodes of bright red blood per rectum today. She denies fever, chills, dysuria, vomiting. She does admit to nausea and loose stools chronically for 4 years. She took Tylenol and ibuprofen with no relief. ROS: A 10-point review of systems, other than pertinent positives and negatives as stated per HPI, is otherwise negative Past medical history: No additional pertinent history Past Surgical history: No additional pertinent history Social history: No additional pertinent history Family history: No additional pertinent history PHYSICAL EXAM General: AOx4, GCS = 15, mild distress HEENT: dry mucous membrane Neck: supple, no meningismus, no Kernig or Brudzinski Cardiac: S1S2 RRR Respiratory: CTAB, no crackles or rales, no wheezing Abdomen: Soft, tender to palpation to the left lower quadrant and suprapubic region, no rebound or guarding, nondistended, no pulsatile mass. Back: Left CVA tenderness Musculoskeletal: NVI distally, no deformity Neuro: No focal deficits. pelvic Pain Score (Numeric/FACES): 8 - Related Data Allergies Allergy/AdvReac Type Severity Reaction Status Date / Time baclofen Allergy Headache Verified 09/27/20 20:46 codeine Allergy Hives Verified 09/27/20 20:46 metronidazole [From Flagyl] Allergy Hives Verified 09/27/20 20:46 morphine Allergy Airway Verified 09/27/20 20:46 Tightness Penicillins Allergy Hives Verified 09/27/20 20:46 Sulfa (Sulfonamide Allergy Hives Verified 09/27/20 20:46 Antibiotics) tramadol Allergy Headache Verified 09/27/20 20:46 Home Meds: Home Meds Lansoprazole [Prevacid] 30 mg PO BID 04/21/20 [History] lamoTRIgine [Lamotrigine] 25 mg PO DAILY 04/21/20 [History] Diclofenac Sodium [Voltaren] 75 mg PO BIDMEALS PRN #30 tab.cr 06/09/20 [Rx] Gabapentin [Neurontin] 300 mg PO DAILY 08/11/20 [History] Lidocaine 5% [Lidoderm 5%] 1 patch TOP DAILY #5 patch 08/11/20 [Rx] Nortriptyline 10 mg PO 08/11/20 [History] QUEtiapine Fumarate [Seroquel] 25 mg PO 08/11/20 [History] Acetaminophen/oxyCODONE [Percocet 325-5 MG] 1 each PO Q6H PRN #12 tab 09/28/20 [Rx] cephALEXin [Keflex] 500 mg PO Q8H #30 cap 09/28/20 [Rx] Past Medical History - Past Health History Medical/Surgical History: Denies Medical/Surgical History HEENT History: Reports: 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) Other HEENT History: top and bottom partial Cardiovascular History: Reports: Hypertension Respiratory History: Reports: Asthma, PE Other Respiratory History: PE 3 years ago Gastrointestinal History: Reports: GERD Genitourinary History: Reports: UTI, Recurrent COUNTY T[employer]ER History: Reports: Musculoskeletal History: Reports: Back Pain, Chronic Neurological History: Reports: None Psychiatric History: Reports: Anxiety, Depression Endocrine/Metabolic History: Reports: Obesity/BMI 30+, Vitamin D Deficiency Hematologic History: Reports: Iron Deficiency Immunologic History: Reports: None Oncologic (Cancer) History: Reports: None Dermatologic History: Reports: None - Infectious Disease History Infectious Disease History: Reports: Chicken Pox - Past Surgical History Head Surgeries/Procedures: Reports: None HEENT Surgical History: Reports: Oral Surgery Other HEENT Surgeries/Procedures: teeth removal Cardiovascular Surgical History: Reports: None Respiratory Surgical History: Reports: None GI Surgical History: Reports: Appendectomy, Cholecystectomy Female Surgical History: Reports: Hysterectomy, Tubal Ligation, 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) Other Female Surgeries/Procedures: diagnostic laparoscopy Endocrine Surgical History: Reports: None Neurological Surgical History: Reports: None Musculoskeletal Surgical History: Reports: None Oncologic Surgical History: Reports: None Dermatological Surgical History: Reports: None Social & Family History - Family History Family Medical History: No Pertinent Family History - Tobacco Use Packs/Tins Daily: 0.5 - Caffeine Use Caffeine Use: Reports: None - Recreational Drug Use Recreational Drug Use: Yes Recreational Drug Type: Reports: Marijuana/Hashish Recreational Drug Use Frequency: Rarely ED ROS GENERAL - Review of Systems Review Of Systems: See Below (see dictation) ED EXAM, GENERAL - Physical Exam Exam: See Below (see dictation) Course - Vital Signs Last Recorded V/S: Last Vital Signs Temp 97.2 F 09/27/20 20:44 Pulse 87 09/28/20 01:04 Resp 18 09/28/20 01:04 BP 122/78 09/28/20 01:04 Pulse Ox 97 09/28/20 01:04 - Orders/Labs/Meds Orders: Active Orders 24 hr Category Date Time Status Cardiac Monitoring [RC] . DIRECTED Care 09/27/20 21:15 Active Sodium Chloride 0.9% [Saline Flush] Med 09/27/20 21:15 Active 10 ml FLUSH ASDIRECTED PRN Sodium Chloride 0.9% [Saline Flush] Med 09/27/20 21:15 Active 2.5 ml FLUSH ASDIRECTED PRN cefTRIAXone [Rocephin in Dextrose,Iso-Osm 1 GM/50 ML] 1 Med 09/28/20 01:21 Ordered gm Premix Bag 1 bag IV ONETIME Saline Lock Insert [OM.PC] Stat Oth 09/27/20 21:15 Ordered Medication Orders Ceftriaxone Sodium/Dextrose 1 (gm/ Premix) 50 mls @ 100 mls/hr IV ONETIME ONE Stop: 09/28/20 01:50 Last Admin: 09/28/20 01:34 Dose: 100 mls/hr Documented by: ARIS Sodium Chloride (Sodium Chloride 0.9% 10 Ml Syringe) 10 ml FLUSH ASDIRECTED PRN PRN Reason: Keep Vein Open Last Admin: 09/27/20 21:39 Dose: 10 ml Documented by: RAFAELMAC Sodium Chloride (Sodium Chloride 0.9% 2.5 Ml Syringe) 2.5 ml FLUSH ASDIRECTED PRN PRN Reason: Keep Vein Open Last Admin: 09/27/20 21:39 Dose: 2.5 ml Documented by: ARIS Labs: Laboratory Tests 09/27/20 09/27/20 09/27/20 Range/Units 20:27 20:27 20:27 WBC (4.0-11.0) K/uL RBC (4.30-5.90) M/uL Hgb (12.0-16.0) g/dL Hct (36.0-46.0) % MCV (80.0-98.0) fL MCH (27.0-32.0) pg MCHC (31.0-37.0) g/dL RDW Std Deviation (28.0-62.0) fl RDW Coeff of Lashay (11.0-15.0) % Plt Count (150-400) K/uL MPV (7.40-12.00) fL Neut % (Auto) (48.0-80.0) % Lymph % (Auto) (16.0-40.0) % [place] % (Auto) (0.0-15.0) % Eos % (Auto) (0.0-7.0) % Baso % (Auto) (0.0-1.5) % Neut # (Auto) (1.4-5.7) K/uL Lymph # (Auto) (0.6-2.4) K/uL [place] # (Auto) (0.0-0.8) K/uL Eos # (Auto) (0.0-0.7) K/uL Baso # (Auto) (0.0-0.1) K/uL Nucleated RBC % /100WBC Nucleated RBCs # K/uL Lactate (0.20-2.00) mmol/L Sodium (136-145) mmol/L Potassium (3.5-5.1) mmol/L Chloride (98-107) mmol/L Carbon Dioxide (21.0-32.0) mmol/L BUN (7.0-18.0) mg/dL Creatinine (0.6-1.0) mg/dL Est Cr Clr Drug Dosing mL/min Estimated GFR (MDRD) ml/min Glucose (74-106) mg/dL Calcium (8.5-10.1) mg/dL Magnesium (1.8-2.4) mg/dL Total Bilirubin (0.2-1.0) mg/dL AST (15-37) IU/L ALT (14-63) IU/L Alkaline Phosphatase (46-116) U/L Total Protein (6.4-8.2) g/dL Albumin (3.4-5.0) g/dL Globulin (2.6-4.0) g/dL Albumin/Globulin Ratio (0.9-1.6) Lipase (73-393) U/L Urine Color YELLOW Urine Appearance SLT CLOUDY Urine pH 5.0 (5.0-8.0) Ur Specific [place] 1.025 (1.001-1.035) Urine Protein NEGATIVE (NEGATIVE) mg/dL Urine Glucose (UA) NEGATIVE (NEGATIVE) mg/dL Urine Ketones NEGATIVE (NEGATIVE) mg/dL Urine Occult Blood LARGE H (NEGATIVE) Urine Nitrite NEGATIVE (NEGATIVE) Urine Bilirubin NEGATIVE (NEGATIVE) Urine Urobilinogen 0.2 (<2.0) EU/dL Ur Leukocyte Esterase NEGATIVE (NEGATIVE) Urine RBC 30-40 (0-2/HPF) Urine WBC 1-3 (0-5/HPF) Ur Epithelial Cells MODERATE (NONE-FEW) Urine Bacteria 1+ H (NEGATIVE) Urine Mucus LIGHT (NONE-MOD) Urine HCG, Qual NEGATIVE (NEGATIVE) Urine Opiates Screen NEGATIVE (NEGATIVE) Ur Oxycodone Screen NEGATIVE (NEGATIVE) Urine Methadone Screen NEGATIVE (NEGATIVE) Ur Barbiturates Screen NEGATIVE (NEGATIVE) Ur Phencyclidine Scrn NEGATIVE (NEGATIVE) Ur Amphetamine Screen NEGATIVE (NEGATIVE) U Methamphetamines Scrn NEGATIVE (NEGATIVE) U Benzodiazepines Scrn NEGATIVE (NEGATIVE) U Cocaine Metab Screen NEGATIVE (NEGATIVE) U Marijuana (THC) Screen POSITIVE (NEGATIVE) 09/27/20 09/27/20 09/27/20 Range/Units 21:30 21:30 21:30 WBC 8.76 (4.0-11.0) K/uL RBC 3.56 L (4.30-5.90) M/uL Hgb 11.7 L (12.0-16.0) g/dL Hct 36.0 (36.0-46.0) % MCV 101.1 H (80.0-98.0) fL MCH 32.9 H (27.0-32.0) pg MCHC 32.5 (31.0-37.0) g/dL RDW Std Deviation 47.0 (28.0-62.0) fl RDW Coeff of Lashay 13 (11.0-15.0) % Plt Count 332 (150-400) K/uL MPV 10.30 (7.40-12.00) fL Neut % (Auto) 47.9 L (48.0-80.0) % Lymph % (Auto) 38.1 (16.0-40.0) % [place] % (Auto) 8.8 (0.0-15.0) % Eos % (Auto) 5.0 (0.0-7.0) % Baso % (Auto) 0.2 (0.0-1.5) % Neut # (Auto) 4.2 (1.4-5.7) K/uL Lymph # (Auto) 3.3 H (0.6-2.4) K/uL [place] # (Auto) 0.8 (0.0-0.8) K/uL Eos # (Auto) 0.4 (0.0-0.7) K/uL Baso # (Auto) 0.0 (0.0-0.1) K/uL Nucleated RBC % 0.0 /100WBC Nucleated RBCs # 0 K/uL Lactate 0.5 (0.20-2.00) mmol/L Sodium 135 L (136-145) mmol/L Potassium 4.2 (3.5-5.1) mmol/L Chloride 101 (98-107) mmol/L Carbon Dioxide 21.0 (21.0-32.0) mmol/L BUN 18 (7.0-18.0) mg/dL Creatinine 0.8 (0.6-1.0) mg/dL Est Cr Clr Drug Dosing 84.29 mL/min Estimated GFR (MDRD) > 60.0 ml/min Glucose 97 (74-106) mg/dL Calcium 9.0 (8.5-10.1) mg/dL Magnesium 2.1 (1.8-2.4) mg/dL Total Bilirubin 0.2 (0.2-1.0) mg/dL AST 12 L (15-37) IU/L ALT 21 (14-63) IU/L Alkaline Phosphatase 80 (46-116) U/L Total Protein 7.9 (6.4-8.2) g/dL Albumin 4.0 (3.4-5.0) g/dL Globulin 3.9 (2.6-4.0) g/dL Albumin/Globulin Ratio 1.0 (0.9-1.6) Lipase 44 L (73-393) U/L Urine Color Urine Appearance Urine pH (5.0-8.0) Ur Specific [place] (1.001-1.035) Urine Protein (NEGATIVE) mg/dL Urine Glucose (UA) (NEGATIVE) mg/dL Urine Ketones (NEGATIVE) mg/dL Urine Occult Blood (NEGATIVE) Urine Nitrite (NEGATIVE) Urine Bilirubin (NEGATIVE) Urine Urobilinogen (<2.0) EU/dL Ur Leukocyte Esterase (NEGATIVE) Urine RBC (0-2/HPF) Urine WBC (0-5/HPF) Ur Epithelial Cells (NONE-FEW) Urine Bacteria (NEGATIVE) Urine Mucus (NONE-MOD) Urine HCG, Qual (NEGATIVE) Urine Opiates Screen (NEGATIVE) Ur Oxycodone Screen (NEGATIVE) Urine Methadone Screen (NEGATIVE) Ur Barbiturates Screen (NEGATIVE) Ur Phencyclidine Scrn (NEGATIVE) Ur Amphetamine Screen (NEGATIVE) U Methamphetamines Scrn (NEGATIVE) U Benzodiazepines Scrn (NEGATIVE) U Cocaine Metab Screen (NEGATIVE) U Marijuana (THC) Screen (NEGATIVE) Meds: Medications Generic Name Dose Route Start Last Admin Trade Name Freq PRN Reason Stop Dose Admin Ceftriaxone Sodium/Dextrose 1 50 mls @ 100 mls/hr 09/28/20 01:21 09/28/20 01:34 gm/ Premix IV 09/28/20 01:50 100 mls/hr ONETIME ONE Administration Sodium Chloride 10 ml 09/27/20 21:15 09/27/20 21:39 Sodium Chloride 0.9% 10 Ml Syringe FLUSH 10 ml ASDIRECTED PRN Administration Keep Vein Open Sodium Chloride 2.5 ml 09/27/20 21:15 09/27/20 21:39 Sodium Chloride 0.9% 2.5 Ml Syringe FLUSH 2.5 ml ASDIRECTED PRN Administration Keep Vein Open Discontinued Medications Generic Name Dose Route Start Last Admin Trade Name Freq PRN Reason Stop Dose Admin Dicyclomine HCl 20 mg 09/27/20 21:15 09/27/20 21:39 Dicyclomine 10 Mg Cap PO 09/27/20 21:16 20 mg ONETIME ONE Administration Hydromorphone HCl 0.5 mg 09/28/20 01:21 09/28/20 01:33 Hydromorphone 1 Mg/Ml Syringe IVPUSH 09/28/20 01:22 0.5 mg ONETIME ONE Administration Lactated Ringer's 1,000 mls @ 999 mls/hr 09/27/20 21:15 09/27/20 21:39 Ringers, Lactated IV 09/27/20 22:15 999 mls/hr .BOLUS ONE Administration Iopamidol 100 ml 09/27/20 23:01 09/27/20 23:01 Iopamidol 755 Mg/Ml 500 Ml Multipack Bottle IVPUSH 09/27/20 23:02 100 ml ONETIME STA Administration Ondansetron HCl 4 mg 09/27/20 21:15 09/27/20 21:38 Ondansetron 4 Mg/2 Ml Sdv IVPUSH 09/27/20 21:16 4 mg ONETIME ONE Administration - Re-Assessments/Exams Free Text/Narrative Re-Assessment/Exam: 09/28/20 01:59 After IV Rocephin and Dilaudid in the ER, she is currently stable for discharge. I performed a repeat exam and did not appreciate new abnormal findings. Patient exhibits normal vital signs and has a normal gait on road test. I advised the patient to return to the ER for reevaluation if symptoms worsened, including fever, worsening pain, or any other worrisome symptoms. I instructed the patient to follow up with their PCP within 2-3 days. MEDICAL DECISION MAKING: I reviewed the patients past medical records, lab and radiographic findings. I discussed the case with the patient. My differential diagnosis included: Pyelonephritis, UTI. CT demonstrated findings concerning for acute pyelonephritis. Patient was afebrile with no leukocytosis, amendable for outpatient antibiotic treatment. History of rectal bleeding was trace in amount, as demonstrated on the picture that she took on her phone. Her tachycardia resolved after IV fluids, she was not hypotensive, her hemoglobin is stable at 11.7 for outpatient follow-up for outpatient colonoscopy. Given strict return to the precautions for worsening pain or fever. Departure - Departure Time of Disposition: 01:39 Disposition: Home, Self-Care 01 Condition: Good Clinical Impression: Pyelonephritis, Pelvic congestive syndrome - Discharge Information *PRESCRIPTION DRUG MONITORING PROGRAM REVIEWED*: Not Applicable *COPY OF PRESCRIPTION DRUG MONITORING REPORT IN PATIENT [place]: Not Applicable Prescriptions: cephALEXin [Keflex] 500 mg PO Q8H #30 cap Acetaminophen/oxyCODONE [Percocet 325-5 MG] 1 each PO Q6H PRN #12 tab PRN Reason: Pain (Moderate 4-6) Instructions: Pyelonephritis, Adult, Pain Medicine Instructions, Fith-ov-Abxl Referrals: sOei Rogel MD [Primary Care Provider] - 3 Days Forms: ED Department Discharge Additional Instructions: The need for follow-up, as well as the timing and circumstances, are variable depending upon the specifics of your emergency department visit. If you don't have a primary care physician on staff, we will provide you with a referral. We always advise you to contact your personal physician following an emergency department visit to inform them of the circumstance of the visit and for follow-up with them and/or the need for any referrals to a consulting specialist. The emergency department will also refer you to a specialist when appropriate. This referral assures that you have the opportunity for follow-up care with a s pecialist. All of these measure are taken in an effort to provide you with optimal care, which includes your follow-up. Under all circumstances we always encourage you to contact your private physici an who remains a resource for coordinating your care. When calling for follow-up care, please make the office aware that this follow-up is from your recent emergency room visit. If for any reason you are refused follow-up, please contact the [facility] Emergency Department at and asked to speak to the emergency department charge nurse. If you do not have a primary care doctor, please follow up with the clinics below within 3-[address] [facility] [address] [place] [id number] [address] [place] [address] Sepsis Event Note (ED) - Evaluation Sepsis Screening Result: No Definite Risk - Focused Exam Vital Signs: Vital Signs Temp Pulse Resp BP Pulse Ox 09/28/20 01:04 87 18 122/78 97 09/27/20 20:44 97.2 F 109 H 16 132/77 96 - My Orders Last 24 Hours: My Active Orders 09/27/20 21:15 Cardiac Monitoring [RC] . DIRECTED Sodium Chloride 0.9% [Saline Flush] 10 ml FLUSH ASDIRECTED PRN Sodium Chloride 0.9% [Saline Flush] 2.5 ml FLUSH ASDIRECTED PRN Saline Lock Insert [OM.PC] Stat 09/28/20 01:21 cefTRIAXone [Rocephin in Dextrose,Iso-Osm 1 GM/50 ML] 1 gm Premix Bag 1 bag IV ONETIME - Assessment/Plan Last 24 Hours: My Active Orders 09/27/20 21:15 Cardiac Monitoring [RC] . DIRECTED Sodium Chloride 0.9% [Saline Flush] 10 ml FLUSH ASDIRECTED PRN Sodium Chloride 0.9% [Saline Flush] 2.5 ml FLUSH ASDIRECTED PRN Saline Lock Insert [OM.PC] Stat 09/28/20 01:21 cefTRIAXone [Rocephin in Dextrose,Iso-Osm 1 GM/50 ML] 1 gm Premix Bag 1 bag IV ONETIME
[2020-09-27] MEDS ORDERED: Sodium Chloride 0.9% 10 ML Syringe FLUSH PRN (21:15)
[2020-09-27] MEDS ORDERED: Sodium Chloride 0.9% 2.5 ML Syringe FLUSH PRN (21:15)
[2020-09-27] MEDS ORDERED: Ondansetron 4 MG/2 ML SDV IVPUSH ONE (21:15)
[2020-09-27] MEDS ORDERED: Dicyclomine 10 MG Cap PO ONE (21:15)
[2020-09-27] MEDS ORDERED: Lactated Ringers 1,000 ML IV ONE (21:15)
[2020-09-27 22:04] LABS: BLOOD UREA NITROGEN,BUN 18 mg/dL (7.0-18.0); CHLORIDE,CL 101 mmol/L (98-107); GLUCOSE RANDOM 97 mg/dL (74-106); LIPASE 44 U/L (73-393); POTASSIUM,K 4.2 mmol/L (3.5-5.1); SODIUM,NA 135 mmol/L (136-145)
[2020-09-27] MEDS ORDERED: Iopamidol 755 MG/ML 500 ML Multipack Bottle IVPUSH STA (23:01)
--- NOTE | 2020-09-28 00:48 | CT ---
INDICATION: Left lower quadrant tenderness TECHNIQUE: CT abdomen and pelvis acquired with IV contrast. 100 mL of Isovue 370 administered. COMPARISON: 02/05/2019 FINDINGS: Lower chest: Minor compressive changes. Small fluid in the distal esophagus suggestive of gastroesophageal reflux. Liver: The most superior hepatic dome is not imaged. Otherwise unremarkable. Spleen: Unremarkable. Pancreas: Unremarkable. Gallbladder and bile ducts: Cholecystectomy. Persistent intra and extrahepatic biliary dilatation which could be related to the postcholecystectomy state. Adrenal glands: Unremarkable. Kidneys: No hydronephrosis. A somewhat ill-defined 1.6 x 1.2 cm focus of decreased cortical medullary attenuation in the mid left kidney on images 45-49 of series 201, not seen on the prior study, suggestive of focal pyelonephritis, although a complex lesion is difficult to exclude. Scattered additional small ill-defined foci of decreased cortical attenuation in both kidneys. A sub centimeter right renal upper pole low-density lesion, probably a small cyst. Multiple bilateral renal pyramidal high-density foci, most were not seen on the prior which could represent nonobstructing calcifications and/or foci of early contrast excretion. GI tract: Fluid-filled pelvic small bowel segments are nonspecific. No abnormally dilated small bowel segments. The appendix is not clearly seen and there are no significant pericecal inflammatory changes. No significant pericolonic changes. Vascular structures: Normal aortic caliber. Asymmetrical prominence and opacification of the left gonadal vein. Lymph nodes: Unremarkable. Miscellaneous: Possible small fluid in the left adnexal region. No free air. Pelvic Organs: Interval hysterectomy. Two adjacent low-density structures in the right adnexa, measuring 3.2 x 2.2 cm posteriorly and 2.7 x 2.2 cm anteriorly on image 131, versus fluid-filled small bowel segments. No gross bladder abnormality seen. Bones: A right femoral head sclerotic focus again seen, likely a bone island. A transitional lumbosacral anatomy. IMPRESSION: A small ill-defined low-attenuation focus in the left kidney suggestive of pyelonephritis. Correlate clinically and follow-up sonographically to exclude an underlying complex lesion. Additional scattered small low-attenuation cortical foci in both kidneys may represent additional small foci of early pyelonephritis. Nonobstructive renal calcifications and/or foci of contrast extrusion. Nonspecific fluid-filled pelvic small bowel segments. Correlate clinically to exclude enteritis. Status post hysterectomy. Two adjacent right adnexal low-density structures measuring up to 3.2 cm, versus regional fluid-filled small bowel segments. Correlate with pelvic sonography. Asymmetrical prominence and opacification of the left gonadal vein which can be seen with unilateral pelvic congestion syndrome. Please note that all CT scans at this facility use dose modulation, iterative reconstruction, and/or weight-based dosing when appropriate to reduce radiation dose to as low as reasonably achievable. Dictated by Pedro Holden MD @ Sep 28 2020 12:22AM Signed by Dr. Pedro Holden @ Sep 28 2020 12:48AM
[2020-09-28] MEDS ORDERED: cefTRIAXone 1 GM in Premix Bag 1 BAG IV ONE (01:21)
[2020-09-28] MEDS ORDERED: HYDROmorphone 1 MG/ML Syringe IVPUSH ONE (01:21)
== END 2020-09-28 02:10 | disposition home or self-care (01) ==
LOC: MW.ED 20:12
DX: N12 Tubulo-interstitial nephritis, not specified as acute or chronic (principal); N94.89 Other specified conditions associated with female genital organs and menstrual cycle; I10 Essential (primary) hypertension; J45.909 Unspecified asthma, uncomplicated; E66.9 Obesity, unspecified; Z68.30 Body mass index [BMI] 30.0-30.9, adult; Z72.0 Tobacco use; Z88.1 Allergy status to other antibiotic agents; Z88.5 Allergy status to narcotic agent; Z88.0 Allergy status to penicillin; Z88.2 Allergy status to sulfonamides; Z79.899 Other long term (current) drug therapy
CPT/HCPCS: 36415; 74177; 80053; 80305; 81001; 81025; 83605; 83690; 83735; 85025; 96365; 96375; 99284; A9270; J0696; J1170; J2405; J7120; Q9967; 99283

== ENCOUNTER 2020-11-01 15:38 | Emergency (ER) | payer MEDICAID ==
[2020-11-01] MEDS ORDERED: Sodium Chloride 0.9% 1,000 ML IV ONE (17:26)
[2020-11-01] MEDS ORDERED: Ondansetron 4 MG/2 ML SDV IVPUSH ONE (17:26)
[2020-11-01 18:21] LABS: BLOOD UREA NITROGEN,BUN 14 mg/dL (7.0-18.0); CARBON DIOXIDE,CO2 15.5 mmol/L (21.0-32.0); CHLORIDE,CL 105 mmol/L (98-107); GLUCOSE RANDOM 94 mg/dL (74-106); LIPASE 36 U/L (73-393); POTASSIUM,K 3.9 mmol/L (3.5-5.1); SODIUM,NA 136 mmol/L (136-145)
[2020-11-01] MEDS ORDERED: Alum Hydrox/Mag Hydrox/Simeth 15 ML, Metoclopramide 5 MG, Lidocaine 2% 5 ML PO ONE ×3 (18:24)
[2020-11-01] MEDS ORDERED: Pantoprazole 80 MG in Sodium Chloride 0.9% 20 ML IVPUSH ONE (18:24)
[2020-11-01] MEDS ORDERED: Sodium Chloride 0.9% 500 ML IV SCH (18:30)
--- NOTE | 2020-11-01 18:34 | EDM.PDOC ---
ED HPI GENERAL MEDICAL PROBLEM - General Chief Complaint: Abdominal Pain Stated Complaint: VOMITTING Time Seen by Provider: 11/01/20 17:03 Source of Information: Reports: Patient History Limitations: Reports: No Limitations - History of Present Illness INITIAL COMMENTS - FREE TEXT/NARRATIVE: HISTORY AND PHYSICAL: History of present illness: Patient is a 30-year-old female who presents with 4-day history of nausea and nonbloody nonbilious vomiting. Patient states that this started 4 days ago and since then has not been able to take anything by mouth. Patient states that she has had hot and cold flashes but has not taken her temperature during this time. Patient states that initially when her symptoms started, she did have a runny nose and cough. Patient states that her daughter and have also had "cold symptoms ". Patient denies alcohol use. Patient denies any possibility of as she has had a hysterectomy. Patient also endorses acid reflux which she has taken Prevacid for but has provided little relief related to frequent emesis. Patient denies fever, chest pain, shortness of breath, or cough. Denies headache, neck stiff ness, change in vision, syncope, or near syncope. Denies abdominal pain, diarrhea, constipation, or dysuria. Has not noted any blood in urine or stool. Review of systems: As per history of present illness and below otherwise all systems reviewed and negative. Past medical history: As per history of present illness and as reviewed below otherwise noncontributory. Surgical history: As per history of present illness and as reviewed below otherwise noncontributory. Social history: See social history for further information Family history: As per history of present illness and as reviewed below otherwise noncontributory. Physical exam: General: Patient is alert, oriented, and in no acute distress. Patient sitting comfortably on exam table. Patient's vitals are stable and reviewed by me. HEENT: Atraumatic, normocephalic, pupils equal and reactive bilaterally, negative for conjunctival pallor or scleral icterus, mucous membranes moist, TMs normal bilaterally, throat clear, neck supple, nontender, trachea midline. No drooling or trismus noted. No meningeal signs. No hot potato voice noted. Lungs: Clear to auscultation, breath sounds equal bilaterally, chest nontender. Heart: S1S2, regular rate and rhythm without overt murmur Abdomen: Soft, nondistended, nontender. Negative for masses or hepatosplenomegaly. Negative for costovertebral tenderness. Pelvis: Stable nontender. Genitourinary: Deferred. Rectal: Deferred. Skin: Intact, warm, dry. No lesions or rashes noted. Extremities: Atraumatic, negative for cords or calf pain. Neurovascular unremarkable. Neuro: Awake, alert, oriented. Cranial nerves II through XII unremarkable. Cerebellum unremarkable. Motor and sensory unremarkable throughout. Exam nonfocal. Notes: Patient is a 30-year-old female with presents to the ED today secondary to a 4- day history of nausea and vomiting following viral symptoms. On exam patient is vitally stable and well-appearing with no abdominal pain. Will initiate a liter bolus with Zofran and obtain routine lab work. CBC is unremarkable. CMP does show a corrected calcium of 7.6 mg/dL. Will give calcium here in the ED. Otherwise, lab work unremarkable Following therapeutics, she does note improvement in her symptoms. Upon reevaluation she remains vitally stable and comfortable out any episodes of vomiting. Able to tolerate p.o. intake. Discussed with patient to follow-up with a primary care provider and for follow-up of calcium levels today and return to ED if any new or worsening symptoms. Voices understanding and is agreeable to plan of care. Denies any further questions or concerns at this time. Diagnostics: CBC, CMP, lipase, UA (patient was offered COVID-19 and influenza testing but declines at this time. All risks versus benefits discussed with patient and expresses understanding) Therapeutics: Zofran, GI cocktail, Protonix, calcium Prescription: Zofran Impression: Vomiting, not intractable Viral illness Hypocalcemia Plan: Alternate Tylenol and ibuprofen as directed for pain. Eat a brat diet as discussed. Encourage small frequent sips of fluid to prevent dehydration. Follow-up with primary care provider as discussed. Take medication as prescribed. Return to the ED as needed and as discussed. Definitive disposition and diagnosis as appropriate pending reevaluation and review of above. abd Pain Score (Numeric/FACES): 7 - Related Data Allergies Allergy/AdvReac Type Severity Reaction Status Date / Time baclofen Allergy Headache Verified 11/01/20 16:55 codeine Allergy Hives Verified 11/01/20 16:55 metronidazole [From Flagyl] Allergy Hives Verified 11/01/20 16:55 morphine Allergy Airway Verified 11/01/20 16:55 Tightness Penicillins Allergy Hives Verified 11/01/20 16:55 Sulfa (Sulfonamide Allergy Hives Verified 11/01/20 16:55 Antibiotics) tramadol Allergy Headache Verified 11/01/20 16:55 Home Meds: Home Meds Lansoprazole [Prevacid] 15 mg PO ACBREAKFAST 04/21/20 [History] lamoTRIgine [Lamotrigine] 150 mg PO DAILY 04/21/20 [History] Diclofenac Sodium [Voltaren] 75 mg PO BIDMEALS PRN #30 tab.cr 06/09/20 [Rx] Gabapentin [Neurontin] 900 mg PO TID 08/11/20 [History] QUEtiapine Fumarate [Seroquel] 50 mg PO QPM 08/11/20 [History] Cetirizine [ZyrTEC] 10 mg PO DAILY 11/01/20 [History] Cyclobenzaprine [Flexeril] 10 mg PO TID 11/01/20 [History] Diclofenac Sodium [Voltaren 1% Gel] 1 applic TOP QID PRN 11/01/20 [History] Hydrocodone/Acetaminophen [Hydrocodon-Acetaminoph 7.5-325] 1 each PO Q8H 11/01/20 [History] Ondansetron [Zofran ODT] 4 mg PO Q6H PRN #8 tab.dis 11/01/20 [Rx] Past Medical History - Past Health History Medical/Surgical History: Denies Medical/Surgical History HEENT History: Reports: 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) Other HEENT History: top and bottom partial Cardiovascular History: Reports: Hypertension Respiratory History: Reports: Asthma, PE Other Respiratory History: PE 3 years ago Gastrointestinal History: Reports: GERD Genitourinary History: Reports: UTI, Recurrent 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: Musculoskeletal History: Reports: Back Pain, Chronic Neurological History: Reports: None Psychiatric History: Reports: Anxiety, Depression Endocrine/Metabolic History: Reports: Obesity/BMI 30+, Vitamin D Deficiency Hematologic History: Reports: Iron Deficiency Immunologic History: Reports: None Oncologic (Cancer) History: Reports: None Dermatologic History: Reports: None - Infectious Disease History Infectious Disease History: Reports: Chicken Pox - Past Surgical History Head Surgeries/Procedures: Reports: None HEENT Surgical History: Reports: Oral Surgery Other HEENT Surgeries/Procedures: teeth removal Cardiovascular Surgical History: Reports: None Respiratory Surgical History: Reports: None GI Surgical History: Reports: Appendectomy, Cholecystectomy Female Surgical History: Reports: Hysterectomy, Tubal Ligation, 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) Other Female Surgeries/Procedures: diagnostic laparoscopy Endocrine Surgical History: Reports: None Neurological Surgical History: Reports: None Musculoskeletal Surgical History: Reports: None Oncologic Surgical History: Reports: None Dermatological Surgical History: Reports: None Social & Family History - Family History Family Medical History: No Pertinent Family History - Caffeine Use Caffeine Use: Reports: None ED ROS GENERAL - Review of Systems Review Of Systems: Comprehensive ROS is negative, except as noted in HPI. ED EXAM, GENERAL - Physical Exam Exam: See Below (See dictation) Course - Vital Signs Last Recorded V/S: Last Vital Signs Temp 97.4 F 11/01/20 19:58 Pulse 92 11/01/20 19:58 Resp 17 11/01/20 19:58 BP 143/63 H 11/01/20 19:58 Pulse Ox 99 11/01/20 19:58 - Orders/Labs/Meds Orders: Active Orders 24 hr Category Date Time Status Sodium Chloride 0.9% [Normal Saline] 500 ml Med 11/01/20 18:30 Active IV STAT Medication Orders Sodium Chloride (Normal Saline) 500 mls @ 999 mls/hr IV STAT LICHA Last Admin: 11/01/20 18:58 Dose: 999 mls/hr Documented by: [id number] Labs: Laboratory Tests 11/01/20 11/01/20 11/01/20 Range/Units 16:00 16:00 17:31 WBC 6.99 (4.0-11.0) K/uL RBC 4.29 L (4.30-5.90) M/uL Hgb 13.9 (12.0-16.0) g/dL Hct 42.4 (36.0-46.0) % MCV 98.8 H (80.0-98.0) fL MCH 32.4 H (27.0-32.0) pg MCHC 32.8 (31.0-37.0) g/dL RDW Std Deviation 44.3 (28.0-62.0) fl RDW Coeff of [place]ash[place] 12 (11.0-15.0) % Plt Count 320 (150-400) K/uL MPV 10.60 (7.40-12.00) fL Neut % (Auto) 62.4 (48.0-80.0) % Lymph % (Auto) 29.6 (16.0-40.0) % [place] % (Auto) 5.6 (0.0-15.0) % Eos % (Auto) 2.1 (0.0-7.0) % Baso % (Auto) 0.3 (0.0-1.5) % Neut # (Auto) 4.4 (1.4-5.7) K/uL Lymph # (Auto) 2.1 (0.6-2.4) K/uL [place] # (Auto) 0.4 (0.0-0.8) K/uL Eos # (Auto) 0.2 (0.0-0.7) K/uL Baso # (Auto) 0.0 (0.0-0.1) K/uL Nucleated RBC % 0.0 /100WBC Nucleated RBCs # 0 K/uL Sodium (136-145) mmol/L Potassium (3.5-5.1) mmol/L Chloride (98-107) mmol/L Carbon Dioxide (21.0-32.0) mmol/L BUN (7.0-18.0) mg/dL Creatinine (0.6-1.0) mg/dL Est Cr Clr Drug Dosing mL/min Estimated GFR (MDRD) ml/min Glucose (74-106) mg/dL Calcium (8.5-10.1) mg/dL Total Bilirubin (0.2-1.0) mg/dL AST (15-37) IU/L ALT (14-63) IU/L Alkaline Phosphatase (46-116) U/L Total Protein (6.4-8.2) g/dL Albumin (3.4-5.0) g/dL Globulin (2.6-4.0) g/dL Albumin/Globulin Ratio (0.9-1.6) Lipase (73-393) U/L Urine Color YELLOW Urine Appearance HAZY Urine pH 5.5 (5.0-8.0) Ur Specific [place] >= 1.030 (1.001-1.035) Urine Protein TRACE H (NEGATIVE) mg/dL Urine Glucose (UA) NEGATIVE (NEGATIVE) mg/dL Urine Ketones NEGATIVE (NEGATIVE) mg/dL Urine Occult Blood SMALL H (NEGATIVE) Urine Nitrite NEGATIVE (NEGATIVE) Urine Bilirubin NEGATIVE (NEGATIVE) Urine Urobilinogen 0.2 (<2.0) EU/dL Ur Leukocyte Esterase NEGATIVE (NEGATIVE) Urine RBC 1-4 (0-2/HPF) Urine WBC 0-1 (0-5/HPF) Ur Epithelial Cells FEW (NONE-FEW) Urine Bacteria FEW (NEGATIVE) Urine HCG, Qual NEGATIVE (NEGATIVE) 11/01/20 Range/Units 17:31 WBC (4.0-11.0) K/uL RBC (4.30-5.90) M/uL Hgb (12.0-16.0) g/dL Hct (36.0-46.0) % MCV (80.0-98.0) fL MCH (27.0-32.0) pg MCHC (31.0-37.0) g/dL RDW Std Deviation (28.0-62.0) fl RDW Coeff of [place]ashay (11.0-15.0) % Plt Count (150-400) K/uL MPV (7.40-12.00) fL Neut % (Auto) (48.0-80.0) % Lymph % (Auto) (16.0-40.0) % [place] % (Auto) (0.0-15.0) % Eos % (Auto) (0.0-7.0) % Baso % (Auto) (0.0-1.5) % Neut # (Auto) (1.4-5.7) K/uL Lymph # (Auto) (0.6-2.4) K/uL [place] # (Auto) (0.0-0.8) K/uL Eos # (Auto) (0.0-0.7) K/uL Baso # (Auto) (0.0-0.1) K/uL Nucleated RBC % /100WBC Nucleated RBCs # K/uL Sodium 136 (136-145) mmol/L Potassium 3.9 (3.5-5.1) mmol/L Chloride 105 (98-107) mmol/L Carbon Dioxide 15.5 L (21.0-32.0) mmol/L BUN 14 (7.0-18.0) mg/dL Creatinine 0.8 (0.6-1.0) mg/dL Est Cr Clr Drug Dosing 84.29 mL/min Estimated GFR (MDRD) > 60.0 ml/min Glucose 94 (74-106) mg/dL Calcium 8.1 L (8.5-10.1) mg/dL Total Bilirubin 0.4 (0.2-1.0) mg/dL AST 10 L (15-37) IU/L ALT 16 (14-63) IU/L Alkaline Phosphatase 68 (46-116) U/L Total Protein 8.1 (6.4-8.2) g/dL Albumin 4.0 (3.4-5.0) g/dL Globulin 4.1 H (2.6-4.0) g/dL Albumin/Globulin Ratio 1.0 (0.9-1.6) Lipase 36 L (73-393) U/L Urine Color Urine Appearance Urine pH (5.0-8.0) Ur Specific [place] (1.001-1.035) Urine Protein (NEGATIVE) mg/dL Urine Glucose (UA) (NEGATIVE) mg/dL Urine Ketones (NEGATIVE) mg/dL Urine Occult Blood (NEGATIVE) Urine Nitrite (NEGATIVE) Urine Bilirubin (NEGATIVE) Urine Urobilinogen (<2.0) EU/dL Ur Leukocyte Esterase (NEGATIVE) Urine RBC (0-2/HPF) Urine WBC (0-5/HPF) Ur Epithelial Cells (NONE-FEW) Urine Bacteria (NEGATIVE) Urine HCG, Qual (NEGATIVE) Meds: Medications Generic Name Dose Route Start Last Admin Trade Name Freq PRN Reason Stop Dose Admin Sodium Chloride 500 mls @ 999 mls/hr 11/01/20 18:30 11/01/20 18:58 Normal Saline IV 999 mls/hr STAT LICHA Administration Discontinued Medications Generic Name Dose Route Start Last Admin Trade Name Freq PRN Reason Stop Dose Admin Calcium Gluconate 1 gm 11/01/20 18:47 11/01/20 19:06 Calcium Gluconate 10% 1 Gm/10 Ml Sdv IVPUSH 11/01/20 18:48 1 gm ONETIME ONE Administration Al Hydroxide/Mg Hydroxide 15 0 ml 11/01/20 18:24 11/01/20 18:45 ml/ Metoclopramide HCl 5 mg/ PO 11/01/20 18:25 1 each Lidocaine HCl 5 ml ONETIME ONE Administration Sodium Chloride 1,000 mls @ 999 mls/hr 11/01/20 17:26 11/01/20 17:37 Normal Saline IV 11/01/20 18:26 999 mls/hr BOLUS ONE Administration Pantoprazole Sodium 80 mg/ 20 mls @ 420 mls/hr 11/01/20 18:24 11/01/20 18:49 Sodium Chloride IVPUSH 11/01/20 18:26 420 mls/hr ONETIME ONE Administration Ondansetron HCl 4 mg 11/01/20 17:26 11/01/20 17:38 Ondansetron 4 Mg/2 Ml Sdv IVPUSH 11/01/20 17:27 4 mg ONETIME ONE Administration Departure - Departure Time of Disposition: 18:42 Disposition: Home, Self-Care 01 Clinical Impression: Viral syndrome, Hypocalcemia Vomiting Qualifiers: Vomiting type: unspecified Vomiting Intractability: non-intractable Nausea presence: with nausea Qualified Code(s): R11.2 - Nausea with vomiting, unspecified - Discharge Information Prescriptions: Ondansetron [Zofran ODT] 4 mg PO Q6H PRN #8 tab.dis PRN Reason: Nausea/Vomiting Instructions: Nausea and Vomiting, Adult, [id number], Viral Illness, Adult Referrals: PCP,None [Primary Care Provider] - Forms: ED Department Discharge Additional Instructions: The following information is given to patients seen in the emergency department who are being discharged to home. This information is to outline your options for follow-up care. We provide all patients seen in our emergency department with a follow-up referral. The need for follow-up, as well as the timing and circumstances, are variable depending upon the specifics of your emergency department visit. If you don't have a primary care physician on staff, we will provide you with a referral. We always advise you to contact your personal physician following an emergency department visit to inform them of the circumstance of the visit and for follow-up with them and/or the need for any referrals to a consulting specialist. The emergency department will also refer you to a specialist when appropriate. This referral assures that you have the opportunity for follow-up care with a specialist. All of these measure are taken in an effort to provide you with optimal care, which includes your follow-up. Under all circumstances we always encourage you to contact your private physician who remains a resource for coordinating your care. When calling for follow-up care, please make the office aware that this follow-up is from your recent emergency room visit. If for any reason you are refused follow-up, please contact the [facility] Emergency Department at and asked to speak to the emergency department charge nurse. [facility] [address] [place] [address] [facility] [place] [address] Alternate Tylenol and ibuprofen as directed for pain. Eat a brat diet as discussed. Encourage small frequent sips of fluid to prevent dehydration. Follow-up with primary care provider as discussed. Take medication as prescribed. Return to the ED as needed and as discussed. Sepsis Event Note (ED) - Evaluation Sepsis Screening Result: No Definite Risk - Focused Exam Vital Signs: Vital Signs Temp Pulse Resp BP Pulse Ox 11/01/20 19:58 97.4 F 92 17 143/63 H 99 11/01/20 19:36 91 144/80 H 100 11/01/20 19:10 90 129/78 100 11/01/20 18:36 82 120/73 100 11/01/20 18:06 85 108/77 100 11/01/20 17:51 87 118/74 99 11/01/20 16:11 96.7 F L 99 18 119/76 99 - My Orders Last 24 Hours: My Active Orders 11/01/20 18:30 Sodium Chloride 0.9% [Normal Saline] 500 ml IV STAT - Assessment/Plan Last 24 Hours: My Active Orders 11/01/20 18:30 Sodium Chloride 0.9% [Normal Saline] 500 ml IV STAT
[2020-11-01] MEDS ORDERED: Calcium Gluconate 10% 1 GM/10 ML SDV IVPUSH ONE (18:47)
== END 2020-11-01 19:58 | disposition home or self-care (01) ==
LOC: MW.ED 15:38
DX: E83.51 Hypocalcemia (principal); B34.9 Viral infection, unspecified; I10 Essential (primary) hypertension; J45.909 Unspecified asthma, uncomplicated; K21.9 Gastro-esophageal reflux disease without esophagitis; E66.9 Obesity, unspecified; Z68.30 Body mass index [BMI] 30.0-30.9, adult; Z88.1 Allergy status to other antibiotic agents; Z88.5 Allergy status to narcotic agent; Z88.0 Allergy status to penicillin; Z88.2 Allergy status to sulfonamides; Z79.899 Other long term (current) drug therapy
CPT/HCPCS: 80053; 81001; 81025; 83690; 85025; 96361; 96374; 96375; 99284; A9270; C9113; J0610; J2405; J7030; J7040; 99283

== ENCOUNTER 2021-01-03 14:48 | Emergency (ER) | payer MEDICAID ==
--- NOTE | 2021-01-03 15:34 | EDM.PDOC ---
ED HPI GENERAL MEDICAL PROBLEM - General Chief Complaint: ENT Problem Stated Complaint: TOOTH PAIN Time Seen by Provider: 01/03/21 15:10 Source of Information: Reports: Patient History Limitations: Reports: No Limitations - History of Present Illness INITIAL COMMENTS - FREE TEXT/NARRATIVE: Patient is a 30-year-old female presents today for lower frontal tooth pain. Patient that she has some pain before the previous was given Keflex by her PMD which she finished stop the antibiotics few days ago and now the jaw was more swollen than before and the pain is also increased. Patient has poor dentition denies any depression floss her teeth regularly. Patient denies any trouble swallowing or breathing. Right Jaw Pain Score (Numeric/FACES): 9 - Related Data Allergies Allergy/AdvReac Type Severity Reaction Status Date / Time baclofen Allergy Headache Verified 01/03/21 15:08 codeine Allergy Hives Verified 01/03/21 15:08 metronidazole [From Flagyl] Allergy Hives Verified 01/03/21 15:08 morphine Allergy Airway Verified 01/03/21 15:08 Tightness Penicillins Allergy Hives Verified 01/03/21 15:08 Sulfa (Sulfonamide Allergy Hives Verified 01/03/21 15:08 Antibiotics) tramadol Allergy Headache Verified 01/03/21 15:08 Home Meds: Home Meds Lansoprazole [Prevacid] 15 mg PO ACBREAKFAST 04/21/20 [History] lamoTRIgine [Lamotrigine] 150 mg PO DAILY 04/21/20 [History] Diclofenac Sodium [Voltaren] 75 mg PO BIDMEALS PRN #30 tab.cr 06/09/20 [Rx] Gabapentin [Neurontin] 900 mg PO TID 08/11/20 [History] QUEtiapine Fumarate [Seroquel] 50 mg PO QPM 08/11/20 [History] Cetirizine [ZyrTEC] 10 mg PO DAILY 11/01/20 [History] Cyclobenzaprine [Flexeril] 10 mg PO TID 11/01/20 [History] Diclofenac Sodium [Voltaren 1% Gel] 1 applic TOP QID PRN 11/01/20 [History] Hydrocodone/Acetaminophen [Hydrocodon-Acetaminoph 7.5-325] 1 each PO Q8H 11/01/20 [History] Ondansetron [Zofran ODT] 4 mg PO Q6H PRN #8 tab.dis 11/01/20 [Rx] Past Medical History - Past Health History Medical/Surgical History: Denies Medical/Surgical History HEENT History: Reports: 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) Other HEENT History: top and bottom partial Cardiovascular History: Reports: Hypertension Respiratory History: Reports: Asthma, PE Other Respiratory History: PE 3 years ago Gastrointestinal History: Reports: GERD Genitourinary History: Reports: UTI, Recurrent [employer]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: Musculoskeletal History: Reports: Back Pain, Chronic Neurological History: Reports: None Psychiatric History: Reports: Anxiety, Depression Endocrine/Metabolic History: Reports: Obesity/BMI 30+, Vitamin D Deficiency Hematologic History: Reports: Iron Deficiency Immunologic History: Reports: None Oncologic (Cancer) History: Reports: None Dermatologic History: Reports: None - Infectious Disease History Infectious Disease History: Reports: Chicken Pox - Past Surgical History Head Surgeries/Procedures: Reports: None HEENT Surgical History: Reports: Oral Surgery Other HEENT Surgeries/Procedures: teeth removal Cardiovascular Surgical History: Reports: None Respiratory Surgical History: Reports: None GI Surgical History: Reports: Appendectomy, Cholecystectomy Female Surgical History: Reports: Hysterectomy, Tubal Ligation, 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) Other Female Surgeries/Procedures: diagnostic laparoscopy Endocrine Surgical History: Reports: None Neurological Surgical History: Reports: None Musculoskeletal Surgical History: Reports: None Oncologic Surgical History: Reports: None Dermatological Surgical History: Reports: None Social & Family History - Family History Family Medical History: No Pertinent Family History - Tobacco Use Tobacco Use Status *Q: Current Every Day Tobacco User Years of Tobacco use: 10 Packs/Tins Daily: 0.5 - Caffeine Use Caffeine Use: Reports: None, Coffee - Recreational Drug Use Recreational Drug Use: No ED ROS ENT - Review of Systems Review Of Systems: See Below Constitutional: Reports: No Symptoms HEENT: Reports: Dental Pain Respiratory: Reports: No Symptoms Endocrine: Reports: No Symptoms GI/Abdominal: Reports: No Symptoms : Reports: No Symptoms Musculoskeletal: Reports: No Symptoms Skin: Reports: No Symptoms Neurological: Reports: No Symptoms Psychiatric: Reports: No Symptoms Hematologic/Lymphatic: Reports: No Symptoms Immunologic: Reports: No Symptoms ED EXAM, ENT - Physical Exam Exam: See Below Exam Limited By: No Limitations General Appearance: Alert, WD/WN, No Apparent Distress Mouth/Throat: Dental Tenderness. No: Normal Gums, Normal Teeth, Dental Trauma Neck: Normal Inspection, Supple, Non-Tender Respiratory/Chest: No Respiratory Distress, Lungs Clear, Normal Breath Sounds Cardiovascular: Normal Peripheral Pulses, Regular Rate, Rhythm, No Edema GI/Abdominal: Normal Bowel Sounds, Soft, Non-Tender Extremities: Normal Inspection Neurological: Alert, Oriented, CN II-XII Intact, Normal Cognition, Normal Gait, Normal Reflexes Course - Vital Signs Last Recorded V/S: Last Vital Signs Temp 97.3 F 01/03/21 14:58 Pulse 85 01/03/21 14:58 Resp 18 01/03/21 14:58 BP 120/71 01/03/21 14:58 Pulse Ox 96 01/03/21 14:58 - Orders/Labs/Meds Meds: Medications Discontinued Medications Generic Name Dose Route Start Last Admin Trade Name Panfiloq PRN Reason Stop Dose Admin Lidocaine HCl 2 ml 01/03/21 15:31 01/03/21 15:35 Lidocaine 1% Pf 2 Ml Sdv INJECT 01/03/21 15:32 2 ml ONETIME ONE Administration - Re-Assessments/Exams Free Text/Narrative Re-Assessment/Exam: 01/03/21 15:50 We did a local block the front or right tooth and to the pain. Patient was sent home antibiotics. Patient will follow up dental next week. Departure - Departure Time of Disposition: 15:50 Disposition: Home, Self-Care 01 Condition: Good Clinical Impression: Pain, dental - Discharge Information *PRESCRIPTION DRUG MONITORING PROGRAM REVIEWED*: Not Applicable *COPY OF PRESCRIPTION DRUG MONITORING REPORT IN PATIENT [place]: Not Applicable Instructions: Dental Abscess Referrals: Osei Rogel MD [Primary Care Provider] - Forms: ED Department Discharge Additional Instructions: The following information is given to patients seen in the emergency department who are being discharged to home. This information is to outline your options for follow-up care. We provide all patients seen in our emergency department with a follow-up referral. The need for follow-up, as well as the timing and circumstances, are variable depending upon the specifics of your emergency department visit. If you don't have a primary care physician on staff, we will provide you with a referral. We always advise you to contact your personal physician following an emergency department visit to inform them of the circumstance of the visit and for follow-up with them and/or the need for any referrals to a consulting specialist. The emergency department will also refer you to a specialist when appropriate. This referral assures that you have the opportunity for follow-up care with a specialist. All of these measure are taken in an effort to provide you with optimal care, which includes your follow-up. Under all circumstances we always encourage you to contact your private physician who remains a resource for coordinating your care. When calling for follow-up care, please make the office aware that this follow-up is from your recent emergency room visit. If for any reason you are refused follow-up, please contact the [facility] Emergency Department at and asked to speak to the emergency department charge nurse. Please follow up with your primary care physician. If you do not have a primary care physician, see below: [facility] [address] [place] [id number] [facility] [address] [place] [id number] You are seen today for tooth pain. We were able to numb the bottom right tooth about the pain. We will see on antibiotics and pain meds. Please follow-up to primary care dentist for further care. If any other concerning signs or symptom please return to the ED. Sepsis Event Note (ED) - Evaluation Sepsis Screening Result: No Definite Risk - Focused Exam Vital Signs: Vital Signs Temp Pulse Resp BP Pulse Ox 01/03/21 14:58 97.3 F 85 18 120/71 96 - Assessment/Plan Plan: Patient is a 30-year-old female who presents today for dental pain. Patient has some swelling to the right lower front of jaw swelling. Patient exam is poor dentition. We will do a local block provide antibiotics and reassess.
[2021-01-03] MEDS: Lidocaine 1% PF 2 ML SDV INJECT ONE (15:35)
== END 2021-01-03 16:00 | disposition home or self-care (01) ==
LOC: MW.ED 14:48
DX: K08.89 Other specified disorders of teeth and supporting structures (principal); I10 Essential (primary) hypertension; J45.909 Unspecified asthma, uncomplicated; K21.9 Gastro-esophageal reflux disease without esophagitis; E66.9 Obesity, unspecified; Z68.29 Body mass index [BMI] 29.0-29.9, adult; Z72.0 Tobacco use; Z88.5 Allergy status to narcotic agent; Z88.8 Allergy status to other drugs, medicaments and biological substances; Z88.0 Allergy status to penicillin; Z88.2 Allergy status to sulfonamides; Z79.899 Other long term (current) drug therapy
CPT/HCPCS: 64400; 99283-25

== ENCOUNTER 2021-01-27 19:51 | Emergency (ER) | payer MEDICAID ==
[2021-01-27] MEDS ORDERED: Ondansetron 4 MG/2 ML SDV IVPUSH ONE (20:03)
[2021-01-27] MEDS ORDERED: Sodium Chloride 0.9% 1,000 ML IV ONE (20:03)
--- NOTE | 2021-01-27 20:19 | EDM.PDOC ---
ED HPI GENERAL MEDICAL PROBLEM - General Chief Complaint: Flank Pain Stated Complaint: LT SIDE PAIN Time Seen by Provider: 01/27/21 19:52 Source of Information: Reports: Patient History Limitations: Reports: No Limitations - History of Present Illness INITIAL COMMENTS - FREE TEXT/NARRATIVE: HISTORY AND PHYSICAL: History of present illness: Patient is a 30-year-old female who presents to the emergency room with complaints of left flank pain that radiates to the left mid abdomen. She states she has had some nausea without vomiting. Has not had much of a desire to drink any fluids, concerned she may be dehydrated. Patient denies any fever, chills, headache, change in vision, syncope or near syncope. Denies any chest pain, back pain, shortness of breath or cough. Denies any diarrhea, constipation or dysuria. Has not noted any blood in urine or stool. No concern for , has had a hysterectomy. Not currently on menses. No recent travel. No recent sick contacts. Review of systems: As per history of present illness and below otherwise all systems reviewed and negative. Past medical history: As per history of present illness and as reviewed below otherwise noncontributory. Surgical history: As per history of present illness and as reviewed below otherwise noncontributory. Social history: See social history for further information Family history: As per history of present illness and as reviewed below otherwise noncontributory. Physical exam: General: Well developed and well nourished 30 year old female. Alert and orientated x 3. Nontoxic in appearance and in no acute distress. Vital signs are stable and have been reviewed by me. Nursing notes were reviewed. HEENT: Atraumatic, normocephalic, pupils equal and reactive bilaterally, negat reese for conjunctival pallor or scleral icterus, mucous membranes moist, trachea midline. No drooling or trismus noted. No meningeal signs. No hot potato voice noted. Lungs: Clear to auscultation bilaterally. No wheezes, rales, or rhonchi. Chest nontender. Normal work of breathing, no accessory muscles used. Heart: S1S2, regular rate and rhythm without overt murmur, gallops, or rubs. No JVD. No peripheral edema Abdomen: Soft, nondistended, nontender. Normoactive bowel sounds. Negative for masses. Left-sided costovertebral tenderness. Skin: Intact, warm, dry. No lesions or rashes noted. Hematologic: No petechiae or purpra. Mucosa appropriate color and normal nail bed color and refill. Extremities: Atraumatic, moves all extremities per self without difficulty or deficits, negative for cords or calf pain. Neurovascular unremarkable. Neuro: Awake, alert, oriented. Cranial nerves II through XII unremarkable. Cerebellum unremarkable. Motor and sensory unremarkable throughout. Exam nonfocal. Psychiatric: Mood and affect are appropriate. Normal thought process. Answering questions appropriately. Notes: *This patient was seen and evaluated during the 2019 SARS-CoV-2 novel coronavirus pandemic period. Community viral transmission is ongoing at time of this encounter and the emergency department is operating under pandemic response procedures. Patient is a 30-year-old female who presents to the emergency room with complaints of left flank pain that wraps to the left mid abdomen. She states she has had some nausea without vomiting and is concerned she may be dehydrated. She does have left flank pain with palpation. States she feels like she needs to "lift up my tummy" in order to void. Vital signs are stable. Will get basic lab work and provide her with IV fluids and medication. Patient's agreeable to plan of care. Serum labs are nonspecific, show no acute findings. Urine is negative. Her urine also shows 90-100 red blood cells with large occult blood. No concern for UTI. We will get a CT scan to rule out kidney stone. Obstructing 5 x 3 x 4 millimeter stone in the proximal left ureter just below the UPJ producing mild left hydronephrosis with perinephric fat stranding. A few tiny nonobstructing left intrarenal stones and several small nonobstructing right intrarenal stones are also present. 2120: I spoke with Dr. Mondragon, urologist at [facility]. He states that the patient can follow-up with him next week. Recommend she calls at 8 AM on Saturday to schedule an appointment. Patient's pain is controlled with the medication I gave her here. We will give her a limited amount for home as she does take hydrocodone on a daily basis. She was given strong instructions not to mix the 2 medications as she can have respiratory depression. She states she is aware. I have talked with the patient about today's findings, in addition to providing specific details for plan of care. Reassessment at the time of disposition demonstrates that the patient is in no acute distress. The patient is stable for discharge, counseling was provided and we discussed in great detail signs and symptoms that would prompt them to return to the Emergency Department. Medication, follow up and supportive care measures were reviewed and discussed. Voices understanding and is agreeable to plan of care. Denies any further questions or concerns at this time. Diagnostics: CBC, CMP, UA, HCGU, Lipase Therapeutics: IV fluid, Zofran, Toradol Prescription: Flomax, Percocet Impression: Kidney stone Plan: 1. You were evaluated today on an emergent basis. Your CT scan shows a 5 x 3 x 4 millimeter stone on the left side causing pain. Increase your fluids. Take the Flomax as directed. Call Saturday morning at 8 AM to schedule your appointment with urology. 2. You can alternate Tylenol and ibuprofen as needed for pain and fever management. 3. I spoke with Dr. Mondragon, urologist at [facility] in [place]. He states that the patient can follow-up with him next week. Recommend she calls at 8 AM on Saturday to schedule an appointment. Tell them that you were in the emergency room for a kidney stone and Dr. Delgado told you to call to set up an appointment to be "squeezed in" next week. 4. If your symptoms should worsen, new symptoms develop or any of the signs and symptoms we discussed should arise please return to the emergency room or call 911 (if needed). Definitive disposition and diagnosis as appropriate pending reevaluation and review of above. left flank Pain Score (Numeric/FACES): 8 - Related Data Allergies Allergy/AdvReac Type Severity Reaction Status Date / Time baclofen Allergy Headache Verified 01/27/21 20:02 codeine Allergy Hives Verified 01/27/21 20:02 metronidazole [From Flagyl] Allergy Hives Verified 01/27/21 20:02 morphine Allergy Airway Verified 01/27/21 20:02 Tightness Penicillins Allergy Hives Verified 01/27/21 20:02 Sulfa (Sulfonamide Allergy Hives Verified 01/27/21 20:02 Antibiotics) tramadol Allergy Headache Verified 01/27/21 20:02 Home Meds: Home Meds Lansoprazole [Prevacid] 15 mg PO ACBREAKFAST 04/21/20 [History] lamoTRIgine [Lamotrigine] 150 mg PO DAILY 04/21/20 [History] Diclofenac Sodium [Voltaren] 75 mg PO BIDMEALS PRN #30 tab.cr 06/09/20 [Rx] Gabapentin [Neurontin] 900 mg PO TID 08/11/20 [History] QUEtiapine Fumarate [Seroquel] 50 mg PO QPM 08/11/20 [History] Cetirizine [ZyrTEC] 10 mg PO DAILY 11/01/20 [History] Cyclobenzaprine [Flexeril] 10 mg PO TID 11/01/20 [History] Diclofenac Sodium [Voltaren 1% Gel] 1 applic TOP QID PRN 11/01/20 [History] Hydrocodone/Acetaminophen [Hydrocodon-Acetaminoph 7.5-325] 1 each PO Q8H 11/01/20 [History] Ondansetron [Zofran ODT] 4 mg PO Q6H PRN #8 tab.dis 11/01/20 [Rx] Acetaminophen/oxyCODONE [Percocet 325-5 MG] 1 each PO Q8HR PRN 5 Days #15 tab 01/03/21 [Rx] Clindamycin HCl 300 mg PO TID 7 Days #21 capsule 01/03/21 [Rx] Tamsulosin HCl [Flomax] 0.4 mg PO DAILY 5 Days #5 cap 01/27/21 [Rx] Past Medical History - Past Health History Medical/Surgical History: Denies Medical/Surgical History HEENT History: Reports: 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) Other HEENT History: top and bottom partial Cardiovascular History: Reports: Hypertension Respiratory History: Reports: Asthma, PE Other Respiratory History: PE 3 years ago Gastrointestinal History: Reports: GERD Genitourinary History: Reports: UTI, Recurrent 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: Musculoskeletal History: Reports: Back Pain, Chronic Neurological History: Reports: None Psychiatric History: Reports: Anxiety, Depression Endocrine/Metabolic History: Reports: Obesity/BMI 30+, Vitamin D Deficiency Hematologic History: Reports: Iron Deficiency Immunologic History: Reports: None Oncologic (Cancer) History: Reports: None Dermatologic History: Reports: None - Infectious Disease History Infectious Disease History: Reports: Chicken Pox - Past Surgical History Head Surgeries/Procedures: Reports: None HEENT Surgical History: Reports: Oral Surgery Other HEENT Surgeries/Procedures: teeth removal Cardiovascular Surgical History: Reports: None Respiratory Surgical History: Reports: None GI Surgical History: Reports: Appendectomy, Cholecystectomy Female Surgical History: Reports: Hysterectomy, Tubal Ligation, 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) Other Female Surgeries/Procedures: diagnostic laparoscopy Endocrine Surgical History: Reports: None Neurological Surgical History: Reports: None Musculoskeletal Surgical History: Reports: None Oncologic Surgical History: Reports: None Dermatological Surgical History: Reports: None Social & Family History - Family History Family Medical History: No Pertinent Family History - Caffeine Use Caffeine Use: Reports: None, Coffee ED ROS GENERAL - Review of Systems Review Of Systems: Comprehensive ROS is negative, except as noted in HPI. ED EXAM,LOWER BACK PAIN/INJURY - Physical Exam Exam: See Below (See dictation) Course - Vital Signs Last Recorded V/S: Last Vital Signs Temp 97.4 F 01/27/21 20:00 Pulse 80 01/27/21 21:22 Resp 20 01/27/21 21:22 BP 172/100 H 01/27/21 21:22 Pulse Ox 100 01/27/21 21:22 - Orders/Labs/Meds Labs: Laboratory Tests 01/27/21 01/27/21 01/27/21 Range/Units 20:00 20:00 20:10 WBC 10.85 (4.0-11.0) K/uL RBC 3.87 L (4.30-5.90) M/uL Hgb 12.4 (12.0-16.0) g/dL Hct 36.1 (36.0-46.0) % MCV 93.3 (80.0-98.0) fL MCH 32.0 (27.0-32.0) pg MCHC 34.3 (31.0-37.0) g/dL RDW Std Deviation 46.1 (28.0-62.0) fl RDW Coeff of Lashay 14 (11.0-15.0) % Plt Count 316 (150-400) K/uL MPV 10.50 (7.40-12.00) fL Neut % (Auto) 74.2 (48.0-80.0) % Lymph % (Auto) 17.8 (16.0-40.0) % Dolores % (Auto) 6.6 (0.0-15.0) % Eos % (Auto) 1.3 (0.0-7.0) % Baso % (Auto) 0.1 (0.0-1.5) % Neut # (Auto) 8.1 H (1.4-5.7) K/uL Lymph # (Auto) 1.9 (0.6-2.4) K/uL Dolores # (Auto) 0.7 (0.0-0.8) K/uL Eos # (Auto) 0.1 (0.0-0.7) K/uL Baso # (Auto) 0.0 (0.0-0.1) K/uL Nucleated RBC % 0.0 /100WBC Nucleated RBCs # 0 K/uL Sodium (136-145) mmol/L Potassium (3.5-5.1) mmol/L Chloride (98-107) mmol/L Carbon Dioxide (21.0-32.0) mmol/L BUN (7.0-18.0) mg/dL Creatinine (0.6-1.0) mg/dL Est Cr Clr Drug Dosing mL/min Estimated GFR (MDRD) ml/min Glucose (74-106) mg/dL Calcium (8.5-10.1) mg/dL Total Bilirubin (0.2-1.0) mg/dL AST (15-37) IU/L ALT (14-63) IU/L Alkaline Phosphatase (46-116) U/L Total Protein (6.4-8.2) g/dL Albumin (3.4-5.0) g/dL Globulin (2.6-4.0) g/dL Albumin/Globulin Ratio (0.9-1.6) Lipase (73-393) U/L Urine Color YELLOW Urine Appearance CLOUDY Urine pH 6.0 (5.0-8.0) Ur Specific [place] 1.025 (1.001-1.035) Urine Protein TRACE H (NEGATIVE) mg/dL Urine Glucose (UA) NEGATIVE (NEGATIVE) mg/dL Urine Ketones NEGATIVE (NEGATIVE) mg/dL Urine Occult Blood LARGE H (NEGATIVE) Urine Nitrite NEGATIVE (NEGATIVE) Urine Bilirubin NEGATIVE (NEGATIVE) Urine Urobilinogen 0.2 (<2.0) EU/dL Ur Leukocyte Esterase NEGATIVE (NEGATIVE) Urine RBC 90-100 (0-2/HPF) Urine WBC 0-2 (0-5/HPF) Ur Epithelial Cells MODERATE (NONE-FEW) Urine Bacteria RARE (NEGATIVE) Urine HCG, Qual NEGATIVE (NEGATIVE) 01/27/21 Range/Units 20:10 WBC (4.0-11.0) K/uL RBC (4.30-5.90) M/uL Hgb (12.0-16.0) g/dL Hct (36.0-46.0) % MCV (80.0-98.0) fL MCH (27.0-32.0) pg MCHC (31.0-37.0) g/dL RDW Std Deviation (28.0-62.0) fl RDW Coeff of Lashay (11.0-15.0) % Plt Count (150-400) K/uL MPV (7.40-12.00) fL Neut % (Auto) (48.0-80.0) % Lymph % (Auto) (16.0-40.0) % Dolores % (Auto) (0.0-15.0) % Eos % (Auto) (0.0-7.0) % Baso % (Auto) (0.0-1.5) % Neut # (Auto) (1.4-5.7) K/uL Lymph # (Auto) (0.6-2.4) K/uL Dolores # (Auto) (0.0-0.8) K/uL Eos # (Auto) (0.0-0.7) K/uL Baso # (Auto) (0.0-0.1) K/uL Nucleated RBC % /100WBC Nucleated RBCs # K/uL Sodium 138 (136-145) mmol/L Potassium 3.4 L (3.5-5.1) mmol/L Chloride 105 (98-107) mmol/L Carbon Dioxide 16.3 L (21.0-32.0) mmol/L BUN 18 (7.0-18.0) mg/dL Creatinine 1.1 H (0.6-1.0) mg/dL Est Cr Clr Drug Dosing 61.30 mL/min Estimated GFR (MDRD) 57.9 ml/min Glucose 151 H (74-106) mg/dL Calcium 8.3 L (8.5-10.1) mg/dL Total Bilirubin 0.2 (0.2-1.0) mg/dL AST 15 (15-37) IU/L ALT 21 (14-63) IU/L Alkaline Phosphatase 80 (46-116) U/L Total Protein 6.9 (6.4-8.2) g/dL Albumin 3.6 (3.4-5.0) g/dL Globulin 3.3 (2.6-4.0) g/dL Albumin/Globulin Ratio 1.1 (0.9-1.6) Lipase 48 L (73-393) U/L Urine Color Urine Appearance Urine pH (5.0-8.0) Ur Specific [place] (1.001-1.035) Urine Protein (NEGATIVE) mg/dL Urine Glucose (UA) (NEGATIVE) mg/dL Urine Ketones (NEGATIVE) mg/dL Urine Occult Blood (NEGATIVE) Urine Nitrite (NEGATIVE) Urine Bilirubin (NEGATIVE) Urine Urobilinogen (<2.0) EU/dL Ur Leukocyte Esterase (NEGATIVE) Urine RBC (0-2/HPF) Urine WBC (0-5/HPF) Ur Epithelial Cells (NONE-FEW) Urine Bacteria (NEGATIVE) Urine HCG, Qual (NEGATIVE) Meds: Medications Discontinued Medications Generic Name Dose Route Start Last Admin Trade Name Freq PRN Reason Stop Dose Admin Sodium Chloride 1,000 mls @ 999 mls/hr 01/27/21 20:03 01/27/21 20:15 Normal Saline IV 01/27/21 21:03 999 mls/hr STAT ONE Administration Ketorolac Tromethamine 30 mg 01/27/21 20:21 01/27/21 20:49 Ketorolac 30 Mg/Ml Sdv IVPUSH 01/27/21 20:22 30 mg ONETIME ONE Administration Ondansetron HCl 4 mg 01/27/21 20:03 01/27/21 20:15 Ondansetron 4 Mg/2 Ml Sdv IVPUSH 01/27/21 20:04 4 mg ONETIME ONE Administration Oxycodone/Acetaminophen 1 tab 01/27/21 20:53 01/27/21 21:16 Acetaminophen/Oxycodone 325-5 Mg Tab PO 01/27/21 20:54 1 tab ONETIME ONE Administration Tamsulosin HCl 0.4 mg 01/27/21 21:29 Tamsulosin 0.4 Mg Cap.Er PO 01/27/21 21:30 ONETIME ONE Departure - Departure Time of Disposition: 21:28 Disposition: Home, Self-Care 01 Clinical Impression: Kidney stone - Discharge Information Prescriptions: Tamsulosin HCl [Flomax] 0.4 mg PO DAILY 5 Days #5 cap Instructions: Kidney Stones, [id number] Referrals: Osei Rogel MD [Primary Care Provider] - Forms: ED Department Discharge Additional Instructions: The following information is given to patients seen in the emergency department who are being discharged to home. This information is to outline your options for follow-up care. We provide all patients seen in our emergency department with a follow-up referral. The need for follow-up, as well as the timing and circumstances, are variable depending upon the specifics of your emergency department visit. If you don't have a primary care physician on staff, we will provide you with a referral. We always advise you to contact your personal physician following an emergency department visit to inform them of the circumstance of the visit and for follow-up with them and/or the need for any referrals to a consulting specialist. The emergency department will also refer you to a specialist when appropriate. This referral assures that you have the opportunity for follow-up care with a specialist. All of these measure are taken in an effort to provide you with optimal care, which includes your follow-up. Under all circumstances we always encourage you to contact your private physician who remains a resource for coordinating your care. When calling for follow-up care, please make the office aware that this follow-up is from your re cent emergency room visit. If for any reason you are refused follow-up, please contact the [facility] Emergency Department at and asked to speak to the emergency department charge nurse. [facility] [address] [place] [address] [id number] [address] [address] Thank you for choosing the [facility] emergency department in [place] for your medical needs today. It was a pleasure caring for you. Today you were seen in the emergency department for kidney stone. 1. You were evaluated today on an emergent basis. Your CT scan shows a 5 x 3 x 4 millimeter stone on the left side causing pain. Increase your fluids. Take the Flomax as directed. Call Saturday at 8 AM to schedule your appointment with urology. 2. You can alternate Tylenol and ibuprofen as needed for pain and fever management. 3. I spoke with Dr. Mondragon, urologist at [facility] in [place]. He states that the patient can follow-up with him next week. Recommend she calls at 8 AM on Saturday to schedule an appointment. Tell them that you were in the emergency room for a kidney stone and Dr. Delgado told you to call to set up an appointment to be "squeezed in" next week. 4. If your symptoms should worsen, new symptoms develop or any of the signs and symptoms we discussed should arise please return to the emergency room or call 911 (if needed). Sepsis Event Note (ED) - Focused Exam Vital Signs: Vital Signs Temp Pulse Resp BP Pulse Ox 01/27/21 21:22 80 20 172/100 H 100 01/27/21 20:00 97.4 F 108 H 18 137/95 H 98
[2021-01-27] MEDS ORDERED: Ketorolac 30 MG/ML SDV IVPUSH ONE (20:21)
[2021-01-27 20:45] LABS: CARBON DIOXIDE,CO2 16.3 mmol/L (21.0-32.0); POTASSIUM,K 3.4 mmol/L (3.5-5.1)
[2021-01-27] MEDS ORDERED: Acetaminophen/oxyCODONE 325-5 MG Tab PO ONE (20:53)
--- NOTE | 2021-01-27 21:21 | CT ---
INDICATION: Left flank pain. CT ABDOMEN AND PELVIS WITHOUT CONTRAST TECHNIQUE: Multidetector CT imaging was performed through the abdomen and pelvis without intravenous contrast administration. Coronal and sagittal reconstructions were generated. COMPARISON: 09/27/2020 CT abdomen and pelvis. FINDINGS: Lower chest: Minimal bibasilar atelectatic changes. Liver: Within normal limits. Gallbladder and bile ducts: Status post cholecystectomy, as before. Stable mild fullness of the biliary tree consistent with post cholecystectomy reservoir effect. Pancreas: Unremarkable. Spleen: Normal. Adrenals: No nodules or masses. Kidneys, ureters, and urinary bladder: Obstructing 5 x 3 x 4 millimeter stone in the proximal left ureter just below the ureteropelvic junction producing mild left hydronephrosis with perinephric fat stranding. A few tiny nonobstructing left intrarenal stones and several small nonobstructing right intrarenal stones are also present. No right hydronephrosis. No bladder mass or definite wall thickening. Gastrointestinal tract: Normal caliber bowel without wall thickening. The appendix is not identified. Vascular structures: Normal for age. Peritoneum: No free air, abscess, or significant free fluid. Lymph nodes: No pathologically enlarged nodes identified. Reproductive organs: Status post hysterectomy, as before. No pelvic masses. Bones: Minor spinal degenerative changes. Stable sclerotic focus in the right femoral head likely representing a bone island. IMPRESSION: 1. Obstructing 5 x 3 x 4 millimeter stone in the proximal left ureter producing mild left hydronephrosis. 2. Nonacute additional findings as detailed above. COLLETTE LYNN MD [employer] Dictated by Alfonso Lynn MD @ 01/27/2021 9:18:31 PM Please note that all CT scans at this facility use dose modulation, iterative reconstruction, and/or weight-based dosing when appropriate to reduce radiation dose to as low as reasonably achievable. Dictated by: Alfonso Lynn MD @ 01/27/2021 21:19:10 (Electronically Signed)
[2021-01-27] MEDS ORDERED: Tamsulosin 0.4 MG Cap.ER PO ONE (21:29)
== END 2021-01-27 21:41 | disposition home or self-care (01) ==
LOC: MW.ED 19:51
DX: N13.2 Hydronephrosis with renal and ureteral calculous obstruction (principal); K21.9 Gastro-esophageal reflux disease without esophagitis; E66.9 Obesity, unspecified; Z68.30 Body mass index [BMI] 30.0-30.9, adult; Z79.899 Other long term (current) drug therapy; Z88.0 Allergy status to penicillin; Z88.5 Allergy status to narcotic agent; Z88.2 Allergy status to sulfonamides; Z88.8 Allergy status to other drugs, medicaments and biological substances
CPT/HCPCS: 36415; 74176; 80053; 81001; 81025; 83690; 85025; 96374; 96375; 99284; A9270; J1885; J2405; J7030

== ENCOUNTER 2021-02-01 16:23 | Emergency (ER) | payer MEDICAID ==
[2021-02-01] MEDS ORDERED: Ondansetron 4 MG/2 ML SDV IVPUSH ONE (18:03)
[2021-02-01] MEDS ORDERED: Sodium Chloride 0.9% 1,000 ML IV ONE (18:03)
[2021-02-01] MEDS ORDERED: HYDROmorphone 1 MG/ML Syringe IVPUSH ONE (18:03)
[2021-02-01] MEDS ORDERED: Ketorolac 30 MG/ML SDV IVPUSH ONE (18:04)
[2021-02-01 18:32] LABS: BLOOD UREA NITROGEN,BUN 12 mg/dL (7.0-18.0); CARBON DIOXIDE,CO2 29.1 mmol/L (21.0-32.0); CHLORIDE,CL 105 mmol/L (98-107); GLUCOSE RANDOM 103 mg/dL (74-106); POTASSIUM,K 4.4 mmol/L (3.5-5.1); SODIUM,NA 141 mmol/L (136-145)
--- NOTE | 2021-02-01 19:45 | CT ---
Indication: Recent stone. Increased pain. Technique: A CT volumetric acquisition was performed of the abdomen and pelvis without IV contrast. Comparison: CT abdomen pelvis dated 01/27/2021 Findings: The lung bases are clear. The patient`s liver, spleen and pancreas appear normal. The gallbladder CT abnormal morphology. As compared to the recent exam dated 01/27/2021 there has been migration of a 3 mm stone into the right ureteral pelvic juncture. Tiny nonobstructing calculi are noted within the upper, mid and lower pole. There has been no change in a 5 mm calculus within the proximal left ureter with mild hydronephrosis. Additional tiny nonobstructing calculi are noted within the upper and lower pole of the left kidney. There is no evidence of fluid stranding about either ureter which would indicate forniceal rupture. The small intestine and colon appear normal. There are no suspicious adnexal masses. There is a persistent trace amount of dependent fluid in the lower cul-de-sac. Urinary bladder appears normal. Impression: Recent passage of a right-sided 3 mm calculus into the ureteropelvic juncture. Stage 5 mm calculus within the proximal left ureter. Please note that all CT scans at this facility use dose modulation, iterative reconstruction, and/or weight-based dosing when appropriate to reduce radiation dose to as low as reasonably achievable. Dictated by Nikita Willingham MD @ 02/01/2021 7:43:[address] Nikita Willingham @ Feb 01 2021 7:43PM
--- NOTE | 2021-02-01 20:16 | EDM.PDOC ---
ED HPI GENERAL MEDICAL PROBLEM - General Chief Complaint: Genitourinary Problem Stated Complaint: PAIN FROM KIDNEY STONE Time Seen by Provider: 02/01/21 17:47 Source of Information: Reports: Patient History Limitations: Reports: No Limitations - History of Present Illness INITIAL COMMENTS - FREE TEXT/NARRATIVE: HISTORY AND PHYSICAL: History of present illness: Patient is a 30-year-old female who presents emergency room today with known kidney stone after having left-sided flank pain on 01/27/2021. Patient states that she ran out of her Percocet and Flomax last night and states that she began having returning of her left-sided flank pain today and states it is is the same pain that she has been having, but is unable to control the pain as she ran out of medication. Patient states that she has an appointment this coming Saturday with a urologist at [facility] in [place], Dr. Muller. Patient denies any other symptoms or concerns. Patient has a hysterectomy and states that she cannot be . Patient denies fever, chills, chest pain, shortness of breath, or cough. Denies headache, neck stiff ness, change in vision, syncope, or near syncope. Denies nausea, vomiting, diarrhea, constipation, or dysuria. Has not noted any blood in urine or stool. Patient has been eating and drinking appropriately. Review of systems: As per history of present illness and below otherwise all systems reviewed and negative. Past medical history: As per history of present illness and as reviewed below otherwise noncontributory. Surgical history: As per history of present illness and as reviewed below otherwise noncontributory. Social history: See social history for further information Family history: As per history of present illness and as reviewed below otherwise non contributory. Physical exam: General: Patient is alert, oriented, and in no acute distress. Patient sitting on exam table, tearful on exam holding left flank. Otherwise, vitally stable and reviewed by me HEENT: Atraumatic, normocephalic, pupils equal and reactive bilaterally, negative for conjunctival pallor or scleral icterus, mucous membranes moist, TMs normal bilaterally, throat clear, neck supple, nontender, trachea midline. No drooling or trismus noted. No meningeal signs. No hot potato voice noted. Lungs: Clear to auscultation, breath sounds equal bilaterally, chest nontender. Heart: S1S2, regular rate and rhythm without overt murmur Abdomen: Soft, nondistended, nontender. Negative for masses or hepatosplenomegaly. Positive for costovertebral tenderness of the left. Pelvis: Stable nontender. Genitourinary: Deferred. Rectal: Deferred. Skin: Intact, warm, dry. No lesions or rashes noted. Extremities: Atraumatic, negative for cords or calf pain. Neurovascular unremarkable. Neuro: Awake, alert, oriented. Cranial nerves II through XII unremarkable. Cerebellum unremarkable. Motor and sensory unremarkable throughout. Exam nonfocal. Notes: Patient is a 30-year-old female presents emergency room today with concern of left flank pain that has been ongoing since a priorly diagnosed ureterolithiasis on 01/27/2021. Upon arrival to the ED, patient is tearful on exam with positive CVA tenderness of the left. Will repeat lab work, obtain urinalysis, and reassess abdominal pelvic CT without contrast. On chart review from 01/27/2021, at that time, patient was diagnosed with a pass ing ureteral lithiasis of the left. At that time, the provider had spoke with urologist at [facility] for follow-up. Patient was sent home with Percocet and Flomax. CBC shows mild decrease in red blood cells at 3.87, otherwise mild derangements of CBC unremarkable. CMP mild derangements are unremarkable. Urinalysis shows 20-30 red blood cells with 0 white blood cells, no bacteria, negative nitrite, negative leukocyte Estrace. Abdominal pelvic CT scan without contrast shows recent passage of a right-sided 3 mm calculus into the ureteropelvic juncture. Stable 5 mm calculus within the proximal left ureter. Upon reevaluation of patient, she has significant increase in her pain with therapeutics given today in the emergency room. Patient does have an appointment this coming Saturday with urology at [facility] in [place], Dr. Muller. Will give patient enough Percocet and Flomax until she is able to be seen by urology on Saturday. Strict return precautions thoroughly discussed with patient. Discussed importance for follow-up with urologist. Voices understanding and is agreeable to plan of care. Denies any further questions or concerns at this time. Diagnostics: CBC, CMP, UA, abdominal pelvic CT without contrast Therapeutics: Toradol, Dilaudid, normal saline, Zofran Prescription: Flomax, Percocet (#15) Impression: Ureterolithiasis Plan: 1. Take medication as prescribed. You can also alternate ibuprofen and Tylenol as directed for pain and discomfort. Caution when using Percocet as this medication causes drowsiness and sedation so do not take this medication operate any heavy equipment, drive any vehicles, and caution when outside of the home. 2. Follow-up with urologist as scheduled and as discussed. Return to the ED as needed and as discussed. Definitive disposition and diagnosis as appropriate pending reevaluation and review of above. right flank Pain Score (Numeric/FACES): 9 - Related Data Allergies Allergy/AdvReac Type Severity Reaction Status Date / Time baclofen Allergy Headache Verified 02/01/21 17:10 codeine Allergy Hives Verified 02/01/21 17:10 metronidazole [From Flagyl] Allergy Hives Verified 02/01/21 17:10 morphine Allergy Airway Verified 02/01/21 17:10 Tightness Penicillins Allergy Hives Verified 02/01/21 17:10 Sulfa (Sulfonamide Allergy Hives Verified 02/01/21 17:10 Antibiotics) tramadol Allergy Headache Verified 02/01/21 17:10 Home Meds: Home Meds Lansoprazole [Prevacid] 15 mg PO ACBREAKFAST 04/21/20 [History] lamoTRIgine [Lamotrigine] 150 mg PO DAILY 04/21/20 [History] Diclofenac Sodium [Voltaren] 75 mg PO BIDMEALS PRN #30 tab.cr 06/09/20 [Rx] Gabapentin [Neurontin] 900 mg PO TID 08/11/20 [History] QUEtiapine Fumarate [Seroquel] 50 mg PO QPM 08/11/20 [History] Cetirizine [ZyrTEC] 10 mg PO DAILY 11/01/20 [History] Cyclobenzaprine [Flexeril] 10 mg PO TID 11/01/20 [History] Diclofenac Sodium [Voltaren 1% Gel] 1 applic TOP QID PRN 11/01/20 [History] Hydrocodone/Acetaminophen [Hydrocodon-Acetaminoph 7.5-325] 1 each PO Q8H 11/01/20 [History] Ondansetron [Zofran ODT] 4 mg PO Q6H PRN #8 tab.dis 11/01/20 [Rx] Acetaminophen/oxyCODONE [Percocet 325-5 MG] 1 each PO Q8HR PRN 5 Days #15 tab 01/03/21 [Rx] Clindamycin HCl 300 mg PO TID 7 Days #21 capsule 01/03/21 [Rx] Tamsulosin HCl [Flomax] 0.4 mg PO DAILY 5 Days #5 cap 01/27/21 [Rx] Acetaminophen/oxyCODONE [Percocet 325-5 MG] 1 each PO Q8H PRN 5 Days #15 tab 02/01/21 [Rx] Ondansetron [Zofran ODT] 4 mg PO Q6H PRN #8 tab.dis 02/01/21 [Rx] Tamsulosin HCl [Flomax] 0.4 mg PO DAILY #5 cap.er.24h 02/01/21 [Rx] Past Medical History - Past Health History Medical/Surgical History: Denies Medical/Surgical History HEENT History: Reports: 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) Other HEENT History: top and bottom partial Cardiovascular History: Reports: Hypertension Respiratory History: Reports: Asthma, PE Other Respiratory History: PE 3 years ago Gastrointestinal History: Reports: GERD Genitourinary History: Reports: UTI, Recurrent 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: Musculoskeletal History: Reports: Back Pain, Chronic Neurological History: Reports: None Psychiatric History: Reports: Anxiety, Depression Endocrine/Metabolic History: Reports: Obesity/BMI 30+, Vitamin D Deficiency 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[employer] Association: None Hematologic History: Reports: Iron Deficiency Immunologic History: Reports: None Oncologic (Cancer) History: Reports: None Dermatologic History: Reports: None - Infectious Disease History Infectious Disease History: Reports: Chicken Pox - Past Surgical History Head Surgeries/Procedures: Reports: None HEENT Surgical History: Reports: Oral Surgery Other HEENT Surgeries/Procedures: teeth removal Cardiovascular Surgical History: Reports: None Respiratory Surgical History: Reports: None GI Surgical History: Reports: Appendectomy, Cholecystectomy Female Surgical History: Reports: Hysterectomy, Tubal Ligation, 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) Other Female Surgeries/Procedures: diagnostic laparoscopy Endocrine Surgical History: Reports: None Neurological Surgical History: Reports: None Musculoskeletal Surgical History: Reports: None Oncologic Surgical History: Reports: None Dermatological Surgical History: Reports: None Social & Family History - Family History Family Medical History: No Pertinent Family History - Tobacco Use Tobacco Use Status *Q: Current Every Day Tobacco User Years of Tobacco use: 15 Packs/Tins Daily: 0.5 - Caffeine Use Caffeine Use: Reports: None, Coffee - Recreational Drug Use Recreational Drug Use: Yes Recreational Drug Type: Reports: Marijuana/Hashish Recreational Drug Use Frequency: Rarely ED ROS GENERAL - Review of Systems Review Of Systems: Comprehensive ROS is negative, except as noted in HPI. ED EXAM, GENERAL - Physical Exam Exam: See Below (See dictation) Course - Vital Signs Last Recorded V/S: Last Vital Signs Temp 97.2 F 02/01/21 20:30 Pulse 63 02/01/21 20:30 Resp 18 02/01/21 20:30 BP 153/85 H 02/01/21 20:30 Pulse Ox 18 L 02/01/21 20:30 - Orders/Labs/Meds Labs: Laboratory Tests 02/01/21 02/01/21 02/01/21 Range/Units 17:13 18:00 18:00 WBC 8.93 (4.0-11.0) K/uL RBC 3.87 L (4.30-5.90) M/uL Hgb 12.2 (12.0-16.0) g/dL Hct 36.7 (36.0-46.0) % MCV 94.8 (80.0-98.0) fL MCH 31.5 (27.0-32.0) pg MCHC 33.2 (31.0-37.0) g/dL RDW Std Deviation 46.3 (28.0-62.0) fl RDW Coeff of Lash[place] 13 (11.0-15.0) % Plt Count 326 (150-400) K/uL MPV 10.20 (7.40-12.00) fL Neut % (Auto) 70.1 (48.0-80.0) % Lymph % (Auto) 21.6 (16.0-40.0) % [place] % (Auto) 5.4 (0.0-15.0) % Eos % (Auto) 2.6 (0.0-7.0) % Baso % (Auto) 0.3 (0.0-1.5) % Neut # (Auto) 6.3 H (1.4-5.7) K/uL Lymph # (Auto) 1.9 (0.6-2.4) K/uL [place] # (Auto) 0.5 (0.0-0.8) K/uL Eos # (Auto) 0.2 (0.0-0.7) K/uL Baso # (Auto) 0.0 (0.0-0.1) K/uL Nucleated RBC % 0.0 /100WBC Nucleated RBCs # 0 K/uL Sodium 141 (136-145) mmol/L Potassium 4.4 (3.5-5.1) mmol/L Chloride 105 (98-107) mmol/L Carbon Dioxide 29.1 (21.0-32.0) mmol/L BUN 12 (7.0-18.0) mg/dL Creatinine 0.7 (0.6-1.0) mg/dL Est Cr Clr Drug Dosing 96.33 mL/min Estimated GFR (MDRD) > 60.0 ml/min Glucose 103 (74-106) mg/dL Calcium 9.0 (8.5-10.1) mg/dL Total Bilirubin 0.0 L (0.2-1.0) mg/dL AST 10 L (15-37) IU/L ALT 16 (14-63) IU/L Alkaline Phosphatase 86 (46-116) U/L Total Protein 6.9 (6.4-8.2) g/dL Albumin 3.5 (3.4-5.0) g/dL Globulin 3.4 (2.6-4.0) g/dL Albumin/Globulin Ratio 1.0 (0.9-1.6) Urine Color YELLOW Urine Appearance CLEAR Urine pH 6.0 (5.0-8.0) Ur Specific [place] 1.020 (1.001-1.035) Urine Protein NEGATIVE (NEGATIVE) mg/dL Urine Glucose (UA) NEGATIVE (NEGATIVE) mg/dL Urine Ketones NEGATIVE (NEGATIVE) mg/dL Urine Occult Blood LARGE H (NEGATIVE) Urine Nitrite NEGATIVE (NEGATIVE) Urine Bilirubin NEGATIVE (NEGATIVE) Urine Urobilinogen 0.2 (<2.0) EU/dL Ur Leukocyte Esterase NEGATIVE (NEGATIVE) Urine RBC 20-30 (0-2/HPF) Urine WBC 0-1 (0-5/HPF) Ur Epithelial Cells FEW (NONE-FEW) Urine Bacteria RARE (NEGATIVE) Meds: Medications Discontinued Medications Generic Name Dose Route Start Last Admin Trade Name Freq PRN Reason Stop Dose Admin Hydromorphone HCl 1 mg 08/18/21 18:03 02/01/21 18:16 Hydromorphone 1 Mg/Ml Syringe IVPUSH 02/01/21 18:04 1 mg ONETIME ONE Administration Sodium Chloride 1,000 mls @ 999 mls/hr 02/01/21 18:03 02/01/21 18:15 Normal Saline IV 02/01/21 19:03 999 mls/hr STAT ONE Administration Ketorolac Tromethamine 30 mg 02/01/21 18:04 02/01/21 18:15 Ketorolac 30 Mg/Ml Sdv IVPUSH 02/01/21 18:05 30 mg ONETIME ONE Administration Ondansetron HCl 4 mg 02/01/21 18:03 02/01/21 18:16 Ondansetron 4 Mg/2 Ml Sdv IVPUSH 02/01/21 18:04 4 mg ONETIME ONE Administration Departure - Departure Time of Disposition: 20:12 Disposition: Home, Self-Care 01 Clinical Impression: Ureterolithiasis - Discharge Information Prescriptions: Tamsulosin HCl [Flomax] 0.4 mg PO DAILY #5 cap.er.24h Acetaminophen/oxyCODONE [Percocet 325-5 MG] 1 each PO Q8H PRN 5 Days #15 tab PRN Reason: Pain (Severe 7-10) Ondansetron [Zofran ODT] 4 mg PO Q6H PRN #8 tab.dis PRN Reason: Nausea/Vomiting Instructions: Kidney Stones, [id number] Referrals: Osei Rogel MD [Primary Care Provider] - Forms: ED Department Discharge Additional Instructions: The following information is given to patients seen in the emergency department who are being discharged to home. This information is to outline your options for follow-up care. We provide all patients seen in our emergency department with a follow-up referral. The need for follow-up, as well as the timing and circumstances, are variable depending upon the specifics of your emergency department visit. If you don't have a primary care physician on staff, we will provide you with a referral. We always advise you to contact your personal physician following an emergency department visit to inform them of the circumstance of the visit and for follow-up with them and/or the need for any referrals to a consulting specialist. The emergency department will also refer you to a specialist when appropriate. This referral assures that you have the opportunity for follow-up care with a specialist. All of these measure are taken in an effort to provide you with optimal care, which includes your follow-up. Under all circumstances we always encourage you to contact your private physician who remains a resource for coordinating your care. When calling for follow-up care, please make the office aware that this follow-up is from your recent emergency room visit. If for any reason you are refused follow-up, please contact the [facility] Emergency Department at and asked to speak to the emergency department charge nurse. [facility] [address] [place] [address] [facility] [address] [place] [id number] Erica Muller DO, FACOS, Urology [address] [address], 5th floor 1. Take medication as prescribed. You can also alternate ibuprofen and Tylenol as directed for pain and discomfort. Caution when using Percocet as this medication causes drowsiness and sedation so do not take this medication operate any heavy equipment, drive any vehicles, and caution when outside of the home. 2. Follow-up with urologist as scheduled and as discussed. Return to the ED as needed and as discussed. Sepsis Event Note (ED) - Evaluation Sepsis Screening Result: No Definite Risk - Focused Exam Vital Signs: Vital Signs Temp Pulse Resp BP Pulse Ox 02/01/21 20:30 97.2 F 63 18 153/85 H 18 L 02/01/21 18:24 83 19 157/105 H 100 02/01/21 17:07 96.8 F L 82 18 157/105 H 98
== END 2021-02-01 20:29 | disposition home or self-care (01) ==
LOC: MW.ED 16:23
DX: N13.2 Hydronephrosis with renal and ureteral calculous obstruction (principal); K21.9 Gastro-esophageal reflux disease without esophagitis; I10 Essential (primary) hypertension; E66.9 Obesity, unspecified; Z68.29 Body mass index [BMI] 29.0-29.9, adult; Z72.0 Tobacco use; Z88.5 Allergy status to narcotic agent; Z88.8 Allergy status to other drugs, medicaments and biological substances; Z88.1 Allergy status to other antibiotic agents; Z79.899 Other long term (current) drug therapy
CPT/HCPCS: 36415; 74176; 80053; 81001; 85025; 96374; 96375; 99284; J1170; J1885; J2405; J7030

== ENCOUNTER 2021-02-12 19:46 | Emergency (ER) | payer MEDICAID, OTHER ==
--- NOTE | 2021-02-12 22:02 | EDM.PDOC ---
ED HPI GENERAL MEDICAL PROBLEM - General Chief Complaint: Genitourinary Problem Stated Complaint: KIDNEY STONES Time Seen by Provider: 02/12/21 21:22 Source of Information: Reports: Patient History Limitations: Reports: No Limitations - History of Present Illness INITIAL COMMENTS - FREE TEXT/NARRATIVE: Patient is a 30-year-old female who presents today for pain control. Patient was told she had kidney stones earlier this month and has come twice before for the stones. On the CAT scan it showed a 5 mm stone but states she went to [facility] and was told she would need a procedure on Saturday to help break up the stones. Patient states she cannot wait Saturday the pain is still present and she ran out of pain meds. She also has some nausea but has been taking Zofran at home that she received from her previous prescription. She denies any blood in her urine. Said the pain is not made better or worse with anything. She denies any other associated symptoms. Left Lower Pelvic Pain Score (Numeric/FACES): 9 - Related Data Allergies Allergy/AdvReac Type Severity Reaction Status Date / Time baclofen Allergy Headache Verified 02/01/21 17:10 codeine Allergy Hives Verified 02/01/21 17:10 metronidazole [From Flagyl] Allergy Hives Verified 02/01/21 17:10 morphine Allergy Airway Verified 02/01/21 17:10 Tightness Penicillins Allergy Hives Verified 02/01/21 17:10 Sulfa (Sulfonamide Allergy Hives Verified 02/01/21 17:10 Antibiotics) tramadol Allergy Headache Verified 02/01/21 17:10 Home Meds: Home Meds Lansoprazole [Prevacid] 15 mg PO ACBREAKFAST 04/21/20 [History] lamoTRIgine [Lamotrigine] 150 mg PO DAILY 04/21/20 [History] Diclofenac Sodium [Voltaren] 75 mg PO BIDMEALS PRN #30 tab.cr 06/09/20 [Rx] Gabapentin [Neurontin] 900 mg PO TID 08/11/20 [History] QUEtiapine Fumarate [Seroquel] 50 mg PO QPM 08/11/20 [History] Cetirizine [ZyrTEC] 10 mg PO DAILY 11/01/20 [History] Cyclobenzaprine [Flexeril] 10 mg PO TID 11/01/20 [History] Diclofenac Sodium [Voltaren 1% Gel] 1 applic TOP QID PRN 11/01/20 [History] Hydrocodone/Acetaminophen [Hydrocodon-Acetaminoph 7.5-325] 1 each PO Q8H 11/01/20 [History] Ondansetron [Zofran ODT] 4 mg PO Q6H PRN #8 tab.dis 11/01/20 [Rx] Acetaminophen/oxyCODONE [Percocet 325-5 MG] 1 each PO Q8HR PRN 5 Days #15 tab 01/03/21 [Rx] Clindamycin HCl 300 mg PO TID 7 Days #21 capsule 01/03/21 [Rx] Tamsulosin HCl [Flomax] 0.4 mg PO DAILY 5 Days #5 cap 01/27/21 [Rx] Acetaminophen/oxyCODONE [Percocet 325-5 MG] 1 each PO Q8H PRN 5 Days #15 tab 02/01/21 [Rx] Ondansetron [Zofran ODT] 4 mg PO Q6H PRN #8 tab.dis 02/01/21 [Rx] Tamsulosin HCl [Flomax] 0.4 mg PO DAILY #5 cap.er.24h 02/01/21 [Rx] traMADol [Ultram] 50 mg PO Q6H PRN 3 Days #12 tab 02/12/21 [Rx] Past Medical History - Past Health History Medical/Surgical History: Denies Medical/Surgical History HEENT History: Reports: 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) Other HEENT History: top and bottom partial Cardiovascular History: Reports: Hypertension Respiratory History: Reports: Asthma, PE Other Respiratory History: PE 3 years ago Gastrointestinal History: Reports: GERD Genitourinary History: Reports: UTI, Recurrent [employer] History: Reports: Musculoskeletal History: Reports: Back Pain, Chronic Neurological History: Reports: None Psychiatric History: Reports: Anxiety, Depression Endocrine/Metabolic History: Reports: Obesity/BMI 30+, Vitamin D Deficiency 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 Hematologic History: Reports: Iron Deficiency Immunologic History: Reports: None Oncologic (Cancer) History: Reports: None Dermatologic History: Reports: None - Infectious Disease History Infectious Disease History: Reports: Chicken Pox - Past Surgical History Head Surgeries/Procedures: Reports: None HEENT Surgical History: Reports: Oral Surgery Other HEENT Surgeries/Procedures: teeth removal Cardiovascular Surgical History: Reports: None Respiratory Surgical History: Reports: None GI Surgical History: Reports: Appendectomy, Cholecystectomy Female Surgical History: Reports: Hysterectomy, Tubal Ligation, 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) Other Female Surgeries/Procedures: diagnostic laparoscopy Endocrine Surgical History: Reports: None Neurological Surgical History: Reports: None Musculoskeletal Surgical History: Reports: None Oncologic Surgical History: Reports: None Dermatological Surgical History: Reports: None Social & Family History - Family History Family Medical History: No Pertinent Family History - Caffeine Use Caffeine Use: Reports: None, Coffee ED ROS GENERAL - Review of Systems Review Of Systems: See Below Constitutional: Reports: No Symptoms HEENT: Reports: No Symptoms Respiratory: Reports: No Symptoms Cardiovascular: Reports: No Symptoms Endocrine: Reports: No Symptoms GI/Abdominal: Reports: Abdominal Pain : Reports: No Symptoms Musculoskeletal: Reports: No Symptoms Skin: Reports: No Symptoms Neurological: Reports: No Symptoms Psychiatric: Reports: No Symptoms Hematologic/Lymphatic: Reports: No Symptoms Immunologic: Reports: No Symptoms ED EXAM, GI/ABD - Physical Exam Exam: See Below Exam Limited By: No Limitations General Appearance: Alert, WD/WN, No Apparent Distress Neck: Normal Inspection Respiratory/Chest: No Respiratory Distress, Lungs Clear, Normal Breath Sounds Cardiovascular: Normal Peripheral Pulses, Regular Rate, Rhythm GI/Abdominal Exam: Normal Bowel Sounds, Soft, Non-Tender Extremities: Normal Inspection, Normal Range of Motion Neurological: Alert, Oriented, CN II-XII Intact, Normal Cognition, Normal Gait Course - Vital Signs Last Recorded V/S: Last Vital Signs Temp 97.2 F 02/12/21 21:59 Pulse 88 02/12/21 22:22 Resp 18 02/12/21 22:22 BP 131/72 02/12/21 22:22 Pulse Ox 97 02/12/21 22:22 - Orders/Labs/Meds Labs: Laboratory Tests 02/12/21 02/12/21 Range/Units 21:37 21:37 Urine Color YELLOW Urine Appearance CLEAR Urine pH 6.0 (5.0-8.0) Ur Specific Dana 1.025 (1.001-1.035) Urine Protein NEGATIVE (NEGATIVE) mg/dL Urine Glucose (UA) NEGATIVE (NEGATIVE) mg/dL Urine Ketones NEGATIVE (NEGATIVE) mg/dL Urine Occult Blood LARGE H (NEGATIVE) Urine Nitrite NEGATIVE (NEGATIVE) Urine Bilirubin NEGATIVE (NEGATIVE) Urine Urobilinogen 0.2 (<2.0) EU/dL Ur Leukocyte Esterase NEGATIVE (NEGATIVE) Urine RBC 17-21 (0-2/HPF) Urine WBC 0-1 (0-5/HPF) Ur Epithelial Cells FEW (NONE-FEW) Urine Bacteria FEW (NEGATIVE) Urine Mucus LIGHT (NONE-MOD) Urine HCG, Qual NEGATIVE (NEGATIVE) Meds: Medications Discontinued Medications Generic Name Dose Route Start Last Admin Trade Name Freq PRN Reason Stop Dose Admin Oxycodone/Acetaminophen 1 tab 02/12/21 23:07 Acetaminophen/Oxycodone 325-5 Mg Tab PO 02/12/21 23:08 ONETIME ONE Departure - Departure Time of Disposition: 23:10 Disposition: Home, Self-Care 01 Condition: Good Clinical Impression: Kidney stone - Discharge Information *PRESCRIPTION DRUG MONITORING PROGRAM REVIEWED*: Not Applicable *COPY OF PRESCRIPTION DRUG MONITORING REPORT IN PATIENT [place]: Not Applicable Prescriptions: traMADol [Ultram] 50 mg PO Q6H PRN 3 Days #12 tab PRN Reason: Pain (Severe 7-10) Instructions: Kidney Stones, [id number] Referrals: Osei Rogel MD [Primary Care Provider] - Forms: ED Department Discharge Additional Instructions: The following information is given to patients seen in the emergency department who are being discharged to home. This information is to outline your options for follow-up care. We provide all patients seen in our emergency department with a follow-up referral. The need for follow-up, as well as the timing and circumstances, are variable depending upon the specifics of your emergency department visit. If you don't have a primary care physician on staff, we will provide you with a referral. We always advise you to contact your personal physician following an emergency department visit to inform them of the circumstance of the visit and for follow-up with them and/or the need for any referrals to a consulting specialist. The emergency department will also refer you to a specialist when appropriate. This referral assures that you have the opportunity for follow-up care with a specialist. All of these measure are taken in an effort to provide you with optimal care, which includes your follow-up. Under all circumstances we always encourage you to contact your private physician who remains a resource for coordinating your care. When calling for follow-up care, please make the office aware that this follow-up is from your r ecent emergency room visit. If for any reason you are refused follow-up, please contact the [facility] Emergency Department at and asked to speak to the emergency department charge nurse. Please follow up with your primary care physician. If you do not have a primary care physician, see below: [facility] [address] [place] [address] [facility] [address], [place] [id number] You were seen today for pain likely related to your kidney stones. We had to repeat this CT scan and we do see that you have a 3 mm stone. You are scheduled for procedure this Saturday you state to have the stone removed. Please continue to follow-up to the appointment. We did give you some pain medicine to last until that appointment. Please otherwise follow-up to primary care physician. Sepsis Event Note (ED) - Focused Exam Vital Signs: Vital Signs Temp Pulse Resp BP Pulse Ox 02/12/21 22:22 88 18 131/72 97 02/12/21 21:59 97.2 F 84 122/79 98 - Assessment/Plan Plan: Patient is a 30-year-old female who presents today for pain control. Patient states that she had a kidney stone. Based of the old records patient had a 5 mm stone and likely a 3 mm stone in the past. Patient states she was seen at [facility] and scheduled have a procedure done. Due to the patient having a recent prescription of narcotics we will have to check to system and also may be reimaged patient see if she needs any more narcotics until Saturday.
--- NOTE | 2021-02-12 22:59 | CT ---
INDICATION: Flank pain TECHNIQUE: CT Abdomen and pelvis without i.v. contrast. Coronal and sagittal reformats were obtained. COMPARISON: None FINDINGS: Lower chest: Unremarkable. Liver: Unremarkable. Spleen: Unremarkable. Pancreas: Unremarkable. Gallbladder: Previous cholecystectomy noted without significant intra- or extrahepatic biliary ductal dilatation seen. Kidney: There is a 3 mm stone present in the proximal left ureter causing mild left renal pelviectasis. Intrarenal stones are present bilaterally with the largest in the right lower pole measuring 6 mm. Adrenal: Unremarkable. Bowel: Unremarkable. The appendix is not identified. Vascular: Unremarkable. Lymph: Unremarkable. Peritoneum: Unremarkable. No pneumoperitoneum is seen. A small amount of ascites is present and is likely physiologic in origin. Pelvis: The patient is status post prior hysterectomy. The right ovary is obscured and difficult to visualize but may be mildly enlarged measuring 3.4 cm on image 138. This could be better assessed by outpatient pelvic ultrasound. Soft tissue: Unremarkable. Bone: There is a round sclerotic lesion present within the right femoral head measuring 10 mm. There is an oblong sclerotic lesion along the anterior cortex of T11 measuring 11 x 0.5 mm. IMPRESSIONS: 1. There is a 3 mm stone present in the proximal left ureter causing mild left renal pelviectasis. 2. There is a round sclerotic lesion present within the right femoral head measuring 10 mm. There is an oblong sclerotic lesion along the anterior cortex of T11 measuring 11 x 0.5 mm. These may represent a giant bone islands. Further assessment with bone scan or MRI may be helpful if the patient has a history of primary malignancy. Dictated by Richard Mora MD @ 02/12/2021 10:56:53 PM Please note that all CT scans at this facility use dose modulation, iterative reconstruction, and/or weight-based dosing when appropriate to reduce radiation dose to as low as reasonably achievable. Dictated by: Richard Mora MD @ 02/12/2021 22:56:58 (Electronically Signed)
[2021-02-12] MEDS: Acetaminophen/oxyCODONE 325-5 MG Tab PO ONE (23:11)
== END 2021-02-12 23:28 | disposition home or self-care (01) ==
LOC: MW.ED 19:46
DX: N20.2 Calculus of kidney with calculus of ureter (principal); I10 Essential (primary) hypertension; K21.9 Gastro-esophageal reflux disease without esophagitis; J45.909 Unspecified asthma, uncomplicated; E66.9 Obesity, unspecified; Z68.30 Body mass index [BMI] 30.0-30.9, adult; Z88.0 Allergy status to penicillin; Z88.5 Allergy status to narcotic agent; Z88.8 Allergy status to other drugs, medicaments and biological substances; Z88.2 Allergy status to sulfonamides
CPT/HCPCS: 74176; 81001; 81025; 99284; A9270

== ENCOUNTER 2021-04-18 08:11 | Emergency (ER) | payer MEDICAID ==
[2021-04-18] MEDS ORDERED: Sodium Chloride 0.9% 2.5 ML Syringe FLUSH PRN (08:46)
[2021-04-18] MEDS ORDERED: Sodium Chloride 0.9% 10 ML Syringe FLUSH PRN (08:46)
[2021-04-18] MEDS ORDERED: HYDROmorphone 2 MG/ML Syringe IVPUSH ONE (08:48)
--- NOTE | 2021-04-18 08:50 | EDM.PDOC ---
ED HPI GENERAL MEDICAL PROBLEM - General Chief Complaint: Abdominal Pain Stated Complaint: pain on lft side Time Seen by Provider: 04/18/21 08:20 - History of Present Illness INITIAL COMMENTS - FREE TEXT/NARRATIVE: 30-year-old female with history of mild infrequent presentations to the ER for abdominal pain history of recurrent kidney stones presenting with sudden severe left lower quadrant abdominal pain radiating somewhat into the left lower flank. Patient reports symptoms started suddenly this morning. She reports that a few days ago she was seen by her [employer] and diagnosed with a left sided ovarian cyst. No fevers no dysuria hematuria no nausea or vomiting the pain radiates from the left lower quadrant more generally throughout the abdomen. No alleviating factors or other associated symptoms she denies vaginal bleeding or discharge she is unable to state when her last menstrual cycle was. Left Upper Abdomen Pain Score (Numeric/FACES): 10 - Related Data Allergies Allergy/AdvReac Type Severity Reaction Status Date / Time baclofen Allergy Headache Verified 04/18/21 08:19 codeine Allergy Hives Verified 04/18/21 08:19 metronidazole [From Flagyl] Allergy Hives Verified 04/18/21 08:19 morphine Allergy Airway Verified 04/18/21 08:19 Tightness Penicillins Allergy Hives Verified 04/18/21 08:19 Sulfa (Sulfonamide Allergy Hives Verified 04/18/21 08:19 Antibiotics) tramadol Allergy Headache Verified 04/18/21 08:19 Home Meds: Home Meds lamoTRIgine [Lamotrigine] 150 mg PO DAILY 04/21/20 [History] Cetirizine [ZyrTEC] 10 mg PO DAILY 11/01/20 [History] Cyclobenzaprine [Flexeril] 10 mg PO TID 11/01/20 [History] levoFLOXacin [Levaquin] 750 mg PO DAILY 5 Days #5 tab 04/18/21 [Rx] Past Medical History - Past Health History Medical/Surgical History: Denies Medical/Surgical History HEENT History: Reports: 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) Other HEENT History: top and bottom partial Cardiovascular History: Reports: Hypertension Respiratory History: Reports: Asthma, PE Other Respiratory History: PE 3 years ago Gastrointestinal History: Reports: GERD Genitourinary History: Reports: Renal Calculus, UTI, Recurrent [employer] History: Reports: Musculoskeletal History: Reports: Back Pain, Chronic Neurological History: Reports: None Psychiatric History: Reports: Anxiety, Depression Endocrine/Metabolic History: Reports: Obesity/BMI 30+, Vitamin D Deficiency 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 Hematologic History: Reports: Iron Deficiency Immunologic History: Reports: None Oncologic (Cancer) History: Reports: None Dermatologic History: Reports: None - Infectious Disease History Infectious Disease History: Reports: Chicken Pox - Past Surgical History Head Surgeries/Procedures: Reports: None HEENT Surgical History: Reports: Oral Surgery Other HEENT Surgeries/Procedures: teeth removal Cardiovascular Surgical History: Reports: None Respiratory Surgical History: Reports: None GI Surgical History: Reports: Appendectomy, Cholecystectomy Female Surgical History: Reports: Hysterectomy, Tubal Ligation, 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) Other Female Surgeries/Procedures: diagnostic laparoscopy Endocrine Surgical History: Reports: None Neurological Surgical History: Reports: None Musculoskeletal Surgical History: Reports: None Oncologic Surgical History: Reports: None Dermatological Surgical History: Reports: None Social & Family History - Family History Family Medical History: No Pertinent Family History - Tobacco Use Tobacco Use Status *Q: Current Every Day Tobacco User Years of Tobacco use: 15 Packs/Tins Daily: 1 - Caffeine Use Caffeine Use: Reports: Coffee - Recreational Drug Use Recreational Drug Use: Yes Recreational Drug Type: Reports: Marijuana/Hashish ED ROS GENERAL - Review of Systems Review Of Systems: See Below Free Text/Narrative/Comment: General: No fever. Skin: No rash. Eyes: No vision problems. ENT: No sore throat. Neck: No neck stiffness. Respiratory: No shortness of breath. Cardiac: No chest pain. Gastrointestinal: Per HPI Urinary: No dysuria. Musculoskeletal: No myalgias/arthralgias. Neurologic: No headache. ED EXAM, GENERAL - Physical Exam Exam: See Below Free Text/Narrative:: General Appearance: No acute distress, appears comfortable Skin: No rash HEENT: Normocephalic/atraumatic, sclera anicteric, mucous membranes moist Neck: Normal range of motion Chest and Lungs: Bilateral breath sounds, clear to auscultation Cardiovascular: Regular rate and rhythm Abdomen: Left lower quadrant tenderness without guarding or rebound Back: Normal Musculoskeletal: No edema or tenderness Neurologic: Awake, alert, no obvious deficits, moving all extremities Psychiatric: Appropriate, cooperative Course - Vital Signs Last Recorded V/S: Last Vital Signs Temp 96.9 F 04/18/21 08:23 Pulse 84 04/18/21 08:23 Resp 16 04/18/21 08:23 BP 138/90 04/18/21 08:23 Pulse Ox 100 04/18/21 08:23 - Orders/Labs/Meds Orders: Active Orders 24 hr Category Date Time Status Sodium Chloride 0.9% [Saline Flush] Med 04/18/21 08:46 Active 10 ml FLUSH ASDIRECTED PRN Sodium Chloride 0.9% [Saline Flush] Med 04/18/21 08:46 Active 2.5 ml FLUSH ASDIRECTED PRN Saline Lock Insert [OM.PC] Stat Oth 04/18/21 08:46 Ordered Medication Orders Sodium Chloride (Sodium Chloride 0.9% 10 Ml Syringe) 10 ml FLUSH ASDIRECTED PRN PRN Reason: Keep Vein Open Last Admin: 04/18/21 09:08 Dose: 10 ml Documented by: PABLO Sodium Chloride (Sodium Chloride 0.9% 2.5 Ml Syringe) 2.5 ml FLUSH ASDIRECTED PRN PRN Reason: Keep Vein Open Last Admin: 04/18/21 09:09 Dose: 2.5 ml Documented by: PABLO Labs: Laboratory Tests 04/18/21 04/18/21 04/18/21 Range/Units 09:10 09:10 09:10 WBC 12.13 H (4.0-11.0) K/uL RBC 4.16 L (4.30-5.90) M/uL Hgb 13.0 (12.0-16.0) g/dL Hct 38.5 (36.0-46.0) % MCV 92.5 (80.0-98.0) fL MCH 31.3 (27.0-32.0) pg MCHC 33.8 (31.0-37.0) g/dL RDW Std Deviation 43.8 (28.0-62.0) fl RDW Coeff of [place]ash[place] 13 (11.0-15.0) % Plt Count 321 (150-400) K/uL MPV 10.70 (7.40-12.00) fL Neut % (Auto) 79.3 (48.0-80.0) % Lymph % (Auto) 14.5 L (16.0-40.0) % [place] % (Auto) 4.6 (0.0-15.0) % Eos % (Auto) 1.4 (0.0-7.0) % Baso % (Auto) 0.2 (0.0-1.5) % Neut # (Auto) 9.6 H (1.4-5.7) K/uL Lymph # (Auto) 1.8 (0.6-2.4) K/uL [place] # (Auto) 0.6 (0.0-0.8) K/uL Eos # (Auto) 0.2 (0.0-0.7) K/uL Baso # (Auto) 0.0 (0.0-0.1) K/uL Nucleated RBC % 0.0 /100WBC Nucleated RBCs # 0 K/uL Sodium 140 (136-145) mmol/L Potassium 3.9 (3.5-5.1) mmol/L Chloride 105 (98-107) mmol/L Carbon Dioxide 21.6 (21.0-32.0) mmol/L BUN 20 H (7.0-18.0) mg/dL Creatinine 0.8 (0.6-1.0) mg/dL Est Cr Clr Drug Dosing 84.29 mL/min Estimated GFR (MDRD) > 60.0 ml/min Glucose 127 H (74-106) mg/dL Calcium 9.3 (8.5-10.1) mg/dL Total Bilirubin 0.2 (0.2-1.0) mg/dL AST 13 L (15-37) IU/L ALT 24 (14-63) IU/L Alkaline Phosphatase 59 (46-116) U/L Total Protein 8.1 (6.4-8.2) g/dL Albumin 4.0 (3.4-5.0) g/dL Globulin 4.1 H (2.6-4.0) g/dL Albumin/Globulin Ratio 1.0 (0.9-1.6) Lipase 61 L (73-393) U/L HCG, Qual NEGATIVE (NEG) Urine Color Urine Appearance Urine pH (5.0-8.0) Ur Specific [place] (1.001-1.035) Urine Protein (NEGATIVE) mg/dL Urine Glucose (UA) (NEGATIVE) mg/dL Urine Ketones (NEGATIVE) mg/dL Urine Occult Blood (NEGATIVE) Urine Nitrite (NEGATIVE) Urine Bilirubin (NEGATIVE) Urine Urobilinogen (<2.0) EU/dL Ur Leukocyte Esterase (NEGATIVE) Urine RBC (0-2/HPF) Urine WBC (0-5/HPF) Ur Epithelial Cells (NONE-FEW) Urine Bacteria (NEGATIVE) Urine HCG, Qual (NEGATIVE) 04/18/21 04/18/21 Range/Units 15:15 15:15 WBC (4.0-11.0) K/uL RBC (4.30-5.90) M/uL Hgb (12.0-16.0) g/dL Hct (36.0-46.0) % MCV (80.0-98.0) fL MCH (27.0-32.0) pg MCHC (31.0-37.0) g/dL RDW Std Deviation (28.0-62.0) fl RDW Coeff of [place] (11.0-15.0) % Plt Count (150-400) K/uL MPV (7.40-12.00) fL Neut % (Auto) (48.0-80.0) % Lymph % (Auto) (16.0-40.0) % [place] % (Auto) (0.0-15.0) % Eos % (Auto) (0.0-7.0) % Baso % (Auto) (0.0-1.5) % Neut # (Auto) (1.4-5.7) K/uL Lymph # (Auto) (0.6-2.4) K/uL [place] # (Auto) (0.0-0.8) K/uL Eos # (Auto) (0.0-0.7) K/uL Baso # (Auto) (0.0-0.1) K/uL Nucleated RBC % /100WBC Nucleated RBCs # K/uL Sodium (136-145) mmol/L Potassium (3.5-5.1) mmol/L Chloride (98-107) mmol/L Carbon Dioxide (21.0-32.0) mmol/L BUN (7.0-18.0) mg/dL Creatinine (0.6-1.0) mg/dL Est Cr Clr Drug Dosing mL/min Estimated GFR (MDRD) ml/min Glucose (74-106) mg/dL Calcium (8.5-10.1) mg/dL Total Bilirubin (0.2-1.0) mg/dL AST (15-37) IU/L ALT (14-63) IU/L Alkaline Phosphatase (46-116) U/L Total Protein (6.4-8.2) g/dL Albumin (3.4-5.0) g/dL Globulin (2.6-4.0) g/dL Albumin/Globulin Ratio (0.9-1.6) Lipase (73-393) U/L HCG, Qual (NEG) Urine Color YELLOW Urine Appearance CLEAR Urine pH 6.0 (5.0-8.0) Ur Specific [place] 1.010 (1.001-1.035) Urine Protein NEGATIVE (NEGATIVE) mg/dL Urine Glucose (UA) NEGATIVE (NEGATIVE) mg/dL Urine Ketones NEGATIVE (NEGATIVE) mg/dL Urine Occult Blood MODERATE H (NEGATIVE) Urine Nitrite NEGATIVE (NEGATIVE) Urine Bilirubin NEGATIVE (NEGATIVE) Urine Urobilinogen 0.2 (<2.0) EU/dL Ur Leukocyte Esterase NEGATIVE (NEGATIVE) Urine RBC 4-6 (0-2/HPF) Urine WBC 0-1 (0-5/HPF) Ur Epithelial Cells FEW (NONE-FEW) Urine Bacteria RARE (NEGATIVE) Urine HCG, Qual NEGATIVE (NEGATIVE) Meds: Medications Generic Name Dose Route Start Last Admin Trade Name Darshana PRN Reason Stop Dose Admin Sodium Chloride 10 ml 04/18/21 08:46 04/18/21 09:08 Sodium Chloride 0.9% 10 Ml Syringe FLUSH 10 ml ASDIRECTED PRN Administration Keep Vein Open Sodium Chloride 2.5 ml 04/18/21 08:46 04/18/21 09:09 Sodium Chloride 0.9% 2.5 Ml Syringe FLUSH 2.5 ml ASDIRECTED PRN Administration Keep Vein Open Discontinued Medications Generic Name Dose Route Start Last Admin Trade Name Freq PRN Reason Stop Dose Admin Hydromorphone HCl 0.5 mg 04/18/21 08:48 04/18/21 09:07 Hydromorphone 2 Mg/Ml Syringe IVPUSH 04/18/21 08:49 0.5 mg ONETIME ONE Administration Hydromorphone HCl 1 mg 04/18/21 09:36 04/18/21 09:42 Hydromorphone 1 Mg/Ml Syringe IVPUSH 04/18/21 09:37 1 mg ONETIME ONE Administration Hydromorphone HCl 1 mg 04/18/21 10:59 04/18/21 11:19 Hydromorphone 1 Mg/Ml Syringe IVPUSH 04/18/21 11:00 1 mg ONETIME ONE Administration Ketorolac Tromethamine 15 mg 04/18/21 15:02 04/18/21 15:07 Ketorolac 30 Mg/Ml Sdv IVPUSH 04/18/21 15:03 15 mg ONETIME ONE Administration Ondansetron HCl 4 mg 04/18/21 09:36 04/18/21 09:41 Ondansetron 4 Mg/2 Ml Sdv IVPUSH 04/18/21 09:37 4 mg ONETIME ONE Administration Ondansetron HCl 4 mg 04/18/21 14:58 04/18/21 15:03 Ondansetron 4 Mg/2 Ml Sdv IVPUSH 04/18/21 14:59 4 mg ONETIME ONE Administration Departure - Departure Time of Disposition: 15:52 Disposition: Home, Self-Care 01 Condition: Good Clinical Impression: Renal colic on left side - Discharge Information *PRESCRIPTION DRUG MONITORING PROGRAM REVIEWED*: Not Applicable *COPY OF PRESCRIPTION DRUG MONITORING REPORT IN PATIENT [place]: Not Applicable Prescriptions: levoFLOXacin [Levaquin] 750 mg PO DAILY 5 Days #5 tab Instructions: Renal Colic Referrals: Osei Rogel MD [Primary Care Provider] - Forms: ED Department Discharge Additional Instructions: Your CT scan today shows a 5 mm kidney stone lodged in your left distal ureter. This is the cause of your symptoms. I encourage you to follow-up with the urologist as soon as possible. Your urine sample did not show signs of infection. However your white blood cell count is mildly elevated and because it is possible to get quite ill from kidney stones that become infected I have sent a prescription for an antibiotic to the pharmacy. I encourage you to call your urologist today or tomorrow to arrange a follow-up appointment soon as possible. If your symptoms worsen or you have any other new symptoms or concern you please call your doctor or return to the ER. The following information is given to patients seen in the emergency department who are being discharged to home. This information is to outline your options for follow-up care. We provide all patients seen in our emergency department with a follow-up referral. The need for follow-up, as well as the timing and circumstances, are variable depending upon the specifics of your emergency department visit. If you don't have a primary care physician on staff, we will provide you with a referral. We always advise you to contact your personal physician following an emergency department visit to inform them of the circumstance of the visit and for follow-up with them and/or the need for any referrals to a consulting specialist. The emergency department will also refer you to a specialist when appropriate. This referral assures that you have the opportunity for follow-up care with a specialist. All of these measure are taken in an effort to provide you with optimal care, which includes your follow-up. Under all circumstances we always encourage you to contact your private physician who remains a resource for coordinating your care. When calling for follow-up care, please make the office aware that this follow-up is from your recent emergency room visit. If for any reason you are refused follow-up, please contact the [facility] Emergency Department at and asked to speak to the emergency department charge nurse. Sepsis Event Note (ED) - Evaluation Sepsis Screening Result: No Definite Risk - Focused Exam Vital Signs: Vital Signs Temp Pulse Resp BP Pulse Ox 04/18/21 08:23 96.9 F 84 16 138/90 100 - My Orders Last 24 Hours: My Active Orders 04/18/21 08:46 Sodium Chloride 0.9% [Saline Flush] 10 ml FLUSH ASDIRECTED PRN Sodium Chloride 0.9% [Saline Flush] 2.5 ml FLUSH ASDIRECTED PRN Saline Lock Insert [OM.PC] Stat - Assessment/Plan Last 24 Hours: My Active Orders 04/18/21 08:46 Sodium Chloride 0.9% [Saline Flush] 10 ml FLUSH ASDIRECTED PRN Sodium Chloride 0.9% [Saline Flush] 2.5 ml FLUSH ASDIRECTED PRN Saline Lock Insert [OM.PC] Stat Assessment:: 30-year-old female presenting with severe left lower quadrant pain. Given her prior history of ovarian cyst ovarian torsion needs to be excluded first and so CT pelvic ultrasound was ordered. Unfortunately this did not show either ovary. Patient was given IV pain medicine and was resting comfortably. CT scan shows an obstructing 5 mm left-sided distal ureteral stone which I believe is the cause of her symptoms. Minimal leukocytosis to 12 likely reactive but urinalysis pending. Patient normally follows with urologist in [place]. Will give Toradol.
[2021-04-18] MEDS ORDERED: HYDROmorphone 1 MG/ML Syringe IVPUSH ONE ×2 (09:36→10:59)
[2021-04-18] MEDS ORDERED: Ondansetron 4 MG/2 ML SDV IVPUSH ONE ×2 (09:36→14:58)
[2021-04-18 09:43] LABS: BLOOD UREA NITROGEN,BUN 20 mg/dL (7.0-18.0); CARBON DIOXIDE,CO2 21.6 mmol/L (21.0-32.0); CHLORIDE,CL 105 mmol/L (98-107); GLUCOSE RANDOM 127 mg/dL (74-106); LIPASE 61 U/L (73-393); POTASSIUM,K 3.9 mmol/L (3.5-5.1); SODIUM,NA 140 mmol/L (136-145)
--- NOTE | 2021-04-18 10:22 | US ---
INDICATION: Sudden onset of left lower quadrant pain. History of left ovarian cyst. TECHNIQUE: Transabdominal and transvaginal scanning was performed. Transvaginal scanning was performed to optimally evaluate the endometrium and adnexa. Ovarian blood flow was evaluated with color-flow and pulsed Doppler. COMPARISON: None. FINDINGS: The uterus has been removed. Neither ovary is visualized. No adnexal mass is evident. No free fluid is demonstrated. IMPRESSION: 1. Etiology of left lower quadrant pain not evident. 2. Neither ovary visualized. No adnexal abnormality demonstrated. 3. Post hysterectomy. Dictated by Ben Ashby MD @ 04/18/2021 10:21:38 AM (Electronically Signed)
--- NOTE | 2021-04-18 14:55 | CT ---
INDICATION: Left lower quadrant pain, tenderness, history of renal colic. TECHNIQUE: CT of the abdomen and pelvis with 100 cc Isovue 370 IV contrast. Coronal and sagittal reconstructions. COMPARISON: CT of the abdomen pelvis 02/12/2021. Pelvic ultrasound 04/18/2021. FINDINGS: The liver, spleen, pancreas, and adrenal glands are negative. Cholecystectomy. Mild intra and extrahepatic bile duct dilation likely related to post cholecystectomy state. Hepatic and portal veins are patent. There is a 5 mm obstructing stone in the distal left ureter with moderate upstream left hydroureteronephrosis, delayed left nephrogram, and prominent left perinephric fat stranding (series 201 image 139 and series 2 and 3, image 72). The stone is located approximately 4 cm above the ureterovesicular junction. Normal enhancement of the right kidney. Few small nonobstructing right renal caliceal stones. No right hydronephrosis or ureteral dilation. The bladder is normal in appearance. No bowel dilation. The appendix is not identified, however there are no secondary signs of inflammation in the right lower quadrant. No intraperitoneal free air. No lymphadenopathy. Hysterectomy. There is a 1.3 cm rim enhancing cystic lesion in the left adnexa which likely represents a corpus luteum (series 201, image 152). Small amount of free fluid in the left adnexa and pelvic cul-de-sac may be related to cyst rupture. Few stable bone islands. Mild bibasilar atelectasis. 2 mm noncalcified pulmonary nodule in the lateral right lower lobe (series 2, image 7). This is likely benign given patient`s age. IMPRESSION: 1. 5 mm obstructing stone in the distal left ureter with moderate left hydroureteronephrosis, delayed left nephrogram, and prominent left perinephric fat stranding. 2. Probable corpus luteum in the left ovary with adjacent free fluid. Please note that all CT scans at this facility use dose modulation, iterative reconstruction, and/or weight-based dosing when appropriate to reduce radiation dose to as low as reasonably achievable. Dictated by Huyen Porter MD @ 04/18/2021 2:53:21 PM (Electronically Signed)
[2021-04-18] MEDS ORDERED: Ketorolac 30 MG/ML SDV IVPUSH ONE (15:02)
[2021-04-18] MEDS ORDERED: Iopamidol 755 MG/ML 500 ML Multipack Bottle IVPUSH STA (16:18)
== END 2021-04-18 16:19 | disposition home or self-care (01) ==
LOC: MW.ED 08:11
DX: N23 Unspecified renal colic (principal); I10 Essential (primary) hypertension; E66.9 Obesity, unspecified; Z68.28 Body mass index [BMI] 28.0-28.9, adult; Z88.0 Allergy status to penicillin; Z88.2 Allergy status to sulfonamides; Z88.5 Allergy status to narcotic agent; Z88.8 Allergy status to other drugs, medicaments and biological substances; Z72.0 Tobacco use
CPT/HCPCS: 36415; 74177; 76856; 80053; 81001; 81025; 83690; 84703; 85025; 96374; 96375; 96376; 99284; J1170; J1885; J2405; Q9967

== ENCOUNTER 2021-09-07 23:05 | Emergency (ER) | payer MEDICAID ==
[2021-09-08] MEDS ORDERED: oxyCODONE 5 MG Tab PO ONE
[2021-09-08 00:55] LABS: BLOOD UREA NITROGEN,BUN 21 mg/dL (7.0-18.0); CARBON DIOXIDE,CO2 21.4 mmol/L (21.0-32.0); CHLORIDE,CL 104 mmol/L (98-107); GLUCOSE RANDOM 103 mg/dL (74-106); LIPASE 53 U/L (73-393); POTASSIUM,K 4.1 mmol/L (3.5-5.1); SODIUM,NA 138 mmol/L (136-145)
[2021-09-09 11:07] LABS: C.TRACHOMATIS BY TMA Negative (Negative); N.GONORRHOEAE BY TMA Negative (Negative)
== END 2021-09-08 01:59 | disposition home or self-care (01) ==
LOC: MW.ED 23:05
DX: R10.31 Right lower quadrant pain (principal); R10.32 Left lower quadrant pain; E66.9 Obesity, unspecified; Z68.26 Body mass index [BMI] 26.0-26.9, adult; Z88.5 Allergy status to narcotic agent; Z88.0 Allergy status to penicillin; Z88.2 Allergy status to sulfonamides; Z88.8 Allergy status to other drugs, medicaments and biological substances
CPT/HCPCS: 36415; 74176; 80053; 81001; 81025; 83690; 85025; 87491; 87591; 99284; A9270

== ENCOUNTER 2021-10-29 02:19 | Emergency (ER) | payer MEDICAID ==
[2021-10-29] MEDS ORDERED: diphenhydrAMINE 50 MG/ML SDV IVPUSH ONE (02:29)
[2021-10-29] MEDS ORDERED: methylPREDNISolone Sodium Succinate 125 MG/2 ML SDV IVPUSH ONE (02:30)
== END 2021-10-29 03:48 | disposition home or self-care (01) ==
LOC: MW.ED 02:19
DX: L50.9 Urticaria, unspecified (principal); E66.9 Obesity, unspecified; Z68.26 Body mass index [BMI] 26.0-26.9, adult; Z88.5 Allergy status to narcotic agent; Z88.0 Allergy status to penicillin; Z88.8 Allergy status to other drugs, medicaments and biological substances
CPT/HCPCS: 96374; 96375; 99283; J1200; J2930

== ENCOUNTER 2021-11-09 18:29 | Emergency (ER) | payer MEDICAID ==
[2021-11-09] MEDS ORDERED: Clindamycin HCl 150 MG Cap PO STA (19:01)
[2021-11-09] MEDS ORDERED: Ondansetron 4 MG Tab.DIS PO ONE (19:24)
== END 2021-11-09 19:47 | disposition home or self-care (01) ==
LOC: MW.ED 18:29
DX: J02.9 Acute pharyngitis, unspecified (principal); I10 Essential (primary) hypertension; E66.9 Obesity, unspecified; Z68.26 Body mass index [BMI] 26.0-26.9, adult; Z88.5 Allergy status to narcotic agent; Z88.0 Allergy status to penicillin; Z88.2 Allergy status to sulfonamides; Z88.8 Allergy status to other drugs, medicaments and biological substances
CPT/HCPCS: 87651; 99283; A9270

== ENCOUNTER 2022-02-06 20:26 | Emergency (ER) | payer MEDICAID ==
[2022-02-06] MEDS ORDERED: Ondansetron 4 MG Tab.DIS PO ONE (21:01)
[2022-02-06] MEDS ORDERED: Ketorolac 60 MG/2 ML SDV IM ONE (21:03)
[2022-02-06 21:44] LABS: CARBON DIOXIDE,CO2 18.5 mmol/L (21.0-32.0); POTASSIUM,K 3.8 mmol/L (3.5-5.1)
== END 2022-02-07 00:15 | disposition home or self-care (01) ==
LOC: MW.ED 20:26
DX: R10.2 Pelvic and perineal pain (principal); I10 Essential (primary) hypertension; F17.210 Nicotine dependence, cigarettes, uncomplicated; E66.9 Obesity, unspecified; Z68.26 Body mass index [BMI] 26.0-26.9, adult; Z88.8 Allergy status to other drugs, medicaments and biological substances; Z88.5 Allergy status to narcotic agent; Z88.6 Allergy status to analgesic agent; Z88.1 Allergy status to other antibiotic agents; Z88.0 Allergy status to penicillin; Z79.899 Other long term (current) drug therapy; Z90.49 Acquired absence of other specified parts of digestive tract; Z90.710 Acquired absence of both cervix and uterus
CPT/HCPCS: 36415; 74176; 80053; 81003; 81025; 85025; 96372; 99284; A9270; J1885; 99283

== ENCOUNTER 2022-09-25 21:42 | Emergency (ER) | payer MEDICAID ==
[2022-09-25] MEDS ORDERED: Lidocaine 2% Viscous Solution 100 ML Bottle PO ONE (22:29)
[2022-09-25] MEDS ORDERED: Lidocaine 2% Viscous Solution 15 ML UD ONE (22:44)
== END 2022-09-25 22:55 | disposition home or self-care (01) ==
LOC: MW.ED 21:42
DX: K02.9 Dental caries, unspecified (principal); I10 Essential (primary) hypertension; E66.9 Obesity, unspecified; Z68.26 Body mass index [BMI] 26.0-26.9, adult; Z88.5 Allergy status to narcotic agent; Z88.2 Allergy status to sulfonamides; Z88.0 Allergy status to penicillin; Z88.8 Allergy status to other drugs, medicaments and biological substances; Z88.1 Allergy status to other antibiotic agents
CPT/HCPCS: 99282; A9270-GY

== ENCOUNTER 2023-03-01 08:20 | Emergency (ER) | payer MEDICAID ==
[2023-03-01] MEDS ORDERED: Sodium Chloride 0.9% 10 ML Syringe FLUSH PRN (09:18)
[2023-03-01] MEDS ORDERED: Sodium Chloride 0.9% 2.5 ML Syringe FLUSH PRN (09:18)
[2023-03-01 10:03] LABS: BASOPHILS PERCENT AUTO 0.3 % (0.0-1.5); EOSINOPHILS ABSOLUTE AUTO 0.1 K/uL (0.0-0.7); EOSINOPHILS PERCENT AUTO 3.1 % (0.0-7.0); HEMATOCRIT 33.4 % (36.0-46.0); HEMOGLOBIN 11.3 g/dL (12.0-16.0); LYMPHOCYTES ABSOLUTE AUTO 1.8 K/uL (0.6-2.4); LYMPHOCYTES PERCENT AUTO 46.2 % (16.0-40.0); MEAN CORPUSCULAR HGB CONC 33.8 g/dL (31.0-37.0); MEAN CORPUSCULAR VOLUME 91.5 fL (80.0-98.0); MONOCYTES ABSOLUTE AUTO 0.2 K/uL (0.0-0.8); MONOCYTES PERCENT AUTO 6.1 % (0.0-15.0); NEUTROPHILS ABSOLUTE AUTO 1.7 K/uL (1.4-5.7); NEUTROPHILS PERCENT AUTO 44.3 % (48.0-80.0); NRBC ABSOLUTE 0 K/uL; PLATELET COUNT,PLT 223 K/uL (150-400); RED BLOOD CELL COUNT 3.65 M/uL (4.30-5.90); WHITE BLOOD CELL COUNT,WBC 3.92 K/uL (4.0-11.0)
[2023-03-01 10:50] LABS: A/G RATIO 1.1 (0.9-1.6); ALBUMIN 3.7 g/dL (3.4-5.0); BILIRUBIN TOTAL 0.2 mg/dL (0.2-1.0); CALCIUM 8.8 mg/dL (8.5-10.1); CARBON DIOXIDE,CO2 21.5 mmol/L (21.0-32.0); CREATININE 0.7 mg/dL (0.6-1.0); EST CRCL DRUG DOSING (CG) 94.56 mL/min; POTASSIUM,K 4.1 mmol/L (3.5-5.1); TSH ULTRASENSITIVE 1.34 uIU/mL (0.36-3.74)
== END 2023-03-01 11:38 | disposition home or self-care (01) ==
LOC: MW.ED 08:20
DX: R42 Dizziness and giddiness (principal); Z88.5 Allergy status to narcotic agent; Z88.0 Allergy status to penicillin; Z88.2 Allergy status to sulfonamides; Z88.6 Allergy status to analgesic agent; Z88.1 Allergy status to other antibiotic agents
CPT/HCPCS: 36415; 70450; 80053; 84443; 84484; 85025; 85379; 93005; 99284; J3490; 93010; 99282

== ENCOUNTER 2023-04-18 07:32 | Day surgery (SDC) | payer MEDICAID ==
[~2023-04-18 07:32] MED LIST changes: -Betamethasone Acetate/Betamethasone Sod Phosphate 30 MG/5 ML MDV EPIDUR ONE; -Iopamidol 200-M 10 ML vial ITHECAL ONE; +Lactated Ringers 1,000 ML IV SCH; -Lidocaine 2% 5 ML SDV INJECT ONE; -Ropivacaine 0.5% 5 MG/ML 30 ML SDV INJECT ONE; +Sodium Chloride 0.9% 10 ML Syringe FLUSH PRN; +Sodium Chloride 0.9% 2.5 ML Syringe FLUSH PRN; +Sodium Chloride 0.9% 20 ML SDV IV PRN
[2023-04-18] MEDS ORDERED: Propofol 200 MG/20 ML SDV ONE (08:38)
[2023-04-18] MEDS ORDERED: Lidocaine 2% 5 ML SDV ONE (09:41)
== END 2023-04-18 10:24 | disposition home or self-care (01) ==
LOC: MW.SDS 07:32
PROVIDERS: ATTEND Surgery
DX: K21.9 Gastro-esophageal reflux disease without esophagitis (principal); K31.89 Other diseases of stomach and duodenum; K29.50 Unspecified chronic gastritis without bleeding; F41.9 Anxiety disorder, unspecified; F32.A Depression, unspecified; E55.9 Vitamin D deficiency, unspecified; I10 Essential (primary) hypertension; F17.210 Nicotine dependence, cigarettes, uncomplicated; M54.9 Dorsalgia, unspecified; J45.909 Unspecified asthma, uncomplicated; Z88.0 Allergy status to penicillin; Z88.2 Allergy status to sulfonamides; Z88.5 Allergy status to narcotic agent; Z88.8 Allergy status to other drugs, medicaments and biological substances; Z79.899 Other long term (current) drug therapy; Z98.890 Other specified postprocedural states; G89.29 Other chronic pain
CPT/HCPCS: 43239; 81025; J2704; J7120; J3490

== ENCOUNTER 2025-02-04 19:12 | Emergency (ER) | payer MEDICAID ==
[2025-02-04] MEDS ORDERED: Sodium Chloride 0.9% 2.5 ML Syringe FLUSH PRN (19:48)
[2025-02-04] MEDS ORDERED: Sodium Chloride 0.9% 10 ML Syringe FLUSH PRN (19:48)
[2025-02-04 20:02] LABS: BASOPHILS ABSOLUTE AUTO 0.05 K/uL (0.00-0.20); BASOPHILS PERCENT AUTO 0.6 % (0.0-1.0); EOSINOPHILS ABSOLUTE AUTO 0.27 K/uL (0.00-0.45); EOSINOPHILS PERCENT AUTO 3.2 % (0.0-6.0); IMMATURE GRAN ABSOLUTE AUTO 0.01 K/uL (0.00-0.05); IMMATURE GRAN PERCENT AUTO 0.1 % (0.0-0.4); LYMPHOCYTES ABSOLUTE AUTO 2.93 K/uL (1.00-4.80); LYMPHOCYTES PERCENT AUTO 34.3 % (24.0-44.0); MEAN PLATELET VOLUME 9.9 fL (9.4-12.3); MONOCYTES ABSOLUTE AUTO 0.49 K/uL (0.00-0.80); MONOCYTES PERCENT AUTO 5.7 % (0.0-8.0); NEUTROPHILS ABSOLUTE AUTO 4.80 K/uL (1.80-7.70); NEUTROPHILS PERCENT AUTO 56.1 % (41.0-71.0); NRBC ABSOLUTE 0.00 K/uL (0.00-0.02); NRBC PERCENT 0.0 /100WBC (0.0-0.2); PLATELET COUNT,PLT 289 K/uL (150-400); RED BLOOD CELL COUNT 3.67 M/uL (4.10-5.30); WHITE BLOOD CELL COUNT,WBC 8.55 K/uL (3.9-11.3)
[2025-02-04] MEDS: Alum Hydrox/Mag Hydrox/Simeth 15 ML, Lidocaine 2% 5 ML PO ONE (20:05)
[2025-02-04 20:13] LABS: A/G RATIO 1.2 (0.9-1.6); ALANINE AMINOTRANSFERASE,ALT 59.0 IU/L (14-63); ASPARTATE AMNIOTRANSFERASE,AST 31.0 IU/L (15-37); BILIRUBIN TOTAL 0.2 mg/dL (0.2-1.0); BLOOD UREA NITROGEN,BUN 11.0 mg/dL (7.0-18.0); CARBON DIOXIDE,CO2 20.8 mmol/L (21.0-32.0); CHLORIDE,CL 105.0 mmol/L (98-107); CREATININE 0.9 mg/dL (0.6-1.0); EST CRCL DRUG DOSING (CG) 72.17 mL/min; ESTIMATED GFR 86.0 mL/min (>60); GLUCOSE RANDOM 107.0 mg/dL (74-106); POTASSIUM,K 3.6 mmol/L (3.5-5.1); PROTEIN TOTAL,TP 7.1 g/dL (6.4-8.2); SODIUM,NA 139.0 mmol/L (136-145)
[2025-02-04 20:16] LABS: APPEARANCE,URINE CLEAR; GLUCOSE,URINE NEGATIVE (NEGATIVE); OCCULT BLOOD,URINE NEGATIVE (NEGATIVE)
[2025-02-04] MEDS: Iopamidol 755 MG/ML 500 ML Multipack Bottle IVPUSH ONE (20:18)
== END 2025-02-05 00:26 | disposition home or self-care (01) ==
LOC: MW.ED 19:12
DX: K92.1 Melena (principal); R10.84 Generalized abdominal pain; J45.909 Unspecified asthma, uncomplicated; K21.9 Gastro-esophageal reflux disease without esophagitis; Z90.710 Acquired absence of both cervix and uterus; Z88.5 Allergy status to narcotic agent; Z88.8 Allergy status to other drugs, medicaments and biological substances; Z88.0 Allergy status to penicillin; Z88.2 Allergy status to sulfonamides; Z79.51 Long term (current) use of inhaled steroids; Z79.899 Other long term (current) drug therapy
CPT/HCPCS: 36415; 74177; 80053; 81003; 83690; 84703; 85025; 96360; 99285; A9270; J3490; J7030; Q9967; 99284